=== PATIENT | male | born 1960 | race Caucasian/White ===

== ENCOUNTER → 2018-09-22 | Outpatient (CLI) | payer BC, SELFPAY ==
--- NOTE | 2018-09-22 09:25 | RAD_ITS ---
HISTORY: PAIN NKI COMPARISON: None FINDINGS: # of images incl. paperwork: 3 XR Wrist Min 3 Views : No fracture or subluxation. No osseous or soft tissue abnormality. The carpal bones have a normal appearance. The distal radius and ulna are unremarkable. No evidence of radiopaque foreign body. RAD/Wrist min 3 Views IMPRESSION: Normal left wrist. at 0020 Reported and signed by: Jarred Dukes MD Electronically Signed: Jarred Dukes MD at 0:19 EDT Tel , Service support ,
--- NOTE | 2018-09-22 09:35 | RAD_ITS ---
HISTORY: PAIN NKI COMPARISON: None FINDINGS: # of images incl. paperwork: 3 XR Wrist Min 3 Views : No fracture or subluxation. No osseous or soft tissue abnormality. The carpal bones have a normal appearance. The distal radius and ulna are unremarkable. No evidence of radiopaque foreign body. RAD/Wrist min 3 Views IMPRESSION: Normal right wrist. at 0020 Reported and signed by: Jarred Dukes MD Electronically Signed: Jarred Dukes MD at 0:19 EDT Tel , Service support ,
== END | disposition home or self-care (01) ==
LOC: RAD 09:23
PROVIDERS: Family Provider Family Medicine; PCP Family Medicine; Referring Provider Family Medicine; Visit Provider Family Medicine
DX: M25.531 Pain in right wrist (principal); M25.532 Pain in left wrist
CPT/HCPCS: 73110

== ENCOUNTER → 2020-01-24 11:03 | Outpatient (CLI) | payer BC, SELFPAY ==
[2020-01-24 11:49] LABS: Absolute Lymphocyte Count 1.11 X10^3/uL (0.83-4.51); Absolute Neutrophil Count 4.4 X10^3/uL (2.0-7.7); Basophil# 0.03 X10^3/uL; Basophil% 0.5 % (0-1); Eosinophil# 0.07 X10^3/uL; Eosinophils% 1.1 % (0-5); Hematocrit 45.8 % (40-54); Hemoglobin 14.8 g/dL (13.0-16.5); Lymphocyte # 1.11 X10^3/ul (4.0); Lymphocyte % 17.8 % (19-41); Mean Corp Hgb Conc 32.3 g/dL (32-36); Mean Corpuscular Hgb 31.3 pg (27.0-32.0); Mean Corpuscular Volume 96.8 fL (80-94); Mean Platelet Vol. 10.1 fl (6.2-12.0); Monocyte# 0.56 X10^3/uL; NRBC Flagged by Analyzer 0 % (0-5); Neutrophil # 4.43 X10^3/uL (2.7-7.7); Neutrophil % 71.1 % (47-70); Platelet Count 228 K/mm3 (150-450); RBC Distribution Width CV 12.3 % (11.6-14.6); Red Blood Count 4.73 M/mm3 (4.6-6.2); White Blood Count 6.2 K/mm3 (4.4-11.0)
[2020-01-24 12:33] LABS: ALB/GLOB Ratio 1.2 RATIO (0.9-2.4); AST(SGOT) 22 U/L (15-37); Alanine Aminotransfer ALT/SGPT 44 U/L (16-61); Albumin, Serum 4.1 g/dL (3.2-5.0); Alkaline Phosphatase 62 U/L (45-117); Anion Gap 9 (5-15); BUN 11 mg/dL (7-18); BUN/Creat Ratio 11.8 RATIO (10-20); Calcium,Total 8.7 mg/dL (8.5-10.1); Chloride 103 mmol/L (98-107); Cholesterol 244 mg/dL (200); Creatinine, Serum 0.93 mg/dL (0.70-1.30); EST Glomerular Filtration Rate 89 mL/min (>60); Est Glom Filt Rate - Afr Amer 108 mL/min (>60); Globulin 3.5 g/dL (2.2-4.2); Glucose 101 mg/dL (74-106); High Density Lipoprotein 73 mg/dL; PSA,Total - Annual Screen 3.91 ng/mL (0.00-4.00); Potassium 4.5 mmol/L (3.5-5.1); Protein, Total 7.6 g/dL (6.4-8.2); Sodium Level 140 mmol/L (136-145); Triglycerides 76 mg/dL; Very Low Density Lipoprotein 15 mg/dL (5-40)
== END ==
PROVIDERS: PCP Family Medicine; Visit Provider Family Medicine
DX: Z00.00 Encounter for general adult medical examination without abnormal findings (principal); Z12.5 Encounter for screening for malignant neoplasm of prostate
CPT/HCPCS: 36415; 80053; 80061; 84153; 85025; G0103

== ENCOUNTER 2020-07-04 10:17 | Outpatient (RCR) | payer BC, SELFPAY ==
[2020-06-21] MEDS: COVID-19 VACC, MRNA(PFIZER)/PF 30 MCG/0.3 ML SYRINGE IM (06:58)
[2020-07-12] MEDS: COVID-19 VACC, MRNA(PFIZER)/PF 30 MCG/0.3 ML SYRINGE IM (07:04)
== END 2020-09-11 23:59 ==
LOC: IMMUN 10:17
PROVIDERS: PCP Family Medicine; Visit Provider Family Medicine
DX: Z23 Encounter for immunization (principal)
CPT/HCPCS: 0001A; 0002A; 91300

== ENCOUNTER → 2021-02-01 09:33 | Outpatient (CLI) | payer BC, SELFPAY ==
--- NOTE | 2021-02-01 10:03 | STEWCON_ITS ---
Reason For Study: Chest Pain Stress Results Protocol: Cullen Protocol WITH DEFINITY Maximum Predicted HR: 162 bpm Target HR: 138 bpm % Maximum Predicted HR: 101 % DurationHeart Rate Stage (mm:ss) (bpm) BP Comment Baseline 68 148/92No Chest Pain; 4 ML Diluted Definity Cullen Protocol Stage I 3:00 108 184/90No Chest Pain Cullen Protocol Stage II 3:00 134 178/90No Chest Pain Cullen Protocol Stage III 3:00 155 186/90No Chest Pain; Mild Dyspnea Cullen Protocol Stage IV 1:00 164 / No Chest Pain; Mild Dyspnea Recovery 94 150/94No Chest Pain; No Dyspnea Stress Duration: 10:00 mm:ss Maximum Stress HR: 164 bpm METS: 13 Baseline Echocardiogram Findings Stress Echo Wall motion Data Resting WM Intermediate WM Stress WM ECHO/Stress Test Echo W/Contrast Interpretation Summary Exercise stress echo. 60-year-old male with a history of chest pain. Stress protocol: Resting EKG demonstrates normal sinus rhythm with a rate of 66 bpm normal inter vals are noted resting blood pressure is 148/92 mmHg. The patient exercised according to regul ar Cullen protocol for total duration of 10 minutes. Patient completed 1 minute into stage IV of the B ruce protocol. The maximum heart rate attained was 190 bpm which was 117% of max infected heart ra te the maximum workload was 13.4 metabolic equivalents. At rest there were no ST or T wave elvin nges noted to suggest ischemia and at peak exercise upsloping ST changes were noted with did not meet the criteria for ischemia. The patient did experience mild dyspnea during the exercise. The peak blood pressure was 220/90 mmHg. No clinical angina was noted the test was terminated due to leg fa tigue. Stress echocardiographic images. Resting and stress echocardiographic images were performed. The resting echocar diogram was performed with Definity and demonstrated an ejection fraction of 60%. No wall motion abno rmalities were present. At peak exercise there was thickening of all vital and reduction in lo w ventricular cavity size with peaking of ejection fraction approximately 70%. No wall motion abnorm alities were noted to suggest ischemia. Conclusion: Exercise stress test with no EKG criteria for ischemia at a high workload. Good functional capacity. Resting and stress echographic images with normal imaging. Ordering Physician: Dane Yoder Referring Physician: Timmy Garzon Performed By: Aixa Zapata, LIAT, RVT
== END ==
PROVIDERS: PCP Family Medicine; Referring Provider Family Medicine; Visit Provider Family Medicine
DX: R07.9 Chest pain, unspecified (principal)
CPT/HCPCS: 93017; 93350; Q9957; A4216; C8928; J3490

== ENCOUNTER → 2022-06-06 | Outpatient (CLI) | payer BC, SELFPAY ==
--- NOTE | 2022-06-06 16:21 | RAD_ITS ---
INDICATION: LOW BACK PAIN EXAMINATION/TECHNIQUE: X-RAY - XR Spine Lumbar Min 4 Views COMPARISON: None. FINDINGS: VERTEBRAE: Vertebral body heights well-maintained. Schmorl''s nodes are seen at the upper endplate of L3, L2, L1, and inferior endplate of T12 question Scheuermann''s disease. Mild diffuse anterior osteophyte formation. Moderate loss of disc space height at L4-S1. INCLUDED ABDOMEN: Included bowel gas pattern is non-obstructive. RAD/L/S Spine Min 4 Views IMPRESSION: Degenerative changes as above. Electronically Signed: Dane Newman MD, FILIPPO at 17:10 EST ,
== END | disposition home or self-care (01) ==
LOC: MTRAD 16:16
PROVIDERS: PCP Family Medicine; Referring Provider Family Medicine; Visit Provider Family Medicine
DX: M54.50 Low back pain, unspecified (principal)
CPT/HCPCS: 72110

== ENCOUNTER → 2024-08-15 | Outpatient (CLI) | payer OTHER, SELFPAY ==
--- NOTE | 2024-08-15 07:33 | VDLE_ITS ---
Reason For Study Reason For Study: Bilateral leg pain RIGHT LEFT CFV is compressible, spontaneous, phasic, competent CFV is compressible, spontaneous, phasic, competent, and demonstrates normal augmentation. and demonstrates normal augmentation. FV is compressible, spontaneous, phasic, competent FV is compressible, spontaneous, phasic, competent and demonstrates normal augmentation. and demonstrates normal augmentation. POP V is compressible, phasic, and INCOMPETENT for POP V is compressible, spontaneous, phasic, competent greater than 1.0 second. and demonstrates normal augmentation. T/P Trunk is compressible. T/P Trunk is compressible. PTV is compressible. PTV is compressible. RT PerV is compressible. LT PerV is compressible. SFJ is competent and measures 0.38 cm. SFJ is competent and measures 0.54 cm. GSV is absent, s/p EVLA. GSV and SSV are abesent, s/p EVLA GSV distal calf measures 0.12 x 0.14 cm and is GSV mid calf measures 0.16x 0.16 cm and is competent. INCOMPETENT for greater than 0.5 seconds. SSV mid calf is competent and measures 0.45 x 0.50 INCOMPETENT varicose veins noted in the prox-distal cm. calf. Unable to see origin. INCOMPETENT clinical material handler noted at mid SSV. INCOMPETENT clinical material handler noted at the posteror mid calf INCOMPETENT varicose veins noted at the posterior mid that connects to varicose veins in posterior calf. thigh that originate from prox thigh. ASV from junction measures 0.12 x 0.15 cm and becomes Procedure INCOMPETENT at prox thigh that then measures 0.39 cm. This is a venous duplex using B-mode, color flow and Wraps posterior to thigh and extends down to calf spectral Doppler. varicose veins. Exam performed in department. Patient was scanned in reverse Trendelenburg position during reflux assessment. VL/Venous Duplex US - [place] Extrem Interpretation Summary Deep veins of the bilateral lower extremities are patent and compressible segme ntally. There is no evidence of bilateral lower extremity deep vein thrombosis. The bilateral great saphenous veins appea r patent and compressible segmentally. Positive for reflux in the right popliteal vein, calf perofrator at small saphe nous vein, and in thigh varicose veins. Positive for reflux in the left great saphenous vein in the thigh, calf varicos ities, posterior mid calf clinical material handler, accessory saphenous from junction. Ordering Physician: Gabrielle Grover Referring Physician: Dane Yoder Performed By: Lilly Talley RVT
== END | disposition home or self-care (01) ==
PROVIDERS: PCP Family Medicine; Referring Provider Physician Assistant; Visit Provider Physician Assistant
DX: I83.813 Varicose veins of bilateral lower extremities with pain (principal)
CPT/HCPCS: 93970

== ENCOUNTER → 2024-09-16 | Outpatient (CLI) | payer OTHER, SELFPAY ==
[2024-09-16 17:46] LABS: Absolute Lymphocyte Count 1.81 X10^3/uL (0.83-4.51); Absolute Neutrophil Count 5.5 X10^3/uL (2.0-7.7); Basophil# 0.04 X10^3/uL; Basophil% 0.5 % (0-1); Eosinophil# 0.16 X10^3/uL; Eosinophils% 1.9 % (0-5); Hematocrit 44.7 % (40-54); Hemoglobin 14.8 g/dL (13.0-16.5); Lymphocyte # 1.81 X10^3/ul (0.83-4.51); Lymphocyte % 21.6 % (19-41); Mean Corp Hgb Conc 33.1 g/dL (32-36); Mean Corpuscular Hgb 31.7 pg (27.0-32.0); Mean Corpuscular Volume 95.7 fL (80-94); Mean Platelet Vol. 10.5 fl (6.2-12.0); Monocyte# 0.76 X10^3/uL; Monocyte% 9.1 % (0-10); NRBC Flagged by Analyzer 0 % (0-5); Neutrophil # 5.46 X10^3/uL (2.7-7.7); Platelet Count 246 K/mm3 (150-450); RBC Distribution Width SD 44.8 fl (35.1-43.9); Red Blood Count 4.67 M/mm3 (4.6-6.2); White Blood Count 8.4 K/mm3 (4.4-11.0)
[2024-09-16 18:00] LABS: ALB/GLOB Ratio 1.7 RATIO (0.9-2.4); AST(SGOT) 20 U/L (<=37); Alanine Aminotransfer ALT/SGPT 26 U/L (<=46); Albumin, Serum 4.5 g/dL (3.4-4.8); Alkaline Phosphatase 60 U/L (40-129); Anion Gap 13 (5-15); BUN 12 mg/dL (4-19); BUN/Creat Ratio 13.2 RATIO (10-20); Calcium,Total 9.3 mg/dL (7.6-11.0); Carbon Dioxide 24.7 mmol/L (21.0-32.0); Chloride 103 mmol/L (98-108); Cholesterol 226 mg/dL (<=200); Creatinine, Serum 0.94 mg/dL (0.70-1.20); EST Glomerular Filtration Rate 91 (>60); Globulin 2.7 g/dL (2.2-4.2); Glucose 68 mg/dL (70-99); High Density Lipoprotein 62 mg/dL; Low Density Lipoprotein Calc. 144 mg/dL; PSA,Total - Annual Screen 7.19 ng/mL (0.02-4.00); Potassium 3.9 mmol/L (3.3-5.1); Protein, Total 7.1 g/dL (5.9-8.4); Sodium Level 141 mmol/L (133-145); Total Bilirubin 0.56 mg/dL (0.00-1.30); Triglycerides 104 mg/dL; Very Low Density Lipoprotein 21 mg/dL (5-40); cholesterol:hdl ratio screen 3.67
== END | disposition home or self-care (01) ==
LOC: MTLAB 15:03
PROVIDERS: PCP Family Medicine; Referring Provider Family Medicine; Visit Provider Family Medicine
DX: Z00.00 Encounter for general adult medical examination without abnormal findings (principal); Z12.5 Encounter for screening for malignant neoplasm of prostate; Z82.49 Family history of ischemic heart disease and other diseases of the circulatory system
CPT/HCPCS: 36415; 80053; 80061; 83695; 84153; 85025; G0103

== ENCOUNTER → 2024-10-06 | Outpatient (CLI) | payer OTHER, SELFPAY ==
[2024-10-09 08:07] LABS: PSA, Free 1.08 ng/mL; PSA, Free % 17.6 % (.); PSA, Total Ultrasensitive 6.150 ng/mL (0.000-4.000)
== END | disposition home or self-care (01) ==
LOC: LAB 08:45
PROVIDERS: PCP Family Medicine; Referring Provider Urology; Visit Provider Urology
DX: R97.20 Elevated prostate specific antigen [PSA] (principal)
CPT/HCPCS: 36415; 84153; 84154

== ENCOUNTER 2024-10-20 08:31 | Day surgery (SDC) | payer OTHER, SELFPAY ==
[2024-10-19 08:13] VITALS: BMI 27.9
--- OUTSIDE RECORDS SUMMARY | 2024-10-20 09:14 | XMS RPT_ITS | CCD ---
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 Dane Yoder DO Primary Care Provider [phone] Dr. Dane Yoder DO Referring Provider [phone] Gabrielle Graves Attending Provider Gabrielle Graves Referring Provider Madhu MALIK, Dr. Mauricio Attending Provider [phone] Dr. Dane Yoder DO Attending Provider Etelvina MALIK, Dr. Jaiden Carrion Attending Provider [phone] Etelvina MALIK, Dr. Jaiden Carrion Referring Provider Gabrielle Grover Attending Unavailable Grover, Gabrielle Referring Unavailable Paresh, Dane Primary Care Unavailable Hang Leung Attending Unavailable Hang Leung Referring Unavailable Paresh, Dane Primary Care Unavailable Jaiden Main Attending Unavailable EtelvinaJaiden Referring Unavailable Paresh, Dane Primary Care Unavailable Grover, Gabrielle Attending Unavailable Paresh, Dane Referring Unavailable Paresh, Dane Primary Care Unavailable Grover, Gabrielle Attending Unavailable Paresh, Dane Referring Unavailable Paresh, Dane Primary Care Unavailable Hang Leung Attending Unavailable Paresh, Dane Primary Care Unavailable Paresh, Dane Attending Unavailable Paresh, Dane Referring Unavailable Paresh, Dane Primary Care Unavailable Paresh, Dane Attending Unavailable Paresh, Dane Primary Care Unavailable MadhuHang Attending Unavailable Paresh, Dane Primary Care Unavailable Grover, Gabrielle Referring Unavailable Medications Completed/Discontinued Medications Medication Drug Class(es) Dates Sig (Normalized) Sig (Original) acetaminophen 325 mg / oxyCODONE hydrochloride 5 mg oral tablet (5 sources) Opioid Agonist Start: 12-17-2013 End: 07-20-2024 Oxycodone-Acetamino phen 1 TABLET tablet Discontinued 1 - 2 {tbl} PO EVERY 6 HOURS NEEDED as needed for Pain March 22, 2013 1:00am July 20, 2024 11:11am Start: 03-22-2013 take 1 tablet by eligio th every six hours as needed Oxycodone-Acetaminophen Active 1 - 2 TABLET PO EVERY 6 HOURS NEEDED March 22, 2013 12:00am omeprazole 20 mg delayed release oral capsule (5 sources) Proton Pump Inhibitor Start: 03-18-2013 End: 07-20-2024 take 1 capsule by mouth once daily Omeprazole 20 MG capsule Discontinued 20 mg PO DAILY March 18, 2013 1:00am July 20, 2024 11:11am Problems Problem Classification Problem Date Documented Date Episodic/Chronic Other diseases of veins and lymphatics (10 sources) Vascular insufficiency; Translations: [Venous insufficiency (chronic) (peripheral)] 07-20-2024 Episodic Other diseases of veins and lymphatics (1 source) Venous insufficiency (chronic) (peripheral); Translations: [Venous insufficiency (chronic) (peripheral)] Onset: 09-29-2024 Episodic Other screening for suspected conditions (not mental disorders or infectious disease) (2 sources) Encounter for screening for cardiovascular disorders; Translations: [Elevated prostate specific antigen [PSA]] Onset: 10-03-2024 Episodic Varicose veins of lower extremity (12 sources) Varicose veins of lower extremity; Translations: [Varicose veins of bilateral lower extremities with pain] Onset: 10-14-2024 07-20-2024 Episodic Results Test Name Value Interpretation Reference Range Facility PSA Total+%Freeon 10-09-2024 PSA, FREE 1.08 ng/mL Normal N/A [facility] Comment on above: Result Comment: [place] ECLIA methodology. Performed By: #### L 3110.0500 #### [facility] [address] [place], [address] PSA, FREE % 17.6 Normal . [facility] Comment on above: Result Comment: The table below lists the probability of prostate cancer for men with non-suspicious [place] results and total PSA between 4 and 10 ng/mL, by patient age (Catalona et al, GUERITA 1998, 279:1542). % Free PSA 50-64 yr 65-75 yr 0.00-10.00% 56% 55% 10.01-15.00% 24% 35% 15.01-20.00% 17% 23% 20.01-25.00% 10% 20% >25.00% 5% 9% Please note: Gilberto et al did not make specific recommendations regarding the use of percent free PSA for any other population of men. Performed at: [address] [id number] Civil Engineering Teacher: Jaskaran Eaton PhD, Phone: [phone] Performed By: #### L 3110.0500 #### [facility] [address] [place], [address] PSA, TOTAL ULTR 6.150 ng/mL Abnormal 0.000-4.000 [facility] Comment on above: Result Comment: [place] ECLIA methodology. According to the [employer], Serum PSA should decrease and remain at undetectable levels after radical prostatectomy. The AUA defines biochemical recurrence as an initial PSA value 0.200 ng/mL or greater followed by a subsequent confirmatory PSA value 0.200 ng/mL or greater. Values obtained with different assay methods or kits cannot be used interchangeably. Results cannot be interpreted as absolute evidence of the presence or absence of malignant disease. Performed By: #### L 3110.0500 #### [facility] [address] [place], [address] Serum or plasma free prostat e specific antigen (PSA)/total PSA mass ratioOrdered By: Jaiden Main on 10-06-2024 Free PSA/Total PSA [Mass fraction] 17.6 % . [facility] Comment on above: The table below list s the probability of prostate cancer formen with non-suspicious [place] results and total PSA between4 and 10 ng/mL, by patient age (Catalona et al, GUERITA 1998,279:1542). % Free PSA 50-64 yr 65-75 yr 0.00-10.00% 56% 55% 10.01-15.00% 24% 35% 15.01-20.00% 17% 23% 20.01-25.00% 10% 20% >25.00% 5% 9%Please note: Gilberto et al did not make specific recommendations regarding the use of percent free PSA for any other population of men.Performed at: [email or web address] [id number] Director: Jaskaran Eaton PhD, Phone: [phone] Lipoprotein Aon 09-19-2024 Lipoprotein a [Moles/Vol] 44.2 nmol/L Normal <75.0 [facility] Comment on above: Order Comment: Test( s) 486701-[id number] (a) was developed and its performance characteristics determined by [facility]. It has not been cleared or approved by the Food and Drug Administration. Result Comment: Note : Values greater than or equal to 75.0 nmol/L may indicate an independent risk factor for CHD, but must be evaluated with caution when applied to non- populations due to the influence of genetic factors on Lp(a) across ethnicities. Performed at: [email or web address] [id number] Civil Engineering Teacher: Jaskaran Eaton PhD, Phone: [phone] Performed By: #### L 3400.4600, L100.0100, L500.4100, L501.9910, L500.4050 #### [facility] [address] [place], [address] Absolute lymphocyte countOrd ered By: Dane Yoder on 09-16-2024 Lymphocytes Auto (Unsp spec) [#/Vol] 1.81 10*3/uL 0.83-4.51 [facility] Absolute neutrophil countOrd ered By: Dane Yoder on 09-16-2024 Neutrophils (Bld) [#/Vol] 5.5 10*3/uL 2.0-7.7 [facility] Anion gap in Serum or Plasma Ordered By: Dane Yoder on 09-16-2024 Anion gap [Moles/Vol] 13 mmol/L 5-15 [facility] Automated lymphocyte count a s percentage of total leukocytesOrdered By: Dane Yoder on 06-13-2025 Lymphocytes/100 WBC Auto (Unsp spec) 21.6 % 19- [facility] BUN/creatinine ratioOrdered By: Dane Yoder on 09-16-2024 Urea nitrogen/Creatinine [Mass ratio] 13.2 mg/mg 10- [facility] Basophil percentageOrdered B y: Dane Yoder on 09-16-2024 Basophils/100 WBC (Bld) 0.5 % 0-1 [facility] Bilirubin, totalOrdered By: Dane Yoder on 09-16-2024 Bilirubin [Mass/Vol] 0.56 mg/dL Normal 0.00-1.30 [facility] Comment on above: Performed By: #### L 3400.4600, L100.0100, L500.4100, L501.9910, L500.4050 #### [facility] [address] [place], [address] CBC W/Diff, Automatedon 09-04 Absolute Lymph 1.81 X10 3/uL Normal 0.83-4.51 [facility] Comment on above: Performed By: #### L 3400.4600, L100.0100, L500.4100, L501.9910, L500.4050 #### [facility] [address] [place], [address] Absolute Neut 5.5 X10 3/uL Normal 2.0-7.7 [facility] Comment on above: Performed By: #### L 3400.4600, L100.0100, L500.4100, L501.9910, L500.4050 #### [facility] [address] [place], [address] Basophils/100 WBC (Bld) 0.5 % Normal 0-1 [facility] Comment on above: Performed By: #### L 3400.4600, L100.0100, L500.4100, L501.9910, L500.4050 #### [facility] [address] [place], [address] Eosinophils/100 WBC (Bld) 1.9 % Normal 0-5 [facility] Comment on above: Performed By: #### L 3400.4600, L100.0100, L500.4100, L501.9910, L500.4050 #### [facility] [address] [place], [address] Erythrocyte distribution width (RBC) [Ratio] 13.0 % Normal 11.6-14.6 [facility] Comment on above: Performed By: #### L 3400.4600, L100.0100, L500.4100, L501.9910, L500.4050 #### [facility] [address] [place], [address] Hematocrit (Bld) [Volume fraction] 44.7 % Normal 40-54 [facility] Comment on above: Performed By: #### L 3400.4600, L100.0100, L500.4100, L501.9910, L500.4050 #### [facility] [address] [place], [address] Hemoglobin (Bld) [Mass/Vol] 14.8 g/dL Normal 13.0-16.5 [facility] Comment on above: Performed By: #### L 3400.4600, L100.0100, L500.4100, L501.9910, L500.4050 #### [facility] [address] [place], [address] IG% 1.900 High 0.0-0.9 [facility] Comment on above: Result Comment: IG% - Immature Granulocytes (promyelocytes, myelocytes and metamyelocytes) > 1% indicates that a LEFT SHIFT is Present. Performed By: #### L 3400.4600, L100.0100, L500.4100, L501.9910, L500.4050 #### [facility] [address] [place], [address] Lymphocytes/100 WBC (Bld) 21.6 % Normal 19-41 [facility] Comment on above: Performed By: #### L 3400.4600, L100.0100, L500.4100, L501.9910, L500.4050 #### [facility] [address] [place], [address] MCH (RBC) [Entitic mass] 31.7 pg Normal 27.0-32.0 [facility] Comment on above: Performed By: #### L 3400.4600, L100.0100, L500.4100, L501.9910, L500.4050 #### [facility] [address] [place], [address] MCHC (RBC) [Mass/Vol] 33.1 g/dL Normal 32-36 [facility] Comment on above: Performed By: #### L 3400.4600, L100.0100, L500.4100, L501.9910, L500.4050 #### [facility] [address] [place], [address] MCV (RBC) [Entitic vol] 95.7 fL High 80-94 [facility] Comment on above: Performed By: #### L 3400.4600, L100.0100, L500.4100, L501.9910, L500.4050 #### [facility] [address] [place], [address] Monocytes/100 WBC (Bld) 9.1 % Normal 0-10 [facility] Comment on above: Performed By: #### L 3400.4600, L100.0100, L500.4100, L501.9910, L500.4050 #### [facility] [address] [place], [address] Neutrophils/100 WBC (Bld) 65.0 % Normal 47-70 [facility] Comment on above: Performed By: #### L 3400.4600, L100.0100, L500.4100, L501.9910, L500.4050 #### [facility] [address] [place], [address] Nucleated RBC (Bld) [#/Vol] 0 10*3/uL Normal 0-5 [facility] Comment on above: Performed By: #### L 3400.4600, L100.0100, L500.4100, L501.9910, L500.4050 #### [facility] [address] [place], [address] Platelet mean volume (Bld) [Entitic vol] 10.5 fL Normal 6.2-12.0 [facility] Comment on above: Performed By: #### L 3400.4600, L100.0100, L500.4100, L501.9910, L500.4050 #### [facility] [address] [place], [address] Platelets (Bld) [#/Vol] 246 10*3/uL Normal 150-450 [facility] Comment on above: Performed By: #### L 3400.4600, L100.0100, L500.4100, L501.9910, L500.4050 #### [facility] [address] [place], [address] RBC (Bld) [#/Vol] 4.67 10*6/uL Normal 4.6-6.2 [facility] Comment on above: Performed By: #### L 3400.4600, L100.0100, L500.4100, L501.9910, L500.4050 #### [facility] [address] [place], [address] RDW SD 44.8 fl High 35.1-43.9 [facility] Comment on above: Performed By: #### L 3400.4600, L100.0100, L500.4100, L501.9910, L500.4050 #### [facility] [address] [place], [address] WBC (Bld) [#/Vol] 8.4 10*3/uL Normal 4.4-11.0 [facility] Comment on above: Performed By: #### L 3400.4600, L100.0100, L500.4100, L501.9910, L500.4050 #### [facility] [address] [place], [address] Calculated very low density lipoprotein (VLDL) cholesterol measurementOrdered By: Dane Yoder on 09-16-2024 Calculated very low density lipoprotein (VLDL) cholesterol measurement 21 mg/dL 5-40 [facility] Carbon dioxide, total [Moles /volume] in Central venous bloodOrdered By: Dane Yoder on 09-16-2024 CO2 [Moles/Vol] 24.7 mmol/L Normal 21.0-32.0 [facility] Comment on above: Performed By: #### L 3400.4600, L100.0100, L500.4100, L501.9910, L500.4050 #### [facility] [address] [place], [address] Chloride assayOrdered By: Yanick Yoder on 09-16-2024 Chloride [Moles/Vol] 103 mmol/L Normal 98-108 [facility] Comment on above: Performed By: #### L 3400.4600, L100.0100, L500.4100, L501.9910, L500.4050 #### [facility] [address] [place], [address] Comprehensive Metabolic Prof ilon 09-16-2024 ALK PHOS 60 U/L Normal 40-129 [facility] Comment on above: Performed By: #### L 3400.4600, L100.0100, L500.4100, L501.9910, L500.4050 #### [facility] [address] [place], [address] BUN/CRE 13.2 RATIO Normal 10-20 [facility] Comment on above: Performed By: #### L 3400.4600, L100.0100, L500.4100, L501.9910, L500.4050 #### [facility] [address] [place], [address] GAP 13 Normal 5-15 [facility] Comment on above: Performed By: #### L 3400.4600, L100.0100, L500.4100, L501.9910, L500.4050 #### [facility] [address] [place], [address] Potassium [Moles/Vol] 3.9 mmol/L Normal 3.3-5.1 [facility] Comment on above: Performed By: #### L 3400.4600, L100.0100, L500.4100, L501.9910, L500.4050 #### [facility] [address] [place], [address] T PROT 7.1 g/dL Normal 5.9-8.4 [facility] Comment on above: Performed By: #### L 3400.4600, L100.0100, L500.4100, L501.9910, L500.4050 #### [facility] [address] [place], [address] Comprehensive Metabolic Prof ilOrdered By: Dane Yoder on 09-16-2024 AST [Catalytic activity/Vol] 20 U/L Normal <=37 [facility] Comment on above: Performed By: #### L 3400.4600, L100.0100, L500.4100, L501.9910, L500.4050 #### [facility] [address] [place], [place], [address] Eosinophil percentageOrdered By: Dane Yoder on 09-16-2024 Eosinophils/100 WBC (Bld) 1.9 % 0-5 [facility] Erythrocyte distribution wid th ratioOrdered By: Dane Paresh on 09-16-2024 Erythrocyte distribution width (RBC) [Ratio] 13.0 % 11.6-14.6 [facility] Erythrocyte distribution wid th standard deviationOrdered By: Dane Paresh on 09-16-2024 Erythrocyte distribution width (RBC) [Ratio] 44.8 fl High 35.1-43.9 [facility] Glomerular filtration rate ( GFR) estimation/1.73 sq m using serum, plasma, or whole bOrdered By: Dane Yoder on 09-16-2024 GFR/1.73 sq M.predicted among non-blacks MDRD (S/P/Bld) [Vol rate/Area] 91 mL/min/{1.73_m2} Normal >60 [facility] Comment on above: mL/min/1.73m2 CKD-EP I Creatinine Equation (2020) Result Comment: mL/m in/1.73m2 CKD-EPI Creatinine Equation (2020) Performed By: #### L 3400.4600, L100.0100, L500.4100, L501.9910, L500.4050 #### [facility] [address] [place], [place], [address] Hematocrit Auto (Bld) [Volum e fraction]Ordered By: Dane Yodre on 09-16-2024 Hematocrit (Bld) [Volume fraction] 44.7 % 40-54 [facility] Hemoglobin measurementOrdere d By: Dane Yoder on 09-16-2024 Hemoglobin (Bld) [Mass/Vol] 14.8 g/dL 13.0-16.5 [facility] Immature granulocytes/100 WB C Auto (Bld)Ordered By: Dane Yoder on 09-16-2024 Immature granulocytes/100 WBC (Bld) 1.900 % High 0.0-0.9 [facility] Comment on above: IG% - Immature Granu locytes (promyelocytes, myelocytes and metamyelocytes) > 1% indicates that a LEFT SHIFT is Present. LDL calc ser/plasOrdered By: Dane Yoder on 09-16-2024 Cholesterol in LDL [Mass/Vol] 144 mg/dL Normal [facility] Comment on above: Ynizgkylvn=690-338 m g/dL & Higher Ljey=835 mg/dL or greater Result Comment: Bord tfuniw=094-492 mg/dL Higher Rpmq=345 mg/dL or greater Performed By: #### L 3400.4600, L100.0100, L500.4100, L501.9910, L500.4050 #### [facility] [address] [place], [address] Lipid Profileon 09-16-2024 CHOL:HDL 3.67 Normal [facility] Comment on above: Performed By: #### L 3400.4600, L100.0100, L500.4100, L501.9910, L500.4050 #### [facility] [address] [place], [address] Cholesterol in VLDL [Mass/Vol] 21 mg/dL Normal 5-40 [facility] Comment on above: Performed By: #### L 3400.4600, L100.0100, L500.4100, L501.9910, L500.4050 #### [facility] [address] [place], [address] Lipoprotein a [Mass/Vol]Orde red By: Dane Yoder on 09-16-2024 Lipoprotein a [Moles/Vol] 44.2 nmol/L <75.0 [facility] Comment on above: Note: Values greater than or equal to 75.0 nmol/L may indicate an independent risk factor for CHD, but must be evaluated with caution when applied to non- populations due to the influence of genetic factors on Lp(a) across ethnicities.Performed at: [facility] [id number] Director: Jaskaran Eaton PhD, Phone: [phone] MCV (mean corpuscular volume ) determinationOrdered By: Dane Yoder on 09-16-2024 MCV (RBC) [Entitic vol] 95.7 fL High 80-94 [facility] Mean corpuscular hemoglobin (MCH) determinationOrdered By: Dane Yoder on 09-16-2024 MCH (RBC) [Entitic mass] 31.7 pg 27.0-32.0 [facility] Mean corpuscular hemoglobin concentration (MCHC) determinationOrdered By: Dane Yoder on 09-16-2024 MCHC (RBC) [Mass/Vol] 33.1 g/dL 32-36 [facility] Mean platelet volume determi nationOrdered By: Dane Yoder on 09-16-2024 Platelet mean volume (Bld) [Entitic vol] 10.5 fL 6.2-12.0 [facility] Monocyte percentageOrdered B y: Dane Yoder on 09-16-2024 Monocytes/100 WBC (Bld) 9.1 % 0-10 [facility] Neutrophil percentageOrdered By: Dane Yoder on 09-16-2024 Neutrophils/100 WBC (Bld) 65.0 % 47-70 [facility] Nucleated red blood cell per centageOrdered By: Dane Yoder on 09-16-2024 Nucleated RBC/100 WBC (Bld) [Ratio] 0 % 0-5 [facility] PSA,Total - Annual Screenon 09-16-2024 PSA,TOT SCREEN 7.19 ng/mL High 0.02-4.00 [facility] Comment on above: Result Comment: This test was performed using the [employer] tPSA method. Measured values of a patient??sample can vary depending on the testing procedure used. PSA values determined on patient samples by different testing procedures cannot be used interchangeably. If there is a change in PSA assays while monitoring therapy, sequential testing should be performed to confirm baseline values. Performed By: #### L 3400.4600, L100.0100, L500.4100, L501.9910, L500.4050 #### [facility] [address] [place], [address] Platelet countOrdered By: Yanick Yoder on 09-16-2024 Platelets (Bld) [#/Vol] 246 10*3/uL 150-450 [facility] Potassium measurement (mass/ volume)Ordered By: Dane Yoder on 09-16-2024 Potassium (Unsp spec) [Mass/Vol] 3.9 mmol/L 3.3-5.1 [facility] RBC Auto (Bld) [#/Vol]Ordere d By: Dane Yoder on 09-16-2024 RBC (Bld) [#/Vol] 4.67 10*6/uL 4.6-6.2 [facility] Screening total cholesterol/ high density lipoprotein (HDL) cholesterol ratioOrdered By: Dane Yoder on 09-16-2024 Cholesterol.total/Cholest albert in HDL [Mass ratio] 3.67 {ratio} [facility] Serum creatinine measurement (mass/volume)Ordered By: Dane Yoder on 09-16-2024 Creatinine [Mass/Vol] 0.94 mg/dL Normal 0.70-1.20 [facility] Comment on above: Performed By: #### L 3400.4600, L100.0100, L500.4100, L501.9910, L500.4050 #### [facility] [address] [place], [address] Serum globulin measurementOr dered By: Dane Yoder on 09-16-2024 Globulin (S) [Mass/Vol] 2.7 g/dL Normal 2.2-4.2 [facility] Comment on above: Performed By: #### L 3400.4600, L100.0100, L500.4100, L501.9910, L500.4050 #### [facility] [address] [place], [place], [address] Serum glucose measurement (m ass/volume)Ordered By: Dane Yoder on 09-16-2024 Glucose [Mass/Vol] 68 mg/dL Low 70-99 [facility] Comment on above: Performed By: #### L 3400.4600, L100.0100, L500.4100, L501.9910, L500.4050 #### [facility] [address] [place], [address] Serum or plasma alanine jarrell otransferase (ALT) measurementOrdered By: Dane Yoder on 09-16-2024 ALT [Catalytic activity/Vol] 26 U/L Normal <=46 [facility] Comment on above: Performed By: #### L 3400.4600, L100.0100, L500.4100, L501.9910, L500.4050 #### [facility] [address] [place], [address] Serum or plasma albumin rosa m urement (mass/volume)Ordered By: Dane Yoder on 09-16-2024 Albumin [Mass/Vol] 4.5 g/dL Normal 3.4-4.8 [facility] Comment on above: Performed By: #### L 3400.4600, L100.0100, L500.4100, L501.9910, L500.4050 #### [facility] [address] [place], [address] Serum or plasma albumin/glob ulin mass ratioOrdered By: Dane Yoder on 09-16-2024 Albumin/Globulin [Mass ratio] 1.7 {ratio} Normal 0.9-2.4 [facility] Comment on above: Performed By: #### L 3400.4600, L100.0100, L500.4100, L501.9910, L500.4050 #### [facility] [address] [place], [address] Serum or plasma alkaline laura sphatase measurementOrdered By: Dane Yoder on 09-16-2024 ALP [Catalytic activity/Vol] 60 U/L 40-129 [facility] Serum or plasma calcium rosa m urement (mass/volume)Ordered By: Dane Yoder on 09-16-2024 Calcium [Mass/Vol] 9.3 mg/dL Normal 7.6-11.0 [facility] Comment on above: Performed By: #### L 3400.4600, L100.0100, L500.4100, L501.9910, L500.4050 #### [facility] [address] [place], [place], [address] Serum or plasma cholesterol in HDL measurement (mass/volume)Ordered By: Dane Paresh on 09-16-2024 Cholesterol in HDL [Mass/Vol] 62 mg/dL Normal [facility] Comment on above: National Cholesterol Education Program (NCEP) guidelines:<40 mg/dL: Low HDL-cholesterol (major risk factor for CHD)>= 60 mg/dL: High HDL-cholesterol (negative risk factor for CHD)HDL-cholesterol is affected by a number of factors, e.g. smoking, exercise, hormones, sex and age. Result Comment: [place] Cholesterol Education Program (NCEP) guidelines: <40 mg/dL: Low HDL-cholesterol (major risk factor for CHD) >= 60 mg/dL: High HDL-cholesterol (negative risk factor for CHD) HDL-cholesterol is affected by a number of factors, e.g. smoking, exercise, hormones, sex and age. Performed By: #### L 3400.4600, L100.0100, L500.4100, L501.9910, L500.4050 #### [facility] [address] [place], [address] Serum or plasma cholesterol measurement (mass/volume)Ordered By: Dane Yoder on 09-16-2024 Cholesterol [Mass/Vol] 226 mg/dL High <=200 [facility] Comment on above: Cholesterol level, D esirable <200 mg/dLBorderline high cholesterol 200-239 mg/dLHigh cholesterol >=240 mg/dLRecommendations of the NCEP Adult Treatment Panel for the following risk-cutoff thresholds for the [place] population. Result Comment: Chol esterol level, Desirable <200 mg/dL Borderline high cholesterol 200-239 mg/dL High cholesterol >=240 mg/dL Recommendations of the NCEP Adult Treatment Panel for the following risk-cutoff thresholds for the [place] population. Performed By: #### L 3400.4600, L100.0100, L500.4100, L501.9910, L500.4050 #### [facility] [address] [place], [address] Serum or plasma urea nitroge n measurement (mass/volume)Ordered By: Dane Yoder on 09-16-2024 Urea nitrogen [Mass/Vol] 12 mg/dL Normal 4-19 [facility] Comment on above: Performed By: #### L 3400.4600, L100.0100, L500.4100, L501.9910, L500.4050 #### [facility] [address] [place], [address] Sodium levelOrdered By: Dane Yoder on 09-16-2024 Sodium [Moles/Vol] 141 mmol/L Normal 133-145 [facility] Comment on above: Performed By: #### L 3400.4600, L100.0100, L500.4100, L501.9910, L500.4050 #### [facility] [address] [place], [address] Total proteinOrdered By: Marcela Yoder on 09-16-2024 Protein [Mass/Vol] 7.1 g/dL 5.9-8.4 [facility] Triglycerides measurementOrd ered By: Dane Yoder on 09-16-2024 Triglyceride [Mass/Vol] 104 mg/dL Normal [facility] Comment on above: The drugs N-Acetylcy steine and Metamizole may falsely depress this assay. Normal range: <150 mg/dLBorderline High: 150-199 mg/dLHigh: 200-499 mg/dLVery High: >500 mg/dL Result Comment: The drugs N-Acetylcysteine and Metamizole may falsely depress this assay. Normal range: <150 mg/dL Borderline High: 150-199 mg/dL High: 200-499 mg/dL Very High: >500 mg/dL Performed By: #### L 3400.4600, L100.0100, L500.4100, L501.9910, L500.4050 #### [facility] [address] [place], [address] White blood cell (WBC) count Ordered By: Dane Yoder on 09-16-2024 WBC (Bld) [#/Vol] 8.4 10*3/uL 4.4-11.0 [facility] MR/BMS.BVSon 08-31-2024 MR/BMS.BVS [facility] [address] [place] [address] OFFICE VISIT Date of Service: 08/31/24 MR#: [id number] Acct: [id number] Name: TRISTAN ZARCO Rep #: [id number] : 1960 Provider: BELEN Marin Age/Sex: 64/M Location[facility] Status: Signed Intake Vital Signs 01/25/21 17:00 08/31/24 08:26 Height 6 ft Weight: 206 lb BP 174/90 H Blood Pressure Location Lt brachial Position Sitting Respiration 16 Pulse 63 Pulse Source Monitor Temp 97.7 F L Temp Source Temporal Pulse Oximetry (%) 96 Oxygen Delivery Method room air Intake Visit Reasons: Discuss US Is patient in pain?: Yes Allergies No Known Allergies Allergy (Verified 08/31/24 08:28) Have you fallen in the past year?: No PFSH Family History (Updated 07/20/24 @ 11:09 by Jody Gutierrez) Other Cancer Heart disease Myocardial infarction Social History Smoking Status: Former smoker HPI HPI HPI: TRISTAN ZARCO, is a 64 M who presents to the office today for follow-up of symptomatic varicose veins particularly on his posterior LLE. 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 He continues to have discomfort with aching pain in his posterior thigh/calf varicosities. He has worn thigh-high compression stockings and been consistent with activity and leg elevation without improvement. ROS General General: No weight change, appetite, fatigue, colon cancer, breast cancer or weakness HEENT HEENT: No difficulty swallowing, eye injury, eye surgery, swollen glands or hoarseness Endo Endocrine: No thyroid disease, diabetes mellitus, thyroid cancer, Hair loss, heat intolerance or cold intolerance Skin Skin: No rash or changing moles Musc Musculoskeletal: Yes back problems and joint pain; No arthritis, rheumatoid arthritis or gout Cardio Cardiovascular: No murmur, pacemaker, heart disease, atrial fibrillation, high blood pressure, heart attack, heart stent, palpitations, shortness of breath with exertion or chest pain Psych Psychiatric: No depression, anxiety or hearing voices Resp Respiratory: No shortness of breath, No sleep apnea, No cough, No COPD, No asthma, No emphysema and No wheezing Gastro Gastrointestinal: No abdominal pain, No nausea or vomiting, No diarrhea, No constipation, No blood in stool, No acid reflux, Yes hemorrhoids, No ulcers, No gallbladder problem and No black,tarry stools Jarad Hematologic: No blood thinners, No blood disorders, No bleeding, No anemia and No blood clots Neuro Neurologic: No system reviewed and no additional complaints, except as documented, No as per HPI, No abnormal gait, No abnormal hearing, No abnormal movements, No abnormal speech, No behavioral changes, Yes burning sensations, No confusion, No convulsions, No disequilibrium, No dizziness, No localized weakness, No frequent falls, No headache(s), No lack of coordination, No loss of vision, No memory loss, No numbness, No other visual disturbances, Yes radicular pain, Yes restless legs, No sensory deficit, No syncope, No tingling, No tremor(s), No weakness and No other Exam Const General: cooperative, comfortable and no acute distress Orientation: alert, awake and oriented x3 [facility] Head: normal to inspection, normocephalic and atraumatic Ears: hearing grossly normal bilaterally and external ears normal Nose: external nose normal Eyes General: appearance normal, both eyes and all related structures EOM: EOM intact bilaterally Neck Neck: normal visual inspection and trachea midline Carotids: no bruits Resp Effort Inspection: normal respiratory effort, able to speak in complete sentences, not labored, no respiratory distress, no retractions, no stridor and no use of accessory muscles Cardio Rate: regular rate Rhythm: regular rhythm Pulses: brachial pulses present and radial pulses present Skin General: no rashes or lesions noted Trauma: no lacerations or abrasions Wounds: no wounds Neuro General: gait normal, moves all extremities, no focal motor deficits and CN's II-XI intact bilaterally Speech: speech normal Sensory Exam: no sensory deficits noted Extremities Lower Extremity Edema: None: Bilateral Veins: Bilateral: Varicose Veins and Bilateral: Reticular Veins Additional Details: area of greatest symptoms corresponds to a prominent cluster of varicosities in the left posterolateral proximal thigh Psych Appearance: grossly normal Mental Status: mental status grossly normal Affect: gomez (more content not included)... Normal [facility] Venous Duplex US - [place] Extre [facility] 08-15-2024 Venous Duplex US - [place] Extrem [facility] [address] [place] [address] Venous Duplex US - [place] Extrem 08/15/24 0808 MR#: [id number] Acct: [id number] Name: TRISTAN ZARCO Rep #: [id number] : 1960 64 From: Hang Leung MD Attending Dr: BELEN Marin Status: REG CLI Ordering Dr: Gabrielle Grover Date: 08/15/24 Location: [facility] Sex: M C Admitted: Reason For Study Reason For Study: Bilateral leg pain RIGHT LEFT CFV is compressible, spontaneous, phasic, competent CFV is compressible, spontaneous, phasic, competent, and demonstrates normal augmentation. and demonstrates normal augmentation. FV is compressible, spontaneous, phasic, competent FV is compressible, spontaneous, phasic, competent and demonstrates normal augmentation. and demonstrates normal augmentation. POP V is compressible, phasic, and INCOMPETENT for POP V is compressible, spontaneous, phasic, competent greater than 1.0 second. and demonstrates normal augmentation. T/P Trunk is compressible. T/P Trunk is compressible. PTV is compressible. PTV is compressible. RT PerV is compressible. LT PerV is compressible. SFJ is competent and measures 0.38 cm. SFJ is competent and measures 0.54 cm. GSV is absent, s/p EVLA. GSV and SSV are abesent, s/p EVLA GSV distal calf measures 0.12 x 0.14 cm and is GSV mid calf measures 0.16x 0.16 cm and is competent. INCOMPETENT for greater than 0.5 seconds. SSV mid calf is competent and measures 0.45 x 0.50 INCOMPETENT varicose veins noted in the prox-distal cm. calf. Unable to see origin. INCOMPETENT thermo cementing folder operator noted at mid SSV. INCOMPETENT thermo cementing folder operator noted at the posteror mid calf INCOMPETENT varicose veins noted at the posterior mid that connects to varicose veins in posterior calf. thigh that originate from prox thigh. ASV from junction measures 0.12 x 0.15 cm and becomes Procedure INCOMPETENT at prox thigh that then measures 0.39 cm. This is a venous duplex using B-mode, color flow and Wraps posterior to thigh and extends down to calf spectral Doppler. varicose veins. Exam performed in department. Patient was scanned in reverse Trendelenburg position during reflux assessment. VL/Venous Duplex US - [place] Extrem Interpretation Summary Deep veins of the bilateral lower extremities are patent and compressible segmentally. There is no evidence of bilateral lower extremity deep vein thrombosis. The bilateral great saphenous veins appear patent and compressible segmentally. Positive for reflux in the right popliteal vein, calf perofrator at small saphenous vein, and in thigh varicose veins. Positive for reflux in the left great saphenous vein in the thigh, calf varicosities, posterior mid calf thermo cementing folder operator, accessory saphenous from junction. __ Ordering Physician: Gabrielle Grover Referring Physician: Dane Yoder Performed By: Lilly Talley T 08/15/24 1421 Date Hang Leung MD CC: BELEN Marin; Dr. Dane Yoder, Date Dictated: 08/15/24 0808 Date Transcribed: 08/15/24 1547 Event Mgr: Signed Normal [facility] Venous duplex ultrasound rep ortOrdered By: Hang Leung on 08-15-2024 US Vein [facility] [address] [place] [address] Venous Duplex US - [place] Extrem 08/15/24 0808 MR#: [id number] Acct: [id number] Name: TRISTAN ZARCO Rep #:[id number] : 1960 64 From: Hang Contreras Attending Dr: BELEN Marin Stat us: REG CLI Ordering Dr: Gabrielle Grover Date: Location: [facility] Sex: M C Admitted: Reason For Study Reason For Study: Bilateral leg pain RIGHT LEFT CFV is compressible, spontaneous, phasic, competent CFV is compressible, spontaneous, phasic, competent, and demonstrates normal augmentation. and demonstrates normal augmentation. FV is compressible, spontaneous, phasic, competent FV is compressible, spontaneous, phasic, competent and demonstrates normal augmentation. and demonstrates normal augmentation. POP V is compressible, phasic, and INCOMPETENT for POP V is compressible, spontaneous, phasic, competent greater than 1.0 second. and demonstrates normal augmentation. T/P Trunk is compressible. T/P Trunk is compressible. PTV is compressible. PTV is compressible. RT PerV is compressible. LT PerV is compressible. SFJ is competent and measures 0.38 cm. SFJ is competent and measures 0.54 cm. GSV is absent, s/p EVLA. GSV and SSV are abesent, s/p EVLA GSV distal calf measures 0.12 x 0.14 cm and is GSV mid calf measures 0.16x 0.16 cm and is competent. INCOMPETENT for greater than 0.5 seconds. SSV mid calf is competent and measures 0.45 x 0.50 INCOMPETENT varicose veins noted in the prox-distal cm. calf. Unable to see origin. INCOMPETENT thermo cementing folder operator noted at mid SSV. INCOMPETENT thermo cementing folder operator noted at the posteror mid calf INCOMPETENT varicose veins noted at the posterior mid that connects to varicose veins in posterior calf. thigh that originate from prox thigh. ASV from junction measures 0.12 x 0.15 cm and becomes Procedure INCOMPETENT atprox thigh that then measures 0.39 cm. This is a venous duplex using B-mode, color flow and Wraps posterior to thigh and extends down to calf spectral Doppler. varicose veins. Exam performed in department. Patient was scanned in reverse Trendelenburg position during reflux assessment. VL/Venous Duplex US - [place] Extrem Interpretation Summary Deep veins of the bilateral lower extremities are patent and compressible segmentally. There is no evidence of bilateral lower extremity deep vein thrombosis. The bilateral great saphenous veins appearpatent and compressible segmentally. Positive for reflux in the right popliteal vein, calf perofrator at small saphenous vein, and in thigh varicose veins. Positive for reflux in the left great saphenous vein in the thigh, calf varicosities, posterior mid calf thermo cementing folder operator, accessory saphenous from junction. __ Ordering Physician: Gabrielle Grover Referring Physician: Dane Yoder Performed By: Lilly Talley, SARAY 08/15/245 Date _ Hang Leung MD CC: BELEN Marin; Dr. Dane Yoder, DO ~ Date Dictated: 08/15/24 0808 Date Transcribed: 08/15/241424 Event Mgr: Signed [facility] Work Phone: /Jimmy 07-20-2024 /CLAUDE [facility] [address] [place] [address]. [address] [place] [address] OFFICE VISIT Date of Service: 07/20/24 MR#: [id number] Acct: [id number] Name: TRISTAN ZARCO Rep #: [id number] : 1960 Provider: BELEN Marin Age/Sex: 64/M Location: [facility] [place] Status: Signed Intake Vital Signs 01/25/21 17:00 07/20/24 11:09 Height 6 ft Weight: 206 lb BP 178/98 H Blood Pressure Location Lt brachial Position Sitting Respiration 16 Pulse 73 Pulse Source Monitor Temp 97.1 F L Temp Source Temporal Pulse Oximetry (%) 97 Oxygen Delivery Method room air Intake Visit Reasons: Varicose Veins Chief Complaint: establish care Is patient in pain?: No Allergies No Known Allergies Allergy (Verified 07/20/24 11:11) Have you fallen in the past year?: No PFSH Family History (Updated 07/20/24 @ 11:09 by Jody Gutierrez) Other Cancer Heart disease Myocardial infarction Social History Smoking Status: Former smoker HPI HPI HPI: TRISTAN ZARCO, is a 64 M who presents to the office today for evaluation of painful varicose veins, particularly in his LLE. 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 He has had multiple prior venous interventions dating back to his teens. Most recently, he'd had L GSV, SSV and R SGV, SSV EVLA in 2011 and numerous phlebectomies bilaterally in [address] Gallegos. Over the last year or so he has had increasing discomfort in his LLE varicosities, particularly in a cluster on his posterolateral proximal thigh. He is very good about avoiding prolonged idle sitting/standing and elevating his legs at rest. He has gotten away from compression stockings but he does have some at home. He reports a history of 1 prior infrapopliteal DVT following one of his ablations in 2011; he was treated with a 6 week course of anticoagulation. He has not had any recurrence since then. He denies any history of abdominal/pelvic surgery or radiation. ROS General General: No weight change, appetite, fatigue, colon cancer, breast cancer or weakness HEENT HEENT: No difficulty swallowing, eye injury, eye surgery, swollen glands or hoarseness Endo Endocrine: No thyroid disease, diabetes mellitus, thyroid cancer, Hair loss, heat intolerance or cold intolerance Skin Skin: No rash or changing moles Musc Musculoskeletal: Yes back problems; No arthritis, rheumatoid arthritis, gout or joint pain Cardio Cardiovascular: No murmur, pacemaker, heart disease, atrial fibrillation, high blood pressure, heart attack, heart stent, palpitations, shortness of breath with exertion or chest pain Psych Psychiatric: No depression, anxiety or hearing voices Resp Respiratory: No shortness of breath, No sleep apnea, No cough, No COPD, No asthma, No emphysema and No wheezing Gastro Gastrointestinal: No abdominal pain, No nausea or vomiting, No diarrhea, No constipation, No blood in stool, No acid reflux, Yes hemorrhoids, No ulcers, No gallbladder problem and No black,tarry stools Jarad Hematologic: No blood thinners, No blood disorders, No bleeding, No anemia and No blood clots Neuro Neurologic: No system reviewed and no additional complaints, except as documented, No as per HPI, No abnormal gait, No abnormal hearing, No abnormal movements, No abnormal speech, No behavioral changes, No burning sensations, No confusion, No convulsions, No disequilibrium, No dizziness, No localized weakness, No frequent falls, No headache(s), No lack of coordination, No loss of vision, No memory loss, No numbness, No other visual disturbances, No radicular pain, Yes restless legs, No sensory deficit, No syncope, No tingling, No tremor(s), No weakness and No other Exam Const General: cooperative, comfortable and no acute distress Orientation: alert, awake and oriented x3 [facility] Head: normal to inspection, normocephalic and atraumatic Ears: hearing grossly normal bilaterally and external ears normal Nose: external nose normal Eyes General: appearance normal, both eyes and all related structures EOM: EOM intact bilaterally Neck Neck: normal visual inspection and trachea midline Carotids: no bruits Resp Effort Inspection: normal respiratory effort, able to speak in complete sentences, not labored, no respiratory distress, no retractions, no stridor and no use of accessory muscles Cardio Rate: regular rate Rhythm: regular rhythm Pulses: brachial pulses present and radial pulses present Skin General: no rashes or lesions noted Trauma: no lacerations or abrasions Wounds: no wounds Neuro General: gait normal, moves all extremities, no focal motor deficits and CN's II-XI intact bilaterally Speech: speech normal Sensory Exam: no sensory deficits noted Extremities (more content not included)... Normal [facility] Vital Signs Date Time Vital Sign Value Performing Clinician Faci lity 05-28-2025 08:26-0400 Body temperature 97.7 [degF] Dr. Dane Yoder DO Work Phone: [facility] 08-31-2024 08:26-0400 Body weight 93.[address] Dane Yoder DO Work Phone: [facility] 08-31-2024 08:26-0400 Diastolic blood pressure 90 mm[Hg] Dr. Dane Yoder DO Work Phone: [facility] 08-31-2024 08:26-0400 Heart rate 63 /min Dr. Dane Yoder DO Work Phone: [facility] 08-31-2024 08:26-0400 Respiratory rate 16 /min Dr. Dane Yoder DO Work Phone: [facility] 08-31-2024 08:26-0400 SaO2% (BldA) [Mass fraction] 96 % Dr. Dane Yoder DO Work Phone: [facility] 08-31-2024 08:26-0400 Systolic blood pressure 174 mm[Hg] Dr. Dane Yoder DO Work Phone: [facility] 07-20-2024 11:09-0400 Body temperature 97.1 [degF] Dr. Dane Yoder DO Work Phone: [facility] 07-20-2024 11:09-0400 Body weight 93.[address] Dane Yoder DO Work Phone: [facility] 07-20-2024 11:09-0400 Diastolic blood pressure 98 mm[Hg] Dr. Dane Yoder DO Work Phone: [facility] 07-20-2024 11:09-0400 Heart rate 73 /min Dr. Dane Yoder DO Work Phone: [facility] 07-20-2024 11:09-0400 Respiratory rate 16 /min Dr. Dane Yoder DO Work Phone: [facility] 07-20-2024 11:09-0400 SaO2% (BldA) [Mass fraction] 97 % Dr. Dane Yoder DO Work Phone: [facility] 07-20-2024 11:09-0400 Systolic blood pressure 178 mm[Hg] Dr. Dane Yoder DO Work Phone: [facility] Encounters Encounter Date Encounter Type Care Provider Facility Start: 10-13-2024 ambulatory Hang Leung Facility:[facility] Start: 10-06-2024 End: 10-06-[address] Dane Yoder DO Work Phone: -Laboratory Start: 10-06-2024 End: 10-06-[address] Jaiden Main MD -Laboratory Work Phone: Start: 10-06-2024 End: 10-06-2024 ambulatory Jaiden Main Facility:[facility] Start: 09-17-2024 Encounter for genera l adult medical examination without abnormal findings Dane [facility] Start: 09-16-2024 End: 09-16-[address] Dane Yoder DO Work Phone: [facility] Work Phone: Start: 09-16-2024 End: 09-16-[address] Dane Yoder DO -Laboratory [place] Work Phone: Start: 09-16-2024 End: 09-16-2024 ambulatory Dane Yoder Facility:[facility] Start: 08-31-2024 End: 08-31-2024 Patient encounter procedure Gabrielle GL[facility] -[facility] Work Phone: Start: 08-31-2024 End: 08-31-[address] Dane Yoder DO Work Phone: [facility] Work Phone: Start: 08-15-2024 Non-patient / Non-visit Dr. Hang rachel MD -[facility] Start: 08-15-2024 End: 08-15-[address] Dane Yoder DO Work Phone: [facility] Work Phone: Start: 08-15-2024 End: 08-15-2024 Patient encounter procedure Gabrielle Lenore GL[facility] -[facility] Work Phone: Start: 08-15-2024 End: 08-15-2024 ambulatory Gabrielle Grover Facility:[facility] Start: 07-20-2024 End: 07-20-2024 Patient encounter procedure Gabrielle Lenore GL[facility] -[facility] Work Phone: Start: 07-20-2024 End: 07-20-2024 ambulatory Gabrielle Grover Facility:[facility] Start: 06-06-2022 End: 06-06-2022 ambulatory [facility] Work Phone: Start: 06-06-2022 End: 06-06-2022 Patient encounter procedure [facility]-Radiology, [place] Procedures Date Procedure Procedure Detail Performing Clinician Start: 10-06-2024 Free prostate specif ic antigen level Dr. Dane Yoder DO Work Phone: Comment on above: [employer]. Start: 10-06-2024 Prostate specific an tigen measurement Dr. Dane Yoder DO Work Phone: Comment on above: [employer].According to the [place] [employer], Serum PSAshould decrease and remain at undetectable levels afterradical prostatectomy. The AUA defines biochemicalrecurrence as an initial PSA value 0.200 ng/mL or greaterfollowed by a subsequent confirmatory PSA value 0.200 ng/mLor greater. Values obtained with different assay methods orkits cannot be used interchangeably. Results cannot beinterpreted as absolute evidence of the presence or absenceof malignant disease. Start: 09-16-2024 Prostate specific an tigen measurement Dr. Dane Yoder DO Work Phone: Comment on above: This test was perfor med using the [employer] tPSA method. Measured values of a patient sample can vary depending on the testing procedure used. PSA values determined on patient samples by different testing procedures cannot be used interchangeably. If there is a change in PSA assays while monitoring therapy, sequential testing should be performed to confirm baseline values. Start: 06-06-2022 X-ray of lumbosacral spine Plan of Treatment Date Care Activity Detail Author Start: 10-25-2024 ambulatory Ambulatory Facility:[facility] Start: 10-20-2024 ambulatory Ambulatory Facility:[facility] Lipoprotein a [Mass/ volume] in Serum or Plasma [facility] Immunizations Immunization Date Immunization Notes Care Provider Fa cility 07-12-2020 Covid (Pfizer) [facility] 06-21-2020 Covid (Pfizer) [facility] Payers Date Payer Category Payer Unknown 2024 Self-pay [id number] 2024 Self-pay [id number] 2011 Unknown [id number] Unknown [id number] Unknown [id number] 2.16.8 [id number] Unknown [id number] 2.16.8 [id number] Unknown [id number] 2.16.8 [id number] Unknown [id number] 2.16.8 [id number] Unknown [id number] 2.16.8 [id number] Unknown [id number] 2.16.8 [id number] Unknown [id number] 2.16.8 [id number] Unknown [id number] 2.16.8 [id number] Unknown [id number] 2.16.8 [id number] Unknown [id number] 2.16.8 [id number] Social History Date Type Detail Facility Start: 03-22-2013 Tobacco smoking stat [facility] Unknown if ever smoked [facility] Start: 1960 Sex Assigned At Male [facility] Start: 03-22-2013 [facility] Evaluation note 07-20-2024 Note Date & Type Note Facility 07-20-2024 Evaluation note Diagnosis Onset Date Resolution Varicose veins of bilateral lower extremities with pain acute July 10:47am Venous insufficiency acute Apri l 2024 10:47am [facility] Work Phone: Evaluation note 07-20-2024 Note Date & Type Note Facility 07-20-2024 Evaluation note Diagnosis Onset Date Resolution Varicose veins of bilateral lower extremities with pain acute July 10:47am Venous insufficiency acute Apri l 2024 10:47am Varicose veins of bilateral lower extremities with pain acute August 31, 2024 8:18am Venous insufficiency acute August 31, 2024 8:18am [facility] Work Phone: Evaluation note Note Date & Type Note Facility Evaluation note No assessment information availa ble [facility] Work Phone: Reason for referral (narrative) Note Date & Type Note Facility Reason for referral (narrative) No reason for referral information available [facility] Work Phone: Chief Complaint and Reason for Visit Chief Complaint LOW BACK PAIN Chief Complaint Admit Date Varicose Veins July 20, 2024 10: 47am Pain August 15, 2024 7:29a m Reason for Visit Admit Date Varicose veins of bilateral lower extrem ities with pain July 20, 2024 10:47am Venous insufficiency July 20, 2024 10 :47am Chief Complaint Admit Date Varicose Veins July 20, 2024 10: 47am Pain August 15, 2024 7:29a m Discuss US August 31, 2024 8:18a m Chief Complaint Admit Date Varicose Veins July 20, 2024 10: 47am Pain August 15, 2024 7:29a m Discuss US August 31, 2024 8:18a m FASTING September 16, 2024 3:01 pm Reason for Visit Admit Date Varicose veins of bilateral lower extrem ities with pain July 20, 2024 10:47am Venous insufficiency July 20, 2024 10 :47am Varicose veins of bilateral lower extrem ities with pain August 31, 2024 8:18am Venous insufficiency August 31, 2024 8:18 am Advance Directives No Advanced Directives Records Found Advance Directive Response Recorded Date/ Time Advance Directives No March 8:07am Living Will No March 18, 2 013 8:07am Power of Belt Operator No March 18, 2013 8:07am Advance Directive Response Recorded Date/ Time Advance Directives No March 9:07am Family History No Family History Records Found Relationship Condition Age at Onset Recorded Date/T lopez Not Specified Cardiac disease Unknown Myocardial infarction Unknown Malignant neoplasm Unknown Summary Purpose Additional Source Comments Care Teams (unrecognized sec tion and content) Team Status: Active Member Role Status Dates Dr. Dane Yoder DO Family Provider Active Dr. Dane Yoder DO Primary Care Provider Active Team Status: Inactive Member Role Status Dates Dr. Dane Yoder DO Primary Care Prov ider, Attending Provider, Referring Provider Active Team Status: Active Member Role Status Dates Dr. Dane Yoder DO Primary Care Provider Active Team Status: Inactive Member Role Status Dates Dr. Dane Yoder DO Primary Care Provider Active Start: July 20, 2024 End: July 20, 2024 Dr. Dane Yoder DO Referring Provider Active Start: July 20, 2024 End: July 20, 2024 BELEN Marin Attending Provider Active Star t: July 20, 2024 End: July 20, 2024 Team Status: Inactive Member Role Status Dates Dr. Dane Yoder DO Primary Care Provider Active Start: August 15, 2024 End: August 15, 2024 BELEN Marin Attending Provider Active Star t: August 15, 2024 End: August 15, 2024 BLEEN Marin Referring Provider Active Star t: August 15, 2024 End: August 15, 2024 Team Status: Active Member Role Status Dates Dr. Dane Yoder DO Primary Care Provider Active Start: August 15, 2024 Dr. Hang Leung MD Attending Provider Active S tart: August 15, 2024 Team Status: Active Member Role Status Dates Dr. Dane Yoder DO Primary Care Provider Active Start: August 15, 2024 Dr. Hang Leung MD Attending Provider Active S tart: August 15, 2024 BELEN Marin Referring Provider Active Star t: August 15, 2024 Team Status: Inactive Member Role Status Dates Dr. Dane Yoder DO Primary Care Provider Active Start: August 31, 2024 End: August 31, 2024 Dr. Dane Yoder DO Referring Provider Active Start: August 31, 2024 End: August 31, 2024 BELEN Marin Attending Provider Active Star t: August 31, 2024 End: August 31, 2024 Team Status: Inactive Member Role Status Dates Dr. Dane Yoder DO Primary Care Provider Active Start: September 16, 2024 End: September 16, 2024 Dr. Dane Yoder DO Attending Provider Active Start: September 16, 2024 End: September 16, 2024 Dr. Dane Yoder DO Referring Provider Active Start: September 16, 2024 End: September 16, 2024 Team Status: Active Member Role/Relationship Status Dates Dr. Dane Yoder DO Primary Care Provider Active Team Status: Inactive Member Role/Relationship Status Dates Dr. Dane Yoder DO Primary Care Provider Active Start: July 20, 2024 End: July 20, 2024 Dr. Dane Yoder DO Referring Provider Active Start: July 20, 2024 End: July 20, 2024 BELEN Marin Attending Provider Active Star t: July 20, 2024 End: July 20, 2024 Team Status: Inactive Member Role/Relationship Status Dates Dr. Dane Yoder DO Primary Care Provider Active Start: August 15, 2024 End: August 15, 2024 BELEN Marin Attending Provider Active Star t: August 15, 2024 End: August 15, 2024 BELEN Marin Referring Provider Active Star t: August 15, 2024 End: August 15, 2024 Team Status: Active Member Role/Relationship Status Dates Dr. Dane Yoder DO Primary Care Provider Active Start: August 15, 2024 Dr. Hang Leung MD Attending Provider Active S tart: August 15, 2024 BELEN Marin Referring Provider Active Star t: August 15, 2024 Team Status: Inactive Member Role/Relationship Status Dates Dr. Dane Yoder DO Primary Care Provider Active Start: August 31, 2024 End: August 31, 2024 Dr. Dane Yoder DO Referring Provider Active Start: August 31, 2024 End: August 31, 2024 BELEN Marin Attending Provider Active Star t: August 31, 2024 End: August 31, 2024 Team Status: Inactive Member Role/Relationship Status Dates Dr. Dane Yoder DO Primary Care Provider Active Start: September 16, 2024 End: September 16, 2024 Dr. Dane Yoder DO Attending Provider Active Start: September 16, 2024 End: September 16, 2024 Dr. Dane Yoder DO Referring Provider Active Start: September 16, 2024 End: September 16, 2024 Team Status: Inactive Member Role/Relationship Status Dates Dr. Dane Yoder DO Primary Care Provider Active Start: October 06, 2024 End: October 06, 2024 Dr. Jaiden Main MD Attending Provider Active Start: October 06, 2024 End: October 06, 2024 Dr. Jaiden Main MD Referring Provider Active Start: October 06, 2024 End: October 06, 2024 Goals (unrecognized section and content) Goals may be documented in a n alternate sectionGoals may be documented in an alternate sectionGoals may be documented in an alternate sectionGoals may be documented in an alternate sectionGoals may be documented in an alternate section (unrecognized sect ion and content) No Status Records Found INFORMATION SOURCE (unrecogn ized section and content) DATE CREATED AUTHOR 10/17/2024 [facility] FOR RECORDS PERTAINING TO PATIENTS WHO ARE OR HAVE BEEN ENROLLED IN A CHEMICAL DEPENDENCY/SUBSTANCEABUSE PROGRAM, SOME INFORMATION MAY BE OMITTED. This clinical summary was aggregated from multiple sources. Caution should be exercised in using it in the provision of clinical care. This summary normalizes information from multiple sources, and as a consequence, information in this document may materially change the coding, format and clinical context of patient data. In addition, data may be omitted in some cases. CLINICAL DECISIONS SHOULD BE BASED ON THE PRIMARY CLINICAL RECORDS. [facility]. provides no warranty or guarantee of the accuracy or completeness of information in this document.
--- NOTE | 2024-10-20 11:18 | HP.PCM_ITS ---
HPI - General HPI Narrative TRISTAN ZARCO, is a 64 M who presents with recurrent LLE painful varicose veins refractory to compression. He has had prior GSV ablation and SSV ablation. PFSH Medical History no medical history Home Medications ?Medication ?Instructions ?Recorded ?Last Taken ?Type losartan 50 mg-hydrochlorothiazide 1 tab PO DAILY 10/04 09/28 Unknown History 12.5 mg tablet Allergy/AdvReac Type Severity Reaction Status Date / Time No Known Allergies Allergy Verified 08/31/24 08:28 Family History Other Cancer Heart disease Myocardial infarction Social History Smoking Status: Former smoker ROS Constitutional Constitutional: Denies chills, fever(s), frequent falls, lethargy or weakness Eyes Eyes: Denies blind spots, change in vision or loss of vision ENT HEENT: Denies bleeding gums, hoarseness or sore throat Cardiovascular Cardiovascular: Denies abdominal pain, bluish discoloration of hand/feet, chest pain with activity, claudication, cold extremities, cyanosis, dyspnea on exertion, erythema on extremities, irregular heart rhythm, leg edema, leg ulcers, numbness in extremities or weakness in extremities Respiratory/Chest Respiratory/Chest: Denies cough, excessive phlegm production, shortness of breath at rest, shortness of breath with exertion or wheezing Gastrointestinal Gastrointestinal: Denies anorexia, change in stool character, constipation, diarrhea, melena or rectal bleeding Genitourinary Genitourinary: Denies dysuria or hematuria Musculoskeletal Musculoskeletal: Denies abnormal gait Integumentary Integumentary: Reports other Details: ; Denies erythema, non-healing lesions or wounds Neurologic Neurologic: Denies abnormal speech, focal weakness, headache(s), loss of vision, numbness, paresthesias or sensory deficit Hematologic/Lymphatic Hematologic/Lymphatic: Denies easy bleeding, easy bruising or lymphadenopathy Vital Signs Vital Signs Vital Signs: Weight Weight: 206 lb Body Mass Index (BMI) 27.9 Physical Exam Const alert, oriented x3, no apparent distress and healthy appearing General Appearance: cooperative; Negative for combative or lethargic Orientation / Consciousness: awake Exam Limitations: no limitations HEENT Head and Scalp: normocephalic and atraumatic Eyes EOMs intact bilaterally General Eye: normal appearance of both eyes Neck full ROM General: trachea midline Resp normal respiratory effort and no use of accessory muscles Effort and Inspection: Negative for labored, stridor or audible wheezes Cardio regular rate and regular rhythm Back/Spine Cervical Spine: cervical ROM normal Extremity full ROM, normal capillary refill and no clubbing, cyanosis or edema Skin no rashes or lesions noted and no wounds Neuro oriented x3, CN's II-XII intact bilaterally, no focal motor deficits and no sensory deficits noted Psych thought process normal, cooperative, affect normal, speech normal and activity/motor behavior normal Assessment & Plan Assessment/Plan (1) Varicose veins of bilateral lower extremities with pain: PLAN: -left foam sclero
--- NOTE | 2024-10-20 19:33 | OP.PCM_ITS ---
Operative Report (Standard) Operative Information Date of Procedure: 10/20/24 Pre-Operative Diagnosis: Varicose veins with pain of the left lower extremity Post-Operative Diagnosis: Same Surgery/Procedure Performed: Foam sclerotherapy of left lateral thigh and calf varicosities medical billing representative: No Type of Anesthesia: Local Procedure Start Time: 11:25 Procedure Stop Time: 12:05 Select all DRAINS/GRAFTS/IMPLANTS that apply: None Estimated Blood Loss: 1 Specimen collected: No Description of surgery: HPI: Patient is a 64-year-old male with painful varicose veins of the left lower extremity with prior ablation of his great saphenous vein and small saphenous vein. The varicose vein the question are primarily on the lateral posterior aspect of the thigh and calf and appeared to be pressurized via a screw machine operator directly from the femoral vein as well as some communication with an accessory saphenous vein on the medial aspect of the thigh. He is taken now for foam sclerotherapy of the symptomatic vessels. Description of procedure: Upon obtaining informed consent and verification correct patient procedure and site the patient was seen in the [employer] he was positioned prepped and draped in usual sterile fashion. Timeout is performed and ultrasound was used to evaluate the varicosities they were primarily symptomatic. These were in an atypical location on the posterior aspect of the thigh extending into the lateral aspect of the thigh and proximal calf. He had multiple screw machine operator veins on the medial aspect of the calf that did not appear to be involved in this segment of symptomatic varicosities. There was a more proximal screw machine operator in the lateral aspect of the thigh that was at the superior aspect of these varicosities. There also appeared to be communication with accessory saphenous vein at the medial aspect of the thigh. A site suitable for access was identified in the proximal calf and skin overlying this was anesthetized 1% lidocaine. This was then accessed with a butterfly needle through which Varithena foam sclerosing agent was infused under ultrasound visualization with adequate transit into the symptomatic varicosities within the thigh. Prior to the sclerosing agent reaching the screw machine operator vein manner p ressure was applied after which this was released and the extent of sclerosing agent assessed. There appeared to be adequate treatment of the areas of symptoms with no deep vein extension and no extension into the screw machine operator vein. Dry sterile dressing and Asim wrap were then applied the patient was taken to recovery with plan discharged to home. Surgical Findings: See above Complications Complications: No
== END 2024-10-20 12:40 | disposition home or self-care (01) ==
PROVIDERS: PCP Family Medicine; Referring Provider Surgery Trauma Surgery; Visit Provider Surgery Trauma Surgery
DX: I83.812 Varicose veins of left lower extremity with pain (principal); Z87.891 Personal history of nicotine dependence
CPT/HCPCS: 36465; A4216

== ENCOUNTER → 2024-10-25 | Outpatient (CLI) | payer OTHER, SELFPAY ==
--- OUTSIDE RECORDS SUMMARY | 2024-10-25 06:47 | XMS RPT_ITS | CCD ---
Author Organization [facility] Care Team Providers [facility] Medical Assistant Name Role Phone Dr. Dane Yoder DO Primary Care Provider [phone] Dr. Dane Yoder DO Referring Provider [phone] Gabrielle Graves Attending Provider [phone] Gabrielle Graves Referring Provider [phone] Madhu MALIK, Dr. Mauricio Attending Provider Dr. Dane Yoder DO Attending Provider [phone] Etelvina MALIK, Dr. Jaiden Carrion Attending Provider Etelvina MALIK, Dr. Jaiden Carrion Referring Provider Madhu MALIK, Dr. Mauricio Referring Provider Madhu MALIK, Dr. Mauricio Other Provider Paresh, Dane Primary Care Unavailable Flint, Hang Attending Unavailable Madhu, Hang Referring Unavailable Jaiden Main Attending Unavailable EtelvinaJaiden Referring Unavailable Paresh, Dane Primary Care Unavailable Grover, Gabrielle Attending Unavailable Paresh, Dane Primary Care Unavailable Paresh, Dane Referring Unavailable Grover, Gabrielle Attending Unavailable Paresh, Dane Primary Care Unavailable Paresh, Dane Referring Unavailable Paresh, Dane Primary Care Unavailable Flint, Hang Attending Unavailable Paresh, Dane Primary Care Unavailable Paresh, Dane Attending Unavailable Paresh, Dane Referring Unavailable Paresh, Dane Attending Unavailable Paresh, Dane Primary Care Unavailable Grover, Gabrielle Referring Unavailable Paresh, Dane Primary Care Unavailable Madhu, Hang Attending Unavailable Madhu, Hang Attending Unavailable Flint, Hang Referring Unavailable Flint, Hang Consulting Unavailable Paresh, Dane Primary Care Unavailable Gabrielle Grover Attending Unavailable Gabrielle Grover Referring Unavailable Dane Yoder Primary Care Unavailable Medications Current Medications Medication Drug Class(es) Dates Sig (Normalized) Sig (Original) hydroCHLOROthiazide 12.5 mg / losartan potassium 50 mg oral tablet (1 source) Thiazide Diuretic, Angiotensin 2 Receptor Shayne Start: 10-19-2024 Losartan-Hydroc hlorothiazide 50-12.5 mg tablet Active 1 {tbl} PO DAILY October 19, 2024 12:00am Completed/Discontinued Medications Medication Drug Class(es) Dates Sig (Normalized) Sig (Original) acetaminophen 325 mg / oxyCODONE hydrochloride 5 mg oral tablet (6 sources) Opioid Agonist Start: 03-22-2013 End: 07-20-2024 Oxycodone-Acetamino phen 1 TABLET tablet [...] omeprazole 20 mg delayed release oral capsule (6 sources) Proton Pump Inhibitor Start: 03-18-2013 End: 07-20-2024 take 1 capsule by mouth once daily Omeprazole 20 MG capsule Discontinued 20 mg PO DAILY March 18, 2013 1:00am July 20, 2024 11:11am Problems Problem Classification Problem Date Documented Date Episodic/Chronic Other diseases of veins and lymphatics (13 sources) Vascular insufficiency; Translations: [Venous insufficiency (chronic) (peripheral)] 07-20-2024 Episodic Other diseases of veins and lymphatics (1 source) Venous insufficiency (chronic) (peripheral); Translations: [Venous insufficiency (chronic) (peripheral)] Onset: 09-29-2024 Episodic Other screening for suspected conditions (not mental disorders or infectious disease) (2 sources) Encounter for screening for cardiovascular disorders; Translations: [Elevated prostate specific antigen [PSA]] Onset: 10-03-2024 Episodic Varicose veins of lower extremity (16 sources) Varicose veins of lower extremity; Translations: [Varicose veins of bilateral lower extremities with pain] Onset: 10-20-2024 07-20-2024 Episodic Results Test Name Value Interpretation Reference Range Facility Operative Reporton 5 Operative Report [facility] Medical Records Department [address] [place] [address] Operative Report 10/20/24 193 MR#: [id number] Acct: [id number] Name: TRISTAN ZARCO Rep #: [id number] : 1960 64 From: Hang Leung MD PCP: Dr. Dane Yoder, DO Status:DEP [facility] Location: [facility] Operative Report (Standard) Operative Information Date of Procedure: 10/20/24 Pre-Operative Diagnosis: Varicose veins with pain of the left lower extremity Post-Operative Diagnosis: Same Surgery/Procedure Performed: Foam sclerotherapy of left lateral thigh and calf varicosities sample body builder: No Type of Anesthesia: Local Procedure Start Time: 11:25 Procedure Stop Time: 12:05 Select all DRAINS/GRAFTS/IMPLA NTS that apply: None Estimated Blood Loss: 1 Specimen collected: No Description of surgery: HPI: Patient is a 64-year-old male with painful varicose veins of the left lower extremity with prior ablation of his great saphenous vein and small saphenous vein. The varicose vein the question are primarily on the lateral posterior aspect of the thigh and calf and appeared to be pressurized via a tea and spice supervisor directly from the femoral vein as well as some communication with an accessory saphenous vein on the medial aspect of the thigh. He is taken now for foam sclerotherapy of the symptomatic vessels. Description of procedure: Upon obtaining informed consent and verification correct patient procedure and site the patient was seen in the [facility] Specialist he was positioned prepped and draped in usual sterile fashion. Timeout is performed and ultrasound was used to evaluate the varicosities they were primarily symptomatic. These were in an atypical location on the posterior aspect of the thigh extending into the lateral aspect of the thigh and proximal calf. He had multiple tea and spice supervisor veins on the medial aspect of the calf that did not appear to be involved in this segment of symptomatic varicosities. There was a more proximal tea and spice supervisor in the lateral aspect of the thigh that was at the superior aspect of these varicosities. There also appeared to be communication with accessory saphenous vein at the medial aspect of the thigh. A site suitable for access was identified in the proximal calf and skin overlying this was anesthetized 1% lidocaine. This was then accessed with a butterfly needle through which Varithena foam sclerosing agent was infused under ultrasound visualization with adequate transit into the symptomatic varicosities within the thigh. Prior to the sclerosing agent reaching the tea and spice supervisor vein manner pressure was applied after which this was released and the extent of sclerosing agent assessed. There appeared to be adequate treatment of the areas of symptoms with no deep vein extension and no extension into the tea and spice supervisor vein. Dry sterile dressing and Asim wrap were then applied the patient was taken to recovery with plan discharged to home. Surgical Findings: See above Complications Complications: No 10/20/241937 Cosigner Signature (if applicable): CC: Dr. Hang Leung MD; Dr. Dane Yoder DO Signed Normal [facility] PSA Total+%Freeon 10-09-2024 PSA, FREE 1.08 ng/mL Normal N/A [facility] Comment on above: Result Comment: Mague DUNHAM methodology. Performed By: #### L 3110.0500 #### [facility] [address] [facility] [place], [address] PSA, FREE % 17.6 Normal . [facility] Comment on above: Result Comment: The table below lists the probability of prostate cancer for men with non-suspicious [place]UST[place] results and total PSA between 4 and 10 ng/mL, by patient age (Gilberto et al, GUERITA 1998, 279:1542). % Free PSA 50-64 yr 65-75 yr 0.00-10.00% 56% 55% 10.01-15.00% 24% 35% 15.01-20.00% 17% 23% 20.01-25.00% 10% 20% >25.00% 5% 9% Please note: Gilberto et al did not make specific recommendations regarding the use of percent free PSA for any other population of men. Performed at: [facility] [address] [place] [id number] Prefitter Doors: Jaskaran Eaton PhD, Phone: [phone] Performed By: #### L 3110.0500 #### [facility] [address] [place], [address] PSA, TOTAL ULTR 6.150 ng/mL Abnormal 0.000-4.000 [facility] Comment on above: Result Comment: Mague hinkle ECLIA methodology. According to the [employer] [employer], Serum PSA should decrease and [...] disease. Performed By: #### L 3110.0500 #### [facility] [address] [place], [address] Serum or plasma free prostat e specific antigen (PSA)/total PSA mass ratioOrdered By: Jaiden Main on 10-06-2024 Free PSA/Total PSA [Mass fraction] 17.6 % . [facility] Comment on above: The table below list s the probability of prostate cancer formen with non-suspicious [place] results and total PSA between4 and 10 ng/mL, by patient age (Gilberto et al, GUERITA 1998,279:1542). % Free PSA 50-64 yr 65-75 yr 0.00-10.00% 56% 55% 10.01-15.00% 24% 35% 15.01-20.00% 17% 23% 20.01-25.00% 10% 20% >25.00% 5% 9%Please note: Gilberto et al did not make specific recommendations regarding the use of percent free PSA for any other population of men.Performed at: [facility] [id number] Director: Jaskaran Eatno PhD, Phone: [phone] Lipoprotein Aon 09-19-2024 Lipoprotein a [Moles/Vol] 44.2 nmol/L Normal <75.0 [facility] Comment on above: Order Comment: Test( s) 430044-Uurdqrohtba (a) was developed and its performance characteristics determined by [employer]. It has not been cleared or approved by the Food and Drug Administration. Result Comment: Note : Values greater than or equal to 75.0 nmol/L may indicate an independent risk factor for CHD, but must be evaluated with caution when applied to non- populations due to the influence of genetic factors on Lp(a) across ethnicities. Performed at: [facility] [address] [id number] Prefitter Doors: Jaskaran Eaton PhD, Phone: [phone] Performed By: #### L 3400.4600, L100.0100, L500.4100, L501.9910, L500.4050 #### [facility] [address] [place], [address] Absolute lymphocyte countOrd ered By: Dane Yoder on 09-16-2024 Lymphocytes Auto (Unsp spec) [#/Vol] 1.81 10*3/uL 0.83-4.51 [facility] Absolute neutrophil countOrd ered By: Dane Yoder on 09-16-2024 Neutrophils (Bld) [#/Vol] 5.5 10*3/uL 2.0-7.7 [facility] Anion gap in Serum or Plasma Ordered By: Dane Yoder on 09-16-2024 Anion gap [Moles/Vol] 13 mmol/L 5-15 [facility] Automated lymphocyte count a s percentage of total leukocytesOrdered By: Dane Yoder on 09-16-2024 Lymphocytes/100 WBC Auto (Unsp spec) 21.6 % 19-41 [facility] BUN/creatinine ratioOrdered By: Dane Yoder on 09-16-2024 Urea nitrogen/Creatinine [Mass ratio] 13.2 mg/mg 10-20 [facility] Basophil percentageOrdered B y: Dane Yoder on 09-16-2024 Basophils/100 WBC (Bld) 0.5 % 0-1 [facility] Bilirubin, totalOrdered By: Dane Yoder on 09-16-2024 Bilirubin [Mass/Vol] 0.56 mg/dL Normal 0.00-1.30 [facility] Comment on above: Performed By: #### L 3400.4600, L100.0100, L500.4100, L501.9910, L500.4050 #### [facility] [address] [place], [address] CBC W/Diff, Automatedon 06-1 -2024 Absolute Lymph 1.81 X10 3/uL Normal 0.83-4.51 [facility] Comment on above: Performed By: #### L 3400.4600, L100.0100, L500.4100, L501.9910, L500.4050 #### [facility] [address] [place], [address] Absolute Neut 5.5 X10 3/uL Normal 2.0-7.7 [facility] Comment on above: Performed By: #### L 3400.4600, L100.0100, L500.4100, L501.9910, L500.4050 #### [facility] [address] [place], [address] Basophils/100 WBC (Bld) 0.5 % Normal 0-1 [facility] Comment on above: Performed By: #### L 3400.4600, L100.0100, L500.4100, L501.9910, L500.4050 #### [facility] [address] [place], [address] Eosinophils/100 WBC (Bld) 1.9 % Normal 0-5 [facility] Comment on above: Performed By: #### L 3400.4600, L100.0100, L500.4100, L501.9910, L500.4050 #### [facility] [address] [place], [address] Erythrocyte distribution width (RBC) [Ratio] 13.0 % Normal 11.6-14.6 [facility] Comment on above: Performed By: #### L 3400.4600, L100.0100, L500.4100, L501.9910, L500.4050 #### [facility] [address] [place], [address] Hematocrit (Bld) [Volume fraction] 44.7 % Normal 40-54 [facility] Comment on above: Performed By: #### L 3400.4600, L100.0100, L500.4100, L501.9910, L500.4050 #### [facility] [address] [place], [address] Hemoglobin (Bld) [Mass/Vol] 14.8 g/dL Normal 13.0-16.5 [facility] Comment on above: Performed By: #### L 3400.4600, L100.0100, L500.4100, L501.9910, L500.4050 #### [facility] [address] [place], [address] IG% 1.900 High 0.0-0.9 [facility] Comment on above: Result Comment: IG% - Immature Granulocytes (promyelocytes, myelocytes and metamyelocytes) > 1% indicates that a LEFT SHIFT is Present. Performed By: #### L 3400.4600, L100.0100, L500.4100, L501.9910, L500.4050 #### [facility] [address] [place], [address] Lymphocytes/100 WBC (Bld) 21.6 % Normal 19-41 [facility] Comment on above: Performed By: #### L 3400.4600, L100.0100, L500.4100, L501.9910, L500.4050 #### [facility] [address] [place], [address] MCH (RBC) [Entitic mass] 31.7 pg Normal 27.0-32.0 [facility] Comment on above: Performed By: #### L 3400.4600, L100.0100, L500.4100, L501.9910, L500.4050 #### [facility] [address] [place], [address] MCHC (RBC) [Mass/Vol] 33.1 g/dL Normal 32-36 [facility] Comment on above: Performed By: #### L 3400.4600, L100.0100, L500.4100, L501.9910, L500.4050 #### [facility] [address] [place], [address] MCV (RBC) [Entitic vol] 95.7 fL High 80-94 [facility] Comment on above: Performed By: #### L 3400.4600, L100.0100, L500.4100, L501.9910, L500.4050 #### [facility] [address] [place], [address] Monocytes/100 WBC (Bld) 9.1 % Normal 0-10 [facility] Comment on above: Performed By: #### L 3400.4600, L100.0100, L500.4100, L501.9910, L500.4050 #### [facility] [address] [place], [address] Neutrophils/100 WBC (Bld) 65.0 % Normal 47-70 [facility] Comment on above: Performed By: #### L 3400.4600, L100.0100, L500.4100, L501.9910, L500.4050 #### [facility] [address] [place], [address] Nucleated RBC (Bld) [#/Vol] 0 10*3/uL Normal 0-5 [facility] Comment on above: Performed By: #### L 3400.4600, L100.0100, L500.4100, L501.9910, L500.4050 #### [facility] [address] [place], [address] Platelet mean volume (Bld) [Entitic vol] 10.5 fL Normal 6.2-12.0 [facility] Comment on above: Performed By: #### L 3400.4600, L100.0100, L500.4100, L501.9910, L500.4050 #### [facility] [address] [place], [address] Platelets (Bld) [#/Vol] 246 10*3/uL Normal 150-450 [facility] Comment on above: Performed By: #### L 3400.4600, L100.0100, L500.4100, L501.9910, L500.4050 #### [facility] [address] [place], [address] RBC (Bld) [#/Vol] 4.67 10*6/uL Normal 4.6-6.2 [facility] Comment on above: Performed By: #### L 3400.4600, L100.0100, L500.4100, L501.9910, L500.4050 #### [facility] [address] [place], [address] RDW SD 44.8 fl High 35.1-43.9 [facility] Comment on above: Performed By: #### L 3400.4600, L100.0100, L500.4100, L501.9910, L500.4050 #### [facility] [address] [place], [address] WBC (Bld) [#/Vol] 8.4 10*3/uL Normal 4.4-11.0 [facility] Comment on above: Performed By: #### L 3400.4600, L100.0100, L500.4100, L501.9910, L500.4050 #### [facility] [address] [place], [address] Calculated very low density lipoprotein (VLDL) cholesterol measurementOrdered By: Dane Yoder on 09-16-2024 Calculated very low density lipoprotein (VLDL) cholesterol measurement 21 mg/dL 5-40 [facility] Carbon dioxide, total [Moles /volume] in Central venous bloodOrdered By: Dane Yoder on 09-16-2024 CO2 [Moles/Vol] 24.7 mmol/L Normal 21.0-32.0 [facility] Comment on above: Performed By: #### L 3400.4600, L100.0100, L500.4100, L501.9910, L500.4050 #### [facility] [address] [place], [address] Chloride assayOrdered By: Yanick Yoder on 09-16-2024 Chloride [Moles/Vol] 103 mmol/L Normal 98-108 [facility] Comment on above: Performed By: #### L 3400.4600, L100.0100, L500.4100, L501.9910, L500.4050 #### [facility] [address] [place], [address] Comprehensive Metabolic Prof ilon 09-16-2024 ALK PHOS 60 U/L Normal 40-129 [facility] Comment on above: Performed By: #### L 3400.4600, L100.0100, L500.4100, L501.9910, L500.4050 #### [facility] [address] [place], [address] BUN/CRE 13.2 RATIO Normal 10-20 [facility] Comment on above: Performed By: #### L 3400.4600, L100.0100, L500.4100, L501.9910, L500.4050 #### [facility] [address] [place], [address] GAP 13 Normal 5-15 [facility] Comment on above: Performed By: #### L 3400.4600, L100.0100, L500.4100, L501.9910, L500.4050 #### [facility] [address] [place], [address] Potassium [Moles/Vol] 3.9 mmol/L Normal 3.3-5.1 [facility] Comment on above: Performed By: #### L 3400.4600, L100.0100, L500.4100, L501.9910, L500.4050 #### [facility] [address] [place], [address] T PROT 7.1 g/dL Normal 5.9-8.4 [facility] Comment on above: Performed By: #### L 3400.4600, L100.0100, L500.4100, L501.9910, L500.4050 #### [facility] [address] [place], [address] Comprehensive Metabolic Prof ilOrdered By: Dane Yoder on 09-16-2024 AST [Catalytic activity/Vol] 20 U/L Normal <=37 [facility] Comment on above: Performed By: #### L 3400.4600, L100.0100, L500.4100, L501.9910, L500.4050 #### [facility] [address] [place], [address] Eosinophil percentageOrdered By: Dane Yoder on 09-16-2024 Eosinophils/100 WBC (Bld) 1.9 % 0-5 [facility] Erythrocyte distribution wid th ratioOrdered By: Dane Yoder on 09-16-2024 Erythrocyte distribution width (RBC) [Ratio] 13.0 % 11.6-14.6 [facility] Erythrocyte distribution wid th standard deviationOrdered By: Dane Yoder on 09-16-2024 Erythrocyte distribution width (RBC) [Ratio] 44.8 fl High 35.1-43.9 [facility] Glomerular filtration rate ( GFR) estimation/1.73 sq m using serum, plasma, or whole bOrdered By: Dane Yoder on 09-16-2024 GFR/1.73 sq M.predicted among non-blacks MDRD (S/P/Bld) [Vol rate/Area] 91 mL/min/{1.73_m2} Normal >60 [facility] Comment on above: mL/min/1.73m2 CKD-EP I Creatinine Equation (2020) Result Comment: mL/m in/1.73m2 CKD-EPI Creatinine Equation (2020) Performed By: #### L 3400.4600, L100.0100, L500.4100, L501.9910, L500.4050 #### [facility] [address] [place], [address] Hematocrit Auto (Bld) [Volum e fraction]Ordered By: Dane Yoder on 09-16-2024 Hematocrit (Bld) [Volume fraction] 44.7 % 40-54 [facility] Hemoglobin measurementOrdere d By: Dane Yoder on 09-16-2024 Hemoglobin (Bld) [Mass/Vol] 14.8 g/dL 13.0-16.5 [facility] Immature granulocytes/100 WB C Auto (Bld)Ordered By: Dane Yoder on 09-16-2024 Immature granulocytes/100 WBC (Bld) 1.900 % High 0.0-0.9 [facility] Comment on above: IG% - Immature Granu locytes (promyelocytes, myelocytes and metamyelocytes) > 1% indicates that a LEFT SHIFT is Present. LDL calc ser/plasOrdered By: Dane Yoder on 09-16-2024 Cholesterol in LDL [Mass/Vol] 144 mg/dL Normal [facility] Comment on above: Mldpvuobtx=307-460 m g/dL & Higher Qetn=945 mg/dL or greater Result Comment: Bord jtnqdt=816-357 mg/dL Higher Vhpl=690 mg/dL or greater Performed By: #### L 3400.4600, L100.0100, L500.4100, L501.9910, L500.4050 #### [facility] [address] [place], [address] Lipid Profileon 09-16-2024 CHOL:HDL 3.67 Normal [facility] Comment on above: Performed By: #### L 3400.4600, L100.0100, L500.4100, L501.9910, L500.4050 #### [facility] [address] [place], [place], [address] Cholesterol in VLDL [Mass/Vol] 21 mg/dL Normal 5-40 [facility] Comment on above: Performed By: #### L 3400.4600, L100.0100, L500.4100, L501.9910, L500.4050 #### [facility] [address] [place], [address] Lipoprotein a [Mass/Vol]Orde red By: Dane Yoder on 09-16-2024 Lipoprotein a [Moles/Vol] 44.2 nmol/L <75.0 [facility] Comment on above: Note: Values greater than or equal to 75.0 nmol/L may indicate an independent risk factor for CHD, but must be evaluated with caution when applied to non- populations due to the influence of genetic factors on Lp(a) across ethnicities.Performed at: [facility] [id number] Director: Jaskaran Eaton PhD, Phone: [phone] MCV (mean corpuscular volume ) determinationOrdered By: Dane Yoder on 09-16-2024 MCV (RBC) [Entitic vol] 95.7 fL High 80-94 [facility] Mean corpuscular hemoglobin (MCH) determinationOrdered By: Dane Yoder on 09-16-2024 MCH (RBC) [Entitic mass] 31.7 pg 27.0-32.0 [facility] Mean corpuscular hemoglobin concentration (MCHC) determinationOrdered By: Dane Yoder on 09-16-2024 MCHC (RBC) [Mass/Vol] 33.1 g/dL 32-36 [facility] Mean platelet volume determi nationOrdered By: Dane Yoder on 09-16-2024 Platelet mean volume (Bld) [Entitic vol] 10.5 fL 6.2-12.0 [facility] Monocyte percentageOrdered B y: Dane Yoder on 09-16-2024 Monocytes/100 WBC (Bld) 9.1 % 0-10 [facility] Neutrophil percentageOrdered By: Dane Yoder on 09-16-2024 Neutrophils/100 WBC (Bld) 65.0 % 47-70 [facility] Nucleated red blood cell per centageOrdered By: Dane Yoder on 09-16-2024 Nucleated RBC/100 WBC (Bld) [Ratio] 0 % 0-5 [facility] PSA,Total - Annual Screenon 09-16-2024 PSA,TOT SCREEN 7.19 ng/mL High 0.02-4.00 [facility] Comment on above: Result Comment: This test [...] L 3400.4600, L100.0100, L500.4100, L501.9910, L500.4050 #### [facility] [address] [place], [address] Platelet countOrdered By: Yanick Yoder on 09-16-2024 Platelets (Bld) [#/Vol] 246 10*3/uL 150-450 [facility] Potassium measurement (mass/ volume)Ordered By: Dane Yoder on 09-16-2024 Potassium (Unsp spec) [Mass/Vol] 3.9 mmol/L 3.3-5.1 [facility] [facility] RBC Auto (Bld) [#/Vol]Ordere d By: Dane Yoder on 09-16-2024 RBC (Bld) [#/Vol] 4.67 10*6/uL 4.6-6.2 [facility] Screening total cholesterol/ high density lipoprotein (HDL) cholesterol ratioOrdered By: Dane Yoder on 09-16-2024 Cholesterol.total/Cholest albert in HDL [Mass ratio] 3.67 {ratio} [facility] Serum creatinine measurement (mass/volume)Ordered By: Dane Yoder on 09-16-2024 Creatinine [Mass/Vol] 0.94 mg/dL Normal 0.70-1.20 [facility] Comment on above: Performed By: #### L 3400.4600, L100.0100, L500.4100, L501.9910, L500.4050 #### [facility] Laboratory [address] [place], [address] Serum globulin measurementOr dered By: Dane Yoder on 09-16-2024 Globulin (S) [Mass/Vol] 2.7 g/dL Normal 2.2-4.2 [facility] Comment on above: Performed By: #### L 3400.4600, L100.0100, L500.4100, L501.9910, L500.4050 #### [facility] [address] [place], [address] Serum glucose measurement (m ass/volume)Ordered By: Dane oYder on 09-16-2024 Glucose [Mass/Vol] 68 mg/dL Low 70-99 [facility] Comment on above: Performed By: #### L 3400.4600, L100.0100, L500.4100, L501.9910, L500.4050 #### [facility] [address] [place], [address] Serum or plasma alanine jarrell otransferase (ALT) measurementOrdered By: Dane Yoder on 09-16-2024 ALT [Catalytic activity/Vol] 26 U/L Normal <=46 [facility] Comment on above: Performed By: #### L 3400.4600, L100.0100, L500.4100, L501.9910, L500.4050 #### [facility] [address] [facility] [place], [address] Serum or plasma albumin rosa m urement (mass/volume)Ordered By: Dane Yoder on 09-16-2024 Albumin [Mass/Vol] 4.5 g/dL Normal 3.4-4.8 [facility] Comment on above: Performed By: #### L 3400.4600, L100.0100, L500.4100, L501.9910, L500.4050 #### [facility] [address] [place], [address] Serum or plasma albumin/glob ulin mass ratioOrdered By: Dane Yoder on 09-16-2024 Albumin/Globulin [Mass ratio] 1.7 {ratio} Normal 0.9-2.4 [facility] Comment on above: Performed By: #### L 3400.4600, L100.0100, L500.4100, L501.9910, L500.4050 #### [facility] [address] [place], [place], [address] Serum or plasma alkaline laura sphatase measurementOrdered By: Dane Yoder on 09-16-2024 ALP [Catalytic activity/Vol] 60 U/L 40-129 [facility] Serum or plasma calcium rosa m urement (mass/volume)Ordered By: Dane Yoder on 09-16-2024 Calcium [Mass/Vol] 9.3 mg/dL Normal 7.6-11.0 [facility] Comment on above: Performed By: #### L 3400.4600, L100.0100, L500.4100, L501.9910, L500.4050 #### [facility] [address] [place], [place], [id number] Serum or plasma cholesterol in HDL measurement (mass/volume)Ordered By: Dane Yoder on 09-16-2024 Cholesterol in HDL [Mass/Vol] 62 mg/dL Normal [facility] Comment on above: National Cholesterol Education Program [...] L 3400.4600, L100.0100, L500.4100, L501.9910, L500.4050 #### [facility] [address] [place], [place], [id number] Serum or plasma cholesterol measurement (mass/volume)Ordered By: Dane Yoder on 09-16-2024 Cholesterol [Mass/Vol] 226 mg/dL High <=200 [facility] Comment on above: Cholesterol level, D esirable <200 mg/dLBorderline high cholesterol 200-239 mg/dLHigh cholesterol >=240 mg/dLRecommendations of the NCEP Adult Treatment Panel for the following risk-cutoff thresholds for the [place] population. Result Comment: Chol esterol level, Desirable <200 mg/dL Borderline high cholesterol 200-239 mg/dL High cholesterol >=240 mg/dL Recommendations of the NCEP Adult Treatment Panel for the following risk-cutoff thresholds for the [place] population. Performed By: #### L 3400.4600, L100.0100, L500.4100, L501.9910, L500.4050 #### [facility] [address] [place], [place], [id number] Serum or plasma urea nitroge n measurement (mass/volume)Ordered By: Dane Yoder on 09-16-2024 Urea nitrogen [Mass/Vol] 12 mg/dL Normal 4-19 [facility] Comment on above: Performed By: #### L 3400.4600, L100.0100, L500.4100, L501.9910, L500.4050 #### [facility] [address] [place], [address] Sodium levelOrdered By: Dane Yoder on 09-16-2024 Sodium [Moles/Vol] 141 mmol/L Normal 133-145 [facility] Comment on above: Performed By: #### L 3400.4600, L100.0100, L500.4100, L501.9910, L500.4050 #### [facility] [address] [place], [place], [id number] Total proteinOrdered By: Marcela danial Paresh on 09-16-2024 Protein [Mass/Vol] 7.1 g/dL 5.9-8.4 [facility] Triglycerides measurementOrd ered By: Dane Yoder on 09-16-2024 Triglyceride [Mass/Vol] 104 mg/dL Normal [facility] Comment on above: The drugs N-Acetylcy steine and Metamizole may falsely depress this assay. Normal range: <150 mg/dLBorderline High: 150-199 mg/dLHigh: 200-499 mg/dLVery High: >500 mg/dL Result Comment: The drugs N-Acetylcysteine and Metamizole may falsely depress this assay. Normal range: <150 mg/dL Borderline High: 150-199 mg/dL High: 200-499 mg/dL Very High: >500 mg/dL Performed By: #### L 3400.4600, L100.0100, L500.4100, L501.9910, L500.4050 #### [facility] [address] [place], [place], [id number] White blood cell (WBC) count Ordered By: Dane Paresh on 09-16-2024 WBC (Bld) [#/Vol] 8.4 10*3/uL 4.4-11.0 [facility] MR/BMS.Blayne 08-31-2024 MR/BMS.BVS [facility] [address] [facility] [place], [place] [address] OFFICE VISIT Date of Service: 08/31/24 MR#: [id number] Acct: [id number] Name: TRISTAN ZARCO Rep #: [id number] : 1960 Provider: BELEN Marin Age/Sex: 64/M Location: [facility] Status: Signed Intake Vital Signs [...] demonstrated prior R GSV ablation, R SSV tea and spice supervisor and thigh varicose vein incompetence, prior L GSV and SSV ablation, incompetent L calf tea and spice supervisor feeding posterior calf varicose veins, and ASV [...] Affect: gomez (more content not included)... Normal [facility] Venous Duplex - [place] 08-15-2024 Venous Duplex [place] - [place] [facility] [address] [facility] [place] [address] Venous Duplex [place] - [place] [facility] 08/15/24 0808 MR#: [id number] Acct: [id number] Name: HANNAHALVINOTRISTAN LETTY Rep #: [id number] : 1960 64 From: Hang Leung MD [...] cm. calf. Unable to see origin. INCOMPETENT tea and spice supervisor noted at mid SSV. INCOMPETENT tea and spice supervisor noted at the posteror mid calf INCOMPETENT [...] the thigh, calf varicosities, posterior mid calf tea and spice supervisor, accessory saphenous from junction. __ Ordering Physician: Gabrielle Grover Referring Physician: Dane Yoder Performed By: Lilly Talley RVT 08/15/24 1425 Date Hang Leung MD CC: EBLEN Marin; Dr. Dane Yoder, Date Dictated: 08/15/24 08 Date Transcribed: 08/15/241424 Hydraulic Lift Operator: Signed Normal [facility] Venous duplex ultrasound rep ortOrdered By: Hang Leung on 08-15-2024 [facility] [address] [place] [address] Venous Duplex US - [place] [facility] 08/15/24807 MR#: [id number] Acct: [id number] Name: TRISTAN ZARCO Rep #:[id number] : 1960 64 From: Hang Contreras Attending [...] cm. calf. Unable to see origin. INCOMPETENT tea and spice supervisor noted at mid SSV. INCOMPETENT tea and spice supervisor noted at the posteror mid calf INCOMPETENT [...] the thigh, calf varicosities, posterior mid calf tea and spice supervisor, accessory saphenous from junction. __ Ordering Physician: Gabrielle Grover Referring Physician: Dane Yoder Performed By: Lilly Talley, RVT 08/15/24 1425 Date _ Hang Leung MD CC: BELEN Marin; Dr. Dane Yoder, DO ~ Date Dictated: 08/15/24 0808 Date Transcribed: 08/15/241424 Hydraulic Lift Operator: Walt [facility] Work Phone: MR/BMS.Eulogio 07-20-2024 MR/BMS.S [facility] [address] [facility] [place] [address] OFFICE VISIT Date of Service: 07/20/24 MR#: [id number] Acct: [id number] Name: TRISTAN ZARCO Rep #: [id number] : 1960 Provider: BELEN Marin Age/Sex: 64/M Location: [facility] Status: Signed Intake Vital Signs [...] noted Extremities (more content not included)... Normal [facility] Vital Signs Date Time Vital Sign Value Performing Clinician Gracielai jeremi 10-20-2024 08:42-0400 Body height 182.[address] Dane Yoder DO Work Phone: [facility] 10-20-2024 08:42-0400 Body weight 93.[address] Dane Yoder DO Work Phone: [facility] 10-19-2024 08:13-0400 Body mass index (BMI) [Ratio] 27.9 kg/m2 Dr. Dane Yoder DO Work Phone: [facility] 08-31-2024 08:26-0400 Body temperature 97.7 [degF] Dr. Dane Yoder DO Work Phone: [facility] 08-31-2024 08:26-0400 Body weight 93.[address] Dane Yoder DO Work Phone: [facility] 08-31-2024 08:26-0400 Diastolic blood pressure 90 mm[Hg] Dr. Dane Yoder DO Work Phone: [facility] 08-31-2024 08:26-0400 Heart rate 63 /min Dr. Dane Yoder DO Work Phone: [facility] 08-31-2024 08:26-0400 Respiratory rate 16 /min Dr. Dane Yoder DO Work Phone: [facility] 08-31-2024 08:26-0400 SaO2% (BldA) [Mass fraction] 96 % Dr. Dane Yoder DO Work Phone: [facility] 08-31-2024 08:26-0400 Systolic blood pressure 174 mm[Hg] Dr. Dane Yoder DO Work Phone: [facility] 07-20-2024 11:09-0400 Body temperature 97.1 [degF] Dr. Dane Yoder DO Work Phone: [facility] 07-20-2024 11:09-0400 Body weight 93.[address] Dane Yoder DO Work Phone: [facility] 07-20-2024 11:09-0400 Diastolic blood pressure 98 mm[Hg] Dr. Dane Yoder DO Work Phone: [facility] 07-20-2024 11:09-0400 Heart rate 73 /min Dr. Dane Yoder DO Work Phone: [facility] 07-20-2024 11:09-0400 Respiratory rate 16 /min Dr. Dane Yoder DO Work Phone: [facility] 07-20-2024 11:09-0400 SaO2% (BldA) [Mass fraction] 97 % Dr. Dane Yoder DO Work Phone: [facility] 07-20-2024 11:09-0400 Systolic blood pressure 178 mm[Hg] Dr. Dane Yoder DO Work Phone: [facility] Encounters Encounter Date Encounter Type Care Provider Facility Start: 10-25-2024 ambulatory [facility] Facility: [facility] Start: 10-20-2024 ambulatory Hang Leung Facility:[facility] Start: 10-20-2024 Non-patient / Non-visit Dr. Hang rachel MD -[facility] Start: 10-20-2024 End: 10-20-2024 Admission to same day surgery center Dr. Hang Leung MD -[facility] Work Phone: Start: 10-20-2024 End: 10-20-[address] Dane Yoder DO Work Phone: -[facility] Start: 10-13-2024 ambulatory [facility] Facility: [facility] Start: 10-06-2024 End: 10-06-[address] Dane Yoder DO Work Phone: -Laboratory Start: 10-06-2024 End: 10-06-[address] Jaiden Main MD -Laboratory Work Phone: Start: 10-06-2024 End: 10-06-2024 ambulatory Jaiden Main Facility:[facility] Start: 09-17-2024 Encounter for genera l adult medical examination without abnormal findings [facility] Start: 09-16-2024 End: 09-16-[address] Dane Yoedr DO Work Phone: [facility] Work Phone: Start: 09-16-2024 End: 09-16-[address] Dane Yoder DO -Laboratory [place] Work Phone: Start: 09-16-2024 End: 09-16-2024 ambulatory aDne Paresh Facility:[facility] Start: 08-31-2024 End: 08-31-2024 Patient encounter procedure Gabrielle GLOVER -[facility] Work Phone: Start: 08-31-2024 End: 08-31-[address] Dane Yoder DO Work Phone: [facility] Work Phone: Start: 08-15-2024 Non-patient / Non-visit Dr. Hang rachel MD -[facility] Start: 08-15-2024 End: 08-15-[address] Dane Yoder DO Work Phone: [facility] Work Phone: Start: 08-15-2024 End: 08-15-2024 Patient encounter procedure Gabrielle GLOVER -Cardiovascular Services Work Phone: Start: 08-15-2024 End: 08-15-2024 ambulatory Gabrielle Grover Facility:[facility] Start: 07-20-2024 End: 07-20-2024 Patient encounter procedure Gabrielle GLOVER -[facility] Work Phone: Start: 07-20-2024 End: 07-20-2024 ambulatory Gabrielle Grover Facility:[facility] Start: 06-06-2022 End: 06-06-2022 ambulatory [facility] Work Phone: Start: 06-06-2022 End: 06-06-2022 Patient encounter procedure [facility]-Radiology, [place] Procedures Date Procedure Procedure Detail Performing Clinician Start: 10-06-2024 Free prostate specif ic antigen level Dr. Dane Ydoer DO Work Phone: Comment on above: [facility] Start: 10-06-2024 Prostate specific an tigen measurement Dr. Dane Yoder DO Work Phone: Comment on above: [facility] [employer] [facility].According to the [place] [employer], Serum PSAshould decrease and remain [...] Treatment Date Care Activity Detail Author Start: 10-20-2024 Patient discharge [facility] Lipoprotein a [Mass/ volume] in Serum or Plasma [facility] Immunizations Immunization Date Immunization Notes Care Provider Fa cility 07-12-2020 Covid (Pfizer) [facility] 06-21-2020 Covid (Pfizer) [facility] Payers Date Payer Category Payer Unknown 2024 Self-pay [id number] 2024 Self-pay [id number] 2011 Unknown [id number] Unknown [id number] Unknown [id number] 2.16.8 [id number] Unknown [id number] 2.16.8 [id number] Unknown [id number] 2.16.8 [id number] Unknown [id number] 2.16.8 [id number] Unknown [id number] 2.16.8 [id number] Unknown [id number] 2.16.8 [id number] Unknown [id number] 2.16.8 [id number] Unknown [id number] 2.16.8 [id number] Unknown [id number] 2.16.8 [id number] Unknown [id number] 2.16.8 [id number] Unknown [id number] 2.16.8 [id number] Social History Date Type Detail Facility Start: 03-22-2013 Tobacco smoking stat [facility] Unknown if ever smoked [facility] Start: 1960 Sex Assigned At Male [facility] Start: 03-22-2013 End: 10-20-2024 Tobacco smoking status PAIS Ex-smoker (finding) [facility] History and physical note 10-20-2024 Note Date & Type Note Facility 10-20-2024 History and physi cipriano note [facility] Clinical Note 10-20-2024 Note Date & Type Note Facility 10-20-2024 Note [facility] Medical Records Department [address] [place] [address] History Physical Exam 10/20/24 1118 MR#: [id number] Acct: [id number] Name: TRISTAN ZARCO Rep #: [id number] : 1960 64 From: Hang Leung MD PCP: Dr. Dane Yoder, DO Status:[facility] Location: [facility] HPI - General HPI Narrative TRISTAN ZARCO, is a 64 M who presents with recurrent LLE painful varicose veins refractory to compression. He has had prior GSV ablation and SSV ablation. PFSH Medical History no medical history Home Medications ???Medication ???Instructions ???Recorded ???Last Taken ???Type losartan 50 mg-hydrochlorothiazide 1 tab PO DAILY 10/19/24 Unknown History 12.5 mg tablet Allergy/AdvReac Type Severity Reaction Status Date / Time No Known Allergies Allergy Verified 08/31/24 08:28 Family History Other Cancer Heart disease Myocardial infarction Social History Smoking Status: Former smoker ROS Constitutional Constitutional: Denies chills, fever(s), frequent falls, lethargy or weakness Eyes Eyes: Denies blind spots, change in vision or loss of vision ENT HEENT: Denies bleeding gums, hoarseness or sore throat Cardiovascular Cardiovascular: Denies abdominal pain, bluish discoloration of hand/feet, chest pain with activity, claudication, cold extremities, cyanosis, dyspnea on exertion, erythema on extremities, irregular heart rhythm, leg edema, leg ulcers, numbness in extremities or weakness in extremities Respiratory/Chest Respiratory/Chest: Denies cough, excessive phlegm production, shortness of breath at rest, shortness of breath with exertion or wheezing Gastrointestinal Gastrointestinal: Denies anorexia, change in stool character, constipation, diarrhea, melena or rectal bleeding Genitourinary Genitourinary: Denies dysuria or hematuria Musculoskeletal Musculoskeletal: Denies abnormal gait Integumentary Integumentary: Reports other Details: ; Denies erythema, non-healing lesions or wounds Neurologic Neurologic: Denies abnormal speech, focal weakness, headache(s), loss of vision, numbness, paresthesias or sensory deficit Hematologic/Lymphatic Hematologic/Lymphatic: Denies easy bleeding, easy bruising or lymphadenopathy Vital Signs Vital Signs Vital Signs: Weight Weight: 206 lb Body Mass Index (BMI) 27.9 Physical Exam Const alert, oriented x3, no apparent distress and healthy appearing General Appearance: cooperative; Negative for combative or lethargic Orientation / Consciousness: awake Exam Limitations: no limitations HEENT Head and Scalp: normocephalic and atraumatic Eyes EOMs intact bilaterally General Eye: normal appearance of both eyes Neck full ROM General: trachea midline Resp normal respiratory effort and no use of accessory muscles Effort and Inspection: Negative for labored, stridor or audible wheezes Cardio regular rate and regular rhythm Back/Spine Cervical Spine: cervical ROM normal Extremity full ROM, normal capillary refill and no clubbing, cyanosis or edema Skin no rashes or lesions noted and no wounds Neuro oriented x3, CN's II-XII intact bilaterally, no focal motor deficits and no sensory deficits noted Psych thought process normal, cooperative, affect normal, speech normal and activity/motor behavior normal Assessment Plan Assessment/Plan (1) Varicose veins of bilateral lower extremities with pain: PLAN: -left foam sclero 10/20/24 1120 Cosigner Signature (if applicable): CC: Dr. Hang Leung MD; Dr. Dane Yoder, DO Signed [facility] Evaluation note 07-20-2024 Note Date & Type Note Facility 07-20-2024 Evaluation note Diagnosis Onset Date Resolution Varicose veins of bilateral lower extremities with pain acute July 10:47am Venous insufficiency acute [facility] 2024 10:47am [facility] Work Phone: Evaluation note 07-20-2024 Note Date & Type Note Facility 07-20-2024 Evaluation note Diagnosis Onset Date Resolution Varicose veins of bilateral lower extremities with pain acute July 10:47am Venous insufficiency acute [facility] 2024 10:47am Varicose veins of bilateral lower extremities with pain acute August 31, 2024 8:18am Venous insufficiency acute August 31, 2024 8:18am [facility] Work Phone: Evaluation note 07-20-2024 Note Date & Type Note Facility 07-20-2024 Evaluation note Diagnosis Onset Date Resolution Varicose veins of bilateral lower extremities with pain acute July 10:47am Venous insufficiency acute [facility] 2024 10:47am Varicose veins of bilateral lower extremities with pain acute August 31, 2024 8:18am Venous insufficiency acute August 31, 2024 8:18am Varicose veins of bilateral lower extremities with pain acute October 20, 2024 8:31am [facility] Work Phone: Evaluation note Note Date & Type Note Facility Evaluation note No assessment information availa [facility] Work Phone: History and physical note Note Date & Type Note Facility History and physical note Note Date/Time October 20, 2024 11:20am [facility] Medical Records Department [address] [place] [address] History & Physical Exam 10/20/24 1118 MR#: [id number] Acct: [id number] Name: TRISTAN ZARCO Rep #:[id number] : 1960 64 From: Hang Leung MD PCP: Dr. Dane Yoder, DO Status:[facility] Location: [facility] HPI - General HPI Narrative TRISTAN ZARCO, is a 64 M who presents with recurrent LLE painful varicose veins refractory to compression. He has had prior GSV ablation and SSV ablation. PFSH Medical History no medical history Home Medications ?Medication ?Instructions ?Recorded ?Last Taken ?Type losartan 50 mg-hydrochlorothiazide 1 tab PO DAILY 10/04 09/28 Unknown History 12.5 mg tablet Allergy/AdvReac Type Severity Reaction Status Date / Time No Known Allergies Allergy Verified 08/31/24 08:28 Family History Other Cancer Heart disease Myocardial infarction Social History Smoking Status: Former smoker ROS Constitutional Constitutional: Denies chills, fever(s), frequent falls, lethargy or weakness Eyes Eyes: Denies blind spots, change in vision or loss of vision ENT HEENT: Denies bleeding gums, hoarseness or sore throat Cardiovascular Cardiovascular: Denies abdominal pain, bluish discoloration of hand/feet, chest pain with activity, claudication, cold extremities, cyanosis, dyspnea on exertion, erythema on extremities, irregular heart rhythm, leg edema, leg ulcers, numbness in extremities or weakness in extremities Respiratory/Chest Respiratory/Chest: Denies cough, excessive phlegm production, shortness of breath at rest, shortness of breath with exertion or wheezing Gastrointestinal Gastrointestinal: Denies anorexia, change in stool character, constipation, diarrhea, melena or rectal bleeding Genitourinary Genitourinary: Denies dysuria or hematuria Musculoskeletal Musculoskeletal: Denies abnormal gait Integumentary Integumentary: Reports other Details: ; Denies erythema, non-healing lesions or wounds Neurologic Neurologic: Denies abnormal speech, focal weakness, headache(s), loss of vision,numbness, paresthesias or sensory deficit Hematologic/Lymphatic Hematologic/Lymphatic: Denies easy bleeding, easy bruising or lymphadenopathy Vital Signs Vital Signs Vital Signs: Weight Weight: 206 lb Body Mass Index (BMI) 27.9 Physical Exam Const alert, oriented x3, no apparent distress and healthy appearing General Appearance: cooperative; Negative for combative or lethargic Orientation / Consciousness: awake Exam Limitations: no limitations HEENT Head and Scalp: normocephalic and atraumatic Eyes EOMs intact bilaterally General Eye: normal appearance of both eyes Neck full ROM General: trachea midline Resp normal respiratory effort and no use of accessory muscles Effort and Inspection: Negative for labored, stridor or audible wheezes Cardio regular rate and regular rhythm Back/Spine Cervical Spine: cervical ROM normal Extremity full ROM, normal capillary refill and no clubbing, cyanosis or edema Skin no rashes or lesions noted and no wounds Neuro oriented x3, CN's II-XII intact bilaterally, no focal motor deficits and no sensory deficits noted Psych thought process normal, cooperative, affect normal, speech normal and activity/motor behavior normal Assessment & Plan Assessment/Plan (1) Varicose veins of bilateral lower extremities with pain: PLAN: -left foam sclero 10/20/24 1120 <Electronically signed by Hang Leung MD> Cosigner Signature (if applicable): CC: Dr. Hang Leung MD; Dr. Dane Yoder, DO~ Signed [facility] Work Phone: Reason for referral (narrative) Note Date & Type Note Facility Reason for referral (narrative) No reason for referral information available [facility] Work Phone: Chief Complaint and Reason for [...] Venous insufficiency August 31, 2024 8:18 am Chief Complaint Admit Date Varicose Veins July 20, 2024 10: 47am Pain August 15, 2024 7:29a m Discuss US August 31, 2024 8:18a m FASTING September 16, 2024 3:01 pm Varicose veins of bilateral lower extrem ities with October 20, 2024 8:31am Varicose veins of bilateral lower extrem ities with October 20, 2024 11:18am Reason for Visit Admit Date Varicose veins of bilateral lower extrem ities with pain July 20, 2024 10:47am Venous insufficiency July 20, 2024 10 :47am Varicose veins of bilateral lower extrem ities with pain August 31, 2024 8:18am Venous insufficiency August 31, 2024 8:18 am Varicose veins of bilateral lower extrem ities with pain October 20, 2024 8:31am Advance Directives No Advanced Directives Records Found Advance Directive Response Recorded Date/ Time Advance Directives No March 8:07am Living Will No March 18, 2 013 8:07am Power of Chocolate Packer No March 18, 2013 8:07am Advance Directive Response Recorded Date/ Time Advance Directives No March 9:07am Advance Directive Response Recorded Date/ Time Advance Directives on File No October 20, 2024 8:42am Living Will No October 20, 2024 8:42am Do you have a Healthcare Power of Chocolate Packer? No October 20, 2024 8:42am Advance Directives No October 20 8:42am Family History No Family History Records Found Relationship Condition Age at Onset Recorded Date/T lopez Not Specified Cardiac disease Unknown Myocardial infarction Unknown Malignant neoplasm Unknown Summary Purpose Additional Source Comments Care Teams (unrecognized sec tion and content) Team Status: Active Member Role Status Dates Dr. Dane Yoder , DO Family Provider Active Dr. Dane Yoder , DO Primary Care Provider Active Team Status: Inactive Member Role Status Dates Dr. Dane Yoder , DO Primary Care Prov ider, Attending Provider, [...] Active Member Role/Relationship Status Dates Dr. Dane Yodre DO Primary Care Provider Active Start: August [...] October 06, 2024 End: October 06, 2024 Team Status: Inactive Member Role/Relationship Status Dates Dr. Dane Yoder DO Primary Care Provider Active Start: October 20, 2024 End: October 20, 2024 Dr. Hang Leung MD Attending Provider Active S tart: October 20, 2024 End: October 20, 2024 Dr. Hang Leung MD Referring Provider Active S tart: October 20, 2024 End: October 20, 2024 Team Status: Active Member Role/Relationship Status Dates Dr. Dane Yoder DO Primary Care Provider Active Start: October 20, 2024 Dr. Hang Leung MD Attending Provider Active S tart: October 20, 2024 Dr. Hang Leung MD Referring Provider Active S tart: October 20, 2024 Dr. Hang Leung MD Other Provider Active Start : October 20, 2024 Goals (unrecognized section and content) Goals [...] ized section and content) DATE CREATED AUTHOR 10/23/2024 [facility] FOR RECORDS PERTAINING TO PATIENTS [...] BE BASED ON THE PRIMARY CLINICAL RECORDS. [facility] [employer] provides no warranty or guarantee of the accuracy or completeness of information in this document.
--- NOTE | 2024-10-25 07:52 | VDLE_ITS ---
Reason For Study Reason For Study: S/P Chemical ablation RIGHT LEFT CFV is compressible, spontaneous, phasic, competent CFV is compressible, spontaneous, phasic, competent, and demonstrates normal augmentation. and demonstrates normal augmentation. Procedure FV is compressible, spontaneous, phasic, competent and This is a venous duplex using B-mode, color flow and demonstrates normal augmentation. spectral Doppler. POP V is compressible, spontaneous, phasic, competent Exam performed in department. and demonstrates normal augmentation. The exam was diagnostic. T/P Trunk is compressible. PTV is compressible. LT PerV is compressible. GSV is compressible ankle to mid calf. GSV mid calf to junction appears to have been previously ablated. Lateral ASV and varicosities mid calf to prox thigh appear anechoic, dilated and NONCOMPRESSIBLE. Finding is consistent with recent chemical ablation procedure. VL/Venous Duplex US, Unilateral Interpretation Summary Lateral accessory saphenous vein and associated varicosities occluded consisten t with recent ablation. Deep veins of the left lower extremity are patent and compressible segmentally. There is no evidence of left lower extremity deep vein thrombosis. Ordering Physician: Gabrielle Grover Referring Physician: Dane Yoder Performed By: Adis Guido, SARAY
== END | disposition home or self-care (01) ==
LOC: CVS 06:46
PROVIDERS: PCP Family Medicine; Referring Provider Surgery Trauma Surgery; Visit Provider Surgery Trauma Surgery
DX: I83.813 Varicose veins of bilateral lower extremities with pain (principal); I87.2 Venous insufficiency (chronic) (peripheral)
CPT/HCPCS: 93971

== ENCOUNTER → 2024-10-26 | Outpatient (CLI) | payer OTHER, SELFPAY ==
--- NOTE | 2024-10-26 11:15 | MRI_ITS ---
PROCEDURE: PELVIS W/WO CONTRAST, 10/26/2024 REASON FOR EXAM: ELEVATED PSA TECHNIQUE: Multisequence multiplanar MRI pelvis was performed with and without IV contrast. IV Contrast: 18 mL Clariscan COMPARISON: None FINDINGS: Prostate size: 4.5 x 3.1 x 3.8 cm, estimated volume 27.6 mL. Transition zone: PI-RADS 2 findings. Peripheral Zone: Background changes of fairly prominent likely prostatitis (PI- RADS 2). Additional lesions as below:. *Lesion 1: Centered in the LEFT posterior and anterior peripheral zone far base and extending inferiorly into the mid posterolateral peripheral zone and mid anterior peripheral zones, 2.1 cm (series 12 image 10-15).. *T2 score: 5. *DWI score: 5. *DCE: N/A. *Overall PI-RADS: Positive. *Extracapsular extension:Questionable subtle overlying broad-based capsular bulging may be seen in early extracapsular extension. Note additionally there is capsular abutment well over 1 cm which increases the risk of occult early/microscopic extracapsular extension. Both findings include abutment of the LEFT neurovascular bundle and immediate abutment of the base of the LEFT seminal vesicle, without gross invasion of these structures however early/microscopic involvement cannot be excluded. Neurovascular bundles: As above. Seminal vesicles: As above. Bladder: 5.7 cm diverticulum along the posterior midline. Lymph nodes: Unremarkable. Bones: No destructive or frankly suspicious bony lesions evident on nondedicated evaluation. Other: Small LEFT and tiny RIGHT fat containing inguinal hernias. Diverticulosis.. MRI/Pelvis W/WO Contrast IMPRESSION: 1. 2.1 cm PI-RADS 5 lesion centered in the LEFT posterior and anterior peripher al zone far base extending inferiorly to the level of the midgland 2. Questionable subtle overlying broad-based capsular bulging may be seen in ea rly extracapsular extension. Note additionally there is capsular abutment well over 1 cm which increases the risk of occult ea rly/microscopic extracapsular extension. Both findings include abutment of the LEFT neurovascular bundle and immediate abutme nt of the base of the LEFT seminal vesicle, without gross invasion of these structures however early/microscopic involvemen t cannot be excluded. 3. No overt pelvic lymphadenopathy. 4. Additional description as above. Reading Location: [facility]
--- OUTSIDE RECORDS SUMMARY | 2024-10-26 19:21 | XMS RPT_ITS | CCD ---
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 Dane Yoder DO Primary Care Provider [phone] Dr. Dane Yoder DO Referring Provider [phone] Gabrielle Graves Attending Provider 1330-03 10 Gabrielle Graves Referring Provider [phone] Madhu MALIK, Dr. Mauricio Attending Provider Dr. Dane Yoder DO Attending Provider [phone] Etelvina MALIK, Dr. Jaiden Carrion Attending Provider Etelvina MALIK, Dr. Jaiden Carrion Referring Provider [phone] Madhu MALIK, Dr. Mauricio Referring Provider Madhu MALIK, Dr. Mauricio Other Provider [phone] Gabrielle Grover Attending Unavailable Paresh, Dane Primary Care Unavailable Paresh, Dane Referring Unavailable Grover, Gabrielle Attending Unavailable Paresh, Dane Referring Unavailable Paresh, Dane Primary Care Unavailable Paresh, Dane Attending Unavailable Paresh, Dane Referring Unavailable Paresh, Dane Primary Care Unavailable [place] Attending Unavailable Paresh, Dane Primary Care Unavailable EtelvinaJaiden Attending Unavailable EtelvinaJaiden Referring Unavailable Paresh, Dane Primary Care Unavailable Paresh, Dane Primary Care Unavailable Grover, Gabrielle Attending Unavailable Grover, Gabrielle Referring Unavailable Madhu, Hang Attending Unavailable Madhu, Hang Referring Unavailable Paresh, Dane Primary Care Unavailable [place], Hang Referring Unavailable Madhu, Hang Attending Unavailable Paresh, Dane Primary Care Unavailable Etelvina, Jaiden Carrion Attending Unavailable Etelvina, Jaiden Carrion Referring Unavailable Paresh, Dane Primary Care Unavailable Hang Leung Referring Unavailable Hang Leung Consulting Unavailable Hang Leung Attending Unavailable PareshDane Primary Care Unavailable Hang Leung Attending [facility]available [facility] Unavailable Gabrielle Grover Referring Unavailable Hang Leung Attending Unavailable PareshDane Primary Care Unavailable PareshDane Attending Unavailable [facility] Referring Unavailable [facility] Dane Primary Care Unavailable Medications Current Medications Medication [...] (peripheral); Translations: [Venous insufficiency (chronic) (peripheral)] Onset: 10-25-2024 Episodic Other screening for suspected conditions (not mental disorders or infectious disease) (3 sources) Elevated prostate specific antigen [PSA]; Translations: [Encounter for screening for cardiovascular disorders] Onset: 10-13-2024 Episodic Varicose veins of lower extremity (16 sources) Varicose veins of lower extremity; Translations: [Varicose veins of bilateral lower extremities with pain] Onset: 10-20-2024 07-20-2024 Episodic Results Test Name Value Interpretation Reference Range Facility Coronary Angiography CTon Coronary Angiography CT [facility] Imaging Services [address] [place] [address] 10/25/24 0834 MR#: [id number] Acct: [id number] Name: TRISTAN ZARCO Rep #: [id number] : 1960 64 From: Timmy Garzon MD PCP: Dr. Dane Yoder, DO Status:REG REF Y Location: CT Calcium Scoring Date of Study:: 10/25/24 Indications Indications: Screening Coronary Calcium Scoring: High-resolution Computed Tomographic imaging of the chest was performed on [10/25/24 ], with particular attention paid to the coronary arteries. Images from the examination were analyzed for the presence and extent of coronary artery calcification , using coronary calcium quantification software. The patient tolerated the procedure well and there were no complications. The results of the coronary calcification analysis are provided below. Findings Coronary Artery Left Main (LM): 18.3 Left Anterior Descending (LAD): 221 Left Circumflex (LCX): 16.7 Right Coronary Artery (RCA): 890 Total Agatston Score: 1,146.0 Percentile Rankin% Calcium Scoring Interpretation: Different methods to categorize the overall amount of coronary plaque. Overall amount CAC SIS Visual of coronary plaque P1 Mild -100 <2 1-2 vessels with mild amount of plaque P2 Moderate 101-300 3-4 1-2 vessels with moderate amount, 3 vessels with mild amount of plaque P3 Severe 301-999 5-7 3 vessels with moderate amount, 1 vessel with severe amount of plaque P4 Extensive >1000 >8 2-3 vessels with severe amount of plaque Calcium Score: Extensive: 2-3 vessels w/severe amount of plaque Conclusion: Extensive two-vessel plaquing noted. 10/25/24 0836 Date Timmy Garzon MD Cosigner Signature (if applicable): Date CC: Dr. Timmy Garzon MD; Dr. Dane Yoder, DO Signed Normal [facility] Venous Duplex US, Unilateral on 10-25-2024 Venous Duplex US, Unilateral [facility] Cardiovascular Services [address] [place] [address] Venous Duplex US, Unilateral 10/25/24 0807 MR#: [id number] Acct: [id number] Name: TRISTAN ZARCO Rep #: [id number] : 1960 64 From: Hang Leung MD Attending Dr: Dr. Hang Leung MD Status: REG C Ordering Dr: Gabrielle Grover Date: 10/25/24 Location: CVS Sex: M C Admitted: Reason For Study Reason For Study: S/P Chemical ablation RIGHT LEFT CFV is compressible, spontaneous, phasic, competent CFV is compressible, spontaneous, phasic, competent, and demonstrates normal augmentation. and demonstrates normal augmentation. Procedure FV is compressible, spontaneous, phasic, competent and This is a venous duplex using B-mode, color flow and demonstrates normal augmentation. spectral Doppler. POP V is compressible, spontaneous, phasic, competent Exam performed in department. and demonstrates normal augmentation. The exam was diagnostic. T/P Trunk is compressible. PTV is compressible. LT PerV is compressible. GSV is compressible ankle to mid calf. GSV mid calf to junction appears to have been previously ablated. Lateral ASV and varicosities mid calf to prox thigh appear anechoic, dilated and NONCOMPRESSIBLE. Finding is consistent with recent chemical ablation procedure. VL/Venous Duplex US, Unilateral Interpretation Summary Lateral accessory saphenous vein and associated varicosities occluded consistent with recent ablation. Deep veins of the left lower extremity are patent and compressible segmentally. There is no evidence of left lower extremity deep vein thrombosis. __ Ordering Physician: Gabrielle Grover Referring Physician: Dane Yoder Performed By: Adis Guido, T 10/25/24 1311 Date Hang Leung MD CC: BELEN Marin; Dr. Hang Leung MD; Dr. Dane Yoder, Date Dictated: 10/25/2407 Date Transcribed: 10/25/24 131 Paramedic Rn: Signed Normal [facility] Operative Reporton Operative Report [facility] Medical Records Department [address] [place] [address] Operative Report 10/20/24 1933 MR#: [id number] Acct: [id number] Name: TRISTAN ZARCO Rep #: [id number] : 1960 64 From: Hang Leung MD PCP: Dr. Dane Yoder DO Status:[facility] Location: [facility] Operative Report (Standard) Operative Information Date of Procedure: 10/20/24 Pre-Operative Diagnosis: Varicose veins with pain of the left lower extremity Post-Operative Diagnosis: Same Surgery/Procedure Performed: Foam sclerotherapy of left lateral thigh and calf varicosities machine cloth examiner: No Type of Anesthesia: Local Procedure Start [...] and appeared to be pressurized via a fire management technician directly from the femoral vein as well as some communication with an accessory saphenous vein on the medial aspect of the thigh. He is taken now for foam sclerotherapy of the symptomatic vessels. Description of procedure: Upon obtaining informed consent and verification correct patient procedure and site the patient was seen in the [employer] Help Desk Officer he was positioned prepped and draped in usual sterile fashion. Timeout is performed and ultrasound was used to evaluate the varicosities they were primarily symptomatic. These were in an atypical location on the posterior aspect of the thigh extending into the lateral aspect of the thigh and proximal calf. He had multiple fire management technician veins on the medial aspect of the calf that did not appear to be involved in this segment of symptomatic varicosities. There was a more proximal fire management technician in the lateral aspect of the thigh [...] Prior to the sclerosing agent reaching the fire management technician vein manner pressure was applied after which this was released and the extent of sclerosing agent assessed. There appeared to be adequate treatment of the areas of symptoms with no deep vein extension and no extension into the fire management technician vein. Dry sterile dressing and Asim wrap were then applied the patient was taken to recovery with plan discharged to home. Surgical Findings: See above Complications Complications: No 10/20/241937 Cosigner Signature (if applicable): CC: Dr. Hang Leung MD; Dr. Dane Yoder DO Signed Normal [facility] PSA Total+%Freeon 10-09-2024 PSA, FREE 1.08 ng/mL Normal N/A [facility] Comment on above: Result Comment: Mague DUNHAM methodology. Performed By: #### L 3110.0500 #### [facility] [address] [place], [address] PSA, FREE % 17.6 Normal . [facility] Comment on above: Result Comment: The table [...] any other population of men. Performed at: [facility] [address] [id number] Residential Tech: Jaskaran Eaton PhD, Phone: [phone] Performed By: #### L 3110.0500 #### [facility] [address] [place], [address] PSA, TOTAL ULTR 6.150 ng/mL Abnormal 0.000-4.000 [facility] Comment on above: Result Comment: Mague DUNHAM methodology. According to the [place] [employer], Serum PSA should decrease and [...] disease. Performed By: #### L 3110.0500 #### [facility] [address] [place], [address] Serum or plasma free prostat e specific antigen (PSA)/total PSA mass ratioOrdered By: Jaiden Main on 10-06-2024 Free PSA/Total PSA [Mass fraction] 17.6 % . [facility] Comment on above: The table below list [...] for any other population of men.Performed at: [facility] [employer] [id number] Director: Jaskaran Eaton PhD, Phone: [phone] Lipoprotein Aon 09-19-2024 Lipoprotein a [Moles/Vol] 44.2 nmol/L Normal <75.0 [facility] Comment on above: Order Comment: Test( s) 728210-Mdzusrepwya (a) was developed and its performance characteristics determined by [employer]. It has not been cleared or approved by the Food and Drug Administration. Result Comment: Note : Values greater than or equal to 75.0 nmol/L may indicate an independent risk factor for CHD, but must be evaluated with caution when applied to non- populations due to the influence of genetic factors on Lp(a) across ethnicities. Performed at: [facility] [address], [place] [id number] Residential Tech: Jaskaran Eaton PhD, Phone: [phone] Performed By: #### L 3400.4600, L100.0100, L500.4100, L501.9910, L500.4050 #### [facility] [place], [address] Absolute lymphocyte countOrd ered By: Dane Yoder on 09-16-2024 Lymphocytes Auto (Unsp spec) [#/Vol] 1.81 10*3/uL 0.83-4.51 [facility] Absolute neutrophil countOrd ered By: Dane Yoder on 09-16-2024 Neutrophils (Bld) [#/Vol] 5.5 10*3/uL 2.0-7.7 [facility] Anion gap in Serum or Plasma Ordered By: Dane Yoder on 09-16-2024 Anion gap [Moles/Vol] 13 mmol/L 5-15 [facility] Automated lymphocyte count a s percentage of total leukocytesOrdered By: Dane Yoder on 09-16-2024 Lymphocytes/100 WBC Auto (Unsp spec) 21.6 % 19- [facility] BUN/creatinine ratioOrdered By: Dane Yoder on 09-16-2024 Urea nitrogen/Creatinine [Mass ratio] 13.2 mg/mg 10- [facility] Basophil percentageOrdered B y: Dane Yoder on 09-16-2024 Basophils/100 WBC (Bld) 0.5 % 0-1 [facility] Bilirubin, totalOrdered By: Dane Yoder on 09-16-2024 Bilirubin [Mass/Vol] 0.56 mg/dL Normal 0.00-1.[address] [facility] Comment on above: Performed By: #### L 3400.4600, L100.0100, L500.4100, L501.9910, L500.4050 #### [facility] [address] [place], [address] CBC W/Diff, Automatedon 09-04 Absolute Lymph 1.81 X10 3/uL Normal 0.83-4.51 [facility] Comment on above: Performed By: #### L 3400.4600, L100.0100, L500.4100, L501.9910, L500.4050 #### [facility] [address] [place], [address] Absolute Neut 5.5 X10 3/uL Normal 2.0-7.7 [facility] Comment on above: Performed By: #### L 3400.4600, L100.0100, L500.4100, L501.9910, L500.4050 #### [facility] [address] [place], [address] Basophils/100 WBC (Bld) 0.5 % Normal 0-1 [facility] Comment on above: Performed By: #### L 3400.4600, L100.0100, L500.4100, L501.9910, L500.4050 #### [facility] [address] [place], [address] Eosinophils/100 WBC (Bld) 1.9 % Normal 0-5 [facility] Comment on above: Performed By: #### L 3400.4600, L100.0100, L500.4100, L501.9910, L500.4050 #### [facility] [address] [place], [address] Erythrocyte distribution width (RBC) [Ratio] 13.0 % Normal 11.6-14.6 [facility] Comment on above: Performed By: #### L 3400.4600, L100.0100, L500.4100, L501.9910, L500.4050 #### [facility] [address] [place], [address] Hematocrit (Bld) [Volume fraction] 44.7 % Normal 40-54 [facility] Comment on above: Performed By: #### L 3400.4600, L100.0100, L500.4100, L501.9910, L500.4050 #### [facility] [address] [place], [address] Hemoglobin (Bld) [Mass/Vol] 14.8 g/dL Normal 13.0-16.5 [facility] Comment on above: Performed By: #### L 3400.4600, L100.0100, L500.4100, L501.9910, L500.4050 #### [facility] [address] [place], [address] IG% 1.900 High 0.0-0.9 [facility] Comment on above: Result Comment: IG% - Immature Granulocytes (promyelocytes, myelocytes and metamyelocytes) > 1% indicates that a LEFT SHIFT is Present. Performed By: #### L 3400.4600, L100.0100, L500.4100, L501.9910, L500.4050 #### [facility] [address] [place], [address] Lymphocytes/100 WBC (Bld) 21.6 % Normal 19-41 [facility] Comment on above: Performed By: #### L 3400.4600, L100.0100, L500.4100, L501.9910, L500.4050 #### [facility] [address] [place], [address] MCH (RBC) [Entitic mass] 31.7 pg Normal 27.0-32.0 [facility] Comment on above: Performed By: #### L 3400.4600, L100.0100, L500.4100, L501.9910, L500.4050 #### [facility] [address] [place], [address] MCHC (RBC) [Mass/Vol] 33.1 g/dL Normal 32-36 [facility] Comment on above: Performed By: #### L 3400.4600, L100.0100, L500.4100, L501.9910, L500.4050 #### [facility] [address] [place], [address] MCV (RBC) [Entitic vol] 95.7 fL High 80-94 [facility] Comment on above: Performed By: #### L 3400.4600, L100.0100, L500.4100, L501.9910, L500.4050 #### [facility] [address] [place], [address] Monocytes/100 WBC (Bld) 9.1 % Normal 0-10 [facility] Comment on above: Performed By: #### L 3400.4600, L100.0100, L500.4100, L501.9910, L500.4050 #### [facility] [address] [place], [address] Neutrophils/100 WBC (Bld) 65.0 % Normal 47-70 [facility] Comment on above: Performed By: #### L 3400.4600, L100.0100, L500.4100, L501.9910, L500.4050 #### [facility] [address] [place], [address] Nucleated RBC (Bld) [#/Vol] 0 10*3/uL Normal 0-5 [facility] Comment on above: Performed By: #### L 3400.4600, L100.0100, L500.4100, L501.9910, L500.4050 #### [facility] [address] [place], [address] Platelet mean volume (Bld) [Entitic vol] 10.5 fL Normal 6.2-12.0 [facility] Comment on above: Performed By: #### L 3400.4600, L100.0100, L500.4100, L501.9910, L500.4050 #### [facility] [address] [place], [address] Platelets (Bld) [#/Vol] 246 10*3/uL Normal 150-450 [facility] Comment on above: Performed By: #### L 3400.4600, L100.0100, L500.4100, L501.9910, L500.4050 #### [facility] [address] [place], [address] RBC (Bld) [#/Vol] 4.67 10*6/uL Normal 4.6-6.2 [facility] Comment on above: Performed By: #### L 3400.4600, L100.0100, L500.4100, L501.9910, L500.4050 #### [facility] [address] [place], [address] RDW SD 44.8 fl High 35.1-43.9 [facility] Comment on above: Performed By: #### L 3400.4600, L100.0100, L500.4100, L501.9910, L500.4050 #### [facility] [address] [place], [address] WBC (Bld) [#/Vol] 8.4 10*3/uL Normal 4.4-11.0 [facility] Comment on above: Performed By: #### L 3400.4600, L100.0100, L500.4100, L501.9910, L500.4050 #### [facility] [address] [place], [address] Calculated very low density lipoprotein (VLDL) cholesterol measurementOrdered By: Dane Yoder on 09-16-2024 Calculated very low density lipoprotein (VLDL) cholesterol measurement 21 mg/dL 5-40 [facility] Carbon dioxide, total [Moles /volume] in Central venous bloodOrdered By: Dane Yoder on 09-16-2024 CO2 [Moles/Vol] 24.7 mmol/L Normal 21.0-32.0 [facility] Comment on above: Performed By: #### L 3400.4600, L100.0100, L500.4100, L501.9910, L500.4050 #### [facility] [address] [place], [address] Chloride assayOrdered By: Yanick Yoder on 09-16-2024 Chloride [Moles/Vol] 103 mmol/L Normal 98-[address] [facility] Comment on above: Performed By: #### L 3400.4600, L100.0100, L500.4100, L501.9910, L500.4050 #### [facility] [address] [place], [address] Comprehensive Metabolic Prof ilon 09-16-2024 ALK PHOS 60 U/L Normal 40-129 [facility] Comment on above: Performed By: #### L 3400.4600, L100.0100, L500.4100, L501.9910, L500.4050 #### [facility] [address] [place], [address] BUN/CRE 13.2 RATIO Normal 10-20 [facility] Comment on above: Performed By: #### L 3400.4600, L100.0100, L500.4100, L501.9910, L500.4050 #### [facility] [address] [place], [address] GAP 13 Normal 5-15 [facility] Comment on above: Performed By: #### L 3400.4600, L100.0100, L500.4100, L501.9910, L500.4050 #### [facility] [address] [place], [address] Potassium [Moles/Vol] 3.9 mmol/L Normal 3.3-5.1 [facility] Comment on above: Performed By: #### L 3400.4600, L100.0100, L500.4100, L501.9910, L500.4050 #### [facility] [address] [place], [address] T PROT 7.1 g/dL Normal 5.9-8.4 [facility] Comment on above: Performed By: #### L 3400.4600, L100.0100, L500.4100, L501.9910, L500.4050 #### [facility] [address] [place], [address] Comprehensive Metabolic Prof ilOrdered By: Daen Yoder on 09-16-2024 AST [Catalytic activity/Vol] 20 U/L Normal <=37 [facility] Comment on above: Performed By: #### L 3400.4600, L100.0100, L500.4100, L501.9910, L500.4050 #### [facility] [address] [place], [place], [address] Eosinophil percentageOrdered By: Dane Yoder on 09-16-2024 Eosinophils/100 WBC (Bld) 1.9 % 0-5 [facility] Erythrocyte distribution wid th ratioOrdered By: Dane Yoder on 09-16-2024 Erythrocyte distribution width (RBC) [Ratio] 13.0 % 11.6-14.6 [facility] Erythrocyte distribution wid th standard deviationOrdered By: Dane Yoder on 09-16-2024 Erythrocyte distribution width (RBC) [Ratio] 44.8 fl High 35.1-43.9 [facility] Glomerular filtration rate ( GFR) estimation/1.73 sq m using serum, plasma, or whole bOrdered By: Dane Yoder on 09-16-2024 GFR/1.73 sq M.predicted among non-blacks MDRD (S/P/Bld) [Vol rate/Area] 91 mL/min/{1.73_m2} Normal >60 [facility] Comment on above: mL/min/1.73m2 CKD-EP I Creatinine Equation (2020) Result Comment: mL/m in/1.73m2 CKD-EPI Creatinine Equation (2020) Performed By: #### L 3400.4600, L100.0100, L500.4100, L501.9910, L500.4050 #### [facility] [address] [facility] [place], [place], [address] Hematocrit Auto (Bld) [Volum e fraction]Ordered By: Dane Yoder on 09-16-2024 Hematocrit (Bld) [Volume fraction] 44.7 % 40-54 [facility] Hemoglobin measurementOrdere d By: Dane Yoder on 09-16-2024 Hemoglobin (Bld) [Mass/Vol] 14.8 g/dL 13.0-16.5 [facility] Immature granulocytes/100 WB C Auto (Bld)Ordered By: Dane Yoder on 09-16-2024 Immature granulocytes/100 WBC (Bld) 1.900 % High 0.0-0.9 [facility] Comment on above: IG% - Immature Granu locytes (promyelocytes, myelocytes and metamyelocytes) > 1% indicates that a LEFT SHIFT is Present. LDL calc ser/plasOrdered By: Dane Yoder on 09-16-2024 Cholesterol in LDL [Mass/Vol] 144 mg/dL Normal [facility] Comment on above: Bqesrjdiby=693-810 m g/dL & Higher Evhv=354 mg/dL or greater Result Comment: Bord gjzxll=927-500 mg/dL Higher Wcdv=017 mg/dL or greater Performed By: #### L 3400.4600, L100.0100, L500.4100, L501.9910, L500.4050 #### [facility] [address] [place], [place], [id number] Lipid Profileon 09-16-2024 CHOL:HDL 3.67 Normal [facility] Comment on above: Performed By: #### L 3400.4600, L100.0100, L500.4100, L501.9910, L500.4050 #### [facility] [address] [place], [address] Cholesterol in VLDL [Mass/Vol] 21 mg/dL Normal 5-40 [facility] Comment on above: Performed By: #### L 3400.4600, L100.0100, L500.4100, L501.9910, L500.4050 #### [facility] [address] [place], [address] Lipoprotein a [Mass/Vol]Orde red By: Dane Yoder on 09-16-2024 Lipoprotein a [Moles/Vol] 44.2 nmol/L <75.0 [facility] Comment on above: Note: Values greater than or equal to 75.0 nmol/L may indicate an independent risk factor for CHD, but must be evaluated with caution when applied to non- populations due to the influence of genetic factors on Lp(a) across ethnicities.Performed at: - [facility] [id number] Director: Jaskaran Eaton PhD, Phone: [phone] MCV (mean corpuscular volume ) determinationOrdered By: Dane Yoder on 09-16-2024 MCV (RBC) [Entitic vol] 95.7 fL High 80-94 [facility] Mean corpuscular hemoglobin (MCH) determinationOrdered By: Dane Yoder on 09-16-2024 MCH (RBC) [Entitic mass] 31.7 pg 27.0-32.0 [facility] Mean corpuscular hemoglobin concentration (MCHC) determinationOrdered By: Dane Yoder on 09-16-2024 MCHC (RBC) [Mass/Vol] 33.1 g/dL 32-36 [facility] Mean platelet volume determi nationOrdered By: Dane Yoder on 09-16-2024 Platelet mean volume (Bld) [Entitic vol] 10.5 fL 6.2-12.0 [facility] Monocyte percentageOrdered B y: Dane Yoder on 09-16-2024 Monocytes/100 WBC (Bld) 9.1 % 0-[address] [facility] Neutrophil percentageOrdered By: Dane Yoder on 09-16-2024 Neutrophils/100 WBC (Bld) 65.0 % 47-70 [facility] Nucleated red blood cell per centageOrdered By: Dane Yoder on 09-16-2024 Nucleated RBC/100 WBC (Bld) [Ratio] 0 % 0-5 [facility] PSA,Total - Annual Screenon 09-16-2024 PSA,TOT SCREEN 7.19 ng/mL High 0.02-4.00 [facility] Comment on above: Result Comment: This test [...] L 3400.4600, L100.0100, L500.4100, L501.9910, L500.4050 #### [facility] [place], [place], [id number] Platelet countOrdered By: Yanick Yoder on 09-16-2024 Platelets (Bld) [#/Vol] 246 10*3/uL 150-450 [facility] Potassium measurement (mass/ volume)Ordered By: Dane Yoder on 09-16-2024 Potassium (Unsp spec) [Mass/Vol] 3.9 mmol/L 3.3-5.1 [facility] RBC Auto (Bld) [#/Vol]Ordere d By: Dane Yoder on 09-16-2024 RBC (Bld) [#/Vol] 4.67 10*6/uL 4.6-6.2 [facility] Screening total cholesterol/ high density lipoprotein (HDL) cholesterol ratioOrdered By: Dane Yoder on 09-16-2024 Cholesterol.total/Cholest albert in HDL [Mass ratio] 3.67 {ratio} [facility] Serum creatinine measurement (mass/volume)Ordered By: Dane Yoder on 09-16-2024 Creatinine [Mass/Vol] 0.94 mg/dL Normal 0.70-1.20 [facility] Comment on above: Performed By: #### L 3400.4600, L100.0100, L500.4100, L501.9910, L500.4050 #### [facility] [address] [place], [place], [id number] Serum globulin measurementOr dered By: Dane Yoder on 09-16-2024 Globulin (S) [Mass/Vol] 2.7 g/dL Normal 2.2-4.[address] [facility] Comment on above: Performed By: #### L 3400.4600, L100.0100, L500.4100, L501.9910, L500.4050 #### [facility] [address] [place], [place], [id number] Serum glucose measurement (m ass/volume)Ordered By: Dane Yoder on 09-16-2024 Glucose [Mass/Vol] 68 mg/dL Low 70-99 [facility] Comment on above: Performed By: #### L 3400.4600, L100.0100, L500.4100, L501.9910, L500.4050 #### [facility] [address] [place], [address] Serum or plasma alanine jarrell otransferase (ALT) measurementOrdered By: Dane Yoder on 09-16-2024 ALT [Catalytic activity/Vol] 26 U/L Normal <=46 [facility] Comment on above: Performed By: #### L 3400.4600, L100.0100, L500.4100, L501.9910, L500.4050 #### [facility] [address] [place], [address] Serum or plasma albumin rosa m urement (mass/volume)Ordered By: Dane Yoder on 09-16-2024 Albumin [Mass/Vol] 4.5 g/dL Normal 3.4-4.8 [facility] Comment on above: Performed By: #### L 3400.4600, L100.0100, L500.4100, L501.9910, L500.4050 #### [facility] [address] [place], [address] Serum or plasma albumin/glob ulin mass ratioOrdered By: Dane Yoder on 09-16-2024 Albumin/Globulin [Mass ratio] 1.7 {ratio} Normal 0.9-2.4 [facility] Comment on above: Performed By: #### L 3400.4600, L100.0100, L500.4100, L501.9910, L500.4050 #### [facility] [address] [place], [address] Serum or plasma alkaline laura sphatase measurementOrdered By: Dane Yoder on 09-16-2024 ALP [Catalytic activity/Vol] 60 U/L 40-129 [facility] Serum or plasma calcium rosa m urement (mass/volume)Ordered By: Dane Yoder on 09-16-2024 Calcium [Mass/Vol] 9.3 mg/dL Normal 7.6-11.0 [facility] Comment on above: Performed By: #### L 3400.4600, L100.0100, L500.4100, L501.9910, L500.4050 #### [facility] [address] [place], [place], [id number] Serum or plasma cholesterol in HDL measurement (mass/volume)Ordered By: Dane Yoder on 09-16-2024 Cholesterol in HDL [Mass/Vol] 62 mg/dL Normal [facility] Comment on above: National Cholesterol Education Program [...] L 3400.4600, L100.0100, L500.4100, L501.9910, L500.4050 #### [facility] [address] [place], [address] Serum or plasma cholesterol measurement (mass/volume)Ordered By: Dane Yoder on 09-16-2024 Cholesterol [Mass/Vol] 226 mg/dL High <=200 [facility] Comment on above: Cholesterol level, D esirable <200 mg/dLBorderline high cholesterol 200-239 mg/dLHigh cholesterol >=240 mg/dLRecommendations of the NCEP Adult Treatment Panel for the following risk-cutoff thresholds for the [place] population. Result Comment: Chol esterol level, Desirable <200 mg/dL Borderline high cholesterol 200-239 mg/dL High cholesterol >=240 mg/dL Recommendations of the NCEP Adult Treatment Panel for the following risk-cutoff thresholds for the [place] population. Performed By: #### L 3400.4600, L100.0100, L500.4100, L501.9910, L500.4050 #### [facility] [address] [place], [place], [id number] Serum or plasma urea nitroge n measurement (mass/volume)Ordered By: Dane Yoder on 09-16-2024 Urea nitrogen [Mass/Vol] 12 mg/dL Normal 4-19 [facility] Comment on above: Performed By: #### L 3400.4600, L100.0100, L500.4100, L501.9910, L500.4050 #### [facility] [address] [place], [place], [id number] Sodium levelOrdered By: Dane Yoder on 09-16-2024 Sodium [Moles/Vol] 141 mmol/L Normal 133-145 [facility] Comment on above: Performed By: #### L 3400.4600, L100.0100, L500.4100, L501.9910, L500.4050 #### [facility] [address] [place], [place], [phone] Total proteinOrdered By: Marcela Yoder on 09-16-2024 Protein [Mass/Vol] 7.1 g/dL 5.9-8.4 [facility] Triglycerides measurementOrd ered By: Dane Yoder on 09-16-2024 Triglyceride [Mass/Vol] 104 mg/dL Normal [facility] Comment on above: The drugs N-Acetylcy [...] L 3400.4600, L100.0100, L500.4100, L501.9910, L500.4050 #### [facility] [address] [place], [address] White blood cell (WBC) count Ordered By: Dane Yoder on 09-16-2024 WBC (Bld) [#/Vol] 8.4 10*3/uL 4.4-11.0 [facility] MR/BMS.BVSon 08-31-2024 MR/BMS.S [facility] 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 Normal [facility] Venous Duplex US - [place] Extre [facility] 08-15-2024 Venous Duplex US - [place] Extrem [facility] [address] [place] [address] Venous Duplex US - [place] Extrem 08/15/24 0808 MR#: [id number] Acct: [id number] Name: TIRSTAN ZARCO Rep #: [id number] : 1960 64 From: Hang Leung MD [...] cm. calf. Unable to see origin. 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 INCOMPETENT fire management technician noted at the posteror mid calf INCOMPETENT [...] the thigh, calf varicosities, posterior mid calf fire management technician, accessory saphenous from junction. __ Ordering Physician: Gabrielle Grover Referring Physician: Dane Yoder Performed By: Lilly Talley RVT 08/15/24 1425 Date Hang Leung MD CC: BELEN Marin; Dr. Dane Yoder DO Date Dictated: 08/15/24 0808 Date Transcribed: 08/15/24 1425 Paramedic Rn: Signed Normal [facility] Venous duplex ultrasound rep ortOrdered By: Hang Leung on 08-15-2024 US Vein [facility] [address] [place] [address] Venous Duplex US - [place] Extrem 08/15/24 08 MR#: [id number] Acct: [id number] Name: TRISTAN ZARCO Rep #:[id number] : 1960 64 From: Hang Contreras Attending [...] cm. calf. Unable to see origin. 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 INCOMPETENT fire management technician noted at the posteror mid calf INCOMPETENT [...] the thigh, calf varicosities, posterior mid calf fire management technician, accessory saphenous from junction. __ Ordering Physician: Gabrielle Grover Referring Physician: Dane Yoder Performed By: Lilly Talley RVT 08/15/24 1425 Date _ Hang Leung MD CC: BELEN Marin; Dr. Dane Yoder, DO ~ Date Dictated: 08/15/24 0808 Date Transcribed: 08/15/24 142 Paramedic Rn: Signed [facility] Work Phone: /Jimmy 07-20-2024 /[facility] [address] [place] [address]. [address] [place] [address] OFFICE VISIT Date of Service: 07/20/24 MR#: [id number] Acct: [id number] Name: TRISTAN ZARCO Rep #: [id number] : 1960 Provider: BELEN Marin Age/Sex: 64/M Location: [facility] Status: Signed Intake Vital Signs 01/25/21 17:00 [...] distress Orientation: alert, awake and oriented x3 [facility] Head: normal to inspection, normocephalic and atraumatic [...] noted Extremities (more content not included)... Normal [facility] Vital Signs Date Time Vital Sign Value Performing Clinician Gracielai jeremi 10-20-2024 08:42-0400 Body height 182.[address] Dane Yoder DO Work Phone: [facility] 10-20-2024 08:42-0400 Body weight 93.[address] Dane Yoder DO Work Phone: [facility] 10-19-2024 08:13-0400 Body mass index (BMI) [Ratio] 27.9 kg/m2 Dr. Dane Yoder DO Work Phone: [facility] 08-31-2024 08:26-0400 Body temperature 97.7 [degF] Dr. Dane Yoder DO Work Phone: [facility] 08-31-2024 08:26-0400 Body weight 93.[address] Dane Yoder DO Work Phone: [facility] 08-31-2024 08:26-0400 Diastolic blood pressure 90 mm[Hg] Dr. Dane Yoder DO Work Phone: [facility] 08-31-2024 08:26-0400 Heart rate 63 /min Dr. Dane Yoder DO Work Phone: [facility] 08-31-2024 08:26-0400 Respiratory rate 16 /min Dr. Dane Yoder DO Work Phone: [facility] 08-31-2024 08:26-0400 SaO2% (BldA) [Mass fraction] 96 % Dr. Dane Yoder DO Work Phone: [facility] 08-31-2024 08:26-0400 Systolic blood pressure 174 mm[Hg] Dr. Dane Yoder DO Work Phone: [facility] 07-20-2024 11:09-0400 Body temperature 97.1 [degF] Dr. Dane Yoder DO Work Phone: [facility] 07-20-2024 11:09-0400 Body weight 93.[address] Dane Yoder DO Work Phone: [facility] 07-20-2024 11:09-0400 Diastolic blood pressure 98 mm[Hg] Dr. Dane Yoder DO Work Phone: [facility] 07-20-2024 11:09-0400 Heart rate 73 /min Dr. Dane Yoder DO Work Phone: [facility] 07-20-2024 11:09-0400 Respiratory rate 16 /min Dr. Dane Yoder DO Work Phone: [facility] 07-20-2024 11:09-0400 SaO2% (BldA) [Mass fraction] 97 % Dr. Dane Yoder DO Work Phone: [facility] 07-20-2024 11:09-0400 Systolic blood pressure 178 mm[Hg] Dr. Dane Yoder DO Work Phone: [facility] Encounters Encounter Date Encounter Type Care Provider Facility Start: 10-26-2024 ambulatory [facility] Fac lity:[facility] Start: 10-25-2024 ambulatory [facility] Facility:[facility] Start: 10-25-2024 ambulatory [facility] Facility:[facility] Start: 10-20-2024 ambulatory [facility] Facility:[facility] Start: 10-20-2024 Non-patient / Non-visit Dr. Hang rachel MD -[facility] Start: 10-20-2024 End: 10-20-2024 Admission to same day surgery center Dr. Hang Leung MD -Ict Help Desk Officer/Special Procedures Work Phone: Start: 10-20-2024 End: 10-20-[address] Dane Yoder DO Work Phone: -Ict Help Desk Officer/Special Procedures Start: 10-13-2024 ambulatory Hang Madhu Facility:[facility] Start: 10-06-2024 End: 10-06-[address] Dane Yoder DO Work Phone: -Laboratory Start: 10-06-2024 End: 10-06-[address] Jaiden Main MD -Laboratory Work Phone: Start: 10-06-2024 End: 10-06-2024 ambulatory Jaiden Main Facility:[facility] Start: 09-17-2024 Encounter for genera l adult medical examination without abnormal findings Dane Paresh [facility] Start: 09-16-2024 End: 09-16-[address] Dane Yoder DO Work Phone: [facility] Work Phone: Start: 09-16-2024 End: 09-16-[address] Dane Yoder DO -Laboratory [place] Work Phone: Start: 09-16-2024 End: 09-16-2024 ambulatory Dane Yoder Facility:[facility] Start: 08-31-2024 End: 08-31-2024 Patient encounter procedure Gabrielle GLOVER -[facility] Work Phone: Start: 08-31-2024 End: 08-31-[address] Dane Yoder DO Work Phone: [facility] Work Phone: Start: 08-15-2024 Non-patient / Non-visit Dr. Hang rachel MD -[facility] Start: 08-15-2024 End: 08-15-[address] Dane Yoder DO Work Phone: [facility] Work Phone: Start: 08-15-2024 End: 08-15-2024 Patient encounter procedure Gabrielle GLOVER -Cardiovascular Services Work Phone: Start: 08-15-2024 End: 08-15-2024 ambulatory Dane Paresh Facility:[facility] Start: 07-20-2024 End: 07-20-2024 Patient encounter procedure Gabrielle GLOVER -[facility] Work Phone: Start: 07-20-2024 End: 07-20-2024 ambulatory Gabrielle Grover Facility:[facility] Start: 06-06-2022 End: 06-06-2022 ambulatory [facility] Work Phone: Start: 06-06-2022 End: 06-06-2022 Patient encounter procedure [facility], [place] Procedures Date Procedure Procedure Detail Performing Clinician Start: 10-06-2024 Free prostate specif ic antigen level Dr. Dane Yoder DO Work Phone: Comment on above: [employer]. Start: 10-06-2024 Prostate specific an tigen measurement Dr. Dane Yoder DO Work Phone: Comment on above: [employer].According to the [place] [employer], Serum PSAshould decrease and remain [...] Activity Detail Author Start: 10-20-2024 Patient discharge [facility] Lipoprotein a [Mass/ volume] in Serum or Plasma [facility] Immunizations Immunization Date Immunization Notes Care Provider [facility] 07-12-2020 Covid (Pfizer) [facility] 06-21-2020 Covid (Pfizer) [facility] Payers Date Payer Category Payer Unknown [id number] 2024 Unknown 2024 Self-pay [id number] 2024 Self-pay [id number] 2011 Unknown [id number] Unknown [id number] Unknown [id number] 2.16.8 [id number] Unknown [id number] 2.16.8 [id number] Unknown [id number] 2.16.8 [id number] Unknown [id number] 2.16.8 [id number] Unknown [id number] 2.16.8 [id number] Unknown [id number] 2.16.8 [id number] Unknown [id number] 2.16.8 [id number] Unknown [id number] 2.16.8 [id number] Unknown [id number] 2.16.8 [id number] Unknown [id number] 2.16.8 [id number] Unknown [id number] 2.16.8 [id number] Unknown [id number] 2.16.8 [id number] Unknown [id number] 2.16.8 [id number] Unknown [id number] 2.16.8 [id number] Social History Date Type Detail Facility Start: 03-22-2013 Tobacco smoking stat us CAIS Unknown if ever smoked [facility] Start: 1960 Sex Assigned At Male [facility] Start: 03-22-2013 End: 10-20-2024 Tobacco smoking status NHIS Ex-smoker (finding) [facility] History and physical note 10-20-2024 Note Date & Type Note Facility 10-20-2024 History and physi cipriano note [facility] Clinical Note 10-20-2024 Note Date & Type Note Facility 10-20-2024 Note [facility] Medical Records Department [address] [place] [address] History Physical Exam 10/20/24 1118 MR#: [id number] Acct: [id number] Name: TRISTAN ZARCO Rep #: [id number] : 1960 64 From: Hang Leung MD PCP: Dr. Dane Yoder, DO Status:[facility] Location: [facility] HPI - General HPI Narrative TRISTAN ZARCO, [...] Leung MD; Dr. Dane Yoder, DO Signed [facility] Evaluation note 07-20-2024 Note Date & Type Note Facility 07-20-2024 Evaluation note Diagnosis Onset Date Resolution Varicose veins of bilateral lower extremities with pain acute July 10:47am Venous insufficiency acute A[facility] 2024 10:47am [facility] Work Phone: Evaluation note 07-20-2024 Note Date & Type Note Facility 07-20-2024 Evaluation note Diagnosis Onset Date Resolution Varicose veins of bilateral lower extremities with pain acute July 10:47am Venous insufficiency acute Apri l 2024 10:47am Varicose veins of bilateral lower extremities with pain acute August 31, 2024 8:18am Venous insufficiency acute August 31, 2024 8:18am [facility] Work Phone: Evaluation note 07-20-2024 Note Date [...] with pain acute October 20, 2024 8:31am [facility] Work Phone: Evaluation note Note Date & Type Note Facility Evaluation note No assessment information availa ble [facility] Work Phone: History and physical note Note Date & Type Note Facility History and physical note Note Date/Time October 20, 2024 11:20am [facility] Medical Records Department [address] [place] [address] History & Physical Exam 10/20/24 1118 MR#: [id number] Acct: [id number] Name: TRISTAN ZARCO Rep #:[id number] : 1960 64 From: Hang Leung MD PCP: Dr. Dane Yoder, DO Status[place] Location: [facility] HPI - General HPI Narrative TRISTAN ZARCO, [...] Dr. Hang Leung MD; Dr. Dane Yoder DO~ Signed [facility] Work Phone: Reason for referral (narrative) Note Date & Type Note Facility Reason for referral (narrative) No reason for referral information available [facility] Work Phone: Chief Complaint and Reason for [...] March 18, 2 013 8:07am Power of Undertaker Assistant No March 18, 2013 8:07am Advance Directive Response Recorded Date/ Time Advance Directives No March 9:07am Advance Directive Response Recorded Date/ Time Advance Directives on File No October 20, 2024 8:42am Living Will No October 20, 2024 8:42am Do you have a Healthcare Power of Undertaker Assistant? No October 20, 2024 8:42am Advance Directives [...] Active Start: October 20, 2024 Dr. Hang eLung MD Attending Provider Active S tart: October [...] ized section and content) DATE CREATED AUTHOR 10/25/2024 [facility] FOR RECORDS PERTAINING TO PATIENTS WHO ARE [...] BE BASED ON THE PRIMARY CLINICAL RECORDS. [facility] [employer] [facility]. provides no warranty or guarantee of the accuracy or completeness of information in this document.
== END | disposition home or self-care (01) ==
PROVIDERS: PCP Family Medicine; Referring Provider Urology; Visit Provider Urology
DX: R97.20 Elevated prostate specific antigen [PSA] (principal)
CPT/HCPCS: 72197; A9575; A4216

== ENCOUNTER → 2024-10-31 | Outpatient (CLI) | payer OTHER, SELFPAY ==
--- NOTE | 2024-10-31 08:30 | PROSBIL_PTH ---
PATIENT: TRISTAN ZARCO LOC: [facility] U#:[id number] AGE/SX: 64/M ROOM: RE10/31/[address]: Dr. Dane Yoder DO : 1960 BED: DIS: 10/31/2024 SPEC #: [id number] RECD: 10/31/24 15:00 STATUS: DINA REEdd #: [id number] ALEXI: 10/31/24 08:[address]: Jaiden Main DEPT: SURGICAL PATHOLOGY RECD BY: Ernst Alvarado ENTERED: 11/01/24 09:02 SP TYPE: PROST BX OTHR DR: Dr. Dane Yoder DO Tissues: A - PROSTATE RIGHT B - PROSTATE RIGHT C - PROSTATE RIGHT D - PROSTATE LEFT E - PROSTATE LEFT F - PROSTATE LEFT Procedures: PROSTATE BX Immunohistochemical Stains Comments: @ Ordering doctor for IMHI edited from to @ by AVERY at 11/09/24 143 @ Ordering doctor for PROSB edited from to @ by AVERY at 11/09/24 1434 @ Submitting doctor edited from to @ by AVERY at 11/09/24 [facility] HEADER OPERATION: Prostate biopsy PRE-OP DIAGNOSIS: Elevated PSA TISSUE SUBMITTED: A - Right apex, B - Right mid, C - Right base, D - Left apex, E - Left mid, F - Left base MICROSCOPIC DIAGNOSIS A. Prostate, right, apex, biopsy: * Benign prostatic tissue B. Prostate, right, mid, biopsy: * Benign prostatic tissue (See note) Note: Immunohistochemical staining shows positive basal cell staining with little to no AMACR supporting the diagnosis. C. Prostate, right, base, biopsy: * Benign prostatic tissue D. Prostate, left, apex, biopsy: * Atypical small acinar proliferation (See note) Note: Immunohistochemical staining shows some AMACR without basal cell staining supporting the diagnosis. E. Prostate, left, mid, biopsy: * Prostatic adenocarcinoma, Atco score 3+3=6 (grade group 1) involving 2 of 3 cores and core fragment and 45% of the tissue F. Prostate, left, base, biopsy: * Prostatic adenocarcinoma, Dudley score 3+3=6 (grade group 1) involving 2 of 2 cores and 70% of the tissue MICROSCOPIC DESCRIPTION Slides are reviewed. All matched controls reacted appropriately. These tests were developed and their performance characteristics determined by [facility]. They may not have been cleared or approved by the U.S. Food and Drug Administration. The FDA has determined that such clearance or approval is not necessary. The above immunohistochemical/dualISH markers are viewed by the Pathologist. GROSS DESCRIPTION Received in 6 formalin containers labeled with the patient's name and date of . Designated as: A. RA is a mon tissue core, 1.6 cm in length by 0.1 cm in diameter. Entirely submitted in 1 cassette. B. RM is a mon tissue core, 1.4 cm in length by 0.1 cm in diameter. Entirely submitted in 1 cassette. C. RB is a mon tissue core, 1.1 cm in length by 0.1 cm in diameter. Entirely submitted in 1 cassette. D. LA are 2 mon tissue cores, 1.3 cm and 1.5 cm in length by 0.1 cm in diameter. Entirely submitted in 1 cassette. E. LM are 2 mon tissue cores, 1.2 cm and 1.6 cm in length by 0.1 cm in diameter. Entirely submitted in 1 cassette. F. LB are 2 mon tissue cores, 1.5 cm and 1.6 cm in length by 0.1 cm in diameter. Entirely submitted in 1 cassette. AL 11/01/2024 CPT:26731q5,68883q6
== END | disposition home or self-care (01) ==
PROVIDERS: PCP Family Medicine; Referring Provider Family Medicine; Visit Provider Family Medicine
DX: R97.20 Elevated prostate specific antigen [PSA] (principal)
CPT/HCPCS: 88305; 88342; G0416

== ENCOUNTER → 2024-12-20 | Outpatient (CLI) | payer OTHER, SELFPAY ==
--- NOTE | 2024-12-20 06:39 | RAD_ITS ---
PROCEDURE: KNEE 4 OR MORE VIEWS 12/20/2024 REASON FOR EXAM: R KNEE PAIN TECHNIQUE: Procedure Code: RADKN Modality: DX Procedure: KNEE 4 OR MORE VIEWS Right knee four views COMPARISON: None FINDINGS: There is no fracture or dislocation identified. The joint spaces are maintained. There is a visible joint effusion. Mineralization is normal. There is no visible atherosclerosis. RAD/Knee 4 or More Views IMPRESSION: There is a visible joint effusion. Reading Location: [facility]
--- OUTSIDE RECORDS SUMMARY | 2024-12-20 06:51 | XMS RPT_ITS | CCD ---
Author Organization [facility] Care Team Providers Care Hat Maker Name Role Phone Dr. Dane Yoder DO Primary Care Provider Dr. Dane Yoder DO Referring Provider Gabrielle Graves Attending Provider [phone] Gabrielle Graves Referring Provider [phone] Madhu MALIK, Dr. Mauricio Attending Provider [phone] Dr. Dane Yoder DO Attending Provider Etelvina MALIK, Dr. Jaiden Carrion Attending Provider Etelvina MALIK, Dr. Jaiden Carrion Referring Provider Madhu MALIK, Dr. Mauricio Referring Provider [phone] Madhu MALIK, Dr. Mauricio Other Provider [phone] Ryann MALIK, Dr. Warner Attending Provider [phone] Unavailable Primary Care Provider Unavailabl e Dr. Dane Yoder DO Primary Care Provider Gabrielle Graves Attending Provider [phone] Dane Yoder DO Referring Provider [phone] Raj Dueñas DO Attending Provider Dane Yoder Referring Unavailable Dane Yoder Primary Care Unavailable Timmy Garzon Attending Unavailable Hang Leung Attending Unavailable Dane Yoder Primary Care Unavailable Hang Leung Referring Unavailable Hang Leung Attending Unavailable Dane Yoder Primary Care Unavailable Gabrielle Grover Referring Unavailable Hang Leung Referring Unavailable Dane Ydoer Primary Care Unavailable Madhu, Hang Attending Unavailable Madhu, Hang Consulting Unavailable Madhu, Hang Referring Unavailable Paresh, Dane Primary Care Unavailable Madhu, Hang Attending Unavailable Paresh, Dane Primary Care Unavailable Grover, Gabrielle Referring Unavailable Grover, Gabrielle Attending Unavailable Paresh, Dane Primary Care Unavailable Ryann, Timmy Referring Unavailable Ryann, [place] Attending Unavailable Madhu, Hang Attending Unavailable Paresh, Dane Primary Care Unavailable SpenserRaj Attending Unavailable Paresh, Dane Primary Care Unavailable Paresh, Dane Primary Care Unavailable Garfield, Hang Attending Unavailable Grover, Gabrielle Referring Unavailable Paresh, Dane Primary Care Unavailable Etelvina, Héctor Referring Unavailable Etelvina, Jaiden Carrion Attending Unavailable Spenser, Raj Attending Unavailable Paresh, Dane Primary Care Unavailable Paresh, Dane Referring Unavailable Paresh, Dane Primary Care Unavailable Paresh, Dane Attending Unavailable Paresh, Dane Referring Unavailable Paresh, Dane Primary Care Unavailable Grover, Gabrielle Attending Unavailable Paresh, Dane Primary Care Unavailable Grover, Gabrielle Attending Unavailable Paresh, Dane Referring Unavailable Paresh, Dane Referring Unavailable Paresh, Dane Primary Care Unavailable Grover, Gabrielle Attending Unavailable Raj Dueñas Attending Unavailable Paresh, Dane Primary Care Unavailable Paresh, Dane Referring Unavailable Paresh, Dane Referring Unavailable Paresh, Dane Attending Unavailable Paresh, Dane Primary Care Unavailable Paresh, Dane Primary Care Unavailable Etelvina, Héctor Referring Unavailable Etelvina, Jaiden Carrion Attending Unavailable Paresh, Dane Referring Unavailable Paresh, Dane Attending Unavailable Paresh, Dane Primary Care Unavailable Medications Current Medications Medication Drug Class(es) Dates Sig (Normalized) Sig (Original) hydroCHLOROthiazide 12.5 mg / losartan potassium 50 mg oral tablet (6 sources) Thiazide Diuretic, Angiotensin 2 Receptor Shayne Start: 10-19-2024 Losartan-Hydrochl orothiazide 50-12.5 mg tablet Active 1 {tbl} PO DAILY October 19, 2024 12:00am rosuvastatin calcium 10 mg oral tablet (3 sources) HMG-CoA Reductase Inhibitor Start: 11-04-2024 take 1 tablet by mouth at bedtime Rosuvastatin 10 mg tablet Active 10 mg PO AT BEDTIME November 04, 2024 12:00am Completed/Discontinued Medications Medication Drug Class(es) Dates Sig (Normalized) Sig (Original) acetaminophen 325 mg / oxyCODONE hydrochloride 5 mg oral tablet (11 sources) Opioid Agonist Start: 03-22-2013 End: 07-20-2024 Oxycodone-Acetamino phen 1 TABLET tablet Discontinued 1 - 2 {tbl} PO EVERY 6 HOURS NEEDED as needed for Pain March 22, 2013 1:00am July 20, 2024 11:11am Start: 03-22-2013 take 1 tablet by eliigo every six hours as needed Oxycodone-Acetaminophen Active 1 - 2 TABLET PO EVERY 6 HOURS NEEDED March 22, 2013 12:00am omeprazole 20 mg delayed release oral capsule (11 sources) Proton Pump Inhibitor Start: 03-18-2013 End: 07-20-2024 take 1 capsule by mouth once daily Omeprazole 20 MG capsule Discontinued 20 mg PO DAILY March 18, 2013 1:00am July 20, 2024 11:11am Problems Problem Classification Problem Date Documented Da te Episodic/Chronic Cancer of prostate (3 sources) Malignant tumor of prostate; Translations: [Malignant neoplasm of prostate] Onset: 11-22-2024 11-22-2024 Chronic Coronary atherosclerosis and other heart disease (2 sources) Coronary arteriosclerosis; Translations: [Atherosclerotic heart disease of [place] coronary artery without angina pectoris] Onset: 12-14-2024 11-14-2024 Chronic Other diseases of veins and lymphatics (20 sources) Vascular insufficiency; Translations: [Venous insufficiency (chronic) (peripheral)] 07-20-2024 Episodic Other diseases of veins and lymphatics (1 source) Venous insufficiency (chronic) (peripheral); Translations: [Venous insufficiency (chronic) (peripheral)] Onset: 09-29-2024 Episodic Other screening for suspected conditions (not mental disorders or infectious disease) (2 sources) Elevated prostate specific antigen [PSA]; Translations: [Encounter for screening for cardiovascular disorders] Onset: 10-25-2024 Episodic Varicose veins of lower extremity (20 sources) Varicose veins of lower extremity; Translations: [Varicose veins of bilateral lower extremities with pain] Onset: 10-31-2024 07-20-2024 Episodic Results Test Name Value Interpretation Reference Range Facility Radiation Oncology Visiton 0 11-22-2024 Radiation Oncology Visit [facility] [address] [place] [address] OFFICE VISIT Date of Service: 11/22/24 1251 MR#: [id number] Acct: [id number] Name: HAI ZARCO Rep #: [id number] : 1960 From: Raj Dueñas DO Age/Sex: 64/M Location: [facility] [place] Status: Signed Intake Vital Signs 10/20/24 08:42 11/22/24 13:00 11/22/24 13:01 Height 6 ft 6 ft 6 ft Weight: 204 lb 8 oz BMI 27.7 BP 190/91 H Blood Pressure Location Lt brachial Position Sitting Respiration 16 Pulse 58 L Pulse Source Monitor Temp 97.8 F Temperature Source Temporal Artery Pulse Oximetry (%) 98 Oxygen Delivery Method room air Intake Visit Reasons: Consult Is patient in pain?: Yes (right knee) Allergies No Known Allergies Allergy (Verified 11/22/24 12:54) Medications ???Medication ???Instructions ???Recorded ???Confirmed ???Type losartan 50 mg-hydrochlorothiazide 1 tab PO DAILY 10/19/24 11/22/24 History 12.5 mg tablet rosuvastatin 10 mg tablet 10 mg PO QHS 11/04/24 11/22/24 His tory PFSH PFSH Home Medications ???Medication ???Instructions ???Recorded ???Last Taken ???Type losartan 50 mg-hydrochlorothiazide 1 tab PO DAILY 10/19/24 Unknown History 12.5 mg tablet rosuvastatin 10 mg tablet 10 mg PO QHS 11/04/24 Unknown Hist ory Allergy/AdvReac Type Severity Reaction Status Date / Time No Known Allergies Allergy Verified 11/22/24 12:54 Family History Father Cancer Bladder Mother Cancer Lung cancer Sister Heart disease Sister Breast cancer Other Myocardial infarction Surgical History H/O prostate biopsy ( 10/31/24) Social History (Updated 11/22/24 @ 13:00 by Deanna Phan LPN) Smoking Status: Former smoker how long ago did patient quit smokin years ago alcohol intake: current alcohol intake frequency: 3 or more drinks per day substance use type: does not use Referring Provider: Murali Main MD Diagnosis: Hia Zarco is a 64 year-old male diagnosed with low risk prostate cancer (PSA 7.19, GS 3+3, cT1c) status post MRI pelvis (10/26/2024), and prostate biopsy (10/23/2024). History of Present Illness: 10/26/2024: Patient completed MRI pelvis.??? This demonstrated a lesion centered in the left posterior anterior peripheral zone far base and extending inferiorly into the mid posterior lateral peripheral zone of the mid anterior peripheral zones measuring 2.1 cm, this is a PI-RADS 5 lesion.??? There is questionable subtle overlying broad-based capsular bulging which may represent early extracapsular extension, both findings about the left neurovascular bundle as well as abut the left base/seminal vesicle with no gross invasion of the structures.??? No adenopathy or other findings. 10/31/2024: Patient completed prostate biopsy.??? This demonstrated Dudley 3+3 adenocarcinoma involving about 45% of 2/3 cores in the left mid and about 70% of 2/2 cores in the left prostate base.??? All remaining biopsies were negative for involvement. Radiation Treatment History: No history of radiation therapy. No pacemaker. No diagnosis of radiosensitizing comorbidity. Interval History: Patient presents for initial consultation. He reports having a PSA which was 3.91 in 2019 and that he had not had it checked again till this year and it was 7.19 and this led to his diagnosis. He does have a history of urethral stricture which he reports being in the mid urethra, he has had this dilated twice and he believes it has narrowed again over the last at least several years. He does report having weak stream more than half the time, he has frequency and urgency less than half the time, incomplete emptying and intermittency less than 1 time in 5 and denies having straining. He has nocturia about twice per night. He does not take any medications for urination. He denies leakage or incontinence. He denies dysuria or hematuria. He does report normal bowel function without diarrhea or constipation. He denies rectal pain or bleeding. He has had 2 colonoscopies in his life one of them was 5 years ago and he is planning to return for another exam in 5 years. 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 He did have an episode in March of last year where he did place a blood clot through his urine and this has never happened since and he does not have any bleeding in his urine, he is discussed this with his urologist. He denies cough, shortness of breath, chest pain, bone pain. He does report good erectile function but is not sexually active. Energy level remains normal. He completes all ADLs without any difficulty and denies having other problems or concerns at this time. IP (more content not included)... Normal [facility] 11-15-2024 CNPN Telephone (AGGENS3) HAI ZARCO ([id number]) 1960 M Date Time Provider Department 11/15/24 [facility] PROVIDER AGGENS3 During your visit today, we recorded the following information about you: Chen Mcnair 11/15/2024 11:28 AM Signed Pt. Update 11.15.24-Gen. Surg. Web no call reassign appt. Allergies As of Date: 11/15/2024 (Not on File) Date Reviewed: Never Reviewed Reason for Visit: Appointment [186] Cmt: General Surgery Problem List As Of Date: 11/15/2024 (None) Encounter Status:Closed by CHEN MCNAIR on 11/15/24 [facility] Surgical pathology reportOrd ered By: Rosanna Boston on 11-08-2024 Surgical pathology study [facility] MR/BMSMarilyn 11-04-2024 MR/BMSSHASHANK [facility] Vascular Surgery [address] [place] [address] OFFICE VISIT Date of Service: 11/04/24 MR#: [id number] Acct: [id number] Name: HAI ZARCO Rep #: [id number] : 1960 Provider: BELEN Marin Age/Sex: 64/M Location[place] [facility] [place] Status: Signed Intake Vital Signs 01/25/21 17:00 10/20/24 08:42 11/04/24 08:59 Height 6 ft 6 ft Weight: 203 lb BP 149/87 H Blood Pressure Location Rt brachial Position Sitting Respiration 16 Pulse 57 L Pulse Source Monitor Temp 97.8 F Temp Source Temporal Pulse Oximetry (%) 98 Oxygen Delivery Method room air Intake Visit Reasons: post op ablation Chief Complaint: establish care Is patient in pain?: No Allergies No Known Allergies Allergy (Verified 11/04/24 08:58) Medications ???Medication ???Instructions ???Recorded ???Confirmed ???Type losartan 50 mg-hydrochlorothiazide 1 tab PO DAILY 10/19/24 11/04/24 History 12.5 mg tablet rosuvastatin 10 mg tablet 10 mg PO QHS 11/04/24 11/04/24 His tory Have you fallen in the past year?: No PFSH Surgical History (Updated 11/04/24 @ 08:58 by Promise Bennett MA) H/O prostate biopsy ( 10/31/24) Family History Other Cancer Heart disease Myocardial infarction Social History Smoking Status: Former smoker HPI HPI HPI: HAI ZARCO, is a 64 M who presents to the office today for follow-up s/p L calf and lateral thigh foam sclerotherapy. He reports no concerns at the access sites. He has noticed some hardness to palpation and persistent tenderness to touch along some of the varicosities. He has already noticed improvement in how his L lower leg feels, he is still having persistent discomfort in the L thigh. He does also have symptomatic varicosities in the RLE though the symptoms are not too bothersome at present. He does continue to adhere to conservative management measures including use of measured compression stockings as well. ROS General General: No weight change, appetite, [...] arthritis, rheumatoid arthritis or gout Cardio Cardiovascular: Yes high blood pressure; No murmur, pacemaker, heart disease, atrial fibrillation, heart attack, heart stent, palpitations, shortness of breath with exertion or chest pain Psych Psychiatric: No depression, anxiety or hearing voices Resp Respiratory: No shortness of breath, No sleep apnea, No cough, No COPD, No asthma, No emphysema and No wheezing Gastro Gastrointestinal: No abdominal pain, No nausea or vomiting, No diarrhea, No constipation, No blood in stool, Yes acid reflux, No hemorrhoids, No ulcers, No gallbladder problem and [...] distress Orientation: alert, awake and oriented x3 [facility] Head: normal to inspection, normocephalic and [...] deficits and CN's II-XI intact bilaterally Speech: spe (more content not included)... Normal [facility] Immunohistochemical [place] 10-31-2024 Immunohistochemical Stains ---- Patient Age/Sex Location Account Attending Physician ---- [facility] 64[id number] Dr. Dane Yoder DO ---- Specimen: [id number] Received: 10/31/24 Status: DINA Frazier Num: [id number] Spec Type: PROST BX Subm Dr: Dr. Dane Yoder DO HEADMARY OPERATION: Prostate biopsy PRE-OP DIAGNOSIS: Elevated PSA TISSUE SUBMITTED: A - Right apex, B - Right mid, C - Right base, D - Left apex, E - Left mid, F - Left base ---- MICROSCOPIC DIAGNOSIS A. Prostate, right, apex, biopsy: * Benign prostatic tissue B. Prostate, right, mid, biopsy: * Benign prostatic tissue (See note) Note: Immunohistochemical staining shows positive basal cell staining with little to no AMACR supporting the diagnosis. C. Prostate, right, base, biopsy: * Benign prostatic tissue D. Prostate, left, apex, biopsy: * Atypical small acinar proliferation (See note) Note: Immunohistochemical staining shows some AMACR without basal cell staining supporting the diagnosis. E. Prostate, left, mid, biopsy: * Prostatic adenocarcinoma, Dudley score 3+3=6 (grade group 1) involving 2 of 3 cores and core fragment and 45% of the tissue F. Prostate, left, base, biopsy: * Prostatic adenocarcinoma, Look[place] score 3+3=6 (grade group 1) involving 2 of 2 cores and 70% of the tissue MICROSCOPIC DESCRIPTION Slides are reviewed. All matched controls reacted appropriately. These tests were developed and their performance characteristics determined by [facility]. They may not have been cleared or approved by the U.S. Food and Drug Administration. The FDA has determined that such clearance or approval is not necessary. The above immunohistochemical/du alISH markers are viewed by the Pathologist. ---- Patient Age/Sex Location Account Attending Physician ---- HAI ZARCO 64/M [facility] [id number] Dr. Dane Yoder, ---- GROSS DESCRIPTION Received in 6 formalin containers labeled with the patient's name and date of . Designated as: A. RA is a mon tissue core, 1.6 cm in length by 0.1 cm in diameter. Entirely submitted in 1 cassette. B. RM is a mon tissue core, 1.4 cm in length by 0.1 cm in diameter. Entirely submitted in 1 cassette. C. RB is a mon tissue core, 1.1 cm in length by 0.1 cm in diameter. Entirely submitted in 1 cassette. D. LA are 2 mon tissue cores, 1.3 cm and 1.5 cm in length by 0.1 cm in diameter. Entirely submitted in 1 cassette. E. LM are 2 mon tissue cores, 1.2 cm and 1.6 cm in length by 0.1 cm in diameter. Entirely submitted in 1 cassette. F. LB are 2 mon tissue cores, 1.5 cm and 1.6 cm in length by 0.1 cm in diameter. Entirely submitted in 1 cassette. [place] 11/01/2024 [facility]:[id number] ---- Patient Age/Sex Location Account Attending Physician ---- [facility] 64[facility] [id number] Dr. Dane Yoder, DO ---- Signed (signature on file) Dr. Rosanna Boston, DO 11/08/24 1354 ---- Normal [facility] Comment on above: Performed By: #### P IMVA #### [facility] [address] [place], [address] Magnetic resonance imaging r eportOrdered By: Dane Basilio on 10-27-2024 Study report [facility] Imaging Services [address] [place], [place] [id number] Pelvis W/WO Contrast MR#: [id number] Acct: [id number] Name: HAI ZARCO Rep #: [id number] : 1960 M 64 From: Marcela Basilio MD PCP: Dr. Dane Yoder, DO Status: REG CLI Study:Pelvis W/WO Contrast Date of Exam: 10/26/24 Exam# [id number] Ordering Dr: Sylvester Main MD PROCEDURE: PELVIS W/WO CONTRAST, 10/26/2024 REASON FOR EXAM: ELEVATED PSA TECHNIQUE: Multisequence multiplanar MRI pelvis was performed with and without IV contrast. IV Contrast: 18 mL Clariscan COMPARISON: None FINDINGS: Prostate size: 4.5 x 3.1 x 3.8 cm, estimated volume 27.6 mL. Transition zone: PI-RADS 2 findings. Peripheral Zone: Background changes of fairly prominent likely prostatitis (PI-RADS 2). Additional lesions as below:. *Lesion 1: Centered in the LEFT posterior and anterior peripheral zone far base and extending inferiorly into the mid posterolateral peripheral zone and mid anterior peripheral zones, 2.1 cm ([id number] image 10-15).. *T2 score: 5. *DWI score: 5. *DCE: N/A. *Overall PI-RADS: Positive. *Extracapsular extension:Questionable subtle overlying broad-based capsular bulging may be seen in early extracapsular extension. Note additionally there is capsular abutment well over 1 cm which increases the risk of occult early/microscopic extracapsular extension. Both findings include abutment of the LEFT neurovascular bundle and immediate abutment of the base of the LEFT seminal vesicle, without gross invasion of these structures however early/microscopic involvement cannot be excluded. Neurovascular bundles: As above. Seminal vesicles: As above. Bladder: 5.7 cm diverticulum along the posterior midline. Lymph nodes: Unremarkable. Bones: No destructive or frankly suspicious bony lesions evident on nondedicatedevaluation . Other: Small LEFT and tiny RIGHT fat containing inguinal hernias. Diverticulosis.. MRI/Pelvis W/WO Contrast IMPRESSION: 1. 2.1 cm PI-RADS 5 lesion centered in the LEFT posterior and anterior peripheral zone far base extending inferiorly to the level of the midgland 2. Questionable subtle overlying broad-based capsular bulging may be seen in early extracapsular extension. Note additionally there is capsular abutment well over 1 cm which increases the risk of occult early/microscopic extracapsular extension. Both findings include abutment of the LEFT neurovascular bundle and immediate abutment of the base of the LEFT seminal vesicle, without gross invasion of these structures however early/microscopic involvementcannot be excluded. 3. No overt pelvic lymphadenopathy. 4. Additional description as above. Reading Location: [id number] CC: Dr. Jaiden Main MD; Dr. Dane Yoder, DO ~ Truck Hop: Signed [facility]/WO Contraston 10-26 Pelvis W/WO Contrast [facility] Imaging Services [address] [place], [place] [id number] Pelvis W/WO Contrast MR#: [id number] Acct: [id number] Name: HAI ZARCO Rep #: [id number] : 1960 M 64 From: Dane Basilio MD PCP: Dr. Dane Yoder, DO Status: REG CLI Study: Pelvis W/WO Contrast Date of Exam: 10/26/24 Exam# [id number] Ordering Dr: Jaiden Main MD PROCEDURE: PELVIS W/WO CONTRAST, 10/26/2024 REASON FOR EXAM: ELEVATED PSA TECHNIQUE: Multisequence multiplanar MRI pelvis was performed with and without IV contrast. IV Contrast: 18 mL Clariscan COMPARISON: None FINDINGS: Prostate size: 4.5 x 3.1 x 3.8 cm, estimated volume 27.6 mL. Transition zone: PI-RADS 2 findings. Peripheral Zone: Background changes of fairly prominent likely prostatitis (PI-RADS 2). Additional lesions as below:. *Lesion 1: Centered in the LEFT posterior and anterior peripheral zone far base and extending inferiorly into the mid posterolateral peripheral zone and mid anterior peripheral zones, 2.1 cm (series 12 image 10-15).. *T2 score: 5. *DWI score: 5. *DCE: N/A. *Overall PI-RADS: Positive. *Extracapsular extension:Questionable subtle overlying broad-based capsular bulging may be seen in early extracapsular extension. Note additionally there is capsular abutment well over 1 cm which increases the risk of occult early/microscopic extracapsular extension. Both findings include abutment of the LEFT neurovascular bundle and immediate abutment of the base of the LEFT seminal vesicle, without gross invasion of these structures however early/microscopic involvement cannot be excluded. Neurovascular bundles: As above. Seminal vesicles: As above. Bladder: 5.7 cm diverticulum along the posterior midline. Lymph nodes: Unremarkable. Bones: No destructive or frankly suspicious bony lesions evident on nondedicated evaluation. Other: Small LEFT and tiny RIGHT fat containing inguinal hernias. Diverticulosis.. MRI/Pelvis W/WO Contrast IMPRESSION: 1. 2.1 cm PI-RADS 5 lesion centered in the LEFT posterior and anterior peripheral zone far base extending inferiorly to the level of the midgland 2. Questionable subtle overlying broad-based capsular bulging may be seen in early extracapsular extension. Note additionally there is capsular abutment well over 1 cm which increases the risk of occult early/microscopic extracapsular extension. Both findings include abutment of the LEFT neurovascular bundle and immediate abutment of the base of the LEFT seminal vesicle, without gross invasion of these structures however early/microscopic involvement cannot be excluded. 3. No overt pelvic lymphadenopathy. 4. Additional description as above. Reading Location: [id number] CC: Dr. Jaiden Main MD; Dr. Dane Yoder DO Truck Hop: Signed Normal [facility] Coronary Angiography CTon Coronary Angiography CT [facility] Imaging Services [address] [place] [id number] 10/25/24 0834 MR#: [id number] Acct: [id number] Name: HAI ZARCO Rep #: [id number] : 1960 64 From: Timmy Garzon MD PCP: Dr. Dane Yoder DO Status:REG REF Y Location: CT Calcium [...] CC: Dr. Timmy Garzon MD; Dr. Dane Yoder DO Signed Normal [facility] Limited Chest CT Cardiac Onl yon 10-25-[address] Cardiac Only [facility] Imaging Services [address] [place] [id number] Cardiac Only MR#: [id number] Acct: [id number] Name: HAI ZARCO Rep #: [id number] : 1960 M 64 From: Kate Appiah MD PCP: Dr. Dane Yoder DO Status: REG REF Study: Limited Chest CT Cardiac Only Date of Exam: Exam# [id number] Ordering Dr: Dane Yoder DO PROCEDURE: LIMITED CHEST CT CARDIAC ONLY 10/25/2024 REASON FOR EXAM: SCREENING TECHNIQUE: LIMITED CHEST CT CARDIAC ONLY CONTRAST: None. One or more dose reduction techniques were used (e.g., Automated exposure control, adjustment of the mA and/or kV according to patient size, use of iterative reconstruction technique). RADIATION DOSE SUMMARY: CTDlvol: 12.19 mGy DLP: 268.17 mGycm COMPARISON: None. FINDINGS: LUNGS: No pulmonary mass. No focal airspace consolidation. PLEURAL SPACES: No pleural effusion. No pneumothorax. HEART: No cardiomegaly. No significant pericardial effusion. Multivessel coronary artery calcification. MEDIASTINUM/HILUM: No significant lymphadenopathy. AORTA: No aneurysm. Minimal scattered calcified atherosclerosis. ESOPHAGUS: Unremarkable. CHEST WALL: The chest wall is unremarkable. BONES: No acute osseous abnormality. UPPER ABDOMEN: Small hiatal hernia. Diffuse decrease in liver parenchymal density. CT/Limited Chest CT Cardiac Only IMPRESSION: 1. NO ACUTE INTRATHORACIC FINDINGS. 2. Diffuse hepatic steatosis. Reading Location: [id number] CC: Dr. Dane Yoder DO Truck Hop: Signed Normal [facility] Venous Duplex US, Unilateral on 10-25-2024 Venous Duplex US, Unilateral [facility] [address] [place] [address] Venous Duplex US, Unilateral 10/25/24 0807 MR#: [id number] Acct: [id number] Name: HAI ZARCO Rep #: [id number] : 1960 64 From: Hang Leung MD [...] of left lower extremity deep vein thrombosis. Ordering Physician: Gabrielle Grover Referring Physician: Dane Yoder Performed By: Adis Guido RVT 10/25/24 1311 Date Hang Leung MD CC: BELEN Marin; Dr. Hang Leung MD; Dr. Dane Yoedr, Date Dictated: 10/25/24 0807 Date Transcribed: 10/25/24 1311 Truck Hop: Signed Normal [facility] Venous duplex ultrasound rep ortOrdered By: Hang Leung on 10-25-2024 US Vein [facility] [address] [facility] [place] [address] Venous Duplex US, Unilateral 10/25/24806 MR#: [id number] Acct: [id number] Name: HAI ZARCO Rep #:[id number] : 1960 64 From: Hang Contreras Attending Dr: Dr. Hang Leung MD S tatus: REG CLI Ordering Dr: Gabrielle Grover Date: [...] accessory saphenous vein and associated varicosities occluded consistentwith recent ablation. Deep veins of the left lower extremity are patent and compressible segmentally. There is no evidence of left lower extremity deep vein thrombosis. Ordering Physician: Gabrielle Grover Referring Physician: Dane Yoder Performed By: Adis Guido Shashi 10/25/24 1311 Date _ Hang Leung MD CC: BELEN Marin; Dr. Hang Leung MD; Dr. Dane Yoder, ~ Date Dictated: 10/25/24 0807 Date Transcribed: 10/25/24 1311 Truck Hop: Signed [facility] Work Phone: Operative Reporton 5 Operative Report [facility] Records Department [address] [place] [address] Operative Report 10/20/24 193 MR#: [id number] Acct: [id number] Name: HAI ZARCO Rep #: [id number] : 1960 64 From: Hang Leung MD PCP: Dr. Dane Yoder DO Status:[facility] Location: [facility] Operative Report (Standard) Operative Information Date of Procedure: 10/20/24 Pre-Operative Diagnosis: Varicose veins with pain of the left lower extremity Post-Operative Diagnosis: Same Surgery/Procedure Performed: Foam sclerotherapy of left lateral thigh and calf varicosities respite coordinator: No Type of Anesthesia: Local Procedure Start Time: 11:25 Procedure Stop Time: 12:05 Select all DRAINS/GRAFTS/IMPLANTS that apply: None Estimated Blood Loss: 1 [...] and appeared to be pressurized via a patent legal assistant directly from the femoral vein as well as some communication with an accessory saphenous vein on the medial aspect of the thigh. He is taken now for foam sclerotherapy of the symptomatic vessels. Description of procedure: Upon obtaining informed consent and verification correct patient procedure and site the patient was seen in the Business Owner/Engineer he was positioned prepped and draped in usual sterile fashion. Timeout is performed and ultrasound was used to evaluate the varicosities they were primarily symptomatic. These were in an atypical location on the posterior aspect of the thigh extending into the lateral aspect of the thigh and proximal calf. He had multiple patent legal assistant veins on the medial aspect of the calf that did not appear to be involved in this segment of symptomatic varicosities. There was a more proximal patent legal assistant in the lateral aspect of the thigh [...] Prior to the sclerosing agent reaching the patent legal assistant vein manner pressure was applied after which this was released and the extent of sclerosing agent assessed. There appeared to be adequate treatment of the areas of symptoms with no deep vein extension and no extension into the patent legal assistant vein. Dry sterile dressing and Asim wrap were then applied the patient was taken to recovery with plan discharged to home. Surgical Findings: See above Complications Complications: No 10/20/241937 Cosigner Signature (if applicable): CC: Dr. Hang Leung MD; Dr. Dane Yoder, DO Signed Normal [facility] PSA Total+%Freeon 10-09-2024 PSA, FREE 1.08 ng/mL Normal N/A [facility] Comment on above: Result Comment: Roch e ECLIA methodology. Performed By: #### L 3110.0500 #### [facility] [address] [place], [address] PSA, FREE % 17.6 Normal . [facility] Comment on above: Result Comment: The [...] any other population of men. Performed at: [address] [id number] Orthopedic Brace Maker: Jaskaarn Eaton PhD, Phone: [phone] Performed By: #### L 3110.0500 #### [facility] [address] [facility] [place], [address] PSA, TOTAL ULTR 6.150 ng/mL Abnormal 0.000-4.000 [facility] Comment on above: Result Comment: Roch e ECLIA methodology. According to the [place] [employer], Serum PSA should decrease and [...] disease. Performed By: #### L 3110.0500 #### [facility] [address] [place], [address] Serum or plasma free prostat e specific antigen (PSA)/total PSA mass ratioOrdered By: Jaiden Main on 10-06-2024 Free PSA/Total PSA [Mass fraction] 17.6 % . [facility] Comment on above: The table below [...] for any other population of men.Performed at: [facility] [address] [id number] Director: Jaskaran Eaton PhD, Phone: [phone] Lipoprotein Aon 09-19-2024 Lipoprotein a [Moles/Vol] 44.2 nmol/L Normal <75.0 [facility] Comment on above: Order Comment: Test( s) 083007-Gsoobulcias (a) was developed and its performance characteristics determined by [facility]. It has not been cleared or approved by the Food and Drug Administration. Result Comment: Note : Values greater than or equal to 75.0 nmol/L may indicate an independent risk factor for CHD, but must be evaluated with caution when applied to non- populations due to the influence of genetic factors on Lp(a) across ethnicities. Performed at: [facility] [address] [id number] Orthopedic Brace Maker: Jaskaran Eaton PhD, Phone: [phone] Performed By: #### L 3400.4600, L100.0100, L500.4100, L501.9910, L500.4050 #### [facility] [address] [place], [place], [address] Absolute lymphocyte countOrd ered By: Dane Paresh on 09-16-2024 Lymphocytes Auto (Unsp spec) [#/Vol] 1.81 10*3/uL 0.83-4.51 [facility] Absolute neutrophil countOrd ered By: Dane Paresh on 09-16-2024 Neutrophils (Bld) [#/Vol] 5.5 10*3/uL 2.0-7.7 [facility] Anion gap in Serum or Plasma Ordered By: Dane Yoder on 09-16-2024 Anion gap [Moles/Vol] 13 mmol/L 5- [facility] Automated lymphocyte count a s percentage of total leukocytesOrdered By: Dane Yoder on 09-16-2024 Lymphocytes/100 WBC Auto (Unsp spec) 21.6 % - [facility] BUN/creatinine ratioOrdered By: Dane Yoder on 09-16-2024 Urea nitrogen/Creatinine [Mass ratio] 13.2 mg/mg 10- [facility] Basophil percentageOrdered B y: Dane Yoder on 09-16-2024 Basophils/100 WBC (Bld) 0.5 % 0-1 [facility] Bilirubin, totalOrdered By: Dane Yoder on 09-16-2024 Bilirubin [Mass/Vol] 0.56 mg/dL Normal 0.00-1.30 [facility] Comment on above: Performed By: #### L 3400.4600, L100.0100, L500.4100, L501.9910, L500.4050 #### [facility] [address] [place], [place], [address] CBC W/Diff, Automatedon 09-04 Absolute Lymph 1.81 X10 3/uL Normal 0.83-4.51 [facility] Comment on above: Performed By: #### L 3400.4600, L100.0100, L500.4100, L501.9910, L500.4050 #### [facility] [address] [place], [address] Absolute Neut 5.5 X10 3/uL Normal 2.0-7.7 [facility] Comment on above: Performed By: #### L 3400.4600, L100.0100, L500.4100, L501.9910, L500.4050 #### [facility] [address] [place], [address] Basophils/100 WBC (Bld) 0.5 % Normal 0-1 [facility] Comment on above: Performed By: #### L 3400.4600, L100.0100, L500.4100, L501.9910, L500.4050 #### [facility] [address] [place], [address] Eosinophils/100 WBC (Bld) 1.9 % Normal 0-5 [facility] Comment on above: Performed By: #### L 3400.4600, L100.0100, L500.4100, L501.9910, L500.4050 #### [facility] [address] [place], [address] Erythrocyte distribution width (RBC) [Ratio] 13.0 % Normal 11.6-14.6 [facility] Comment on above: Performed By: #### L 3400.4600, L100.0100, L500.4100, L501.9910, L500.4050 #### [facility] [address] [place], [address] Hematocrit (Bld) [Volume fraction] 44.7 % Normal 40-54 [facility] Comment on above: Performed By: #### L 3400.4600, L100.0100, L500.4100, L501.9910, L500.4050 #### [facility] [address] [place], [address] Hemoglobin (Bld) [Mass/Vol] 14.8 g/dL Normal 13.0-16.5 [facility] Comment on above: Performed By: #### L 3400.4600, L100.0100, L500.4100, L501.9910, L500.4050 #### [facility] [address] [place], [address] IG% 1.900 High 0.0-0.9 [facility] Comment on above: Result Comment: IG% - Immature Granulocytes (promyelocytes, myelocytes and metamyelocytes) > 1% indicates that a LEFT SHIFT is Present. Performed By: #### L 3400.4600, L100.0100, L500.4100, L501.9910, L500.4050 #### [facility] [address], [address] Lymphocytes/100 WBC (Bld) 21.6 % Normal 19-41 [facility] Comment on above: Performed By: #### L 3400.4600, L100.0100, L500.4100, L501.9910, L500.4050 #### [facility] [address], [address] MCH (RBC) [Entitic mass] 31.7 pg Normal 27.0-32.0 [facility] Comment on above: Performed By: #### L 3400.4600, L100.0100, L500.4100, L501.9910, L500.4050 #### [facility] [address], [address] MCHC (RBC) [Mass/Vol] 33.1 g/dL Normal 32-36 [facility] Comment on above: Performed By: #### L 3400.4600, L100.0100, L500.4100, L501.9910, L500.4050 #### [facility] [address] [place], [address] MCV (RBC) [Entitic vol] 95.7 fL High 80-94 [facility] Comment on above: Performed By: #### L 3400.4600, L100.0100, L500.4100, L501.9910, L500.4050 #### [facility] [address], [address] Monocytes/100 WBC (Bld) 9.1 % Normal 0-10 [facility] Comment on above: Performed By: #### L 3400.4600, L100.0100, L500.4100, L501.9910, L500.4050 #### [facility] [address] [place], [address] Neutrophils/100 WBC (Bld) 65.0 % Normal 47-70 [facility] Comment on above: Performed By: #### L 3400.4600, L100.0100, L500.4100, L501.9910, L500.4050 #### [facility] [address] [place], [address] Nucleated RBC (Bld) [#/Vol] 0 10*3/uL Normal 0-5 [facility] Comment on above: Performed By: #### L 3400.4600, L100.0100, L500.4100, L501.9910, L500.4050 #### [facility] [address] [place], [address] Platelet mean volume (Bld) [Entitic vol] 10.5 fL Normal 6.2-12.0 [facility] Comment on above: Performed By: #### L 3400.4600, L100.0100, L500.4100, L501.9910, L500.4050 #### [facility] [address] [place], [address] Platelets (Bld) [#/Vol] 246 10*3/uL Normal 150-450 [facility] Comment on above: Performed By: #### L 3400.4600, L100.0100, L500.4100, L501.9910, L500.4050 #### [facility] [address] [place], [address] RBC (Bld) [#/Vol] 4.67 10*6/uL Normal 4.6-6.2 [facility] Comment on above: Performed By: #### L 3400.4600, L100.0100, L500.4100, L501.9910, L500.4050 #### [facility] [address] [place], [address] RDW SD 44.8 fl High 35.1-43.9 [facility] Comment on above: Performed By: #### L 3400.4600, L100.0100, L500.4100, L501.9910, L500.4050 #### [facility] [address] [place], [address] WBC (Bld) [#/Vol] 8.4 10*3/uL Normal 4.4-11.0 [facility] Comment on above: Performed By: #### L 3400.4600, L100.0100, L500.4100, L501.9910, L500.4050 #### [facility] [address] [place], [address] Calculated very low density lipoprotein (VLDL) cholesterol measurementOrdered By: Dane Yoder on 09-16-2024 Calculated very low density lipoprotein (VLDL) cholesterol measurement 21 mg/dL 5-40 [facility] Carbon dioxide, total [Moles /volume] in Central venous bloodOrdered By: Dane Yoder on 09-16-2024 CO2 [Moles/Vol] 24.7 mmol/L Normal 21.0-32.0 [facility] Comment on above: Performed By: #### L 3400.4600, L100.0100, L500.4100, L501.9910, L500.4050 #### [facility] [address] [place], [address] Chloride assayOrdered By: Yanick Yoder on 09-16-2024 Chloride [Moles/Vol] 103 mmol/L Normal 98-108 [facility] Comment on above: Performed By: #### L 3400.4600, L100.0100, L500.4100, L501.9910, L500.4050 #### [facility] [address] [place], [address] Comprehensive Metabolic Prof ilon 09-16-2024 ALK PHOS 60 U/L Normal 40-129 [facility] Comment on above: Performed By: #### L 3400.4600, L100.0100, L500.4100, L501.9910, L500.4050 #### [facility] [address] [place], [address] BUN/CRE 13.2 RATIO Normal 10-20 [facility] Comment on above: Performed By: #### L 3400.4600, L100.0100, L500.4100, L501.9910, L500.4050 #### [facility] [address] [place], [address] GAP 13 Normal 5-15 [facility] Comment on above: Performed By: #### L 3400.4600, L100.0100, L500.4100, L501.9910, L500.4050 #### [facility] [address] [place], [address] Potassium [Moles/Vol] 3.9 mmol/L Normal 3.3-5.1 [facility] Comment on above: Performed By: #### L 3400.4600, L100.0100, L500.4100, L501.9910, L500.4050 #### [facility] [address] [place], [address] T PROT 7.1 g/dL Normal 5.9-8.4 [facility] Comment on above: Performed By: #### L 3400.4600, L100.0100, L500.4100, L501.9910, L500.4050 #### [facility] [address] [place], [place], [address] Comprehensive Metabolic Prof ilOrdered By: Dane Yoder on 09-16-2024 AST [Catalytic activity/Vol] 20 U/L Normal <=37 [facility] Comment on above: Performed By: #### L 3400.4600, L100.0100, L500.4100, L501.9910, L500.4050 #### [facility] [address] [place], [address] Eosinophil percentageOrdered By: Dane Yoder on 09-16-2024 Eosinophils/100 WBC (Bld) 1.9 % 0-5 [facility] Erythrocyte distribution wid th ratioOrdered By: Dane Yoder on 09-16-2024 Erythrocyte distribution width (RBC) [Ratio] 13.0 % 11.6-14.6 [facility] Erythrocyte distribution wid th standard deviationOrdered By: Dane Yoder on 09-16-2024 Erythrocyte distribution width (RBC) [Ratio] 44.8 fl High 35.1-43.9 [facility] Glomerular filtration rate ( GFR) estimation/1.73 sq m using serum, plasma, or whole bOrdered By: Dane Yoder on 09-16-2024 GFR/1.73 sq M.predicted among non-blacks MDRD (S/P/Bld) [Vol rate/Area] 91 mL/min/{1.73_m2} Normal >60 [facility] Comment on above: mL/min/1.73m2 CKD-EP I Creatinine Equation (2020) Result Comment: mL/m in/1.73m2 CKD-EPI Creatinine Equation (2020) Performed By: #### L 3400.4600, L100.0100, L500.4100, L501.9910, L500.4050 #### [facility] [address] [place], [place], [address] Hematocrit Auto (Bld) [Volum e fraction]Ordered By: Dane Yoder on 09-16-2024 Hematocrit (Bld) [Volume fraction] 44.7 % 40-54 [facility] Hemoglobin measurementOrdere d By: Dane Yoder on 09-16-2024 Hemoglobin (Bld) [Mass/Vol] 14.8 g/dL 13.0-16.5 [facility] Immature granulocytes/100 WB C Auto (Bld)Ordered By: Dane Yoder on 09-16-2024 Immature granulocytes/100 WBC (Bld) 1.900 % High 0.0-0.9 [facility] Comment on above: IG% - Immature Granu locytes (promyelocytes, myelocytes and metamyelocytes) > 1% indicates that a LEFT SHIFT is Present. LDL calc ser/plasOrdered By: Dane Yoder on 09-16-2024 Cholesterol in LDL [Mass/Vol] 144 mg/dL Normal [facility] Comment on above: Lxkukzvfos=915-642 m g/dL & Higher Fjrx=298 mg/dL or greater Result Comment: Bord ojbcvz=839-423 mg/dL Higher Drnt=697 mg/dL or greater Performed By: #### L 3400.4600, L100.0100, L500.4100, L501.9910, L500.4050 #### [facility] [address] [place], [address] Lipid Profileon 09-16-2024 CHOL:HDL 3.67 Normal [facility] Comment on above: Performed By: #### L 3400.4600, L100.0100, L500.4100, L501.9910, L500.4050 #### [facility] [address] [place], [address] Cholesterol in VLDL [Mass/Vol] 21 mg/dL Normal 5-40 [facility] Comment on above: Performed By: #### L 3400.4600, L100.0100, L500.4100, L501.9910, L500.4050 #### [facility] [address] [place], [address] Lipoprotein a [Mass/Vol]Orde red By: Dane Yoder on 09-16-2024 Lipoprotein a [Moles/Vol] 44.2 nmol/L <75.0 [facility] Comment on above: Note: Values greater than or equal to 75.0 nmol/L may indicate an independent risk factor for CHD, but must be evaluated with caution when applied to non- populations due to the influence of genetic factors on Lp(a) across ethnicities.Performed at: [facility] [id number] Director: Jaskaran Eaton PhD, Phone: [phone] MCV (mean corpuscular volume ) determinationOrdered By: Dane Yoder on 09-16-2024 MCV (RBC) [Entitic vol] 95.7 fL High 80-94 [facility] Mean corpuscular hemoglobin (MCH) determinationOrdered By: Dane Yoder on 09-16-2024 MCH (RBC) [Entitic mass] 31.7 pg 27.0-32.0 [facility] Mean corpuscular hemoglobin concentration (MCHC) determinationOrdered By: Dane Yoder on 09-16-2024 MCHC (RBC) [Mass/Vol] 33.1 g/dL 32-36 [facility] Mean platelet volume determi nationOrdered By: Dane Yoder on 09-16-2024 Platelet mean volume (Bld) [Entitic vol] 10.5 fL 6.2-12.0 [facility] Monocyte percentageOrdered B y: Dane Yoder on 09-16-2024 Monocytes/100 WBC (Bld) 9.1 % 0-10 [facility] Neutrophil percentageOrdered By: Dane Yoder on 09-16-2024 Neutrophils/100 WBC (Bld) 65.0 % 47-70 [facility] Nucleated red blood cell per centageOrdered By: Dane Yoder on 09-16-2024 Nucleated RBC/100 WBC (Bld) [Ratio] 0 % 0-5 [facility] PSA,Total - Annual Screenon 09-16-2024 PSA,TOT SCREEN 7.19 ng/mL High 0.02-4.00 [facility] Comment on above: Result Comment: This [...] L 3400.4600, L100.0100, L500.4100, L501.9910, L500.4050 #### [facility] [address] [place], [place], [address] Platelet countOrdered By: Yanick Yoder on 09-16-2024 Platelets (Bld) [#/Vol] 246 10*3/uL 150-450 [facility] Potassium measurement (mass/ volume)Ordered By: Dane Yoder on 09-16-2024 Potassium (Unsp spec) [Mass/Vol] 3.9 mmol/L 3.3-5.1 [facility] RBC Auto (Bld) [#/Vol]Ordere d By: Dane Yoder on 09-16-2024 RBC (Bld) [#/Vol] 4.67 10*6/uL 4.6-6.2 [facility] Screening total cholesterol/ high density lipoprotein (HDL) cholesterol ratioOrdered By: Dane Yoder on 09-16-2024 Cholesterol.total/Choles terol in HDL [Mass ratio] 3.67 {ratio} [facility] Serum creatinine measurement (mass/volume)Ordered By: Dane Yoder on 09-16-2024 Creatinine [Mass/Vol] 0.94 mg/dL Normal 0.70-1.20 [facility] Comment on above: Performed By: #### L 3400.4600, L100.0100, L500.4100, L501.9910, L500.4050 #### [facility] [address] [place], [place], [address] Serum globulin measurementOr dered By: Dane Yoder on 09-16-2024 Globulin (S) [Mass/Vol] 2.7 g/dL Normal 2.2-4.2 [facility] Comment on above: Performed By: #### L 3400.4600, L100.0100, L500.4100, L501.9910, L500.4050 #### [facility] [address] [place], [address] Serum glucose measurement (m ass/volume)Ordered By: Dane Yoder on 09-16-2024 Glucose [Mass/Vol] 68 mg/dL Low 70-99 [facility] Comment on above: Performed By: #### L 3400.4600, L100.0100, L500.4100, L501.9910, L500.4050 #### [facility] [address] [facility] [place], [address] Serum or plasma alanine jarrell otransferase (ALT) measurementOrdered By: Dane Yoder on 09-16-2024 ALT [Catalytic activity/Vol] 26 U/L Normal <=46 [facility] Comment on above: Performed By: #### L 3400.4600, L100.0100, L500.4100, L501.9910, L500.4050 #### [facility] [address] [facility] [place], [address] Serum or plasma albumin rosa m urement (mass/volume)Ordered By: Dane Yoder on 09-16-2024 Albumin [Mass/Vol] 4.5 g/dL Normal 3.4-4.8 [facility] Comment on above: Performed By: #### L 3400.4600, L100.0100, L500.4100, L501.9910, L500.4050 #### [facility] [address] [facility] [place], [address] Serum or plasma albumin/glob ulin mass ratioOrdered By: Dane Yoder on 09-16-2024 Albumin/Globulin [Mass ratio] 1.7 {ratio} Normal 0.9-2.4 [facility] Comment on above: Performed By: #### L 3400.4600, L100.0100, L500.4100, L501.9910, L500.4050 #### [facility] [address] [place], [address] Serum or plasma alkaline laura sphatase measurementOrdered By: Dane Yoder on 09-16-2024 ALP [Catalytic activity/Vol] 60 U/L 40-129 [facility] Serum or plasma calcium rosa m urement (mass/volume)Ordered By: Dane Yoder on 09-16-2024 Calcium [Mass/Vol] 9.3 mg/dL Normal 7.6-11.0 [facility] Comment on above: Performed By: #### L 3400.4600, L100.0100, L500.4100, L501.9910, L500.4050 #### [facility] [address] [place], [address] Serum or plasma cholesterol in HDL measurement (mass/volume)Ordered By: Dane Yoder on 09-16-2024 Cholesterol in HDL [Mass/Vol] 62 mg/dL Normal [facility] Comment on above: National Cholesterol Education [...] L 3400.4600, L100.0100, L500.4100, L501.9910, L500.4050 #### [facility] [address] [place], [address] Serum or plasma cholesterol measurement (mass/volume)Ordered By: Dane Yoder on 09-16-2024 Cholesterol [Mass/Vol] 226 mg/dL High <=200 [facility] Comment on above: Cholesterol level, D esirable <200 mg/dLBorderline high cholesterol 200-239 mg/dLHigh cholesterol >=240 mg/dLRecommendations of the NCEP Adult Treatment Panel for the following risk-cutoff thresholds for the [place] population. Result Comment: Chol esterol level, Desirable <200 mg/dL Borderline high cholesterol 200-239 mg/dL High cholesterol >=240 mg/dL Recommendations of the NCEP Adult Treatment Panel for the following risk-cutoff thresholds for the [place] population. Performed By: #### L 3400.4600, L100.0100, L500.4100, L501.9910, L500.4050 #### [facility] [address] [place], [place], [id number] Serum or plasma urea nitroge n measurement (mass/volume)Ordered By: Dane Yoder on 09-16-2024 Urea nitrogen [Mass/Vol] 12 mg/dL Normal 4-19 [facility] Comment on above: Performed By: #### L 3400.4600, L100.0100, L500.4100, L501.9910, L500.4050 #### [facility] [address] [place], [address] Sodium levelOrdered By: Dane Yoder on 09-16-2024 Sodium [Moles/Vol] 141 mmol/L Normal 133-145 [facility] Comment on above: Performed By: #### L 3400.4600, L100.0100, L500.4100, L501.9910, L500.4050 #### [facility] [address] [place], [address] Total proteinOrdered By: Marcela Yoder on 09-16-2024 Protein [Mass/Vol] 7.1 g/dL 5.9-8.4 [facility] Triglycerides measurementOrd ered By: Dane Yoder on 09-16-2024 Triglyceride [Mass/Vol] 104 mg/dL Normal [facility] Comment on above: The drugs N-Acetylcy [...] L 3400.4600, L100.0100, L500.4100, L501.9910, L500.4050 #### [facility] [address] [place], [address] White blood cell (WBC) count Ordered By: Dane Yoder on 09-16-2024 WBC (Bld) [#/Vol] 8.4 10*3/uL 4.4-11.0 [facility] MR/BMS.Eulogio 08-31-2024 /BMS.S [facility] [address] [place], [place] [address] OFFICE VISIT Date of Service: 08/31/24 MR#: [id number] Acct: [id number] Name: HAI ZARCO Rep #: [id number] : 1960 Provider: BELEN Marin Age/Sex: 64/M Location: [facility] Status: Signed Intake Vital Signs 01/25/21 [...] Smoking Status: Former smoker HPI HPI HPI: HAI ZARCO, is a 64 M who presents to the office today for follow-up of symptomatic varicose veins particularly on his posterior LLE. He had venous reflux study 08/15/24 which demonstrated prior R GSV ablation, R SSV patent legal assistant and thigh varicose vein incompetence, prior L GSV and SSV ablation, incompetent L calf patent legal assistant feeding posterior calf varicose veins, and ASV [...] Affect: gomez (more content not included)... Normal [facility] Venous Duplex US - [facility] 08-15-2024 Venous Duplex US - [facility] [address] [place] [address] Venous Duplex US - [place] 08/15/24 0808 MR#: [id number] Acct: [id number] Name: HAI ZARCO Rep #: [id number] : 1960 64 From: Hang Leung MD [...] cm. calf. Unable to see origin. INCOMPETENT patent legal assistant noted at mid SSV. INCOMPETENT patent legal assistant noted at the posteror mid calf INCOMPETENT [...] the thigh, calf varicosities, posterior mid calf patent legal assistant, accessory saphenous from junction. Ordering Physician: Gabrielle Grover Referring Physician: Dane Yoder Performed By: Lilly Talley RVT 08/15/24 1425 Date Hang Leung MD CC: BELEN Marin; Dr. Dane Yoder, Date Dictated: 08/15/24 08 Date Transcribed: 08/15/241424 Truck Hop: Signed Normal [facility] Venous duplex ultrasound rep ortOrdered By: Hang Leung on 08-15-2024 US Vein [facility] [address] [place] [address] Venous Duplex US - [place] 08/15/24807 MR#: [id number] Acct: [id number] Name: HAI ZARCO Rep #:[id number] : 1960 64 From: Hang Contreras Attending [...] cm. calf. Unable to see origin. INCOMPETENT patent legal assistant noted at mid SSV. INCOMPETENT patent legal assistant noted at the posteror mid calf INCOMPETENT [...] the thigh, calf varicosities, posterior mid calf patent legal assistant, accessory saphenous from junction. Ordering Physician: Gabrielle Grover Referring Physician: Dane Yoder Performed By: Lilly Talley RVT 08/15/24 7370 Date _ Hang Leung MD CC: BELEN Marin; Dr. Dane Yoder, DO ~ Date Dictated: 08/15/24 0808 Date Transcribed: 08/15/24 142 Truck Hop: Signed [facility] Work Phone: MR/BMSMarilyn 07-20-2024 MR/BMS.BVS [facility] [address] [place] [address] OFFICE VISIT Date of Service: 07/20/24 MR#: [id number] Acct: [id number] Name: HAI ZARCO Rep #: [id number] : 1960 Provider: BELEN Marin Age/Sex: 64/M Location: [facility] Status: Signed Intake Vital Signs 01/25/21 [...] Smoking Status: Former smoker HPI HPI HPI: HAI ZARCO, is a 64 M who presents [...] noted Extremities (more content not included)... Normal [facility] Vital Signs Date Time Vital Sign Value Performing Clinician Faci lity 11-22-2024 13:01-0400 Body height 182.[address] Dane Yoder DO Work Phone: [facility] 11-22-2024 13:00-0400 Body mass index (BMI) [Ratio] 27.7 kg/m2 Dr. Dane Yoder DO Work Phone: [facility] 11-22-2024 13:00-0400 Body temperature 97.8 [degF] Dr. Dane Yoder DO Work Phone: [facility] 11-22-2024 13:00-0400 Body weight 92.[address] Dane Yoder DO Work Phone: [facility] 11-22-2024 13:00-0400 Diastolic blood pressure 91 mm[Hg] Dr. Dane Yoder DO Work Phone: [facility] 11-22-2024 13:00-0400 Heart rate 58 /min Dr. Dane Yoder DO Work Phone: [facility] 11-22-2024 13:00-0400 Respiratory rate 16 /min Dr. Dane Yoder DO Work Phone: [facility] 11-22-2024 13:00-0400 SaO2% (BldA) [Mass fraction] 98 % Dr. Dane Yoder DO Work Phone: [facility] 11-22-2024 13:00-0400 Systolic blood pressure 190 mm[Hg] Dr. Dane Yoder DO Work Phone: [facility] 11-04-2024 08:59-0400 Body temperature 97.8 [degF] Dr. Dane Yoder DO Work Phone: [facility] 11-04-2024 08:59-0400 Body weight 92.[address] Dane Yoder DO Work Phone: [facility] 11-04-2024 08:59-0400 Diastolic blood pressure 87 mm[Hg] Dr. Dane Yoder DO Work Phone: [facility] 11-04-2024 08:59-0400 Heart rate 57 /min Dr. Dane Yoder DO Work Phone: [facility] 11-04-2024 08:59-0400 Respiratory rate 16 /min Dr. Dane Yoder DO Work Phone: [facility] 11-04-2024 08:59-0400 SaO2% (BldA) [Mass fraction] 98 % Dr. Dane Yoder DO Work Phone: [facility] 11-04-2024 08:59-0400 Systolic blood pressure 149 mm[Hg] Dr. Dane Yoder DO Work Phone: [facility] 10-20-2024 08:42-0400 Body height 182.[address] Dane Yoder DO Work Phone: [facility] 10-20-2024 08:42-0400 Body weight 93.[address] Dane Yoder DO Work Phone: [facility] 10-19-2024 08:13-0400 Body mass index (BMI) [Ratio] 27.9 kg/m2 Dr. Dane Yoder DO Work Phone: [facility] 08-31-2024 08:26-0400 Body temperature 97.7 [degF] Dr. Dane Yoder DO Work Phone: [facility] 08-31-2024 08:26-0400 Body weight 93.[address] Dane Yoder DO Work Phone: [facility] 08-31-2024 08:26-0400 Diastolic blood pressure 90 mm[Hg] Dr. Dane Yoder DO Work Phone: [facility] 08-31-2024 08:26-0400 Heart rate 63 /min Dr. Dane Yoder DO Work Phone: [facility] 08-31-2024 08:26-0400 Respiratory rate 16 /min Dr. Dane Yoder DO Work Phone: [facility] 08-31-2024 08:26-0400 SaO2% (BldA) [Mass fraction] 96 % Dr. Dane Yoder DO Work Phone: [facility] 08-31-2024 08:26-0400 Systolic blood pressure 174 mm[Hg] Dr. Dnae Yoder DO Work Phone: [facility] 07-20-2024 11:09-0400 Body temperature 97.1 [degF] Dr. Dane Yoder DO Work Phone: [facility] 07-20-2024 11:09-0400 Body weight 93.[address] Dane Yoder DO Work Phone: [facility] 07-20-2024 11:09-0400 Diastolic blood pressure 98 mm[Hg] Dr. Dane Yoder DO Work Phone: [facility] 07-20-2024 11:09-0400 Heart rate 73 /min Dr. Dane Yoder DO Work Phone: [facility] 07-20-2024 11:09-0400 Respiratory rate 16 /min Dr. Dane Yoder DO Work Phone: [facility] 07-20-2024 11:09-0400 SaO2% (BldA) [Mass fraction] 97 % Dr. Dane Yoder DO Work Phone: [facility] 07-20-2024 11:09-0400 Systolic blood pressure 178 mm[Hg] Dr. Dane Yoder DO Work Phone: [facility] Encounters Encounter Date Encounter Type Care Provider Facility Start: 11-22-2024 End: 11-22-[address] Raj Dueñas DO -[facility] Work Phone: Start: 11-22-2024 End: 11-22-[address] Dane Yoder DO Work Phone: -[facility] Start: 11-22-2024 ambulatory Raj Spenser Facility: [facility] Start: 11-21-2024 ambulatory [facility] Facility: [facility] Start: 11-15-2024 End: 11-15-2024 Telephone encounter [facility] Provider [facility] DEPARTMENT Comment on above: Appointment (General Surgery) Start: 11-04-2024 End: 11-04-2024 Patient encounter procedure Gabrielle GLOVER -[facility] Work Phone: Start: 11-04-2024 End: 11-04-[address] Dane Yoder DO Work Phone: -[facility] Start: 10-31-2024 End: 10-31-[address] Dane Yoder DO Work Phone: -Laboratory Specimen Start: 10-31-2024 End: 10-31-[address] Dane Yoder DO -Laboratory Specimen Work Phone: Start: 10-31-2024 End: 10-31-2024 ambulatory Dane Yoder Facility:[facility] Start: 10-26-2024 End: 10-26-[address] Dane Yoder DO Work Phone: [facility] Start: 10-26-2024 End: 10-26-[address] Jaiden Main MD -[facility] Work Phone: Start: 10-25-2024 ambulatory Dane Yoder Facility: [facility] Start: 10-25-2024 Non-patient / Non-visit Dr. Hang rachel MD -[facility] Start: 10-25-2024 Non-patient / Non-visit Dr. Chopra [facility] [place] Work Phone: Start: 10-25-2024 End: 10-25-[address] Hang Leung MD -Cardiovascular Services Work Phone: Start: 10-25-[address] Dane chicas DO -Cat Scan [facility] Work Phone: Start: 10-25-2024 End: 10-26-[address] Dane Yoder DO Work Phone: -Cardiovascular Services Start: 10-25-2024 End: 10-25-2024 ambulatory [facility] Facility:[facility] Start: 10-20-2024 ambulatory [facility] Facility:[facility] Start: 10-20-2024 Non-patient / Non-visit Dr. Hang rachel MD -[facility] Start: 10-20-2024 End: 10-20-2024 Admission to same day surgery center Dr. Hang Leung MD -Business Owner/Engineer/Special Procedures Work Phone: Start: 10-20-2024 End: 10-20-[address] Dane Yoder DO Work Phone: -Business Owner/Engineer/Special Procedures Start: 10-13-2024 ambulatory [facility] Facility:[facility] Start: 10-06-2024 End: 10-06-[address] Dane Yoder DO Work Phone: -Laboratory Start: 10-06-2024 End: 10-06-[address] Jaiden Main MD -Laboratory Work Phone: Start: 10-06-2024 End: 10-06-2024 ambulatory Dane Yoder Facility:[facility] Start: 09-17-2024 Encounter for genera l adult medical examination without abnormal findings Dane Yoder [facility] Start: 09-16-2024 End: 09-16-[address] Dane Yoder DO Work Phone: [facility] Work Phone: Start: 09-16-2024 End: 09-16-[address] Dane Yoder DO -Laboratory [place] Work Phone: Start: 09-16-2024 End: 09-16-2024 ambulatory Dane Yoder Facility:[facility] Start: 08-31-2024 End: 08-31-2024 Patient encounter procedure Gabrielle GLOVER -[facility] Work Phone: Start: 08-31-2024 End: 08-31-[address] Dane Yoder DO Work Phone: [facility] Work Phone: Start: 08-15-2024 Non-patient / Non-visit Dr. Hang rachel MD -[facility] Start: 08-15-2024 End: 08-15-[address] Dane Yoder DO Work Phone: [facility] Work Phone: Start: 08-15-2024 End: 08-15-2024 Patient encounter procedure Gabrielle GLOVER -Cardiovascular Services Work Phone: Start: 08-15-2024 End: 08-15-2024 ambulatory Dane Yoder Facility:[facility] Start: 07-20-2024 End: 07-20-2024 Patient encounter procedure Gabrielle GLOVER -[facility] Work Phone: Start: 07-20-2024 End: 07-20-2024 ambulatory Dane Yoder Facility:[facility] Start: 06-06-2022 End: 06-06-2022 ambulatory [facility] Work Phone: Start: 06-06-2022 End: 06-06-2022 Patient encounter procedure [facility]-Radiology, [place] Procedures Date Procedure Procedure Detail Performing Clinician Start: 10-26-2024 MRI of pelvis with contrast Dr. Dane Yoder DO Work Phone: Start: 10-25-2024 CT angiography of co ronary arteries Dr. Dane Yoder DO Work Phone: Start: 10-06-2024 Free prostate specif ic antigen level Dr. Dane Yoder DO Work Phone: Comment on above: [facility]. Start: 10-06-2024 Prostate specific an tigen measurement Dr. Dane Yoder DO Work Phone: Comment on above: [facility].According to the [place] [employer], Serum PSAshould decrease and remain [...] Treatment Date Care Activity Detail Author Start: 12-20-2024 ambulatory Ambulatory Facility:[facility] Start: 10-20-2024 Patient discharge [facility] Lipoprotein a [Mass/ volume] in Serum or Plasma [facility] Immunizations Immunization Date Immunization Notes Care Provider Fa cility 07-12-2020 Covid (Pfizer) [facility] 06-21-2020 [facility]Pf[facility] 01-11-2015 influenza, injectabl e, quadrivalent, contains preservative [facility] Provider [facility] 01-06-2014 influenza, seasonal, injectable [facility] Provider [facility] Payers Date Payer Category Payer Unknown [id number] 2024 Unknown 2024 Self-pay [id number] 2024 Self-pay [id number] 2018 Private Health Insurance [employer] PPO Member Subscriber Plan / Payer (Effective 2018-Present) Name: Carolee Hai Regla Relation to Subscriber: Self Name: Hai Zarco Payer ID: Not on file Type: PPO Address: [place] [id number] 2011 Unknown [id number] Unknown [id number] Unknown [id number] .[id number]. 462 Unknown [id number] .0.1.898379.3.579.2. 462 Unknown [id number] .0.1.408266.3.579.2. 462 Unknown [id number] .0.1.061059.3.579.2. 462 Unknown [id number] .0.1.085642.3.579.2. 462 Unknown [id number] .0.1.355117.3.579.2. 462 Unknown [id number] 2.16.840.1.784527.3.579.2. 462 Unknown [id number] 2.16.840.1.136840.3.579.2. 462 Unknown [id number] 2.16.840.1.379890.3.579.2. 462 Unknown [id number] 2.16.840.1.666577.3.579.2. 462 Unknown [id number] 2.16.840.1.572865.3.579.2. 462 Unknown [id number] 2.16.840.1.264214.3.579.2. 462 Unknown [id number] 2.16840.1.983863.3.579.2. 462 Unknown [id number] 2.16840.1.746451.3.579.2. 462 Unknown [id number] 2.840.1.508023.3.579.2. 462 Unknown [id number] 2.16840.1.273449.3.579.2. 462 Unknown [id number] 2.16.840.1.066448.3.579.2. 462 Unknown [id number] 2.16840.1.723399.3.579.2. 462 Unknown [id number] 2.16840.1.802403.3.579.2. 462 Unknown [id number] 2.840.1.697321.3.579.2. 462 Unknown [id number] 2.840.1.748170.3.579.2. 462 Social History Date Type Detail Facility Start: 03-22-2013 Tobacco smoking stat us ILIS Unknown if ever smoked [facility] Start: 1960 Sex Assigned At Male [facility] Start: 03-22-2013 End: 11-22-2024 Tobacco smoking status NHIS Ex-smoker (finding) [facility] Start: 1960 Sex assigned at Not on file [facility] Start: 01-06-2014 Sex Male [facility] Gender identity Not on file [facility] inic Clinical Notes 07-20-2024 to 11-22-2024 Note Date & Type Note Facility 11-22-2024 Progress note [facility] 11-22-2024 Progress note Note Date/Time November 22, 2024 2:48pm [facility] [place] [address] OFFICE VISIT Date of Service: 11/22/24 1251 MR#: [id number] Acct: [id number] Name: HAI ZARCO Rep #: [id number] : 1960 From: aRj chicas DO Age/Sex: 64/M Location: [facility] [place] Status: Signed Intake Vital Signs 10/20/24 08:42 11/22/24 13:00 11/22/24 13:01 Height 6 ft 6 ft 6 ft Weight: 204 lb 8 oz BMI 27.7 BP 190/91 H Blood Pressure Location Lt brachial Position Sitting Respiration 16 Pulse 58 L Pulse Source Monitor Temp 97.8 F Temperature Source Temporal Artery Pulse Oximetry (%) 98 Oxygen Delivery Method room air Intake Visit Reasons: Consult Is patient in pain?: Yes (right knee) Allergies No Known Allergies Allergy (Verified 11/22/24 12:54) Medications ?Medication ?Instructions ?Recorded ?Confirmed ?Type losartan 50 mg-hydrochlorothiazide 1 tab PO DAILY 10/0411/22/24 History 12.5 mg tablet rosuvastatin 10 mg tablet 10 mg PO QHS 11/04/24 History PFSH PFSH Home Medications ?Medication ?Instructions ?Recorded ?Last Taken ?Type losartan 50 mg-hydrochlorothiazide 1 tab PO DAILY 10/04 09/28 Unknown History 12.5 mg tablet rosuvastatin 10 mg tablet 10 mg PO QHS 11/04/24 Unknow n History Allergy/AdvReac Type Severity Reaction Status Date / Time No Known Allergies Allergy Verified 11/22/24 12:54 Family History Father Cancer Bladder Mother Cancer Lung cancer Sister Heart disease Sister Breast cancer Other Myocardial infarction Surgical History H/O prostate biopsy (~10/31/24) Social History (Updated 11/22/24 @ 13:00 by Deanna Phan LPN) Smoking Status: Former smoker how long ago did patient quit smokin years ago alcohol intake: current alcohol intake frequency: 3 or more drinks per day substance use type: does not use Referring Provider: Murali Main MD Diagnosis: Hai Zarco is a 64 year-old male diagnosed with low risk prostate cancer (PSA 7.19, GS 3+3, cT1c) status post MRI pelvis (10/26/2024), and prostate biopsy(10/23/2024). History of Present Illness: 10/26/2024: Patient completed MRI pelvis.? This demonstrated a lesion centered inthe left posterior anterior peripheral zone far base and extending inferiorly into the mid posterior lateral peripheral zone of the mid anterior peripheral zones measuring 2.1 cm, this is a PI-RADS 5 lesion.? There is questionable subtle overlying broad-based capsular bulging which may represent early extracapsular extension, both findings about the left neurovascular bundle as well as abut the left base/seminal vesicle with no gross invasion of the structures.? No adenopathy or other findings. 10/31/2024: Patient completed prostate biopsy.? This demonstrated Lookout 3+3 adenocarcinoma involving about 45% of 2/3 cores in the left mid and about 70% of2/2 cores in the left prostate base.? All remaining biopsies were negative for involvement. Radiation Treatment History: No history of radiation therapy. No pacemaker. No diagnosis of radiosensitizing comorbidity. Interval History: Patient presents for initial consultation. He reports having a PSA which was 3.91 in 2019 and that he had not had it checked again till this year and it was 7.19 and this led to his diagnosis. He does have a history of urethral stricture which he reports being in the mid urethra, he has had this dilated twice and he believes it has narrowed again over the last at least several years. He does report having weak stream more than half the time, he has frequency and urgency less than half the time, incomplete emptying and intermittency less than 1 time in 5 and denies having straining. He has nocturia about twice per night. He does not take any medications for urination. He denies leakage or incontinence. He denies dysuria or hematuria. He does report normal bowel function without diarrhea or constipation. He denies rectalpain or bleeding. He has had 2 colonoscopies in his life one of them was 5 years ago and he is planning to return for another exam in 5 years. 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 He did have an episode in Marchof last year where he did place a blood clot through his urine and this has never happened since and he does not have any bleeding in his urine, he is discussed this with his urologist. He denies cough, shortness of breath, chest pain, bone pain. He does report good erectile function but is not sexually active. Energy level remains normal. He completes all ADLs without any difficulty and denies having other problems or concerns at this time. IPSS: 12 HINA: 3 Review of Systems: A 12-point review of systems was completed and was negative except for what is noted in the HPI/Interval History and by the nurse. Physical Exam: Weight: ECO KARNOFSKY SCORE: 90% CONSTITUTIONAL: Well-developed, well-nourished, and in no apparent distress. CARDIAC: Regular rate and rhythm. Normal S1, S2. No murmurs, rubs, or gallops. PULMONARY/CHEST: Lungs are clear to auscultation and percussion bilaterally. No wheezes, rhonchi, or crackles noted. No increased work of breathing. EXTREMITIES: Full range of motion in all four extremities. No evidence of edema. [place]: Deferred PSYCHIATRIC: Appropriate mood and affect for the clinical situation. Imaging: As per HPI Laboratory Data: None Assessment & Plan Assessment/Plan (1) Cancer of prostate w/low recurrence risk (T1-2a, Lookout<7 & PSA<10): PLAN: Plan Assessment: Hai Zarco is a 64 year-old male diagnosed with low risk prostate cancer (PSA 7.19, GS 3+3, cT1c) status post MRI pelvis (10/26/2024), and prostate biopsy(10/23/2024). Plan: Patient presents for initial consultation. He does have a very good performancestatus with few medical comorbidities. We did review the MRI pelvis which was completed 10/26/2024 which demonstrated a lesion centered in the left posterior and anterior peripheral zone extending from the base inferiorly to the mid prostate measuring at least 2.1 cm, this is nearing the SV and also has a lot ofabutment of the lateral aspect of the prostate with some concern for at least microscopic extracapsular extension and is also abutting the neurovascular bundle. No adenopathy. Biopsy demonstrated Lookout 3+3 adenocarcinoma centeredon the left prostate, matching of the findings with the MRI. We did review thathe technically has low risk prostate cancer with a PSA of 7.19 and Lookout scoreof 3+3. We reviewed various treatment options including active surveillance, radiation including hypofractionated as well as SBRT and also discussed brachytherapy and also reviewed options for surgery. Given the appearance of his lesion on MRI with the size of it, the abutment of the capsule over a large span and the concern for possible extracapsular extension I did recommend against active surveillance. He does have a history of urethral stenosis which has been dilated twice in the past the second time was still several years ago and he does have some symptoms that he believes are related to the narrowing of his urethra, the narrowed urethra is not in the prostatic urethra. He also has a fairly large posterior bladder diverticulum as noted on his MRI which is likely related to his previous urethral stenosis and symptoms, currently not on any medications. We reviewed estimated risk of LN involvement/SVI using [facility] nomogram, it is 4% risk for LN involvement and 3% risk of SVI. ?For external beam radiation therapy I discussed that the use of moderate hypofractionation has been compared to conventional long course radiation in several trials and demonstrated equivalent disease results and very similar risk of toxicity, this has now been recognized as an acceptable treatment recommendation as published LARA/ASCO/AUA consensus guideline.? We also reviewed options for prostate SBRT.? Both hypofractionated radiation therapy and SBRT have shown similar biochemical control when compared with more traditional long course standard fractionated radiation.? I reviewed the use of fiducial markers to improve target localization during treatment and also the use of space OAR has been shown toimprove risk of rectal toxicity.? Following placement of space OAR and fiducialsI would recommend MRI for improved anatomical delineation for treatment planning.? I reviewed the logistics of radiation therapy including CT simulation, treatmentplanning, and daily fractionated radiation therapy.? I stressed the importance of coming to all treatments and to not unnecessarily prolong the treatment course.? I also reviewed recommendations of completing treatment with a full bladder as a strategy to improve normal tissue toxicity.? I reviewed the potential acute and chronic toxicities from prostate radiation and these includebut are not limited to fatigue, skin irritation, rectal irritation/discomfort, loose stool/diarrhea, urinary frequency/dysuria, rectal ulcer, pain/bleeding with bowel movements, persistent urinary frequency, urethral stricture, erectiledysfunction, retrograde ejaculation, weakening of pelvic bones and increased fracture risk, and risk of secondary carcinoma.? It was reviewed that with SBRT there can be higher risk of acute urinary toxicity especially obstructive urinary symptoms that occasionally require temporary jacinto catheter placement.? The relative estimated risk and time course as well as potential management of these toxicities was discussed.? Following our discussion patient was still undecided about what he wanted to do and is planning to call us with his treatment decision.? He was instructed to call with any questions or concerns. Thank you for allowing me to participate in the management and care of your patient. If I may answer any questions in the interim, please do not hesitate tocontact me at any time. Raj Dueñas DO, MS Senior Java Software Engineer, Department of Radiation Oncology [facility] Coding Level of Care Code Off vis,new,level 5 Diagnoses Cancer of prostate w/low recurrence risk (T1-2a, [place]<7 & PSA<10) C61 11/22/24 1448 <Electronically signed by Raj Dueñas DO> Date _ Raj Dueñas DO Cosigner Signature: Date (if applicable) CC: Dr. Jaiden Main MD; Dr. Dane Yoder DO ~ [employer] [employer] Work Phone: 1(192) 957-730008-12-2025 Miscellaneous Notes* Telephone Encounter - Chen Mcnair - 11/15/2024 11:16 AM EDT Pt. Update 11.15.24-Gen. Surg. Web no call reassign appt. [facility] encounter Note * Telephone Encounter - Chen Mcnair - 11/15/2024 11:16 AM EDT Pt. Update 11.15.24-Gen. Surg. Web no call reassign appt. [facility] History and physical note [facility] Medical Records Department [address] [place] [address] History & Physical Exam 10/20/24 1118 MR#: [id number] Acct: [id number] Name: HAI ZARCO Rep #:[id number] : 1960 64 From: Hang Leung MD PCP: Dr. Dane Yoder, DO Status:[facility] [place] Location: [facility] HPI - General HPI Narrative HAI ZARCO, is a 64 M who presents [...] bluish discoloration of hand/feet, chest pain with activity,claudication, cold extremities, cyanosis, dyspnea on exertion, erythema [...] Leung MD; Dr. Dane Yoder DO~ Signed [facility]07-17-2025 [facility] Medical Records Department [address] [place] [address] History Physical Exam 10/20/24 1118 MR#: [id number] Acct: [id number] Name: HAI ZARCO Rep #: [id number] : 1960 64 From: Hang Leung MD PCP: Dr. Dane Yoder, DO Status:[facility] Location: [facility] HPI - General HPI Narrative HAI ZARCO, is a 64 M who presents [...] Dr. Hang Leung MD; Dr. Dane Yoder, [facility]05-28-2025 Evaluation note* Diagnosis Onset Date Resolution Status Admit Date Varicose veins of bilateral lower extremities with pain acute August 31, 2024 8:18am Venous insufficiency acute August 31, 2024 8:18am Varicose veins of bilateral lower extremities with pain acute October 20, 2024 8:31am Varicose veins of bilateral lower extremities with pain acute 2024 8:38am Cancer of prostate w/low recurrence risk (T1-2a, [place]<7 & PSA<10) acute November 22, 2024 12:47pm [facility] Work Phone: 1(628) 243-858904-16-2025 Evaluation note* Diagnosis Onset Date Resolution Status Admit Date Varicose veins of bilateral lower extremities with pain acute Apri l 2024 10:47am Venous insufficiency acute Apri l 2024 10:47am [facility] Work Phone: 1([phone]) 688-391704-16-2025 Evaluation note* Diagnosis Onset Date Resolution Status Admit Date Varicose veins of bilateral lower extremities with pain acute Apri l 2024 10:47am Venous insufficiency acute Apri l 2024 10:47am Varicose veins of bilateral lower extremities with pain acute August 31, 2024 8:18am Venous insufficiency acute August 31, 2024 8:18am [facility] Work Phone: 1(495) 796-455404-16-2025 Evaluation note* Diagnosis Onset Date Resolution Status Admit Date Varicose veins of bilateral lower extremities with pain acute Apri l 2024 10:47am Venous insufficiency acute Apri l 2024 10:47am Varicose veins of bilateral lower extremities with pain acute August 31, 2024 8:18am Venous insufficiency acute August 31, 2024 8:18am Varicose veins of bilateral lower extremities with pain acute October 20, 2024 8:31am [facility] Work Phone: 1(655) 229-720704-16-2025 Evaluation note* Diagnosis Onset Date Resolution Status Admit Date Varicose veins of bilateral lower extremities with pain acute Apri l 2024 10:47am Venous insufficiency acute Apri l 2024 10:47am Varicose veins of bilateral lower extremities with pain acute August 31, 2024 8:18am Venous insufficiency acute August 31, 2024 8:18am Varicose veins of bilateral lower extremities with pain acute October 20, 2024 8:31am Varicose veins of bilateral lower extremities with pain acute 2024 8:38am [facility] Work Phone: Evaluation noteNo assessment information available [facility] Work Phone: History and physical note Author Hang Leung [facility] Note Date/Time October 20, 2024 11:2 0am [facility] Medical Records Department [address] [place] [address] History & Physical Exam 10/20/24 1118 MR#: [id number] Acct: [id number] Name: HAI ZARCO Rep #:[id number] : 1960 64 From: Hang Leung MD PCP: Dr. Dane Yoder, DO Status:[facility] Location: [facility] HPI - General HPI Narrative HAI ZARCO, is a 64 M who presents with recurrent LLE painful varicose veins refractory to compression. He has had prior GSV ablation and SSV ablation. [facility] Medical History no medical history Home Medications [...] Leung MD; Dr. Dane Yoder DO~ Signed [facility] Work Phone: Reason for referral (narrative)No reason for referral information [facility]WKn[facility] Work Phone: Chief Complaint and [...] ities with pain October 20, 2024 8:31am Chief Complaint Admit Date Varicose Veins July 20, 2024 10: 47am Pain August 15, 2024 7:29a m Discuss US August 31, 2024 8:18a m FASTING September 16, 2024 3:01 pm Varicose veins of bilateral lower extrem ities with October 20, 2024 8:31am Varicose veins of bilateral lower extrem ities with October 20, 2024 11:18am SCREENING October 25, 2024 6:41 am Varicose veins of bilateral lower extrem ities with October 25, 2024 6:43am R97.20 Elevated prostate specific antige n [PSA] October 26, 2024 10:50am Chief Complaint Admit Date Varicose Veins July 20, 2024 10: 47am Pain August 15, 2024 7:29a m Discuss US August 31, 2024 8:18a m FASTING September 16, 2024 3:01 pm Varicose veins of bilateral lower extrem ities with October 20, 2024 8:31am Varicose veins of bilateral lower extrem ities with October 20, 2024 11:18am SCREENING October 25, 2024 6:41 am Varicose veins of bilateral lower extrem ities with October 25, 2024 6:43am R97.20 Elevated prostate specific antige n [PSA] October 26, 2024 10:50am R97.20 October 31, 2024 3:41 pm Chief Complaint Admit Date Varicose Veins July 20, 2024 10: 47am Pain August 15, 2024 7:29a m Discuss US August 31, 2024 8:18a m FASTING September 16, 2024 3:01 pm Varicose veins of bilateral lower extrem ities with October 20, 2024 8:31am Varicose veins of bilateral lower extrem ities with October 20, 2024 11:18am SCREENING October 25, 2024 6:41 am Varicose veins of bilateral lower extrem ities with October 25, 2024 6:43am CT CALCIUM SCORING October 25, 2024 6:46 am R97.20 Elevated prostate specific antige n [PSA] October 26, 2024 10:50am R97.20 October 31, 2024 3:41 pm post op ablation November 04, 2024 8:3 8am Reason for Visit Admit Date Varicose veins of bilateral lower extrem ities with pain July 20, 2024 10:47am Venous insufficiency July 20, 2024 10 :47am Varicose veins of bilateral lower extrem ities with pain August 31, 2024 8:18am Venous insufficiency August 31, 2024 8:18 am Varicose veins of bilateral lower extrem ities with pain October 20, 2024 8:31am Varicose veins of bilateral lower extrem ities with pain November 04, 2024 8:38am Chief Complaint Admit Date Pain August 15, 2024 7:29a m Discuss US August 31, 2024 8:18a m FASTING September 16, 2024 3:01 pm Varicose veins of bilateral lower extrem ities with October 20, 2024 8:31am Varicose veins of bilateral lower extrem ities with October 20, 2024 11:18am SCREENING October 25, 2024 6:41 am Varicose veins of bilateral lower extrem ities with October 25, 2024 6:43am CT CALCIUM SCORING October 25, 2024 6:46 am R97.20 Elevated prostate specific antige n [PSA] October 26, 2024 10:50am R97.20 October 31, 2024 3:41 pm post op ablation November 04, 2024 8:3 8am Consult November 22, 2024 12 :47pm Reason for Visit Admit Date Varicose veins of bilateral lower extrem ities with pain August 31, 2024 8:18am Venous insufficiency August 31, 2024 8:18 am Varicose veins of bilateral lower extrem ities with pain October 20, 2024 8:31am Varicose veins of bilateral lower extrem ities with pain November 04, 2024 8:38am Cancer of prostate w/low rec urrence risk (T1-2a, Dudley<7 & PSA<10) November 22, 2024 12:47pm Advance Directives No Advanced Directives Records Found Advance Directive Response Recorded Date/ Time Advance Directives No March 8:07am Living Will No March 18, 013 8:07am Power of Livestock Farmer No March 18, 2013 8:07am Advance Directive Response Recorded Date/ Time Advance Directives No March 9:07am Advance Directive Response Recorded Date/ Time Advance Directives on File No October 20, 2024 8:42am Living Will No October 20, 2024 8:42am Do you have a Healthcare Power of Livestock Farmer? No October 20, 2024 8:42am Advance Directives No October 20 8:42am Family History No Family History Records Found Relationship Condition Age at Onset Recorded Date/T lopez Not Specified Cardiac disease Unknown Myocardial infarction Unknown Malignant neoplasm Unknown Relationship Condition Age at Onset Recorded Date/T lopez Not Specified Myocardial infarction Unknown father Malignant neoplasm Unknown mother Malignant neoplasm Unknown sister Cardiac disease Unknown sister Malignant neoplasm of breast Unknown Summary Purpose Additional Source Comments Care [...] Provider Active Start : October 20, 2024 Team Status: Active Member Role/Relationship Status Dates Dr. Dane Yoder DO Primary Care Provider Active Start: October 25, 2024 Dr. Dane Yoder DO Attending Provider Active Start: October 25, 2024 Dr. Dane Yoder DO Referring Provider Active Start: October 25, 2024 Team Status: Inactive Member Role/Relationship Status Dates Dr. Dane Yoder DO Primary Care Provider Active Start: October 25, 2024 End: October 25, 2024 Dr. Hang Leung MD Attending Provider Active S tart: October 25, 2024 End: October 25, 2024 Dr. Hang Leung MD Referring Provider Active S tart: October 25, 2024 End: October 25, 2024 Team Status: Active Member Role/Relationship Status Dates Dr. Dane Yoder DO Primary Care Provider Active Start: October 25, 2024 Dr. Hang Leung MD Attending Provider Active S tart: October 25, 2024 Team Status: Active Member Role/Relationship Status Dates Dr. Dane Yoder DO Primary Care Provider Active Start: October 26, 2024 Dr. Jaiden Main MD Attending Provider Active Start: October 26, 2024 Dr. Jaiden Main MD Referring Provider Active Start: October 26, 2024 Team Status: Inactive Member Role/Relationship Status Dates Dr. Dane Yoder DO Primary Care Provider Active Start: October 26, 2024 End: October 26, 2024 Dr. Jaiden Main MD Attending Provider Active Start: October 26, 2024 End: October 26, 2024 Dr. Jaiden Main MD Referring Provider Active Start: October 26, 2024 End: October 26, 2024 Team Status: Active Member Role/Relationship Status Dates Dr. Dane Yoder DO Primary Care Provider Active Start: October 31, 2024 Dr. Dane Yoder DO Attending Provider Active Start: October 31, 2024 Dr. Dane Yoder DO Referring Provider Active Start: October 31, 2024 Team Status: Active Member Role/Relationship Status Dates Dr. Dane Yoder DO Primary Care Provider Active Start: October 25, 2024 Dr. Dane Yoder DO Referring Provider Active Start: October 25, 2024 Dr. Timmy Garzon MD Attending Provider Active S tart: October 25, 2024 Team Status: Active Member Role/Relationship Status Dates Dr. Dane Yoder DO Primary Care Provider Active Start: October 25, 2024 Dr. Hang Leung MD Attending Provider Active S tart: October 25, 2024 Team Status: Inactive Member Role/Relationship Status Dates Dr. Dane Yoder DO Primary Care Provider Active Start: October 26, 2024 End: October 26, 2024 Dr. Jaiden Main MD Attending Provider Active Start: October 26, 2024 End: October 26, 2024 Dr. Jaiden Main MD Referring Provider Active Start: October 26, 2024 End: October 26, 2024 Team Status: Active Member Role/Relationship Status Dates Dr. Dane Yoder DO Primary Care Provider Active Start: October 31, 2024 Dr. Dane Yoder DO Attending Provider Active Start: October 31, 2024 Dr. Dane Yoder DO Referring Provider Active Start: October 31, 2024 Team Status: Inactive Member Role/Relationship Status Dates Dr. Dane Yoder DO Primary Care Provider Active Start: November 04, 2024 End: November 04, 2024 Dr. Dane Yoder DO Referring Provider Active Start: November 04, 2024 End: November 04, 2024 BELEN Marin Attending Provider Active Star t: November 04, 2024 End: November 04, 2024 Team Status: Inactive Member Role/Relationship Status Dates Dr. Dane Yoder DO Primary Care Provider Active Start: October 31, 2024 End: October 31, 2024 Dr. Dane Yoder DO Attending Provider Active Start: October 31, 2024 End: October 31, 2024 Dr. Dane Yoder DO Referring Provider Active Start: October 31, 2024 End: October 31, 2024 Team Status: Inactive Member Role/Relationship [...] 2024 End: September 16, 2024 Dr. Dane Ydoer DO Referring Provider Active Start: September 16, [...] Provider Active Start : October 20, 2024 Team Status: Active Member Role/Relationship Status Dates Dr. Dane Yoder DO Primary Care Provider Active Start: October 25, 2024 Dr. Dane Yoder DO Attending Provider Active Start: October 25, 2024 Dr. Dane Yoder DO Referring Provider Active Start: October 25, 2024 Team Status: Inactive Member Role/Relationship Status Dates Dr. Dane Yoder DO Primary Care Provider Active Start: October 25, 2024 End: October 25, 2024 Dr. Hang Leung MD Attending Provider Active S tart: October 25, 2024 End: October 25, 2024 Dr. Hang Leung MD Referring Provider Active S tart: October 25, 2024 End: October 25, 2024 Team Status: Active Member Role/Relationship Status Dates Dr. Dane Yoder DO Primary Care Provider Active Start: October 25, 2024 Dr. Dane Yoder DO Referring Provider Active Start: October 25, 2024 Dr. Timmy Garzon MD Attending Provider Active S tart: October 25, 2024 Team Status: Active Member Role/Relationship Status Dates Dr. Dane Yoder DO Primary Care Provider Active Start: October 25, 2024 Dr. Hang Leung MD Attending Provider Active S tart: October 25, 2024 BELEN Marin Referring Provider Active Star t: October 25, 2024 Team Status: Inactive Member Role/Relationship Status Dates Dr. Dane Yoder DO Primary Care Provider Active Start: October 31, 2024 End: October 31, 2024 Dr. Dane Yoder DO Attending Provider Active Start: October 31, 2024 End: October 31, 2024 Dr. Dane Yoder DO Referring Provider Active Start: October 31, 2024 End: October 31, 2024 Team Status: Inactive Member Role/Relationship Status Dates Dr. Dane Yoder DO Primary Care Provider Active Start: November 04, 2024 End: November 04, 2024 Dr. Dane Yoder DO Referring Provider Active Start: November 04, 2024 End: November 04, 2024 BELEN Marin Attending Provider Active Star t: November 04, 2024 End: November 04, 2024 Team Status: Inactive Member Role/Relationship Status Dates Dr. Dane Yoder DO Primary Care Provider Active Start: November 22, 2024 End: November 22, 2024 Dr. Dane Yoder DO Referring Provider Active Start: November 22, 2024 End: November 22, 2024 Dr. Raj Dueñas DO Attending Provider Active Start: November 22, 2024 End: November 22, 2024 Goals (unrecognized section and content) Goals [...] may be documented in an alternate section Source Comments (unrecognize d section and content) In the event this informatio n is protected by the Federal Confidentiality of Alcohol and Drug Abuse Patient Records regulations: The Federal rules restrict any use of the information to criminally investigate or prosecute any alcohol or drug abuse patient.[facility] Reason for Visit (unrecogniz ed section and content) Reason Comments Appointment General Surgery (unrecognized sect ion and content) No Status Records FoundNo Status Records Found INFORMATION SOURCE (unrecogn ized section and content) DATE CREATED AUTHOR 11/16/2024 [facility] DATE CREATED AUTHOR 'S BRITTANY ATION 12/17/2024 [facility] FOR RECORDS PERTAINING TO PATIENTS WHO [...] BE BASED ON THE PRIMARY CLINICAL RECORDS. [facility]. provides no warranty or guarantee of the accuracy or completeness of information in this document.
--- NOTE | 2024-12-21 17:20 | STRESSREP_ITS ---
Stress Test Report Exercise myocardial perfusion stress test. 64-year-old man with a history of elevated calcium score. Stress protocol: Resting EKG demonstrates normal sinus rhythm with a rate of 62 bpm resting blood pressure is 142/88 mmHg. The patient exercised according to the regular Cullen protocol for a total duration of 9 minutes and 45 seconds attaining a maximum heart rate of 148 bpm which was 93% of maximum predicted heart rate; the maximum workload was 12.5 metabolic equivalents. At rest there were no ST or T wave changes noted to suggest ischemia and at peak exercise upsloping ST changes only were noted which did not meet the criteria for ischemia. No clinical angina was noted the test was terminated due to the target heart rate being a chieved/fatigue. The peak blood pressure was 192/98 mmHg. Rate-pressure product was 25,000. Myocardial perfusion protocol. 15 mCi of technetium 99m sestamibi was injected at rest. The patient exercised according to regular Cullen protocol for total duration of 9 minutes and 45 seconds and at peak exercise 44.3 mCi of technetium 99m sestamibi was injected stress images were obtained stress and rest images were reconstructed in comparing the short axis vertical long and horizontal long axis. Gated images were also obtained. Perfusion SPECT analysis: Review of the stress images demonstrate normal uptake of tracer noted in all areas of the myocardium. The resting images similarly demonstrate normal uptake of tracer noted in all areas of the myocardium. No areas of reversibility are noted to suggest ischemia no previous infarct was noted. Gated SPECT analysis: The gated ejection fraction is 69%. Conclusion: Normal exercise myocardial perfusion stress test at a high workload.
== END | disposition home or self-care (01) ==
PROVIDERS: PCP Family Medicine; Referring Provider Internal Medicine Cardiovascular Disease; Visit Provider Internal Medicine Cardiovascular Disease
DX: M25.561 Pain in right knee (principal)
CPT/HCPCS: 73564; 78452; 93017; A9500; A4216

== ENCOUNTER → 2025-02-21 | Outpatient (CLI) | payer OTHER, SELFPAY ==
--- OUTSIDE RECORDS SUMMARY | 2025-02-21 06:56 | XMS RPT_ITS | CCD ---
Author Organization [facility] Care Team Providers Care Special Education Teachers Name Role Phone Dr. Gregg Yoder DO Primary Care Provider Dr. Gregg Yoder DO Referring Provider [phone] Gabrielle Graves Attending Provider [phone] Gabrielle Graves Referring Provider [phone] Madhu MALIK, Dr. Mauricio Attending Provider Dr. Gregg Yoder DO Attending Provider [phone] Etelvina MALIK, Dr. Jaiden Carrion Attending Provider Etelvina MALIK, Dr. Jaiden Carrion Referring Provider Dr. Wiliam Leung MD Referring Provider [phone] Madhu MALIK, Dr. Mauricio Other Provider [phone] Ryann MALIK, Dr. Warner Attending Provider Unavailable Primary Care Provider Dr. Gregg Vázquez DO Primary Care Provider Gabrielle Graves Attending Provider [phone] Gregg Yoder DO Referring Provider [phone] Raj Dueñas DO Attending Provider Unavailable Primary Care Provider Dr. Gregg Vázquez DO Primary Care Physician Dr. Gregg Yoder DO Attending Physician Dr. Gregg Yoder DO Referring Provider [phone] Dr. Jaiden Main MD Attending Physician Dr. Wiliam Leung MD Attending Physician Madhu MALIK, Dr. Mauricio Nurse Practitioner [phone] Ryann MALIK, Dr. Warner Attending Physician Lenore GLOVER, Gabrielle Referring Provider Lenore GLOVER, Gabrielle Attending Physician Dr. Raj Dueñas DO Attending Physician Ryann MALIK, Dr. Warner Referring Provider [phone] Ryann MALIK, Dr. Warner Nurse Practitioner [phone] Layla Aiken Unavailable Unavailable Robin DO, Gregg A Primary Care Provider ROBIN GREGG A Primary Care Unavailable WILIAM SALVADOR Attending Unavailable SELF, SELF Referring Unavailable ROBIN, GREGG A Referring Unavailable ROBIN, GREGG A Primary Care Unavailable GONERIC Tyler Attending Unavailable SELF, SELF Referring Unavailable GONGERIC Attending Unavailable [place]Wiliam Attending Unavailable Robin, Gregg Primary Care Unavailable Grover, Gabrielle Referring Unavailable MadhuWiliam Attending Unavailable Grover, Gabrielle Referring Unavailable Robin, Gregg Primary Care Unavailable [place], Wiliam Attending Unavailable [place], Wiliam Referring Unavailable Robin, Gregg Primary Care Unavailable Robin, Gregg Primary Care Unavailable Robin, Gregg Referring Unavailable Robin, Gregg Attending Unavailable Raj Dueñas Attending Unavailable Robin, Gregg Primary Care Unavailable Raj Dueñas Attending Unavailable Robin, Gregg Primary Care Unavailable Robin, Gregg Primary Care Unavailable CARLOSERIC Referring Unavailable CARLOSERIC Attending Unavailable Robin, Gregg Referring Unavailable Robin, Gregg Primary Care Unavailable Robin, Gregg Attending Unavailable Robin, Gregg Primary Care Unavailable Ryann, Timmy Referring Unavailable Ryann, [place] Attending Unavailable Robin, Gregg Referring Unavailable Robin, Gregg Primary Care Unavailable Ryann, Timmy Attending Unavailable Robin, Gregg Referring Unavailable Robin, Gregg Primary Care Unavailable Grover, Gabrielle Attending Unavailable Robin, Gregg Primary Care Unavailable Robin, Gregg Referring Unavailable Grover, Gabrielle Attending Unavailable Raj Dueñas Attending Unavailable Robin, Gregg Primary Care Unavailable Jaiden Main Referring Unavailable Robin, Gregg Referring Unavailable Grover, Gabrielle Attending Unavailable RobinrGegg Primary Care Unavailable Robin, Gregg Primary Care Unavailable Ryann, Timmy Referring Unavailable RyannDipakTimmy Attending Unavailable Ryann, Timmy Consulting Unavailable Robin, Gregg Primary Care Unavailable [place]iliam dotson Attending Unavailable RobinGregg Referring Unavailable Robin, Gregg Primary Care Unavailable Robin, Gregg Attending Unavailable Robin, Gregg Primary Care Unavailable [place], Wiliam Referring Unavailable MadhuWiliam Attending Unavailable Robin, Gregg Primary Care Unavailable EtelvinaJaiden Referring Unavailable EtelvinaJaiden Attending Unavailable EtelvinaJaiden Attending Unavailable Robin, Gregg Primary Care Unavailable Etelvina, Héctor Referring Unavailable Grover, Gabrielle Referring Unavailable GroverDamirGabrielle Attending Unavailable Robin, Gregg Primary Care Unavailable MadhuWiliam dotson Attending Unavailable [place] dotson Consulting Unavailable [place]am dotson Referring Unavailable Robin, Gregg Primary Care Unavailable Medications Current Medications Medication Drug Class(es) Dates Sig (Normalized) Sig (Original) hydroCHLOROthiazide 12.5 mg / losartan potassium 50 mg oral tablet (9 sources) Thiazide Diuretic, Angiotensin 2 Receptor Shayne Start: 01-07-2025 losartan-hydroc hlorothiazide 50-12.5 MG tablet 01/07/2025 Active Start: 10-19-2024 rosuvastatin calcium 10 mg oral tablet (6 sources) HMG-CoA Reductase Inhibitor Start: 10-26-2024 take 1 tablet by mouth at bedtime Rosuvastatin 10 MG tablet Take 1 tablet by mouth at bedtime. 10/26/2024 Active Completed/Discontinued Medications Medication Drug Class(es) Dates Sig (Normalized) Sig (Original) acetaminophen 325 mg / oxyCODONE hydrochloride 5 mg oral tablet (12 sources) Opioid Agonist Start: 03-22-2013 End: 07-20-2024 [...] omeprazole 20 mg delayed release oral capsule (12 sources) Proton Pump Inhibitor Start: 03-18-2013 End: 07-20-2024 take 1 capsule by mouth once daily Omeprazole 20 MG capsule Discontinued 20 mg PO DAILY March 18, 2013 1:00am July 20, 2024 11:11am sulfamethoxazole 800 mg / trimethoprim 160 mg oral tablet (2 sources) Dihydrofolate Reductase Inhibitor Antibacterial, Sulfonamide Antimicrobial Start: 02-01-2025 End: 02-01-2025 Sulfamethoxazole- trimethoprim (BACTRIM DS) 800-160 MG per tablet 1 tablet Start: 02-01-2025 End: 02-01-2025 1 tablet, Oral, ONCE (IN CLI AMRIK), 1 dose, On Thu02/01/25 at 1200 Problems Active Problems Problem Classification Problem Date Documented Da te Episodic/Chronic Cancer of prostate (8 sources) Malignant tumor of prostate; Translations: [Malignant neoplasm of prostate] Onset: 01-04-2025 11-22-2024 Chronic Coronary atherosclerosis and other heart disease (3 sources) Coronary arteriosclerosis; Translations: [Atherosclerotic heart disease of [place] coronary artery without angina pectoris] Onset: 01-02-2025 11-14-2024 Chronic Essential hypertension (3 sources) Essential hypertension; Translations: [Essential (primary) hypertension] Onset: 01-29-2025 01-29-2025 Chronic Genitourinary symptoms and ill-defined conditions (13 sources) History of hematuria; Translations: [Personal history of other diseases of urinary system] Onset: 01-29-2025 01-29-2025 Episodic Other diseases of bladder and urethra (5 sources) Diverticulum of bladder; Translations: [Diverticulum of bladder] Onset: 01-29-2025 01-29-2025 Chronic Other diseases of bladder and urethra (2 sources) Diverticulum of bladder; Translations: [Diverticulum of bladder] Onset: 01-29-2025 Chronic Other diseases of bladder and urethra (4 sources) Male urethral stricture; Translations: [Unspecified urethral stricture, male, unspecified site] Onset: 01-29-2025 01-29-2025 Episodic Other diseases of veins and lymphatics (20 sources) Vascular insufficiency; Translations: [Venous insufficiency (chronic) (peripheral)] 07-20-2024 Episodic Other non-traumatic joint disorders (1 source) Pain in right knee; Translations: [Pain in right knee] Onset: 01-02-2025 Episodic Screening and history of mental health and substance abuse codes (3 sources) Ex-smoker; Translations: [Personal history of nicotine dependence] Onset: 01-29-2025 01-29-2025 Episodic Varicose veins of lower extremity (20 sources) Varicose veins of lower extremity; Translations: [Varicose veins of bilateral lower extremities with pain] Onset: 10-31-2024 07-20-2024 Episodic Past or Other Problems Problem Classification Problem Date Documented Date Episodic/Chronic Mood disorders (2 sources) Mood disorders Onset: 01-09-2025 01-09-2025 Other diseases of veins and lymphatics (1 source) Venous insufficiency (chronic) (peripheral); Translations: [Venous insufficiency (chronic) (peripheral)] Onset: 09-29-2024 Episodic Other screening for suspected conditions (not mental disorders or infectious disease) (2 sources) Elevated prostate specific antigen [PSA]; Translations: [Encounter for screening for cardiovascular disorders] Onset: 10-25-2024 Episodic Results Test Name Value Interpretation Reference Range Facility POCT URINE DIPSTICK AUTOMATE DOrdered By: Rosa Barrett on 02-01-2025 Amorphous sediment LM Ql (Urine sed) [facility] Appearance (U) [facility] Comment on above: clear Bacteria LM Ql (Urine sed) [facility] Bilirubin Ql (U) [facility] Comment on above: negative Casts LM.LPF (Urine sed) [#/Area] [facility] Color (U) [facility] Comment on above: yellow Crystals LM Nom (Urine sed) [facility] Epithelial cells.squamous LM.HPF (Urine sed) [#/Area] [facility] Flow cytometry specialist review Az (Unsp spec) [Interp] [facility] Glucose Auto test strip (U) [Mass/Vol] [facility] Comment on above: negative Ketones [Mass/Vol] [facility] Comment on above: negative Leukocyte esterase Qn (U) [facility] Leukocyte esterase Test strip Ql (U) [facility] Microscopic observation Gram stain Nom (Bronch spec) [facility] Nitrite Ql (U) [facility] pH (U) [facility] Comment on above: 6.5 Protein Ql (U) [facility] Comment on above: 0.2 RBC LM.HPF (Urine sed) [#/Area] [facility] RBC Ql (U) [facility] Comment on above: negative Specific gravity (U) [Rel density] [facility] Comment on above: 1.015 Transitional cells LM Ql (Urine sed) [facility] Urobilinogen Qn (U) [facility] Comment on above: trace WBC LM.HPF (Urine sed) [#/Area] [facility] CBC AND ELECTRONIC DIFFon Basophils (Bld) [#/Vol] 0.04 10*3/uL 0.00 - 0.09 K/uL [facility] Basophils/100 WBC (Bld) 0.5 % [facility] Differential cell count method Nom (Bld) Electronic Differential [facility] Eosinophils (Bld) [#/Vol] 0.16 10*3/uL 0.00 - 0.48 K/uL [facility] Eosinophils/100 WBC (Bld) 1.8 % [facility] Erythrocyte distribution width (RBC) [Ratio] 12.3 % 10.9 - 14.3 % [facility] Hematocrit (Bld) [Volume fraction] 39.8 % 39.6 - 48.8 % [facility] Hemoglobin (Bld) [Mass/Vol] 13.7 g/dL 13.4 - 16.8 g/dL [facility] Immature granulocytes (Bld) [#/Vol] 0.04 10*3/uL NINF - 0.07 K/uL [facility] Immature granulocytes/100 WBC (Bld) 0.5 % [facility] Interpretation and review of laboratory results Abnormal [facility] Lymphocytes (Bld) [#/Vol] 1.05 10*3/uL 0.83 - 3.57 K/uL [facility] Lymphocytes/100 WBC (Bld) 12.1 % [facility] MCH (RBC) [Entitic mass] 31.7 pg 26.1 - 33.3 pg [facility] MCHC (RBC) [Mass/Vol] 34.4 g/dL 31.9 - 36.5 g/dL [facility] MCV (RBC) [Entitic vol] 92.1 fL 79.0 - 94.5 fL [facility] Monocytes (Bld) [#/Vol] 0.58 10*3/uL 0.24 - 0.93 K/uL [facility] Monocytes/100 WBC (Bld) 6.7 % O [facility] Neutrophils (Bld) [#/Vol] 6.82 10*3/uL High 1.57 - 6.19 K/uL [facility] Nucleated RBC/100 WBC (Bld) [Ratio] 0.0 % NINF [facility] Platelet mean volume (Bld) [Entitic vol] 9.7 fL 8.7 - 12.3 fL [facility] Platelets (Bld) [#/Vol] 246 10*3/uL 146 - 337 K/uL [facility] RBC (Bld) [#/Vol] 4.32 10*6/uL Low [facility] Segmented neutrophils/100 WBC (Bld) 78.4 % [facility] WBC (Bld) [#/Vol] 8.69 10*3/uL 3.73 - 10. 10 K/uL [facility] Basophils (Bld) [#/Vol] 0.04 10*3/uL Normal 0.00-0.09 [facility] Comment on above: Performed By: #### L [id number] #### [facility] (DEFAULT) [address] [place] [address] Basophils/100 WBC (Bld) 0.5 % Normal O [facility] Comment on above: Performed By: #### L [id number] #### [facility] (DEFAULT) [address] [place] [address] DIFF STATUS Electronic Differential Normal [facility] Comment on above: Performed By: #### L [id number] #### [facility] (DEFAULT) [address] [address] Eosinophils (Bld) [#/Vol] 0.16 10*3/uL Normal 0.00-0.48 [facility] Comment on above: Performed By: #### L [id number] #### [facility] (DEFAULT) [address] [address] Eosinophils/100 WBC (Bld) 1.8 % Normal [facility] Comment on above: Performed By: #### L [id number] #### [facility] (DEFAULT) [address] [address] Hematocrit (Bld) [Volume fraction] 39.8 % Normal 39.6-48.8 [facility] Comment on above: Performed By: #### L [id number] #### U [facility] (DEFAULT) [address] [address] Hemoglobin (Bld) [Mass/Vol] 13.7 g/dL Normal 13.4-16.8 [facility] Comment on above: Performed By: #### L [id number] #### [facility] (DEFAULT) [address] [address] Immature Grans % 0.5 % Normal [facility] Comment on above: Performed By: #### L [id number] #### [facility] (DEFAULT) [address] [address] Immature Grans Absolute 0.04 K/uL Normal <=0.07 [facility] Comment on above: Performed By: #### L [id number] #### [facility] (DEFAULT) [address] [address] Lymphocytes (Bld) [#/Vol] 1.05 10*3/uL Normal 0.83-3.57 [facility] Comment on above: Performed By: #### L [id number] #### [facility] (DEFAULT) [address] [place] [address] Lymphocytes/100 WBC (Bld) 12.1 % Normal [facility] Comment on above: Performed By: #### L [id number] #### [facility] (DEFAULT) [address] [place] [address] MCV (RBC) [Entitic vol] 92.1 fL Normal 79.0-94.5 O [facility] Comment on above: Performed By: #### L [id number] #### [facility] (DEFAULT) [address] [address] Mean Cell Hgb 31.7 pg Normal 26.1-33.3 [facility] Comment on above: Performed By: #### L [id number] #### [facility] (DEFAULT) [address] [place] [address] Mean Cell Hgb Conc 34.4 g/dL Normal 31.9-36.5 [facility] Comment on above: Performed By: #### L [id number] #### [facility] (DEFAULT) [address] [place] [address] Monocytes (Bld) [#/Vol] 0.58 10*3/uL Normal 0.24-0.93 [facility] Comment on above: Performed By: #### L [id number] #### [facility] (DEFAULT) [address] [address] Monocytes/100 WBC (Bld) 6.7 % Normal [facility] Comment on above: Performed By: #### L [id number] #### [facility] (DEFAULT) [address] [address] Nucleated RBC 0.0 /100 WBC Normal <=0.2 [facility] Comment on above: Performed By: #### L [id number] #### [facility] (DEFAULT) [address] [place] [address] Platelet mean volume (Bld) [Entitic vol] 9.7 fL Normal 8.7-12.3 [facility] Comment on above: Performed By: #### L [id number] #### [facility] (DEFAULT) [address] [place] [address] Platelets (Bld) [#/Vol] 246 10*3/uL Normal 146-337 [facility] Comment on above: Performed By: #### L [id number] #### [facility] (DEFAULT) [address] [place] [address] RBC (Bld) [#/Vol] 4.32 10*6/uL Low 4.38-5.83 [facility] Comment on above: Performed By: #### L [id number] #### [facility] (DEFAULT) [address] [place] [address] RBC Distribution 12.3 % Normal 10.9-14.3 [facility] Comment on above: Performed By: #### L [id number] #### [facility] (DEFAULT) [address] [place] [address] Segs + Bands Auto 78.4 % Normal [facility] Comment on above: Performed By: #### L [id number] #### [facility] (DEFAULT) [address] [place] [address] Segs + Bands,Absolute Auto 6.82 K/uL High 1.57-6.19 [facility] Comment on above: Performed By: #### L [id number] #### [facility] (DEFAULT) [address] [place] [address] WBC (Bld) [#/Vol] 8.69 10*3/uL Normal 3.73-10.10 [facility] Comment on above: Performed By: #### L [id number] #### [facility] (DEFAULT) [address] [address] COMPREHENSIVE METABOLIC PANE Enzo 01-09-2025 Albumin [Mass/Vol] 4.4 g/dL 3.5 - 5.0 g/dL [facility] ALP [Catalytic activity/Vol] 51 U/L 32 - 126 U/L [facility] ALT [Catalytic activity/Vol] 20 U/L 10 - 52 U/L [facility] Anion gap [Moles/Vol] 10 mmol/L 7 - 17 mmol/L [facility] AST [Catalytic activity/Vol] 19 U/L 10 - 39 U/L [facility] Bilirubin [Mass/Vol] 0.6 mg/dL NINF - 1.5 mg/dL [facility] Calcium [Mass/Vol] 9.2 mg/dL 8.6 - 10. 5 mg/dL [facility] Chloride [Moles/Vol] 101 mmol/L 98 - 10 8 mmol/L [facility] CO2 [Moles/Vol] 30 mmol/L 21 - 31 mmol/L [facility] Creatinine [Mass/Vol] 0.90 mg/dL 0.70 - 1.30 mg/dL [facility] eGFR, CKD-EPI, Male - PINF [facility] Comment on above: Reported eGFR is bas ed on the CKD-EPI 2020 equation using creatinine, age, and sex. Glucose [Mass/Vol] 133 mg/dL 70 - 179 mg/dL [facility] Osmolality Calc [Osmolality] 291 [facility] Potassium [Moles/Vol] 4.3 mmol/L 3.5 - 5.0 mmol/L [facility] Protein [Mass/Vol] 7.0 g/dL 6.4 - 8.3 g/dL [facility] Sodium [Moles/Vol] 137 mmol/L 135 - 145 mmol/L [facility] Urea nitrogen [Mass/Vol] 15 mg/dL 7 - 25 mg/dL [facility] Urea nitrogen/Creatinine [Mass ratio] 17 mg/mg [facility] Albumin [Mass/Vol] 4.4 g/dL Normal 3.5-5.0 [facility] Comment on above: Performed By: #### C MPN #### [facility] (DEFAULT) [address] [place] [address] ALP [Catalytic activity/Vol] 51 U/L Normal 32-126 [facility] Comment on above: Performed By: #### C MPN #### [facility] (DEFAULT) [address] [place] [address] ALT [Catalytic activity/Vol] 20 U/L Normal 10-52 [facility] Comment on above: Performed By: #### C MPN #### [facility] (DEFAULT) [address] [place] [address] Anion gap [Moles/Vol] 10 mmol/L Normal 7-17 [facility] Comment on above: Performed By: #### C MPN #### [facility] (DEFAULT) [address] [place] [address] AST [Catalytic activity/Vol] 19 U/L Normal 10-39 [facility] Comment on above: Performed By: #### C MPN #### [facility] (DEFAULT) [address] [place] [address] Bilirubin [Mass/Vol] 0.6 mg/dL Normal <1.5 [facility] Comment on above: Performed By: #### C MPN #### [facility] (DEFAULT) [address] [place] [address] Calcium [Mass/Vol] 9.2 mg/dL Normal 8.6-10.5 [facility] Comment on above: Performed By: #### C MPN #### [facility] (DEFAULT) [address] [place] [address] Chloride [Moles/Vol] 101 mmol/L Normal 98-108 [facility] Comment on above: Performed By: #### C MPN #### [facility] (DEFAULT) [address] [place] [address] CO2 [Moles/Vol] 30 mmol/L Normal 21-31 [facility] Comment on above: Performed By: #### C MPN #### [facility] (DEFAULT) [address] [place] [address] Creatinine [Mass/Vol] 0.90 mg/dL Normal 0.70-1.30 [facility] Comment on above: Performed By: #### C MPN #### [facility] (DEFAULT) [address] [place] [address] eGFR, CKD-EPI, Male > Normal >=60 [facility] Comment on above: Result Comment: Repo rted eGFR is based on the CKD-EPI 2020 equation using creatinine, age, and sex. Performed By: #### C MPN #### [facility] (DEFAULT) [address] [place] [address] Glucose [Mass/Vol] 133 mg/dL Normal Nonfastin -179 mg/dL; Fastin-99 [facility] Comment on above: Performed By: #### C MPN #### [facility] (DEFAULT) [address] [place] [address] Osmolality [Osmolality] 291 mosm/kg Normal 278-305 [facility] Comment on above: Performed By: #### C MPN #### [facility] (DEFAULT) [address] [place] [address] Potassium [Moles/Vol] 4.3 mmol/L Normal 3.5-5.0 [facility] Comment on above: Performed By: #### C MPN #### [facility] (DEFAULT) [address] [place] [address] Protein [Mass/Vol] 7.0 g/dL Normal 6.4-8.3 [facility] Comment on above: Performed By: #### C MPN #### [facility] (DEFAULT) [address] [place] [address] Sodium [Moles/Vol] 137 mmol/L Normal 135-145 [facility] Comment on above: Performed By: #### C MPN #### [facility] (DEFAULT) [address] [place] [address] Urea nitrogen [Mass/Vol] 15 mg/dL Normal 7-25 [facility] Comment on above: Performed By: #### C MPN #### [facility] (DEFAULT) [address] [place] [address] Urea nitrogen/Creatinine [Mass ratio] 17 mg/mg Normal [facility] Comment on above: Performed By: #### C MPN #### [facility] (DEFAULT) [address] [place] [address] PSA - DIAGNOSTIC/TUMOR FARIHA Lewis 01-09-2025 Interpretation and review of laboratory results Abnormal [facility] Prostate specific Ag [Mass/Vol] 6.49 ng/mL High NINF - 4.00 ng/mL [facility] Comment on above: Test results cannot be interpreted as absolute evidence for the presence or absence of malignant disease. This test was performed on the [employer] Immunoassay platform which is a 2-step sandwich chemiluminescent immunoassay. It is important to note that assays using different manufacturers and/or methods may not be comparable. [facility] SURG PATH REQUESTon 01-10-20 Case Report Normal [facility] Comment on above: Result Comment: Surg ical Pathology Report Case: [id number] Authorizing Provider: Eric Zazueta MD, PhD Collected: 01/09/2025 12:07 PM [facility]ing [facility] Received: 01/09/2025 12:10 PM [facility] Pathologist: DELMY Medrano Specimen: SURG PATH, Prostate, Biopsy Performed By: #### S URGP #### [facility] (DEFAULT) [address] [place] [address] Clinical History Request received fro felisha Zazueta MD, PhD for second opinion consultation on slides received: Slides requested from [facility] for appointment on 01/09/[address] Zazueta. Please place Ambulatory Referral to Pathology. Diagnosis: prostate Accession Number: [id number]. Pre-Op Diagnosis: Elevated PSA. Normal [facility] Comment on above: Performed By: #### S URGP #### [facility] (DEFAULT) [address] [place] [address] Gross Description [facility] Comment on above: Result Comment: The following material(s) are received from [facility], [address] [facility], [place], [place] [address], with an identifying surgical pathology report: 6 H&E slide(s) and 2 non-H&E slide(s), labeled [id number]. Material with be returned upon completion of review. Grosser for this case was: Lela Villagomez Performed By: #### S URGP #### [facility] (DEFAULT) [address] [address] Microscopic Description A microscopic examination was performed. [facility] Comment on above: Performed By: #### S URGP #### [facility] (DEFAULT) [address] [address] Pathologic Diagnosis [facility] Comment on above: Result Comment: Outs cyril Slides: [id number] (10/31/24) A. Prostate, Right, Cyril, Biopsy: Prostate tissue with no significant pathologic change B. Prostate, Right, Mid, Biopsy: Prostate tissue with no significant pathologic change C. Prostate, Right, Base, Biopsy: Prostate tissue with no significant pathologic change D. Prostate, Left, Cyril, Biopsy: Atypical small acinar proliferation E. Prostate, Left, Mid, Biopsy: Prostatic adenocarcinoma, Dudley score 3+3=6, involving 2 of 3 cores and 50% of the tissue F. Prostate, Left, Base, Biopsy: Prostatic adenocarcinoma, Dudley score 3+4=7, involving 2 of 2 cores and 70% of the tissue (5-10% of the tumor is Dudley pattern 4) Perineural invasion Comment: PSA 6.49 ng/mL on 01/09/2025 per the electronic medical record. at 1458 EDT Performed By: #### S URGP #### [facility] (DEFAULT) [address] [address] Professional Interpretation Performed at: [facility] Comment on above: Result Comment: Prof essional interpretation performed remotely at a secondary location, address on file. For Immediate Release to [facility] Yes Performed By: #### S URGP #### [facility] (DEFAULT) [address] [place] [address] Cardiovascular stress test r eportOrdered By: Timmy Garzon on 12-21-2024 Study report [facility] Services [address] [place] [address] MR#: [id number] Acct: [id number] Name: TRISTAN ZARCO Rep #: [id number] : 1960 64 From: Timmy Garzon MD Primary Care: Dr. Gregg Yoder DO Statu s: REG CLI Referring Dr: Timmy Garzon MD Sex: M C Stress Test Report Exercise myocardial perfusion stress test. 64-year-old man with a history of elevated calcium score. Stress protocol: Resting EKG demonstrates normal sinus rhythm with a rate of 62 bpm resting blood pressure is 142/88 mmHg. The patient exercised according to the regular Cullen protocol for a total duration of 9 minutes and 45 seconds attaining a maximum heart rate of 148 bpm which was 93% of maximum predicted heart rate; themaximum workload was 12.5 metabolic equivalents. At rest there were no ST or T wave changes noted to suggest ischemia and at peak exercise upsloping ST changesonly were noted which did not meet the criteria for ischemia. No clinical anginawas noted the test was terminated due to the target heart rate being achieved/fatigue. The peak blood pressure was 192/98 mmHg. Rate-pressure productwas 25,000. Myocardial perfusion protocol. 15 mCi of technetium 99m sestamibi was injected at rest. The patient exercised according to regular Cullen protocol for total duration of 9 minutes and 45 seconds and at peak exercise 44.3 mCi of technetium 99m sestamibi was injected stress images were obtained stress and rest images were reconstructed in comparing the short axis vertical long and horizontal long axis. Gated images were also obtained. Perfusion SPECT analysis: Review of the stress images demonstrate normal uptake of tracer noted in all areas of the myocardium. The resting images similarly demonstrate normal uptake of tracer noted in all areas of the myocardium. No areas of reversibility are noted to suggest ischemia no previous infarct was noted. Gated SPECT analysis: The gated ejection fraction is 69%. Conclusion: Normal exercise myocardial perfusion stress test at a high workload. 12/21/241722 Date _ Timmy Garzon MD CC: Dr. Timmy Garzon MD; Dr. Gregg Yoder DO ~ Date Dictated: 12/21/241719 Date Transcribed: 12/21/241719 Sql Server Dba: [place] Signed [facility] Work Phone: Stress Reporton 12-21-2024 Stress Report [facility] Cardiovascular Services [address] [place] [address] MR#: [id number] Acct: [id number] Name: TRISTAN ZARCO Rep #: [id number] : 1960 64 From: Timmy Garzon MD Primary Care: Dr. Gregg Yoder DO Status: REG CLI Referring Dr: Timmy Garzon MD Sex: M C Stress Test Report Exercise myocardial perfusion stress test. 64-year-old man with a history of elevated calcium score. Stress protocol: Resting EKG demonstrates normal sinus rhythm with a rate of 62 bpm resting blood pressure is 142/88 mmHg. The patient exercised according to the regular Cullen protocol for a total duration of 9 minutes and 45 seconds attaining a maximum heart rate of 148 bpm which was 93% of maximum predicted heart rate; the maximum workload was 12.5 metabolic equivalents. At rest there were no ST or T wave changes noted to suggest ischemia and at peak exercise upsloping ST changes only were noted which did not meet the criteria for ischemia. No clinical angina was noted the test was terminated due to the target heart rate being achieved/fatigue. The peak blood pressure was 192/98 mmHg. Rate-pressure product was 25,000. Myocardial perfusion protocol. 15 mCi of technetium 99m sestamibi was injected at rest. The patient exercised according to regular Cullen protocol for total duration of 9 minutes and 45 seconds and at peak exercise 44.3 mCi of technetium 99m sestamibi was injected stress images were obtained stress and rest images were reconstructed in comparing the short axis vertical long and horizontal long axis. Gated images were also obtained. Perfusion SPECT analysis: Review of the stress images demonstrate normal uptake of tracer noted in all areas of the myocardium. The resting images similarly demonstrate normal uptake of tracer noted in all areas of the myocardium. No areas of reversibility are noted to suggest ischemia no previous infarct was noted. Gated SPECT analysis: The gated ejection fraction is 69%. Conclusion: Normal exercise myocardial perfusion stress test at a high workload. 12/21/241722 Date Timmy Garzon MD CC: Dr. Timmy Garzon MD; Dr. Gregg Yoder DO Date Dictated: 12/21/241719 Date Transcribed: 12/21/241719 Sql Server Dba: CO Signed Normal [facility] Knee 4 or More Viewson 12-20 Knee 4 or More Views [facility] Imaging Services [address] [place] [id number] Knee 4 or More Views MR#: [id number] Acct: [id number] Name: TRISTAN ZARCO Rep #: [id number] : 1960 M 64 From: Shivam Cosby MD PCP: Dr. Gregg Yoder DO Status: REG CLI Study: Knee 4 or More Views Date of Exam: 12/20/24 Exam# [id number] Ordering Dr: Gregg Yoder DO PROCEDURE: KNEE 4 OR MORE VIEWS 12/20/2024 REASON FOR EXAM: R KNEE PAIN TECHNIQUE: Procedure Code: RADKN Modality: DX Procedure: KNEE 4 OR MORE VIEWS Right knee four views COMPARISON: None FINDINGS: There is no fracture or dislocation identified. The joint spaces are maintained. There is a visible joint effusion. Mineralization is normal. There is no visible atherosclerosis. RAD/Knee 4 or More Views IMPRESSION: There is a visible joint effusion. Reading Location: [facility] CC: Dr. Gregg Yoder DO Sql Server Dba: Signed Normal [facility] Radiation Oncology Visiton 0 11-22-2024 Radiation Oncology Visit [facility] [address] [place] [address] OFFICE VISIT Date of Service: 11/22/24 1251 MR#: [id number] Acct: [id number] Name: TRISTAN ZARCO Rep #: [id number] : 1960 From: Raj Dueñas DO Age/Sex: 64/M Location: [facility] Status: Signed Intake Vital Signs 10/20/24 08:42 [...] mg PO QHS 11/04/24 11/22/24 His tory [facility] Home Medications ???Medication ???Instructions ???Recorded ???Last Taken [...] use type: does not use Referring Provider: Murlai Main MD Diagnosis: Tristan Zarco is a 64 year-old male diagnosed [...] 10/31/2024: Patient completed prostate biopsy.??? This demonstrated [place] 3+3 adenocarcinoma involving about 45% of 2/3 [...] time. IP (more content not included)... Normal [facility] 11-15-2024 CNPN Telephone (AGGENS3) TRISTAN ZARCO ([id number]) 1960 M Date Time Provider Department 11/15/24 [facility] PROVIDER AGGENS3 During your visit today, we recorded the following information about you: Christa Mcnair 11/15/2024 11:28 AM Signed Pt. Update 11.15.24-Gen. Surg. Web no call reassign appt. Allergies As of Date: 11/15/2024 (Not on File) Date Reviewed: Never Reviewed Reason for Visit: Appointment [186] Cmt: General Surgery Problem List As Of Date: 11/15/2024 (None) Encounter Status:Closed by CHRISTA MCNAIR on 11/15/24 [facility] Surgical pathology reportOrd ered By: Rosanna Boston on 11-08-2024 Surgical pathology study [facility] /Jimmy 11-04-2024 /TYSHAWN.JIMMY [facility] Vascular Surgery [address] [place] [address] OFFICE VISIT Date of Service: 11/04/24 MR#: [id number] Acct: [id number] Name: TRISTAN ZARCO Rep #: [id number] : 1960 Provider: BELEN Marin Age/Sex: 64/M Location: [facility] Status: Signed Intake Vital Signs 01/25/21 17:00 [...] Speech: spe (more content not included)... Normal [facility] Immunohistochemical Stainson 10-31-2024 Immunohistochemical Stains ---- Patient Age/Sex Location Account Attending Physician ---- TRISTAN ZARCO 64/M LABSPEC [id number] Dr. Gregg Yoder DO ---- Specimen: [id number] Received: 10/31/24 Status: DINA Frazier Num: [id number] Spec Type: PROST BX Subm Dr: Dr. Jaiden Main MD HEADER OPERATION: Prostate biopsy PRE-OP DIAGNOSIS: Elevated PSA [...] Prostate, left, base, biopsy: * Prostatic adenocarcinoma, Dudley score 3+3=6 (grade group 1) involving 2 of 2 cores and 70% of the tissue MICROSCOPIC DESCRIPTION Slides are reviewed. All matched controls reacted appropriately. These tests were developed and their performance characteristics determined by [facility]. They may not have been cleared or approved by the U.S. Food and Drug Administration. The FDA has determined that such clearance or approval is not necessary. The above immunohistochemical/du alISH markers are viewed by the Pathologist. ---- Patient Age/Sex Location Account Attending Physician ---- TRISTAN ZARCO 64/M LABSPEC [id number] Dr. Gregg Yoder, ---- GROSS DESCRIPTION Received in 6 [...] in diameter. Entirely submitted in 1 cassette. IN 11/01/2024 CPT:18762l7,34190b6 ---- Patient Age/Sex Location Account Attending Physician ---- TRISTAN ZARCO 64/M LABSPEC [id number] Dr. Gregg Yoder, DO ---- Signed (signature on file) Dr. Rosanna Boston DO 11/08/24 1354 ---- Normal [facility] Comment on above: Performed By: #### P [facility] #### [facility] [address] [facility] [place], [address] Magnetic resonance imaging r eportOrdered By: Gregg Basilio on 10-27-2024 Study report [facility] Imaging Services [address] [place], [place] [id number] Pelvis W/WO Contrast MR#: [id number] Acct: [id number] Name: TRISTAN ZARCO Rep #: [id number] : 1960 M 64 From: Marcela Basilio MD PCP: Dr. Gregg Yoder, Status: REG CLI Study:Pelvis W/WO Contrast Date of Exam: 10/26/24 Exam# [id number] Ordering Dr: Sylvester Main MD PROCEDURE: PELVIS [...] and mid anterior peripheral zones, 2.1 cm ([id number] image 10-15).. *T2 score: 5. *DWI score: [...] 4. Additional description as above. Reading Location: [id number] CC: Dr. Jaiden Main MD; Dr. Gregg Yoder, DO ~ Sql Server Dba: Signed [facility] Pelvis W/WO Contraston 10-26 Pelvis W/WO Contrast [facility] Imaging Services [address] [place], [place] [id number] Pelvis W/WO Contrast MR#: [id number] Acct: [id number] Name: TRISTAN ZARCO Rep #: [id number] : 1960 M 64 From: Gregg Basilio MD PCP: Dr. Gregg Yoder, DO Status: REG CLI Study: Pelvis W/WO Contrast Date of Exam: 10/26/24 Exam# [id number] Ordering Dr: Jaiden Main MD PROCEDURE: PELVIS [...] 4. Additional description as above. Reading Location: [id number] CC: Dr. Jaiden Main MD; Dr. Gregg Yoder DO Sql Server Dba: Signed Normal [facility] Coronary Angiography CTon Coronary Angiography CT [facility] Imaging Services [address] [place] [address] 10/25/24 0834 MR#: [id number] Acct: [id number] Name: TRISTAN ZARCO Rep #: [id number] : 1960 64 From: Timmy Garzon MD PCP: Dr. Gregg Yoder DO Status:REG REF Y Location: CT [...] Date CC: Dr. Timmy Garzon MD; Dr. Gregg Yoder DO Signed Normal [facility] Limited Chest CT Cardiac Onl yon 10-25-[address] Cardiac Only [facility] Imaging Services [address] [place] [phone] Cardiac Only MR#: [id number] Acct: [id number] Name: TRISTAN ZARCO Rep #: [id number] : 1960 M 64 From: Kate Appiah MD PCP: Dr. Gregg Yoder DO Status: REG REF Study: Limited Chest CT Cardiac Only Date of Exam: Exam# [id number] Ordering Dr: Gregg Yoder DO PROCEDURE: LIMITED CHEST CT CARDIAC [...] FINDINGS. 2. Diffuse hepatic steatosis. Reading Location: [id number] CC: Dr. Gregg Yoder DO Sql Server Dba: Signed Normal [facility] Venous Duplex US, Unilateral on 10-25-2024 Venous Duplex US, Unilateral [facility] Cardiovascular Services [address] [place] [address] Venous Duplex US, Unilateral 10/25/24 0807 MR#: [id number] Acct: [id number] Name: TRISTAN ZARCO Rep #: [id number] : 1960 64 From: Wiliam Leung MD Attending Dr: Dr. Wiliam Leung MD Status: REG C Ordering Dr: [...] thrombosis. Ordering Physician: Gabrielle Grover Referring Physician: Gregg Yoder Performed By: Adis Guido, SARAY 10/25/24 1311 Date Wiliam Leung MD CC: BELEN Marin; Dr. Wiliam Leung MD; Dr. Gregg Yoder, Date Dictated: 10/25/24806 Date Transcribed: 10/25/24 131 Sql Server Dba: Signed Normal [facility] Venous duplex ultrasound rep ortOrdered By: Wiliam Leung on 10-25-2024 US Vein [facility] Services [address] [address] Venous Duplex US, Unilateral 10/25/24806 MR#: [id number] Acct: [id number] Name: TRISTAN ZARCO Rep #:[id number] : 1960 64 From: Wiliam Contreras Attending Dr: Dr. Wiliam Leung MD S tatus: REG CLI Ordering [...] thrombosis. Ordering Physician: Gabrielle Grover Referring Physician: Gregg Yoder Performed By: Adis Guido, Shashi 10/25/24 1311 Date _ Wiliam Leung MD CC: BELEN Marin; Dr. Wiliam Leung MD; Dr. Gregg Yoder, DO ~ Date Dictated: 10/25/24 0807 Date Transcribed: 10/25/24 1311 Sql Server Dba: Signed [facility] Work Phone: Operative Reporton Operative Report [facility] Medical Records Department [address] [place] [address] Operative Report 10/20/241932 MR#: [id number] Acct: [id number] Name: TRISTAN ZARCO Rep #: [id number] : 1960 64 From: Wiliam Leung MD PCP: Dr. Gregg Yoder, DO Status:[facility] Location: [facility] Operative Report (Standard) Operative Information Date of Procedure: 10/20/24 Pre-Operative Diagnosis: Varicose veins with pain of the left lower extremity Post-Operative Diagnosis: Same Surgery/Procedure Performed: Foam sclerotherapy of left lateral thigh and calf varicosities recreation facilities supervisor: No Type of Anesthesia: Local Procedure Start [...] and appeared to be pressurized via a dewatering filtering supervisor directly from the femoral vein as well as some communication with an accessory saphenous vein on the medial aspect of the thigh. He is taken now for foam sclerotherapy of the symptomatic vessels. Description of procedure: Upon obtaining informed consent and verification correct patient procedure and site the patient was seen in the Religious Education Director he was positioned prepped and draped in usual sterile fashion. Timeout is performed and ultrasound was used to evaluate the varicosities they were primarily symptomatic. These were in an atypical location on the posterior aspect of the thigh extending into the lateral aspect of the thigh and proximal calf. He had multiple dewatering filtering supervisor veins on the medial aspect of the calf that did not appear to be involved in this segment of symptomatic varicosities. There was a more proximal dewatering filtering supervisor in the lateral aspect of the [...] Prior to the sclerosing agent reaching the dewatering filtering supervisor vein manner pressure was applied after which this was released and the extent of sclerosing agent assessed. There appeared to be adequate treatment of the areas of symptoms with no deep vein extension and no extension into the dewatering filtering supervisor vein. Dry sterile dressing and Asim wrap were then applied the patient was taken to recovery with plan discharged to home. Surgical Findings: See above Complications Complications: No 10/20/241937 Cosigner Signature (if applicable): CC: Dr. Wiliam Leung MD; Dr. Gregg Yoder DO Signed Normal [facility] PSA Total+%Freeon 10-09-2024 PSA, FREE 1.08 ng/mL Normal N/A [facility] Comment on above: Result Comment: Mague hinkle ECLIA methodology. Performed By: #### L 3110.0500 #### [facility] [address], [address] PSA, FREE % 17.6 Normal . [facility] Comment on above: Result Comment: The [...] any other population of men. Performed at: [address] [id number] Auction Clerk: Jaskaran Eaton PhD, Phone: [phone] Performed By: #### L 3110.0500 #### [facility] [address] [facility] [place], [address] PSA, TOTAL ULTR 6.150 ng/mL Abnormal 0.000-4.000 [facility] Comment on above: Result Comment: Roch manan ECLIA methodology. According to the [place] [employer], Serum PSA should decrease and [...] disease. Performed By: #### L 3110.0500 #### [facility] [address] [place], [place], [id number] Serum or plasma free prostat e specific antigen (PSA)/total PSA mass ratioOrdered By: Jaiden Main on 10-06-2024 Free PSA/Total PSA [Mass fraction] 17.6 % . [facility] Comment on above: The table below [...] for any other population of men.Performed at: [facility] [address] [id number] Director: Jaskaran Eaton PhD, Phone: [phone] Lipoprotein Aon 09-19-2024 Lipoprotein a [Moles/Vol] 44.2 nmol/L Normal <75.0 [facility] Comment on above: Order Comment: Test( s) 453197-Ifyxmsonxlp (a) was developed and its performance characteristics determined by [facility]. It has not been cleared or approved by the Food and Drug Administration. Result Comment: Note : Values greater than or equal to 75.0 nmol/L may indicate an independent risk factor for CHD, but must be evaluated with caution when applied to non- populations due to the influence of genetic factors on Lp(a) across ethnicities. Performed at: [facility] [address] [id number] Auction Clerk: Jaskaran Eaton PhD, Phone: [phone] Performed By: #### L 3400.4600, L100.0100, L500.4100, L501.9910, L500.4050 #### [facility] [address] [place], [place], [id number] Absolute lymphocyte countOrd ered By: Gregg AlmanzarRobin on 09-16-2024 Lymphocytes Auto (Unsp spec) [#/Vol] 1.81 10*3/uL 0.83-4.51 [facility] Absolute neutrophil countOrd ered By: Gregg AlmanzarRobin on 09-16-2024 Neutrophils (Bld) [#/Vol] 5.5 10*3/uL 2.0-7.7 [facility] Anion gap in Serum or Plasma Ordered By: Gregg Yoder on 09-16-2024 Anion gap [Moles/Vol] 13 mmol/L 5- [facility] Automated lymphocyte count a s percentage of total leukocytesOrdered By: Gregg AlmanzarRobin on 09-16-2024 Lymphocytes/100 WBC Auto (Unsp spec) 21.6 % - [facility] BUN/creatinine ratioOrdered By: Gregg Yoder on 09-16-2024 Urea nitrogen/Creatinine [Mass ratio] 13.2 mg/mg 10- [facility] Basophil percentageOrdered B y: Gregg AlmanzarRobin on 09-16-2024 Basophils/100 WBC (Bld) 0.5 % 0-1 [facility] Bilirubin, totalOrdered By: Gregg AlmanzarRobin on 09-16-2024 Bilirubin [Mass/Vol] 0.56 mg/dL Normal 0.00-1.30 [facility] Comment on above: Performed By: #### L 3400.4600, L100.0100, L500.4100, L501.9910, L500.4050 #### [facility] [address] [place], [address] CBC W/Diff, Automatedon 09-04 Absolute Lymph 1.81 X10 3/uL Normal 0.83-4.51 [facility] Comment on above: Performed By: #### L 3400.4600, L100.0100, L500.4100, L501.9910, L500.4050 #### [facility] [address] [place], [address] Absolute Neut 5.5 X10 3/uL Normal 2.0-7.7 [facility] Comment on above: Performed By: #### L 3400.4600, L100.0100, L500.4100, L501.9910, L500.4050 #### [facility] [address] [place], [address] Basophils/100 WBC (Bld) 0.5 % Normal 0-1 [facility] Comment on above: Performed By: #### L 3400.4600, L100.0100, L500.4100, L501.9910, L500.4050 #### [facility] [address] [place], [address] Eosinophils/100 WBC (Bld) 1.9 % Normal 0-5 [facility] Comment on above: Performed By: #### L 3400.4600, L100.0100, L500.4100, L501.9910, L500.4050 #### [facility] [address] [place], [address] Erythrocyte distribution width (RBC) [Ratio] 13.0 % Normal 11.6-14.6 [facility] Comment on above: Performed By: #### L 3400.4600, L100.0100, L500.4100, L501.9910, L500.4050 #### [facility] [address] [place], [address] Hematocrit (Bld) [Volume fraction] 44.7 % Normal 40-54 [facility] Comment on above: Performed By: #### L 3400.4600, L100.0100, L500.4100, L501.9910, L500.4050 #### [facility] [address] [place], [address] Hemoglobin (Bld) [Mass/Vol] 14.8 g/dL Normal 13.0-16.5 [facility] Comment on above: Performed By: #### L 3400.4600, L100.0100, L500.4100, L501.9910, L500.4050 #### [facility] [address] [place], [address] IG% 1.900 High 0.0-0.9 [facility] Comment on above: Result Comment: IG% - Immature Granulocytes (promyelocytes, myelocytes and metamyelocytes) > 1% indicates that a LEFT SHIFT is Present. Performed By: #### L 3400.4600, L100.0100, L500.4100, L501.9910, L500.4050 #### [facility] [address] [place], [address] Lymphocytes/100 WBC (Bld) 21.6 % Normal 19-41 [facility] Comment on above: Performed By: #### L 3400.4600, L100.0100, L500.4100, L501.9910, L500.4050 #### [facility] [address] [place], [address] MCH (RBC) [Entitic mass] 31.7 pg Normal 27.0-32.0 [facility] Comment on above: Performed By: #### L 3400.4600, L100.0100, L500.4100, L501.9910, L500.4050 #### [facility] [address] [place], [address] MCHC (RBC) [Mass/Vol] 33.1 g/dL Normal 32-36 [facility] Comment on above: Performed By: #### L 3400.4600, L100.0100, L500.4100, L501.9910, L500.4050 #### [facility] [address] [place], [address] MCV (RBC) [Entitic vol] 95.7 fL High 80-94 [facility] Comment on above: Performed By: #### L 3400.4600, L100.0100, L500.4100, L501.9910, L500.4050 #### [facility] [address] [place], [address] Monocytes/100 WBC (Bld) 9.1 % Normal 0-10 [facility] Comment on above: Performed By: #### L 3400.4600, L100.0100, L500.4100, L501.9910, L500.4050 #### [facility] [address] [place], [address] Neutrophils/100 WBC (Bld) 65.0 % Normal 47-70 [facility] Comment on above: Performed By: #### L 3400.4600, L100.0100, L500.4100, L501.9910, L500.4050 #### [facility] [address] [place], [address] Nucleated RBC (Bld) [#/Vol] 0 10*3/uL Normal 0-5 [facility] Comment on above: Performed By: #### L 3400.4600, L100.0100, L500.4100, L501.9910, L500.4050 #### [facility] [address] [place], [address] Platelet mean volume (Bld) [Entitic vol] 10.5 fL Normal 6.2-12.0 [facility] Comment on above: Performed By: #### L 3400.4600, L100.0100, L500.4100, L501.9910, L500.4050 #### [facility] [address] [place], [address] Platelets (Bld) [#/Vol] 246 10*3/uL Normal 150-450 [facility] Comment on above: Performed By: #### L 3400.4600, L100.0100, L500.4100, L501.9910, L500.4050 #### [facility] [address] [place], [address] RBC (Bld) [#/Vol] 4.67 10*6/uL Normal 4.6-6.2 [facility] Comment on above: Performed By: #### L 3400.4600, L100.0100, L500.4100, L501.9910, L500.4050 #### [facility] [address] [place], [address] RDW SD 44.8 fl High 35.1-43.9 [facility] Comment on above: Performed By: #### L 3400.4600, L100.0100, L500.4100, L501.9910, L500.4050 #### [facility] [address] [place], [address] WBC (Bld) [#/Vol] 8.4 10*3/uL Normal 4.4-11.0 [facility] Comment on above: Performed By: #### L 3400.4600, L100.0100, L500.4100, L501.9910, L500.4050 #### [facility] [address] [place], [address] Calculated very low density lipoprotein (VLDL) cholesterol measurementOrdered By: Gregg Yoder on 09-16-2024 Calculated very low density lipoprotein (VLDL) cholesterol measurement 21 mg/dL 5-40 [facility] Carbon dioxide, total [Moles /volume] in Central venous bloodOrdered By: Gregg Yoder on 09-16-2024 CO2 [Moles/Vol] 24.7 mmol/L Normal 21.0-32.0 [facility] Comment on above: Performed By: #### L 3400.4600, L100.0100, L500.4100, L501.9910, L500.4050 #### [facility] [address] [place], [address] Chloride assayOrdered By: Yanick Yoder on 09-16-2024 Chloride [Moles/Vol] 103 mmol/L Normal 98-108 [facility] Comment on above: Performed By: #### L 3400.4600, L100.0100, L500.4100, L501.9910, L500.4050 #### [facility] [address] [place], [address] Comprehensive Metabolic Prof ilon 09-16-2024 ALK PHOS 60 U/L Normal 40-129 [facility] Comment on above: Performed By: #### L 3400.4600, L100.0100, L500.4100, L501.9910, L500.4050 #### [facility] [address] [place], [address] BUN/CRE 13.2 RATIO Normal 10-20 [facility] Comment on above: Performed By: #### L 3400.4600, L100.0100, L500.4100, L501.9910, L500.4050 #### [facility] [address] [place], [address] GAP 13 Normal 5-15 [facility] Comment on above: Performed By: #### L 3400.4600, L100.0100, L500.4100, L501.9910, L500.4050 #### [facility] [address] [place], [address] Potassium [Moles/Vol] 3.9 mmol/L Normal 3.3-5.1 [facility] Comment on above: Performed By: #### L 3400.4600, L100.0100, L500.4100, L501.9910, L500.4050 #### [facility] [address] [place], [address] T PROT 7.1 g/dL Normal 5.9-8.4 [facility] Comment on above: Performed By: #### L 3400.4600, L100.0100, L500.4100, L501.9910, L500.4050 #### [facility] [address] [place], [place], [id number] Comprehensive Metabolic Prof ilOrdered By: Gregg Yoder on 09-16-2024 AST [Catalytic activity/Vol] 20 U/L Normal <=37 [facility] Comment on above: Performed By: #### L 3400.4600, L100.0100, L500.4100, L501.9910, L500.4050 #### [facility] [address] [place], [place], [id number] Eosinophil percentageOrdered By: Gregg Yoder on 09-16-2024 Eosinophils/100 WBC (Bld) 1.9 % 0-5 [facility] Erythrocyte distribution wid th ratioOrdered By: Gregg Yoder on 09-16-2024 Erythrocyte distribution width (RBC) [Ratio] 13.0 % 11.6-14.6 [facility] Erythrocyte distribution wid th standard deviationOrdered By: Gregg Yoder on 09-16-2024 Erythrocyte distribution width (RBC) [Ratio] 44.8 fl High 35.1-43.9 [facility] Glomerular filtration rate ( GFR) estimation/1.73 sq m using serum, plasma, or whole bOrdered By: Gregg Yoder on 09-16-2024 GFR/1.73 sq M.predicted among non-blacks MDRD (S/P/Bld) [Vol rate/Area] 91 mL/min/{1.73_m2} Normal >60 [facility] Comment on above: mL/min/1.73m2 CKD-EP I Creatinine Equation (2020) Result Comment: mL/m in/1.73m2 CKD-EPI Creatinine Equation (2020) Performed By: #### L 3400.4600, L100.0100, L500.4100, L501.9910, L500.4050 #### [facility] [address] [place], [address] Hematocrit Auto (Bld) [Volum e fraction]Ordered By: Gregg Yoder on 09-16-2024 Hematocrit (Bld) [Volume fraction] 44.7 % 40-54 [facility] Hemoglobin measurementOrdere d By: Gregg Yoder on 09-16-2024 Hemoglobin (Bld) [Mass/Vol] 14.8 g/dL 13.0-16.5 [facility] Immature granulocytes/100 WB C Auto (Bld)Ordered By: Gregg Yoder on 09-16-2024 Immature granulocytes/100 WBC (Bld) 1.900 % High 0.0-0.9 [facility] Comment on above: IG% - Immature Granu locytes (promyelocytes, myelocytes and metamyelocytes) > 1% indicates that a LEFT SHIFT is Present. LDL calc ser/plasOrdered By: Gregg Yoder on 09-16-2024 Cholesterol in LDL [Mass/Vol] 144 mg/dL Normal [facility] Comment on above: Jevvevoypu=120-407 m g/dL & Higher Srsm=688 mg/dL or greater Result Comment: Bord sxkokr=620-785 mg/dL Higher Ymxw=971 mg/dL or greater Performed By: #### L 3400.4600, L100.0100, L500.4100, L501.9910, L500.4050 #### [facility] [address] [place], [place], [id number] (441) Lipid Profileon 09-16-2024 CHOL:HDL 3.67 Normal [facility] Comment on above: Performed By: #### L 3400.4600, L100.0100, L500.4100, L501.9910, L500.4050 #### [facility] [address] [place], [address] Cholesterol in VLDL [Mass/Vol] 21 mg/dL Normal 5-40 [facility] Comment on above: Performed By: #### L 3400.4600, L100.0100, L500.4100, L501.9910, L500.4050 #### [facility] [address] [place], [address] Lipoprotein a [Mass/Vol]Orde red By: Gregg Yoder on 09-16-2024 Lipoprotein a [Moles/Vol] 44.2 nmol/L <75.0 [facility] Comment on above: Note: Values greater than or equal to 75.0 nmol/L may indicate an independent risk factor for CHD, but must be evaluated with caution when applied to non- populations due to the influence of genetic factors on Lp(a) across ethnicities.Performed at: [facility] [id number] Director: Jaskaran Eaton PhD, Phone: [phone] MCV (mean corpuscular volume ) determinationOrdered By: Gregg Yoder on 09-16-2024 MCV (RBC) [Entitic vol] 95.7 fL High 80-94 [facility] Mean corpuscular hemoglobin (MCH) determinationOrdered By: Gregg Yoder on 09-16-2024 MCH (RBC) [Entitic mass] 31.7 pg 27.0-32.0 [facility] Mean corpuscular hemoglobin concentration (MCHC) determinationOrdered By: Gregg Yoder on 09-16-2024 MCHC (RBC) [Mass/Vol] 33.1 g/dL 32-36 [facility] Mean platelet volume determi nationOrdered By: Gregg Yoder on 09-16-2024 Platelet mean volume (Bld) [Entitic vol] 10.5 fL 6.2-12.0 [facility] Monocyte percentageOrdered B y: Gregg Yoder on 09-16-2024 Monocytes/100 WBC (Bld) 9.1 % 0-10 [facility] Neutrophil percentageOrdered By: Gregg Yoder on 09-16-2024 Neutrophils/100 WBC (Bld) 65.0 % 47-70 [facility] Nucleated red blood cell per centageOrdered By: Gregg Yoder on 09-16-2024 Nucleated RBC/100 WBC (Bld) [Ratio] 0 % 0-5 [facility] PSA,Total - Annual Screenon 09-16-2024 PSA,TOT SCREEN 7.19 ng/mL High 0.02-4.00 [facility] Comment on above: Result Comment: This [...] L 3400.4600, L100.0100, L500.4100, L501.9910, L500.4050 #### [facility] [address] [place], [place], [id number] Platelet countOrdered By: Yanick Yoder on 09-16-2024 Platelets (Bld) [#/Vol] 246 10*3/uL 150-450 [facility] Potassium measurement (mass/ volume)Ordered By: Gregg Yoder on 09-16-2024 Potassium (Unsp spec) [Mass/Vol] 3.9 mmol/L 3.3-5.1 [facility] RBC Auto (Bld) [#/Vol]Ordere d By: Gregg Yoder on 09-16-2024 RBC (Bld) [#/Vol] 4.67 10*6/uL 4.6-6.2 [facility] Screening total cholesterol/ high density lipoprotein (HDL) cholesterol ratioOrdered By: Gregg Yoder on 09-16-2024 Cholesterol.total/Monica sterol in HDL [Mass ratio] 3.67 {ratio} [facility] Serum creatinine measurement (mass/volume)Ordered By: Gregg Yoder on 09-16-2024 Creatinine [Mass/Vol] 0.94 mg/dL Normal 0.70-1.20 [facility] Comment on above: Performed By: #### L 3400.4600, L100.0100, L500.4100, L501.9910, L500.4050 #### [facility] [address] [place], [place], [id number] Serum globulin measurementOr dered By: Gregg Yoder on 09-16-2024 Globulin (S) [Mass/Vol] 2.7 g/dL Normal 2.2-4.2 [facility] Comment on above: Performed By: #### L 3400.4600, L100.0100, L500.4100, L501.9910, L500.4050 #### [facility] [address] [place], [address] Serum glucose measurement (m ass/volume)Ordered By: Gregg Yoder on 09-16-2024 Glucose [Mass/Vol] 68 mg/dL Low 70-99 [facility] Comment on above: Performed By: #### L 3400.4600, L100.0100, L500.4100, L501.9910, L500.4050 #### [facility] [address] [place], [address] Serum or plasma alanine jarrell otransferase (ALT) measurementOrdered By: Gregg Yoder on 09-16-2024 ALT [Catalytic activity/Vol] 26 U/L Normal <=46 [facility] Comment on above: Performed By: #### L 3400.4600, L100.0100, L500.4100, L501.9910, L500.4050 #### [facility] [address] [place], [address] Serum or plasma albumin hina urement (mass/volume)Ordered By: Gregg Yoder on 09-16-2024 Albumin [Mass/Vol] 4.5 g/dL Normal 3.4-4.8 [facility] Comment on above: Performed By: #### L 3400.4600, L100.0100, L500.4100, L501.9910, L500.4050 #### [facility] [address] [facility] [place], [address] Serum or plasma albumin/glob ulin mass ratioOrdered By: Gregg Yoder on 09-16-2024 Albumin/Globulin [Mass ratio] 1.7 {ratio} Normal 0.9-2.4 [facility] Comment on above: Performed By: #### L 3400.4600, L100.0100, L500.4100, L501.9910, L500.4050 #### [facility] [address] [place], [address] Serum or plasma alkaline laura sphatase measurementOrdered By: Gregg Yoder on 09-16-2024 ALP [Catalytic activity/Vol] 60 U/L 40-129 [facility] Serum or plasma calcium hina urement (mass/volume)Ordered By: Gregg Yoder on 09-16-2024 Calcium [Mass/Vol] 9.3 mg/dL Normal 7.6-11.0 [facility] Comment on above: Performed By: #### L 3400.4600, L100.0100, L500.4100, L501.9910, L500.4050 #### [facility] [address] [place], [place], [phone] (878) Serum or plasma cholesterol in HDL measurement (mass/volume)Ordered By: Gregg Yoder on 09-16-2024 Cholesterol in HDL [Mass/Vol] 62 mg/dL Normal [facility] Comment on above: National Cholesterol Education [...] L 3400.4600, L100.0100, L500.4100, L501.9910, L500.4050 #### [facility] [address] [place], [address] Serum or plasma cholesterol measurement (mass/volume)Ordered By: Gregg Yoder on 09-16-2024 Cholesterol [Mass/Vol] 226 mg/dL High <=200 [facility] Comment on above: Cholesterol level, D esirable <200 mg/dLBorderline high cholesterol 200-239 mg/dLHigh cholesterol >=240 mg/dLRecommendations of the NCEP Adult Treatment Panel for the following risk-cutoff thresholds for the [place] population. Result Comment: Chol esterol level, Desirable <200 mg/dL Borderline high cholesterol 200-239 mg/dL High cholesterol >=240 mg/dL Recommendations of the NCEP Adult Treatment Panel for the following risk-cutoff thresholds for the [place] population. Performed By: #### L 3400.4600, L100.0100, L500.4100, L501.9910, L500.4050 #### [facility] [address] [facility] [address] [place], [place], [id number] Serum or plasma urea nitroge n measurement (mass/volume)Ordered By: Gregg Yoder on 09-16-2024 Urea nitrogen [Mass/Vol] 12 mg/dL Normal 4-19 [facility] Comment on above: Performed By: #### L 3400.4600, L100.0100, L500.4100, L501.9910, L500.4050 #### [facility] [address] [place], [address] Sodium levelOrdered By: Gregg Yoder on 09-16-2024 Sodium [Moles/Vol] 141 mmol/L Normal 133-145 [facility] Comment on above: Performed By: #### L 3400.4600, L100.0100, L500.4100, L501.9910, L500.4050 #### [facility] [address] [place], [address] Total proteinOrdered By: Marcela Yoder on 09-16-2024 Protein [Mass/Vol] 7.1 g/dL 5.9-8.4 [facility] Triglycerides measurementOrd ered By: Gregg Yoder on 09-16-2024 Triglyceride [Mass/Vol] 104 mg/dL Normal [facility] Comment on above: The drugs N-Acetylcy [...] L 3400.4600, L100.0100, L500.4100, L501.9910, L500.4050 #### [facility] [address] [place], [address] White blood cell (WBC) count Ordered By: Gregg Yoder on 09-16-2024 WBC (Bld) [#/Vol] 8.4 10*3/uL 4.4-11.0 [facility] MR/BMSMarilyn 08-31-2024 MR/BMSFrancineRegla [facility] [address] [place] [address] OFFICE VISIT Date of Service: 08/31/24 MR#: [id number] Acct: [id number] Name: TRISTAN ZARCO Rep #: [id number] : 1960 Provider: BELEN Marin Age/Sex: 64/M Location: [facility] Status: Signed Intake Vital Signs 01/25/21 17:00 [...] demonstrated prior R GSV ablation, R SSV dewatering filtering supervisor and thigh varicose vein incompetence, prior L GSV and SSV ablation, incompetent L calf dewatering filtering supervisor feeding posterior calf varicose veins, and [...] Affect: gomez (more content not included)... Normal [facility] Venous Duplex US - [place] [facility] 08-15-2024 Venous Duplex US - [place] [facility] [address] [place] [address] Venous Duplex US - [place] [facility] 08/15/24 0808 MR#: [id number] Acct: [id number] Name: TRISTAN ZARCO Rep #: [id number] : 1960 64 From: Wiliam Leung MD Attending Dr: BELEN Marin Status: [...] cm. calf. Unable to see origin. INCOMPETENT dewatering filtering supervisor noted at mid SSV. INCOMPETENT dewatering filtering supervisor noted at the posteror mid calf [...] the thigh, calf varicosities, posterior mid calf dewatering filtering supervisor, accessory saphenous from junction. Ordering Physician: Gabrielle Grover Referring Physician: Gregg Yoder Performed By: Lilly Talley RVT 08/15/24 1425 Date Wiliam Leung MD CC: BELEN Marin; Dr. Gregg Yoder, Date Dictated: 08/15/24 08 Date Transcribed: 08/15/241424 [employer] Dba: Signed Normal [facility] Venous duplex ultrasound rep ortOrdered By: Wiliam Leung on 08-15-2024 US Vein [facility] [address] [place] [address] Venous Duplex US - [place] [facility] 08/15/24807 MR#: [id number] Acct: [id number] Name: TRISTAN ZARCO Rep #:[id number] : 1960 64 From: Wiliam Contreras Attending Dr: BELEN Marin Stat us: REG CLI Ordering Dr: Gabrielle Grover Date: Location: [facility] Sex: M C Admitted: Reason For Study [...] cm. calf. Unable to see origin. INCOMPETENT dewatering filtering supervisor noted at mid SSV. INCOMPETENT dewatering filtering supervisor noted at the posteror mid calf [...] the thigh, calf varicosities, posterior mid calf dewatering filtering supervisor, accessory saphenous from junction. Ordering Physician: Gabrielle Grover Referring Physician: Gregg Yoder Performed By: Lilly Talley RVT 08/15/24 2739 Date _ Wiliam Leung MD CC: BELEN Marin; Dr. Gregg Yoder, DO ~ Date Dictated: 08/15/24 0808 Date Transcribed: 08/15/24 1425 [employer] Dba: Signed [facility] Work Phone: MR/BMS.Blayne 07-20-2024 MR/BMS.BVS [facility] Surgery [address] [place] [address] OFFICE VISIT Date of Service: 07/20/24 MR#: [id number] Acct: [id number] Name: TRISTAN ZARCO Rep #: [id number] : 1960 Provider: BELEN Marin Age/Sex: 64/M Location: [facility] Status: Signed Intake Vital Signs 01/25/21 17:00 [...] noted Extremities (more content not included)... Normal [facility] Vital Signs Date Time Vital Sign Value Performing Clinician Edith blood 02-01-2025 11:16-0400 Body height 182.9 cm Wiliam Salvador MD Work Phone: [facility] 02-01-2025 11:16-0400 Body mass index (BMI) [Ratio] 27.53 kg/m2 Wiliam Salvador MD Work Phone: [facility] 02-01-2025 11:16-0400 Body weight 92.08 kg Wiliam Salvador MD Work Phone: [facility] 01-09-2025 08:37-0400 Body height 182.9 cm Eric Zazueta MD, PhD Work Phone: [facility] 01-09-2025 08:37-0400 Body mass index (BMI) [Ratio] 27.79 kg/m2 Eric Zazueta MD, PhD Work Phone: [facility] 01-09-2025 08:37-0400 Body weight 92.94 kg Eric Zazueta MD, PhD Work Phone: [facility] 01-09-2025 08:37-0400 Diastolic blood pressure 77 mm[Hg] Eric Zazueta MD, PhD Work Phone: [facility] 01-09-2025 08:37-0400 Heart rate 74 /min Eric Zazueta MD, PhD Work Phone: [facility] 01-09-2025 08:37-0400 SaO2% (BldA) [Mass fraction] 98 % Eric Zazueta MD, PhD Work Phone: [facility] 01-09-2025 08:37-0400 Systolic blood pressure 143 mm[Hg] Eric Zazueta MD, PhD Work Phone: [facility] 11-22-2024 13:01-0400 Body height 182.[address] Gregg Yoder DO Work Phone: [facility] 11-22-2024 13:00-0400 Body mass index (BMI) [Ratio] 27.7 kg/m2 Dr. Gregg Yoder DO Work Phone: [facility] 11-22-2024 13:00-0400 Body temperature 97.8 [degF] Dr. Gregg Yoder DO Work Phone: [facility] 11-22-2024 13:00-0400 Body weight 92.[address] Gregg Yoder DO Work Phone: [facility] 11-22-2024 13:00-0400 Diastolic blood pressure 91 mm[Hg] Dr. Gregg Yoder DO Work Phone: [facility] 11-22-2024 13:00-0400 Heart rate 58 /min Dr. Gregg Yoder DO Work Phone: [facility] 11-22-2024 13:00-0400 Respiratory rate 16 /min Dr. Gregg Yoder DO Work Phone: [facility] 11-22-2024 13:00-0400 SaO2% (BldA) [Mass fraction] 98 % Dr. Gregg Yoder DO Work Phone: [facility] 11-22-2024 13:00-0400 Systolic blood pressure 190 mm[Hg] Dr. Gregg Yoder DO Work Phone: [facility] 11-04-2024 08:59-0400 Body temperature 97.8 [degF] Dr. Gregg Yoder DO Work Phone: [facility] 11-04-2024 08:59-0400 Body weight 92.[address] Gregg Yoder DO Work Phone: [facility] 11-04-2024 08:59-0400 Diastolic blood pressure 87 mm[Hg] Dr. Gregg Yoder DO Work Phone: [facility] 11-04-2024 08:59-0400 Heart rate 57 /min Dr. Gregg Yoder DO Work Phone: [facility] 11-04-2024 08:59-0400 Respiratory rate 16 /min Dr. Gregg Yoder DO Work Phone: [facility] 11-04-2024 08:59-0400 SaO2% (BldA) [Mass fraction] 98 % Dr. Gregg Yoder DO Work Phone: [facility] 11-04-2024 08:59-0400 Systolic blood pressure 149 mm[Hg] Dr. Gregg Yoder DO Work Phone: [facility] 10-20-2024 08:42-0400 Body height 182.[address] Gregg Yoder DO Work Phone: [facility] 10-20-2024 08:42-0400 Body weight 93.[address] Gregg Yoder DO Work Phone: [facility] 10-19-2024 08:13-0400 Body mass index (BMI) [Ratio] 27.9 kg/m2 Dr. Gregg Yoder DO Work Phone: [facility] 08-31-2024 08:26-0400 Body temperature 97.7 [degF] Dr. Gregg Yoder DO Work Phone: [facility] 08-31-2024 08:26-0400 Body weight 93.[address] Gregg Yoder DO Work Phone: [facility] 08-31-2024 08:26-0400 Diastolic blood pressure 90 mm[Hg] Dr. Gregg Yoder DO Work Phone: [facility] 08-31-2024 08:26-0400 Heart rate 63 /min Dr. Gregg Yoder DO Work Phone: [facility] 08-31-2024 08:26-0400 Respiratory rate 16 /min Dr. Gregg Yoder DO Work Phone: [facility] 08-31-2024 08:26-0400 SaO2% (BldA) [Mass fraction] 96 % Dr. Gregg Yoder DO Work Phone: [facility] 08-31-2024 08:26-0400 Systolic blood pressure 174 mm[Hg] Dr. Gregg Yoder DO Work Phone: [facility] 07-20-2024 11:09-0400 Body temperature 97.1 [degF] Dr. Gregg Yoder DO Work Phone: [facility] 07-20-2024 11:09-0400 Body weight 93.[address] Gregg Yoder DO Work Phone: [facility] 07-20-2024 11:09-0400 Diastolic blood pressure 98 mm[Hg] Dr. Gregg Yoder DO Work Phone: [facility] 07-20-2024 11:09-0400 Heart rate 73 /min Dr. Gregg Yoder DO Work Phone: [facility] 07-20-2024 11:09-0400 Respiratory rate 16 /min Dr. Gregg Yoder DO Work Phone: [facility] 07-20-2024 11:09-0400 SaO2% (BldA) [Mass fraction] 97 % Dr. Gregg Yoder DO Work Phone: [facility] 07-20-2024 11:09-0400 Systolic blood pressure 178 mm[Hg] Dr. Gregg Yoder DO Work Phone: [facility] Encounters Encounter Date Encounter Type Care Provider Facility Start: 02-21-2025 ambulatory Gregg Yoder Facility: [facility] Start: 02-01-2025 End: 02-01-2025 Office outpatient new 45 minutes Wiliam Salvador MD Work Phone: [facility] Comment on above: History of urethral stricture (Primary Dx); Hematuria, gross; Bladder diverticulum; Incomplete bladder emptying Start: 02-01-2025 ambulatory GREGG ALMANZARUTZMAN Facilit y:[facility] Start: 01-09-2025 End: 01-09-2025 Office consultation new/estab patient 60 min Eric Zazueta MD, PhD Work Phone: Division of Urological Surgery at [facility] Comment on above: Malignant neoplasm o f prostate (Primary Dx); Former smoker; History of hematuria; Stricture of male urethra, unspecified stricture type; Bladder diverticulum; Essential hypertension; Varicose veins of both lower extremities, unspecified whether complicated Start: 01-09-2025 ambulatory GREGG YODER Facilit y:[facility] Start: 01-05-2025 ambulatory SELF SELF Facility:[facility] Start: 12-23-2024 End: 12-23-2024 Telephone encounter Oncology Consult Work Phone: [facility] Comment on above: Referral Start: 12-21-2024 ambulatory Gregg Yoder Facility: [facility] Start: 12-21-2024 Non-patient / Non-visit Dr. Christopher MALIK -[facility] Start: 12-20-2024 End: 12-20-[address] Gregg Yoder DO Work Phone: -Cardiovascular Services Start: 12-20-2024 End: 12-20-[address] Timmy Garzon MD -Cardiovascular Services Work Phone: Start: 12-20-2024 End: 12-20-2024 ambulatory Gregg Yoder Facility:[facility] Start: 11-22-2024 End: 11-22-[address] Raj Dueñas DO -[facility] Work Phone: Start: 11-22-2024 End: 11-22-[address] Gregg Yoder DO Work Phone: -[facility] Start: 11-22-2024 ambulatory Raj Spenser Facility: [facility] Start: 11-21-2024 ambulatory Raj Lawton Facility: [facility] Start: 11-15-2024 End: 11-15-2024 Telephone encounter [facility] Provider [facility] [facility] Comment on above: Appointment (General Surgery) Start: 11-04-2024 End: 11-04-2024 Patient encounter procedure Gabrielle GLOVER -[facility] Work Phone: Start: 11-04-2024 End: 11-04-[address] Gregg Yoder DO Work Phone: -[facility] Start: 10-31-2024 End: 10-31-[address] Gregg Yoder DO Work Phone: -Laboratory Specimen Start: 10-31-2024 End: 10-31-[address] Gregg Yoder DO -Laboratory Specimen Work Phone: Start: 10-31-2024 End: 10-31-2024 ambulatory Gregg Yoder Facility:[facility] Start: 10-26-2024 End: 10-26-[address] Gregg Yoder DO Work Phone: -[facility] Start: 10-26-2024 End: 10-26-[address] Jaiden Main MD -[facility] Work Phone: Start: 10-25-2024 ambulatory Wiliam Leung Facility:[facility] Start: 10-25-2024 Non-patient / Non-visit Dr. Wiliam rachel MD -[facility] Start: 10-25-2024 Non-patient / Non-visit Dr. Christopher MALIK -[facility] Work Phone: Start: 10-25-2024 End: 10-25-[address] Wiliam Leung MD -Cardiovascular Services Work Phone: Start: 10-25-[address] Gregg chicas DO -[facility] Work Phone: Start: 10-25-2024 End: 10-26-[address] Gregg Yoder DO Work Phone: -Cardiovascular Services Start: 10-25-2024 End: 10-25-2024 ambulatory Wiliam Leung Facility:[facility] Start: 10-20-2024 ambulatory Wiliam Leung Facility:[facility] Start: 10-20-2024 Non-patient / Non-visit Dr. Wiliam rachel MD -[facility] Start: 10-20-2024 End: 10-20-2024 Admission to same day surgery center Dr. Wiliam Leung MD -Religious Education Director/Special Procedures Work Phone: Start: 10-20-2024 End: 10-20-[address] Gregg Yoder DO Work Phone: -Religious Education Director/Special Procedures Start: 10-13-2024 ambulatory [facility] Facility: [facility] Start: 10-06-2024 End: 10-06-[address] Gregg Yoder DO Work Phone: -Laboratory Start: 10-06-2024 End: 10-06-[address] Jaiden Main MD -Laboratory Work Phone: Start: 10-06-2024 End: 10-06-2024 ambulatory [facility] Facility:[facility] Start: 09-17-2024 Encounter for genera l adult medical examination without abnormal findings [facility] Start: 09-16-2024 End: 09-16-[address] Gregg Yoder DO Work Phone: [facility] Work Phone: Start: 09-16-2024 End: 09-16-[address] Gregg Yoder DO -[facility] Work Phone: Start: 09-16-2024 End: 09-16-2024 ambulatory Gregg Robin Facility:[facility] Start: 08-31-2024 End: 08-31-2024 Patient encounter procedure Gabrielle GLOVER -[facility] Work Phone: Start: 08-31-2024 End: 08-31-[address] Gregg Yoder DO Work Phone: [facility] Work Phone: Start: 08-15-2024 Non-patient / Non-visit Dr. Wiliam rachel MD -[facility] Start: 08-15-2024 End: 08-15-[address] Gregg Yoder DO Work Phone: [facility] Work Phone: Start: 08-15-2024 End: 08-15-2024 Patient encounter procedure Gabrielle GLOVER -Cardiovascular Services Work Phone: Start: 08-15-2024 End: 08-15-2024 ambulatory Gabrielle Grover Facility:[facility] Start: 07-20-2024 End: 07-20-2024 Patient encounter procedure Gabrielle GLOVER -[facility] Work Phone: Start: 07-20-2024 End: 07-20-2024 ambulatory [facility] Facility:[facility] Start: 06-06-2022 End: 06-06-2022 ambulatory [facility] Work Phone: Start: 06-06-2022 End: 06-06-2022 Patient encounter procedure [facility]-Radiology, [place] Procedures Date Procedure Procedure Detail Performing Clinician Start: 02-01-2025 Urnls dip stick/tabl et rgnt auto w/o microscopy Wiliam Salvador MD Work Phone: Start: 10-06-2025 CBC AND ELECTRONIC DIFF Jennifer Castellanos CULINARY DIRECTOR-[employer]OCKBR[employer]ER Work Phone: Start: 01-09-2025 Complete blood count with white cell differential, automated Jennifer Castellanos CULINARY DIRECTOR-[employer] Work Phone: Start: 01-09-2025 End: 01-09-2025 Comprehensive metabolic panel Jennifer brambila CULINARY DIRECTOR-[employer] Work Phone: Comment on above: Result Comment: Test results cannot be interpreted as absolute evidence for the presence or absence of malignant disease. This test was performed on the HipLink IM Immunoassay platform which is a 2-step sandwich chemiluminescent immunoassay. It is important to note that assays using different manufacturers and/or methods may not be comparable. Performed By: #### P SATM #### [facility] ([facility]) [address] [place] [address] Start: 12-20-2024 Radiologic exam knee complete 4/more views Dr. Gregg Yoder DO Work Phone: Start: 12-20-2024 Radionuclide imaging of perfusion of myocardium under exercise stress Dr. Gregg Yoder DO Work Phone: Start: 10-26-2024 MRI of pelvis with contrast Dr. Gregg Yoder DO Work Phone: Start: 10-25-2024 CT angiography of co ronary arteries Dr. Gregg Yoder DO Work Phone: Start: 10-06-2024 Free prostate specif ic antigen level Dr. Gregg Yoder DO Work Phone: Comment on above: [employer] ECLIA methodol ogy. Start: 10-06-2024 Prostate specific an tigen measurement Dr. Gregg Yoder DO Work Phone: Comment on above: [employer] ECLIA methodol ogy.According to the [place] [employer], Serum PSAshould decrease and remain [...] 09-16-2024 Prostate specific an tigen measurement Dr. Gregg Yoder DO Work Phone: Comment on above: [...] Treatment Date Care Activity Detail Author Start: 2037 RSV VACCINE (1 - 1-d ose 75+ series) RSV VACCINE (1 - 1-dose 75+ series) [facility] Start: 01-09-2026 Prostate specific antigen measurement PROSTATE CANCER SCREENING DISCUSSION [facility] Start: 04-17-2025 End: 04-17-2025 Telemedicine consultation with patient 04/17/2025 8:30 AM EST Telemedicine Division of Urological Surgery at [facility] [address] 5[address] [place] [phone] Eric Zazueta MD, PhD [address] [place] [address] [address] [place] [address] Division of Urological Surgery at [facility] Start: 04-11-2025 End: 01-09-2026 PSA - DIAGNOSTIC/TUMOR MARKER PSA - DIAGNOSTIC/TUMOR MARKER Lab Routine Malignant neoplasm of prostate Expected: 04/11/2025 (Approximate), Expires: 01/09/2026 [facility] Comment on above: Expected: 04/11/2025 (Approximate), Expires: 01/09/2026 Start: 02-20-2025 End: 02-20-2025 Patient encounter procedure 02/20/2025 8:20 AM EST Office Visit [facility] [address] [facility] [address] [place] [phone] Wiliam Salvador MD [address] [place] [address] [place] [address] [facility] Start: 02-01-2025 End: 02-01-2026 CT Ab[address]en and Pelvis CT UROGRAM ABDOMEN/PELVIS W/ 3D POST PROCESSING Imaging Routine Hematuria, gross Expected: 02/01/2025 (Approximate), Expires: 02/01/2026 [facility] Comment on above: Expected: 02/01/2025 (Approximate), Expires: 02/01/2026 Start: 02-01-2025 End: 02-01-2025 Patient encounter procedure 02/01/2025 11:20 AM EDT Office Visit [facility] [address] [facility] [facility] [address] [place] [address] Wiliam Salvador MD [address] [facility] [address] [place] [address] [facility] Start: 12-05-2024 COVID-19 VACCINE ( season) COVID-19 VACCINE ( season) [facility] Start: 12-05-2024 COVID-19 VACCINE ( season) COVID-19 VACCINE ( season) [facility] Start: 12-05-2024 Influenza vaccination INFLUENZA VACC INE (#1) [facility] Start: 11-11-2024 Zoster vaccine hzv l temitope for subcutaneous use ZOSTER (SHINGLES) VACCINE (2 of 2) [facility] Start: 10-20-2024 Patient discharge [facility] Start: 2017 Prostate specific antigen measurement PROSTATE CANCER SCREENING DISCUSSION [facility] Start: 2012 Pneumococcal vaccination PNEUMOCOCCAL VACCINE SERIES (1 of 1 - PCV) [facility] Start: 2012 Screening for malign ant neoplasm of lung LUNG CANCER SCREENING [facility] Start: 2012 Zoster vaccine hzv l temitope for subcutaneous use ZOSTER (SHINGLES) VACCINE (1 of 2) [facility] Start: 2007 Screening for malign ant neoplasm of colon COLORECTAL CANCER SCREENING DISCUSSION [facility] Start: 2002 Lipid panel LIPID SCREENING [facility] Start: 1981 Third diphtheria, tetanus and acellular pertussis (DTaP) vaccination TDAP (ADULT) [facility] Start: 1977 HIV screening HIV SCREENING DISCUSSION [facility] Start: 1962 Hepatitis C screening HEPATITI S C VIRUS SCREENING [facility] Start: 1962 Tetanus vaccination TETANUS [facility] Lipoprotein a [Mass/volume] in Serum or Plasma [facility] Hina post-voiding residual urine&/bladder cap SD HINA POST-VOIDING RESIDUAL URINE&/BLADDER CAP SD Charge Routine History of urethral stricture Ordered: 02/01/2025 [facility] Comment on above: Ordered: 02/01/2025 Immunizations Immunization Date Immunization Notes Care Provider [facility] 09-16-2024 zoster vaccine, unspecified formulation Eric Zazueta MD, PhD Work Phone: [facility] 07-12-2020 Covid (Pfizer) [facility] 06-21-2020 Covid (Pfizer) [facility] 02-14-2019 influenza virus vaccine, unspecified formulation Eric Zazueta MD, PhD Work Phone: [facility] 01-11-2015 influenza, injectabl e, quadrivalent, contains preservative [facility] Provider [facility] 01-11-2015 influenza virus vaccine, unspecified formulation Oncology Consult Work Phone: [facility] 01-06-2014 influenza, seasonal, injectable [facility] Provider [facility] Payers Date Payer Category Payer Unknown [id number] 2024 Unknown 2024 Self-pay [id number] 2024 Managed Care (unspecified) [facility] [id number] 2024 Self-pay [id number] 2018 Private Health Insurance MMO [employer] PPO [id number] 2011 Unknown [id number] 1962 Unknown [id number] ..[id number]. 594 1962 Unknown [id number] 2.0.1.288826.3.579.2. 594 1962 Unknown [id number] .840.1.740442.3.579.2. 594 Unknown [id number] Unknown [id number] 2.840.1.438447.3.579.2. 462 Unknown [id number] 2.0.1.733713.3.579.2. 462 Unknown [id number] 2.16.840.1.826790.3.579.2. 462 Unknown [id number] 2.16.840.1.171388.3.579.2. 462 Unknown [id number] 2.16.840.1.053621.3.579.2. 462 Unknown [id number] 2.16.840.1.296321.3.579.2. 462 Unknown [id number] 2.840.1.779595.3.579.2. 462 Unknown [id number] 2.840.1.609332.3.579.2. 462 Unknown [id number] 2.840.1.096872.3.579.2. 462 Unknown [id number] 2.840.1.470919.3.579.2. 462 Unknown [id number] 2.840.1.257492.3.579.2. 462 Unknown [id number] 2.840.1.623017.3.579.2. 462 Unknown [id number] 2.840.1.666206.3.579.2. 462 Unknown [id number] 2.840.1.040444.3.579.2. 462 Unknown [id number] 2.840.1.713382.3.579.2. 462 Unknown [id number] 2.840.1.477981.3.579.2. 462 Unknown [id number] 2.840.1.668946.3.579.2. 462 Unknown [id number] 2.840.1.566761.3.579.2. 462 Unknown [id number] 2..840.1.903341.3.579.2. 462 Unknown [id number] 2.16840.1.107289.3.579.2. 462 Unknown [id number] 2.840.1.775804.3.579.2. 462 Unknown [id number] 2.16.840.1.872973.3.579.2. 462 Unknown [id number] 2.16.840.1.552544.3.579.2. 462 Social History Date Type Detail Facility Start: 03-22-2013 Tobacco smoking stat us OHIS Unknown if ever smoked [facility] Start: 1960 Sex Assigned At Male W [facility] Start: 03-22-2013 End: 01-29-2025 Tobacco smoking status NHIS Ex-smoker (finding) [facility] Start: 1960 Sex assigned at Not on file [facility] Start: 01-06-2014 Sex Male [facility] Start: 01-05-2025 End: 01-09-2025 Gender identity Not on file [facility] Start: 11-17-2024 Sex Male (finding) [facility] Work Phone: Start: 04-06-1983 End: 04-06-2014 History of tobacco use Current smoker [facility] Start: 04-06-1983 End: 04-06-2014 History of tobacco use Cigarette Smoker [facility] Start: 01-09-2025 End: 01-29-2025 Cigarettes smoked current (pack per day) - Reported 1 [facility] Start: 01-29-2025 Tobacco use and exposure Smokeless tobacco non-user [facility] Start: 01-29-2025 End: 02-01-2025 Alcoholic beverage intake Current drinker of alcohol (finding) [facility] Start: 01-09-2025 Alcohol Comment 2-3 shots vodka berto y [facility] Clinical Notes 07-20-2024 to 02-01-2025 Assessment & Plan Note - Wiliam Salvador MD - 02/01/2025 11:20 AM Thelma Salvador MD - 02/01/2025 11:20 AM EDTAssessment & Plan Note - Wiliam Salvador MD - 02/01/2025 11:20 AM EDT Note Date & Type Note Facility 10-29-2025 Evaluation + Plan note Associated Problem(s): Bladder diverticulum We discussed that he has a bladder diverticulum on his recent MRI and that it may be contributing to his LUTS. We discussed that we need to evaluate and manage his urethral stricture and gross hematuria before considering bladder diverticulum treatment. I explained that surgical treatment of bladder diverticulum is indicated when there are bothersome symptoms or recurrent UTIs. [facility] 02-01-2025 History of Presen t illness Narrative Assessment & Plan History of urethral stricture We discussed urethral stricture disease at length including the etiology and natural history of this condition. We discussed the prognosis of the condition without treatment including acute urinary retention, infectious complications, and acute/chronic kidney injury. I explained that the goal of surgery is to improve urethral patency, relive voiding symptoms, and prevent adverse complications of the diagnosis. We reviewed stricture management options including observation, endoscopic treatment (internal urethrotomy or balloon dilation) with or without intermittent self-dilation, endoscopic treatment with adjunctive medication delivery such as via drug-coated balloon dilation, chronic catheterization (urethral or suprapubic catheter), and urethral reconstruction. We discussed that endoscopic approaches are generally less invasive but less durable. We discussed urethroplasty, which is generally more invasive but more durable. He is interested in moving forward with work-up. We discussed the next step in evaluation is cystoscopy, retrograde urethrogram. He is most interested in minimally invasive management of his stricture. We discussed the importance of urethral rest prior to urethroplasty. Hematuria, gross We discussed that gross hematuria is a non-specific diagnosis. It can come from any organ along the urinary tract with multiple possible etiologies including malignancy, infection, stones, inflammation, and radiation damage. We discussed work-up of gross hematuria includes imaging (CT urogram preferred; MR urogram if contraindication to CT, ultrasound and RPG if contraindication to MR) to evaluate the upper tracts and cystoscopy to evaluate Plan: CT urogram Cysto (per above) Bladder diverticulum We discussed that he has a bladder diverticulum on his recent MRI and that it may be contributing to his LUTS. We discussed that we need to evaluate and manage his urethral stricture and gross hematuria before considering bladder diverticulum treatment. I explained that surgical treatment of bladder diverticulum is indicated when there are bothersome symptoms or recurrent UTIs. Incomplete bladder emptying His PVR today was slightly elevated at 208 cc. I explained this is common in his age range and may be secondary to urethral stricture and/or bladder diverticulum. I encouraged double voiding and timed voiding. Follow-up: per above I reviewed pertinent clinic notes from: Urology (separate practice). We will continue to follow patient for this ongoing complex condition. Wiliam Salvador MD Subjective HPI: Jamal Zarco is a 64 y.o. male who presents as a new patient to me for evaluation of urethral stricture and gross hematuria and bladder diverticulum. Notable urologic and/or medical history Prostate cancer Diagnosed October 2024 Favorable intermediate risk (GG2, PSA 6.15, cT1c) On active surveillance History of urethral stricture Known since teenage years Thinks he has a history of meatotomy S/p urethral sounding x twice in the clinic Symptoms improved with this Most recently 20 years ago He has been having symptoms for multiple years. Stable He has a split stream Weak stream is the biggest issue Denies dysuria Denies UTIs Endorses gross hematuria in March [address] [place] [address] was done but no access to those results No cystoscopy since then Recent MRI shows bladder diverticulum International Prostate Symptom Score (I-PSS) Incomplete emptying: Less than half the time Frequency: About half the time Intermittency: Not at all Urgency: Less than half the time Weak stream: Almost always Straining: Not at all Nocturia: 2 times Total AUA score: 14 Quality of life due to urinary symptoms Rate current urinary condition: Mostly dissatisfied HINA Survey Confidence to get and keep an erection?: Moderate Sexual stimulation - how often erections hard enough for penetration?: Most times (much more than half the time) How often maintain erection after penetration?: Most times (much more than half the time) Difficulty to maintain erection to intercourse completion?: Slightly difficult [place] satisfactory for you?: Most times (much more than half the time) Total HINA score: 19 Pertinent PMH: HTN, varicose veins Pertinent PSH: per above Pertinent medications: none Pertinent SHx: former smoker, quit 15 years ago (30+ pack years) Pertinent FHx: maternal lung cancer (smoker), paternal bladder cancer (smoker), sister breast cancer Objective Physical Exam: Ht 1.829 m (6') BMI 27.79 kg/m Smoking Status Former No acute distress Alert and oriented Expected work of breathing Circumcised phallus without lesion/plaque. Bilaterally descended testes of normal volume/contour/consistency. Patent, orthotopic urethral meatus without discharge. Passage of 18 Fr red rubber catheter per urethra with resistance in the bulbar urethra Labs / Imaging / Other studies: After the patient voided today, an ultrasound probe was used to measure residual urine. PVR: 208 cc I personally interpreted the following imaging study: MR pelvis (date: 10/26/24). This study demonstrates a posterior bladder diverticulum with a narrow os. documented in this encounter [facility] 02-01-2025 Miscellaneous Notes Associated Problem(s): Bladder diverticulum We discussed that he has a bladder diverticulum on his recent MRI and that it may be contributing to his LUTS. We discussed that we need to evaluate and manage his urethral stricture and gross hematuria before considering bladder diverticulum treatment. I explained that surgical treatment of bladder diverticulum is indicated when there are bothersome symptoms or recurrent UTIs. documented in this encounter [facility] 01-09-2025 History of Presen t illness Narrative 01/09/2025 64 y.o. male with a hx of adenocarcinoma of the prostate who is now here for evaluation. This consult was requested by Dr. Gregg Galloway for an opinion regarding adenocarcinoma of the prostate in [facility], and my final recommendations will be communicated to the requesting health care provider by way of the shared medical record for internal providers or letter via the [employer] for external providers. Initially presented with elevated PSA in 2019. Outside PSAs: 01/24/20 3.91 09/16/24 7.19 10/09/24 6.150 with 18% free Outside MRI pelvis 10/26/24: 1. 2.1 cm PI-RADS 5 lesion centered in the LEFT posterior and anterior peripheral zone far base extending inferiorly to the level of the midgland. (Lesion 1: Centered in the LEFT posterior and anterior peripheral zone far base and extending inferiorly into the mid posterolateral peripheral zone and mid anterior peripheral zones, 2.1 cm (series 12 image 10-15).) 2. Questionable subtle overlying broad-based capsular bulging [...] pelvic lymphadenopathy. 4. Additional description as above. (Prostate size: 4.5 x 3.1 x 3.8 cm, estimated volume 27.6 mL.) (Bladder: 5.7 cm diverticulum along the posterior midline. ) Outside PNBx by Dr. Murali Main on 10/31/24. Pathology revealed adenocarcinoma of the prostate Grade Group 1 involving two of three cores (45%) of the left mid, two of two cores (70%) of the left base. Atypical small acinar proliferation was noted in the left apex. The right apex, right mid, right base, biopsies revealed benign tissue. TRUS size not known but outside MRI prostate size was 28cc with PSA density 0.22. 07/16 biopsies were positive. Outside creatinines: 09/16/24 0.94 Outside Hgbs: 09/16/24 14.8 He has discussed treatment options with Dr. Main and he is now here to further discuss treatment options. Voiding sxs: current meds for prostate, bladder. diurnal frequency q 2-3 hrs, noct x 2, urgency: only at night urge incontinence: none stress incontinence: none pads per day: none dysuria: none hematuria: reports gross hematuria 03/2024, was evaluated in ED in [place]. Denies any recent cystoscopies. stream: fair hesitancy: none intermittent stream: none post-void dribbling: yes incomplete emptying: none urinary retention: none UTIs: none prostatitis: none nephrolithiasis: none STDs: none erections: fair ejaculation: normal libido: normal intercourse per month: x0 Past Medical History[1] BPH Urethral stricture 2009, dilated with sounds, feels sxs recurring HTN, varicose veins Denies any history of coronary artery disease, diabetes mellitus, peptic ulcer disease, tuberculosis, cerebrovascular accident, hepatic disease, pulmonary disease, renal disease. Past Surgical History[2] Allergies as of 01/09/2025 (No Known Allergies) Current Medications[3] Family History: Family History Problem Relation Age of Onset Lung Cancer Mother Cancer- Other Father Bladder cancer Breast Cancer Sister Mother at age 84 of lung cancer. Hx cardiac issues. Father at age 82 of complications of CABG and MRSA infection. Hx bladder cancer, diagnosed in his 50's, s/p cystectomy, KP of bladder cancer at . Sister hx breast cancer, diagnosed in her 40's, alive at age 58 KP of breast cancer. Denies any family history of prostate cancer, other bladder cancer, other breast cancer, VTE disease, other cancers, other diseases. 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 Denies any work in the manufacturing of paints or dyes. Habits: Social History Tobacco Use Smoking status: Former Current packs/day: 0.00 Average packs/day: 1 pack/day for 31.0 years (31.0 ttl pk-yrs) Types: Cigarettes Start date: 1983 Quit date: 2015 Years since quittin.8 Smokeless tobacco: Never Substance Use Topics Alcohol use: Yes Comment: 2-3 shots vodka daily Started smoking cigarettes around the age of 22, 1 PPD. IVDA: denies Review of systems: All other systems negative Denies any fevers, chills, nausea, vomiting, chest pain, shortness of breath, easy bruising or bleeding, weight loss, night sweats, malaise, new bone pain, hematochezia, melana, diarrhea, polydipsia, cough, neurological symptoms, focal weakness, new visual problems, dysphagia, rashes. Jennifer COONEY performed portions of patient history, past medical history, family history, social history, ROS. Later obtained, reviewed and also modified by Dr. Zazueta. 6'0 204 Physical examination: general: well developed well nourished male in no apparent distress. vitals: Blood pressure 143/77, pulse 74, height 1.829 m (6'), weight 92.9 kg (204 lb 14.4 oz), SpO2 98%. Body mass index is 27.79 kg/m . HEENT: wnl neck: supple, no lymphadenopathy back: no costovertebral angle tenderness or vertebral tenderness to fist percussion CV: No JVD or bruits abd: soft, non-tender, no organomegaly or palpable mass : no inguinal adenopathy, no inguinal hernias; nl circ phallus, meatus wnl; testis descended bilaterally without mass or tenderness; spermatic cords within normal limits AUSTIN: nl sphincter tone, 30gm prostate without nodules Ext: no cyanosis, clubbing or edema Neuro: nonfocal Assessment and Plan: 64 y.o. male with hx of hypertension, former smoker, hyperlipidemia, varicose veins. Also hx urethral stricture disease, s/p urethral dilation 2009. Also hx bladder diverticulum. Now with a hx of adenocarcinoma of the prostate dxd 10/31/2425 Grade Group 1 involving two of three cores (45%) of the left mid, involving two of two cores (70%) of the left base, PSA 6.2, unknown clinical stage, TRUS size not known but outside MRI prostate size was 28cc with PSA density 0.22, 2/12 biopsies were positive outside MRI prostate 10/26/24: 2.1cm PI-RADS 5 lesion left base posterior/anterior peripheral with abutment if the capsule with bulging, abutment of the left neurovascular bundle and seminal vesicle. We discussed treatment options of surgery, brachytherapy, external beam radiation therapy, active surveillance, and androgen deprivation therapy. Given his apparent clinical stage, age and co-morbidities, we have recommended some form of definitive therapy, specifically surgery (radical prostatectomy vs cryotherapy vs HIFU therapy) vs. brachytherapy vs external beam radiation therapy vs high dose radiation therapy with or without neoadjuvant androgen deprivation therapy. He is also a candidate to consider active surveillance. With regards to surgery, we feel he is a candidate for robot assisted radical prostatectomy with bilateral extended pelvic lymph node dissection. We discussed the technical aspects of this procedure as well as the risks, benefits and alternatives, which include but are not limited to the following: bleeding, infection, pain, deep vein thrombosis, pulmonary embolus, myocardial infarction, cerebro-vascular accident, , potential injury to adjacent organs including the intestine, great vessels, ureters, bladder, nerves, rectum with potential risk of colostomy, potential need for re-operation for bleeding, infection, bowel obstruction, hernia, wound dehiscence, lymphocele, potential for renal failure, impotence, penile shortening, incontinence, bladder neck contracture, chronic urinary leak/fistula, chronic LE or penoscrotal edema, unresectability, potential conversion to open procedure. The patient is also aware that there may be no residual carcinoma in the specimen. We also discussed the risk of cancer recurrence and potential need for additional therapy. We also discussed the fact that if this patient elected surgical therapy here, that we would operate as a team with involvement of myself as the primary surgeon, with possible assistance of our residents, or potentially a colleague if needed, but that I would be there for critical portions of the procedure. The patient understands the indications for the procedure as well as the planned procedure and the risks and benefits. Patient is interested in active surveillance (observation). We discussed the rationale of active surveillance with potential delayed therapy. We discussed with higher fraction of cores positive (>20%) and largest percent involvement of 70% is higher than general criteria of <50% and his predicted longevity is generally considered indication for proceeding with definitive therapy. Discussed active surveillance for apparent higher volume Grade Group 1 disease is performed in select patients. Discussed apparent higher volume Grade Group 1 disease has higher risk for disease progression and metastasis than lower volume Grade Group 1. We discussed risks of sampling error. Also discussed risks of potential false negative of stable PSA. Also discussed recent reports of MRI in the detection of prostate cancer. Due to the complex morphology of prostate cancer targeted biopsy of suspected prostate cancers may be useful. Discussed role of MRI in prostate cancer active surveillance is unclear. Discussed his outside prostate MRI revealed one very suspicious lesion and prostate biopsy of similar location revealed Grade Group 1 disease. Discussed risks of false negatives as well as false positives of prostate MRI as well as potential for sampling error of this very suspicious lesion. Discussed role of serial prostate MRI is unclear If he elects active surveillance, we recommend re-evaluation of the prostate with MRI fusion guided and saturation prostate biopsy in 6-12 months. If he elects active surveillance, we will follow-up with PSA every 3-6 months, AUSTIN every 6-12 months and planned follow-up re-biopsy of the prostate approximately every 1-2 years. We discussed general criteria to stop active surveillance (and proceed to definitive therapy) to include PSA doubling time <3 years, increase in Grade Group (Konawa grade), increase in apparent volume of cancer, increased/worsening AUSTIN, increased anxiety about prostate cancer. The patient is aware that he may be harboring more aggressive/invasive prostate malignancy that may continue to proliferate and metastasize despite close observation. He is thus also aware that the cancer may progress beyond a curable state despite delayed therapy. The patient elects active surveillance. All questions were answered satisfactorily for the patient. Plan: 1. The pt will think about scheduling robot assisted radical prostatectomy with robot assisted bilateral extended pelvic lymph node dissection in the near future. Pre-operative laboratory testing will be done at the anesthesia pre-operative visit if he elects surgical therapy here. The R/B/A/P/C were all discussed with the patient. Surveillance for now PSA, CMP, CBC today. Of note, today's PSA was 6.49 Outside PSA in 3 months RTC for telehealth visit in 3 months. The patient will return sooner if he develops any concerning or worsening symptoms. Will need outside pathology slides for review here. Refer to reconstructive urology for urethral stricture disease, gross hematuria, bladder diverticulum Attending note: I have independently interviewed and examined the pt today and formulated the medical decision making. I provided a substantive portion of the care for the patient. I agree with the above history, physical examination, assessment and plan. I have edited and modified the entire encounter documented above. Eric Zazueta MD, PhD Cc: Gregg Galloway DO [1] Past Medical History: Diagnosis Date Essential hypertension, benign Hyperlipidemia Knee pain, left Phlebitis Prostate cancer Adenocarcinoma Thrombophlebitis [2] Past Surgical History: Procedure Laterality Date INJECTION FOR ARTHROGRAPHY KNEE 12/26/2024 Steroid injection VEIN STRIPPING 2012 [3] Current Outpatient Medications Medication Sig Dispense Refill losartan-hydrochlorothiazide 50-12.5 MG tablet Rosuvastatin 10 MG tablet Take 1 tablet by mouth at bedtime. No current facility-administered medications for this visit. [4] Social History Socioeconomic History Marital status: Number of children: 0 Tobacco Use Smoking status: Former Current packs/day: 0.00 Average packs/day: 1 pack/day for 31.0 years (31.0 ttl pk-yrs) Types: Cigarettes Start date: 1983 Quit date: 2014 Years since quittin.8 Smokeless tobacco: Never Vaping Use Vaping status: Never Used Substance and Sexual Activity Alcohol use: Yes Comment: 2-3 shots vodka daily Drug use: Never Social Drivers of Health Financial Resource Strain: Low Risk (01/05/2025) Overall Financial Resource Strain (CARDIA) Difficulty of Paying Living Expenses: Not hard at all Food Insecurity: No Food Insecurity (01/05/2025) NCSS - Food Insecurity Worried About Running Out of Food in the Last Year: No Ran Out of Food in the Last Year: No Transportation Needs: No Transportation Needs (01/05/2025) NCSS - Transportation Lack of Transportation: No Personal Safety: Not At Risk (01/05/2025) NCSS - Interpersonal Safety Feels Physically and Emotionally Safe: Yes Physically Hurt by Someone: No Humiliated or Emotionally Abused by Someone: No Housing Stability: Not At Risk (01/05/2025) NCSS - Housing/Utilities Has Housing: Yes Worried About Losing Housing: No Unable to Get Utilities: No documented in this encounter [facility] 12-23-2024 Telephone encounter Note Received Referral from: Oncologist or Physician: Name: Gregg Yoder DO Phone number: [phone] Location: [place] Diagnosis/Reason for Referral: Prostate Ca Records requested from: C. Records attached to Referral: Y Demographics Provided in Referral: Y Insurance Provided in Referral: N Referral information Sent to: a. Department name/Provider Requested: Surg Onc bFrancine Faxed (include number): [phone] [facility] 12-23-2024 Miscellaneous Notes Received Referral from: Oncologist or Physician: Name: Gregg Yoder DO Phone number: [phone] Location: [place] Diagnosis/Reason for Referral: Prostate Ca Records requested from: C. Records attached to Referral: Y Demographics Provided in Referral: Y Insurance Provided in Referral: N Referral information Sent to: a. Department name/Provider Requested: Surg Onc b. Faxed (include number): [phone] documented in this encounter [facility] 12-22-2024 Radiology Diagnostic study note [facility] Imaging Services [address] [place] [address] Knee 4 or More Views MR#: [id number] Acct: [id number] Name: TRISTAN ZARCO Rep #: [id number] : 1960 M 64 From: Jeff Cosby MD PCP: Dr. Gregg Yoder DO Status: REG CLI Study:Knee 4 or More Views Date of Exam: 12/20/24 Exam# [id number] Ordering Dr: Gregg Yoder DO PROCEDURE: KNEE 4 OR MORE VIEWS 12/20/2024 REASON FOR EXAM: R KNEE PAIN TECHNIQUE: Procedure Code: RADKN Modality: DX Procedure: KNEE 4 OR MORE VIEWS Right knee four views COMPARISON: None FINDINGS: There is no fracture or dislocation identified. The joint spaces are maintained. There is a visible joint effusion. Mineralization is normal. There is no visible atherosclerosis. RAD/Knee 4 or More Views IMPRESSION: There is a visible joint effusion. Reading Location: [facility] CC: Dr. Gregg Yoder DO ~ [employer]: Signed [facility] 11-22-2024 Progress note [facility] 11-22-2024 Progress note Note Date/Time November 22, 2024 2:48pm [facility] [address] [place] [address] OFFICE VISIT Date of Service: 11/22/24 1251 MR#: [id number] Acct: [id number] Name: TRISTAN ZARCO Rep #: [id number] : 1960 From: Raj chicas DO Age/Sex: 64/M [place] [facility] [place] Signed Intake Vital Signs 10/20/24 08:42 [...] use Referring Provider: Murali Main MD Diagnosis: Tristan Zarco is a 64 year-old male diagnosed [...] 10/31/2024: Patient completed prostate biopsy.? This demonstrated Dudley 3+3 adenocarcinoma involving about [...] diverticulum. He did have an episode in last year where he did place a [...] Cancer of prostate w/low recurrence risk (T1-2a, Konawa<7 & PSA<10): PLAN: Plan Assessment: Tristan Zarco is a 64 year-old male diagnosed [...] the neurovascular bundle. No adenopathy. 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 We did review thathe technically has low risk prostate cancer with a PSA of 7.19 and Konawa scoreof 3+3. We reviewed various treatment options [...] reviewed estimated risk of LN involvement/SVI using [facility] nomogram, it is 4% risk for LN [...] at any time. Raj Dueñas DO, MS Industrial Sociologist, Department of Radiation Oncology [facility] Coding Level of Care Code Off vis,new,level 5 Diagnoses Cancer of prostate w/low recurrence risk (T1-2a, Konawa<7 & PSA<10) C61 11/22/24 1448 <Electronically signed by Raj Dueñas DO> Date _ Raj Dueñas DO Cosigner Signature: Date (if applicable) CC: Dr. Jaiden Main MD; Dr. Gregg Yoder DO ~ [facility] [employer] Work Phone: 1(223) 869-529508-12-2025 Miscellaneous Notes* Telephone Encounter - Christa Mcnair - 11/15/2024 11:16 AM EDT Pt. Update 11.15.24-Gen. Surg. Web no call reassign [facility]t. [facility] encounter Note * Telephone Encounter - Christa Mcnair - 11/15/2024 11:16 AM EDT Pt. Update 11.15.24-Gen. Surg. Web no call reassign appt. [facility]07-17-2025 History and physical note [facility] Medical Records Department [address] [place] [address] History & Physical Exam 10/20/24 1118 MR#: [id number] Acct: [id number] Name: TRISTAN ZARCO Rep #:[id number] : 1960 64 From: Wiliam Leung MD PCP: Dr. Gregg Yoder, DO Status:[facility] Location: [facility] HPI - General HPI [...] 1120 Cosigner Signature (if applicable): CC: Dr. Wiliam Leung MD; Dr. Gregg Yoder DO~ Signed [facility]07-17-2025 [facility] Medical Records Department [address] [place] [address] History Physical Exam 10/20/24 1118 MR#: [id number] Acct: [id number] Name: TRISTAN ZARCO Rep #: [id number] : 1960 64 From: Wiliam Leung MD PCP: Dr. Gregg Yoder DO Status:[facility] Location: [facility] HPI - General HPI [...] 1120 Cosigner Signature (if applicable): CC: Dr. Wiliam Leung MD; Dr. Gregg Yoder, [facility]07-17-2025 Evaluation note* Diagnosis Onset Date Resolution Status Admit Date Varicose veins of bilateral lower extremities with pain acute October 20, 2024 8:31am Varicose veins of bilateral lower extremities with pain acute 2024 8:38am Cancer of prostate w/low recurrence risk (T1-2a, Konawa<7 & PSA<10) acute November 22, 2024 12:47pm [facility] Work Phone: 1(877) 510-139405-28-2025 Evaluation note* Diagnosis Onset Date Resolution Status Admit Date Varicose veins of bilateral lower extremities with pain acute August 31, 2024 8:18am Venous insufficiency acute August 31, 2024 8:18am Varicose veins of bilateral lower extremities with pain acute October 20, 2024 8:31am Varicose veins of bilateral lower extremities with pain acute 2024 8:38am Cancer of prostate w/low recurrence risk (T1-2a, Konawa<7 & PSA<10) acute November 22, 2024 12:47pm [facility] Work Phone: 1(878) 582-769604-16-2025 Evaluation note* Diagnosis Onset Date Resolution Status Admit Date Varicose veins of bilateral lower extremities with pain acute Apri l 2024 10:47am Venous insufficiency acute Apri l 2024 10:47am [facility] Work Phone: 1(971) 990-392604-16-2025 Evaluation note* Diagnosis Onset Date Resolution Status Admit Date Varicose veins of bilateral lower extremities with pain acute Apri l 2024 10:47am Venous insufficiency acute Apri l 2024 10:47am Varicose veins of bilateral lower extremities with pain acute August 31, 2024 8:18am Venous insufficiency acute August 31, 2024 8:18am [facility] Work Phone: 1(997) 869-669304-16-2025 Evaluation note* Diagnosis Onset Date Resolution Status Admit Date Varicose veins of bilateral lower extremities with pain acute Apri l 2024 10:47am Venous insufficiency acute Apri l 2024 10:47am Varicose veins of bilateral lower extremities with pain acute August 31, 2024 8:18am Venous insufficiency acute August 31, 2024 8:18am Varicose veins of bilateral lower extremities with pain acute October 20, 2024 8:31am [facility] Work Phone: 1(898) 423-771704-16-2025 Evaluation note* Diagnosis Onset Date Resolution Status [...] lower extremities with pain acute 2024 8:38am [facility] Work Phone: Evaluation noteNo assessment information available [facility] Work Phone: Evaluation note* Diagnosis Malignant neoplasm of prostate- Primary Former smoker Personal history of tobacco use, presenting hazards to health History of hematuria Personal history of other disorder of urinary system Stricture of male urethra, unspecified stricture type Bladder diverticulum Diverticulum of bladder Essential hypertension Unspecified essential hypertension Varicose veins of both lower extremities, unspecified whether complicated [facility] History of urethral stricture- Primary Personal history of other disorder of urinary system Hematuria, gross Gross hematuria Bladder diverticulum Diverticulum of bladder Incomplete bladder emptying [facility] Author Wiliam Leung [facility] Note Date/Time October 20, 2024 11:2 0am [facility] Medical Records Department [address] [place] [address] History & Physical Exam 10/20/24 1118 MR#: [id number] Acct: [id number] Name: TRISTAN ZARCO Rep #:[id number] : 1960 64 From: Wiliam Leung MD PCP: Dr. Gregg Yoder, DO [place] [facility] [place] [facility] HPI - General HPI Narrative TRISTAN ZARCO, is a 64 M who presents with recurrent LLE painful varicose veins refractory to compression. He has had prior GSV ablation and SSV ablation. [facility] Medical History no medical history Home Medications [...] foam sclero 10/20/24 1120 <Electronically signed by Wiliam Leung MD> Cosigner Signature (if applicable): CC: Dr. Wiliam Leung MD; Dr. Gregg Yoder, DO~ Signed [facility] Work Phone: Reason for referral (narrative)No reason for referral information availableWMag[facility] Work Phone: Chief Complaint and Reason [...] Dudley<7 & PSA<10) November 22, 2024 12:47pm Chief Complaint Admit Date FASTING September 16, 2024 3:01 pm Varicose [...] 8am Consult November 22, 2024 12 :47pm CAD December 20, 2024 6:37am Coronary artery disease December 21, 2024 5:20pm Reason for Visit Admit Date Varicose veins of bilateral lower extrem ities with pain October 20, 2024 8:31am Varicose veins of bilateral lower extrem ities with pain November 04, 2024 8:38am Cancer of prostate w/low rec urrence risk (T1-2a, Konawa<7 & PSA<10) November 22, 2024 12:47pm Advance Directives No Advanced Directives Records Found Advance Directive Response Recorded Date/ Time Advance Directives No March 8:07am Living Will No March 18, 2 013 8:07am Power of Lead Accountant No March 18, 2013 8:07am Advance Directive Response Recorded Date/ Time Advance Directives No March 9:07am Advance Directive Response Recorded Date/ Time Advance Directives on File No October 20, 2024 8:42am Living Will No October 20, 2024 8:42am Do you have a Healthcare Power of Lead Accountant? No October 20, 2024 8:42am Advance Directives [...] Status: Active Member Role Status Dates Dr. Gregg Yoder DO Family Provider Active Dr. Gregg Yoder DO Primary Care Provider Active Team Status: Inactive Member Role Status Dates Dr. Gregg Yoder DO Primary Care Prov ider, Attending Provider, Referring Provider Active Team Status: Active Member Role Status Dates Dr. Gregg Yoder DO Primary Care Provider Active Team Status: Inactive Member Role Status Dates Dr. Gregg Yoder DO Primary Care Provider Active Start: July 20, 2024 End: July 20, 2024 Dr. Gregg Yoder DO Referring Provider Active Start: July 20, 2024 End: July 20, 2024 BELEN Marin Attending Provider Active Star t: July 20, 2024 End: July 20, 2024 Team Status: Inactive Member Role Status Dates Dr. Gregg Yoder DO Primary Care Provider Active Start: August 15, 2024 End: August 15, 2024 BELEN Marin Attending Provider Active Star t: August 15, 2024 End: August 15, 2024 BELEN Marin Referring Provider Active Star t: August 15, 2024 End: August 15, 2024 Team Status: Active Member Role Status Dates Dr. Gregg Yoder DO Primary Care Provider Active Start: August 15, 2024 Dr. Wiliam Leung MD Attending Provider Active S tart: August 15, 2024 Team Status: Active Member Role Status Dates Dr. Gregg Yoder DO Primary Care Provider Active Start: August 15, 2024 Dr. Wiliam Leung MD Attending Provider Active S tart: August 15, 2024 BELEN Marin Referring Provider Active Star t: August 15, 2024 Team Status: Inactive Member Role Status Dates Dr. Gregg Yoder DO Primary Care Provider Active Start: August 31, 2024 End: August 31, 2024 Dr. Gregg Yoder DO Referring Provider Active Start: August 31, 2024 End: August 31, 2024 BELEN Marin Attending Provider Active Star t: August 31, 2024 End: August 31, 2024 Team Status: Inactive Member Role Status Dates Dr. Gregg Yoder DO Primary Care Provider Active Start: September 16, 2024 End: September 16, 2024 Dr. Gregg Yoder DO Attending Provider Active Start: September 16, 2024 End: September 16, 2024 Dr. Gregg Yoder DO Referring Provider Active Start: September 16, 2024 End: September 16, 2024 Team Status: Active Member Role/Relationship Status Dates Dr. Gregg Yoder DO Primary Care Provider Active Team Status: Inactive Member Role/Relationship Status Dates Dr. Gregg Yoder DO Primary Care Provider Active Start: July 20, 2024 End: July 20, 2024 Dr. Gregg Yoder DO Referring Provider Active Start: July 20, 2024 End: July 20, 2024 BELEN Marin Attending Provider Active Star t: July 20, 2024 End: July 20, 2024 Team Status: Inactive Member Role/Relationship Status Dates Dr. Gregg Yoder DO Primary Care Provider Active Start: August 15, 2024 End: August 15, 2024 BELEN Marin Attending Provider Active Star t: August 15, 2024 End: August 15, 2024 BELEN Marin Referring Provider Active Star t: August 15, 2024 End: August 15, 2024 Team Status: Active Member Role/Relationship Status Dates Dr. Gregg Yoder DO Primary Care Provider Active Start: August 15, 2024 Dr. Wiliam Leung MD Attending Provider Active S tart: August 15, 2024 BELEN Marin Referring Provider Active Star t: August 15, 2024 Team Status: Inactive Member Role/Relationship Status Dates Dr. Gregg Yoder DO Primary Care Provider Active Start: August 31, 2024 End: August 31, 2024 Dr. Gregg Yoder DO Referring Provider Active Start: August 31, 2024 End: August 31, 2024 BELEN Marin Attending Provider Active Star t: August 31, 2024 End: August 31, 2024 Team Status: Inactive Member Role/Relationship Status Dates Dr. Gregg Yoder DO Primary Care Provider Active Start: September 16, 2024 End: September 16, 2024 Dr. Gregg Yoder DO Attending Provider Active Start: September 16, 2024 End: September 16, 2024 Dr. Gregg Yoder DO Referring Provider Active Start: September 16, 2024 End: September 16, 2024 Team Status: Inactive Member Role/Relationship Status Dates Dr. Gregg Yoder DO Primary Care Provider Active Start: October 06, 2024 End: October 06, 2024 Dr. Jaiden Main MD Attending Provider Active Start: October 06, 2024 End: October 06, 2024 Dr. Jaiden Main MD Referring Provider Active Start: October 06, 2024 End: October 06, 2024 Team Status: Inactive Member Role/Relationship Status Dates Dr. Gregg Yoder DO Primary Care Provider Active Start: October 20, 2024 End: October 20, 2024 Dr. Wiliam Leung MD Attending Provider Active S tart: October 20, 2024 End: October 20, 2024 Dr. Wiliam Leung MD Referring Provider Active S tart: October 20, 2024 End: October 20, 2024 Team Status: Active Member Role/Relationship Status Dates Dr. Gregg Yoder DO Primary Care Provider Active Start: October 20, 2024 Dr. Wiliam Leung MD Attending Provider Active S tart: October 20, 2024 Dr. Wiliam Leung MD Referring Provider Active S tart: October 20, 2024 Dr. Wiliam Leung MD Other Provider Active Start : October 20, 2024 Team Status: Active Member Role/Relationship Status Dates Dr. Gregg Yoder DO Primary Care Provider Active Start: October 25, 2024 Dr. Gregg Yoder DO Attending Provider Active Start: October 25, 2024 Dr. Gregg Yoder DO Referring Provider Active Start: October 25, 2024 Team Status: Inactive Member Role/Relationship Status Dates Dr. Gregg Yoder DO Primary Care Provider Active Start: October 25, 2024 End: October 25, 2024 Dr. Wiliam Leung MD Attending Provider Active S tart: October 25, 2024 End: October 25, 2024 Dr. Wiliam Leung MD Referring Provider Active S tart: October 25, 2024 End: October 25, 2024 Team Status: Active Member Role/Relationship Status Dates Dr. Gregg Yoder DO Primary Care Provider Active Start: October 25, 2024 Dr. Wiliam Leung MD Attending Provider Active S tart: October 25, 2024 Team Status: Active Member Role/Relationship Status Dates Dr. Gregg Yoder DO Primary Care Provider Active Start: October 26, 2024 Dr. Jaiden Main MD Attending Provider Active Start: October 26, 2024 Dr. Jaiden Main MD Referring Provider Active Start: October 26, 2024 Team Status: Inactive Member Role/Relationship Status Dates Dr. Gregg Yoder DO Primary Care Provider Active Start: October 26, 2024 End: October 26, 2024 Dr. Jaiden Main MD Attending Provider Active Start: October 26, 2024 End: October 26, 2024 Dr. Jaiden Main MD Referring Provider Active Start: October 26, 2024 End: October 26, 2024 Team Status: Active Member Role/Relationship Status Dates Dr. Gregg Yoder DO Primary Care Provider Active Start: October 31, 2024 Dr. Gregg Yoder DO Attending Provider Active Start: October 31, 2024 Dr. Gregg Yoder DO Referring Provider Active Start: October 31, 2024 Team Status: Active Member Role/Relationship Status Dates Dr. Gregg Yoder DO Primary Care Provider Active Start: October 25, 2024 Dr. Gregg Yoder DO Referring Provider Active Start: October 25, 2024 Dr. Timmy Garzon MD Attending Provider Active S tart: October 25, 2024 Team Status: Active Member Role/Relationship Status Dates Dr. Gregg Yoder DO Primary Care Provider Active Start: October 25, 2024 Dr. Wiliam Leung MD Attending Provider Active S tart: October 25, 2024 Team Status: Inactive Member Role/Relationship Status Dates Dr. Gregg Yoder DO Primary Care Provider Active Start: October 26, 2024 End: October 26, 2024 Dr. Jaiden Main MD Attending Provider Active Start: October 26, 2024 End: October 26, 2024 Dr. Jaiden Main MD Referring Provider Active Start: October 26, 2024 End: October 26, 2024 Team Status: Active Member Role/Relationship Status Dates Dr. Gregg Yoder DO Primary Care Provider Active Start: October 31, 2024 Dr. Gregg Yoder DO Attending Provider Active Start: October 31, 2024 Dr. Gregg Yoder DO Referring Provider Active Start: October 31, 2024 Team Status: Inactive Member Role/Relationship Status Dates Dr. Gregg Yoder DO Primary Care Provider Active Start: November 04, 2024 End: November 04, 2024 Dr. Gregg Yoder DO Referring Provider Active Start: November 04, 2024 End: November 04, 2024 BELEN Marin Attending Provider Active Star t: November 04, 2024 End: November 04, 2024 Team Status: Inactive Member Role/Relationship Status Dates Dr. Gregg Yoder DO Primary Care Provider Active Start: October 31, 2024 End: October 31, 2024 Dr. Gregg Yoder DO Attending Provider Active Start: October 31, 2024 End: October 31, 2024 Dr. Gregg Yoder DO Referring Provider Active Start: October 31, 2024 End: October 31, 2024 Team Status: Inactive Member Role/Relationship Status Dates Dr. Gregg Yoder DO Primary Care Provider Active Start: August 15, 2024 End: August 15, 2024 BELEN Marin Attending Provider Active Star t: August 15, 2024 End: August 15, 2024 BELEN Marin Referring Provider Active Star t: August 15, 2024 End: August 15, 2024 Team Status: Active Member Role/Relationship Status Dates Dr. Gregg Yoder DO Primary Care Provider Active Start: August 15, 2024 Dr. Wiliam Leung MD Attending Provider Active S tart: August 15, 2024 BELEN Marin Referring Provider Active Star t: August 15, 2024 Team Status: Inactive Member Role/Relationship Status Dates Dr. Gregg Yoder DO Primary Care Provider Active Start: August 31, 2024 End: August 31, 2024 Dr. Gregg Yoder DO Referring Provider Active Start: August 31, 2024 End: August 31, 2024 BELEN Marin Attending Provider Active Star t: August 31, 2024 End: August 31, 2024 Team Status: Inactive Member Role/Relationship Status Dates Dr. Gregg Yoder DO Primary Care Provider Active Start: September 16, 2024 End: September 16, 2024 Dr. Gregg Yoder DO Attending Provider Active Start: September 16, 2024 End: September 16, 2024 Dr. Gregg Yoder DO Referring Provider Active Start: September 16, 2024 End: September 16, 2024 Team Status: Inactive Member Role/Relationship Status Dates Dr. Gregg Yoder DO Primary Care Provider Active Start: October 06, 2024 End: October 06, 2024 Dr. Jaiden Main MD Attending Provider Active Start: October 06, 2024 End: October 06, 2024 Dr. Jaiden Main MD Referring Provider Active Start: October 06, 2024 End: October 06, 2024 Team Status: Inactive Member Role/Relationship Status Dates Dr. Gregg Yoder DO Primary Care Provider Active Start: October 20, 2024 End: October 20, 2024 Dr. Wiliam Leung MD Attending Provider Active S tart: October 20, 2024 End: October 20, 2024 Dr. Wiliam Leung MD Referring Provider Active S tart: October 20, 2024 End: October 20, 2024 Team Status: Active Member Role/Relationship Status Dates Dr. Gregg Yoder DO Primary Care Provider Active Start: October 20, 2024 Dr. Wiliam Leung MD Attending Provider Active S tart: October 20, 2024 Dr. Wiliam Leung MD Referring Provider Active S tart: October 20, 2024 Dr. Wiliam Leung MD Other Provider Active Start : October 20, 2024 Team Status: Active Member Role/Relationship Status Dates Dr. Gregg Yoder DO Primary Care Provider Active Start: October 25, 2024 Dr. Gregg Yoder DO Attending Provider Active Start: October 25, 2024 Dr. Gregg Yoder DO Referring Provider Active Start: October 25, 2024 Team Status: Inactive Member Role/Relationship Status Dates Dr. Gregg Yoder DO Primary Care Provider Active Start: October 25, 2024 End: October 25, 2024 Dr. Wiliam Leung MD Attending Provider Active S tart: October 25, 2024 End: October 25, 2024 Dr. Wiliam Leung MD Referring Provider Active S tart: October 25, 2024 End: October 25, 2024 Team Status: Active Member Role/Relationship Status Dates Dr. Gregg Yoder DO Primary Care Provider Active Start: October 25, 2024 Dr. Gregg Yoder DO Referring Provider Active Start: October 25, 2024 Dr. Timmy Garzon MD Attending Provider Active S tart: October 25, 2024 Team Status: Active Member Role/Relationship Status Dates Dr. Gregg Yoder DO Primary Care Provider Active Start: October 25, 2024 Dr. Wiliam Leung MD Attending Provider Active S tart: October 25, 2024 BELEN Marin Referring Provider Active Star t: October 25, 2024 Team Status: Inactive Member Role/Relationship Status Dates Dr. Gregg Yoder DO Primary Care Provider Active Start: October 31, 2024 End: October 31, 2024 Dr. Gregg Yoder DO Attending Provider Active Start: October 31, 2024 End: October 31, 2024 Dr. Gregg Yoder DO Referring Provider Active Start: October 31, 2024 End: October 31, 2024 Team Status: Inactive Member Role/Relationship Status Dates Dr. Gregg Yoder DO Primary Care Provider Active Start: November 04, 2024 End: November 04, 2024 Dr. Gregg Yoder DO Referring Provider Active Start: November 04, 2024 End: November 04, 2024 BELEN Marin Attending Provider Active Star t: November 04, 2024 End: November 04, 2024 Team Status: Inactive Member Role/Relationship Status Dates Dr. Gregg Yoder DO Primary Care Provider Active Start: November 22, 2024 End: November 22, 2024 Dr. Gregg Yoder DO Referring Provider Active Start: November 22, 2024 End: November 22, 2024 Dr. Raj Dueñas DO Attending Provider Active Start: November 22, 2024 End: November 22, 2024 Team Status: Active Member Role/Relationship Status Dates Dr. Gregg Yoder DO Primary care physician Active Team Status: Inactive Member Role/Relationship Status Dates Dr. Gregg Yoder DO Primary care physician Active Start: September 16, 2024 End: September 16, 2024 Dr. Gregg Yoder DO Attending physician Active Start: September 16, 2024 End: September 16, 2024 Dr. Gregg Yoder DO Referring Provider Active Start: September 16, 2024 End: September 16, 2024 Team Status: Inactive Member Role/Relationship Status Dates Dr. Gregg Yoder DO Primary care physician Active Start: October 06, 2024 End: October 06, 2024 Dr. Jaiden Main MD Attending physician Active Start: October 06, 2024 End: October 06, 2024 Dr. Jaiden Main MD Referring Provider Active Start: October 06, 2024 End: October 06, 2024 Team Status: Inactive Member Role/Relationship Status Dates Dr. Gregg Yoder DO Primary care physician Active Start: October 20, 2024 End: October 20, 2024 Dr. Wiliam Leung MD Attending physician Active Start: October 20, 2024 End: October 20, 2024 Dr. Wiliam Leung MD Referring Provider Active S tart: October 20, 2024 End: October 20, 2024 Team Status: Active Member Role/Relationship Status Dates Dr. Gregg Yoder DO Primary care physician Active Start: October 20, 2024 Dr. Wiliam Leung MD Attending physician Active Start: October 20, 2024 Dr. Wiliam Leung MD Referring Provider Active S tart: October 20, 2024 Dr. Wiliam Leung MD Nurse Practitioner Active S tart: October 20, 2024 Team Status: Active Member Role/Relationship Status Dates Dr. Gregg Yoder DO Primary care physician Active Start: October 25, 2024 Dr. Gregg Yoder DO Attending physician Active Start: October 25, 2024 Dr. Gregg Yoder DO Referring Provider Active Start: October 25, 2024 Team Status: Inactive Member Role/Relationship Status Dates Dr. Gregg Yoder DO Primary care physician Active Start: October 25, 2024 End: October 25, 2024 Dr. Wiliam Leung MD Attending physician Active Start: October 25, 2024 End: October 25, 2024 Dr. Wiliam Leung MD Referring Provider Active S tart: October 25, 2024 End: October 25, 2024 Team Status: Active Member Role/Relationship Status Dates Dr. Gregg Yoder DO Primary care physician Active Start: October 25, 2024 Dr. Gregg Yoder DO Referring Provider Active Start: October 25, 2024 Dr. Timmy Garzon MD Attending physician Active Start: October 25, 2024 Team Status: Active Member Role/Relationship Status Dates Dr. Gregg Yoder DO Primary care physician Active Start: October 25, 2024 Dr. Wiliam Leung MD Attending physician Active Start: October 25, 2024 BELEN Marin Referring Provider Active Star t: October 25, 2024 Team Status: Inactive Member Role/Relationship Status Dates Dr. Gregg Yoder DO Primary care physician Active Start: October 26, 2024 End: October 26, 2024 Dr. Jaiden Main MD Attending physician Active Start: October 26, 2024 End: October 26, 2024 Dr. Jaiden Main MD Referring Provider Active Start: October 26, 2024 End: October 26, 2024 Team Status: Inactive Member Role/Relationship Status Dates Dr. Gregg Yoder DO Primary care physician Active Start: October 31, 2024 End: October 31, 2024 Dr. Gregg Yoder DO Attending physician Active Start: October 31, 2024 End: October 31, 2024 Dr. Gregg Yoder DO Referring Provider Active Start: October 31, 2024 End: October 31, 2024 Team Status: Inactive Member Role/Relationship Status Dates Dr. Gregg Yoder DO Primary care physician Active Start: November 04, 2024 End: November 04, 2024 Dr. Gregg Yoder DO Referring Provider Active Start: November 04, 2024 End: November 04, 2024 BELEN Marin Attending physician Active Sta rt: November 04, 2024 End: November 04, 2024 Team Status: Inactive Member Role/Relationship Status Dates Dr. Gregg Yoder DO Primary care physician Active Start: November 22, 2024 End: November 22, 2024 Dr. Raj Dueñas DO Attending physician Active Start: November 22, 2024 End: November 22, 2024 Dr. Jaiden Main MD Referring Provider Active Start: November 22, 2024 End: November 22, 2024 Team Status: Inactive Member Role/Relationship Status Dates Dr. Gregg Yoder DO Primary care physician Active Start: December 20, 2024 End: December 20, 2024 Dr. Timmy Garzon MD Attending physician Active Start: December 20, 2024 End: December 20, 2024 Dr. Timmy Garzon MD Referring Provider Active S tart: December 20, 2024 End: December 20, 2024 Team Status: Active Member Role/Relationship Status Dates Dr. Gregg Yoder DO Primary care physician Active Start: December 21, 2024 Dr. Timmy Garzon MD Attending physician Active Start: December 21, 2024 Dr. Timmy Garzon MD Referring Provider Active S tart: December 21, 2024 Dr. Timmy Garzon MD Nurse Practitioner Active S tart: December 21, 2024 [employer] Relationship Specialty Start Date End Date Gregg Yoder DO [address] [facility] [place] [id number] PCP - General Family Medicine 01/09/25 Layla Aiken Patient Navigator 01/05/25 Goals (unrecognized section and content) Goals may [...] any alcohol or drug abuse patient.[facility] Reason for Visit (unrecogniz ed section and content) Reason Comments Appointment General Surgery Reason Onset Date Comments Referral 12/23/2024 Reason Comments New Patient adenocarcinoma of th e prostate Specialty Diagnoses / Procedures Referred By Contac t Referred To Contact Urology Diagnoses Prostate cancer RobinGregg del cid, DO [address] [place] [address] [place] [address] Phone: tel: fax: [facility] [address] [place] [address] Referral ID Status Reason Start Date Expiration Date V isits Requested Visits Authorized [id number] New Request 12/28/2024 01/22/2026 1 1 Reason Comments New Patient HX of urethral stric ture and hematuria (unrecognized sect ion and content) No Status Records FoundNo Status Records FoundNo Status Records Found INFORMATION SOURCE (unrecogn ized section and content) DATE CREATED AUTHOR 11/16/2024 [facility] DATE CREATED AUTHOR AUTHOR'S ORGANIZ ATION 02/03/[address] [facility] DATE CREATED AUTHOR AUTHOR'S ORGANIZ ATION 02/12/2025 [facility] FOR RECORDS PERTAINING TO PATIENTS WHO ARE [...] BE BASED ON THE PRIMARY CLINICAL RECORDS. [employer] provides no warranty or guarantee of the accuracy or completeness of information in this document.
--- NOTE | 2025-02-21 06:58 | CT_ITS ---
PROCEDURE: ABDOMEN/PELVIS WITH CONTRAST 02/21/2025 REASON FOR EXAM: GROSS HEMATURIA TECHNIQUE: Procedure Code: [id number] Modality: CT Procedure: ABDOMEN/PELVIS WITH CONTRAST Coronal and Sagittal reconstruction series were provided. CONTRAST: Isovue-300 VOLUME: 100 mL One or more dose reduction techniques were used (e.g., Automated exposure control, adjustment of the mA and/or kV according to patient size, use of iterative reconstruction technique. RADIATION DOSE SUMMARY: CTDlvol: 18.8 mGy DLP: 3287.01 mGycm COMPARISON: None FINDINGS: Lung bases: The lung bases are clear. Coronary artery calcification. Liver: Diffuse fatty infiltration. Gallbladder: Unremarkable Spleen: Normal size. Pancreas: Normal size without evidence of mass surrounding inflammation or ductal dilation. Adrenals: Unremarkable Kidneys: Normal renal sizes. No hydronephrosis. Bladder: The urinary bladder is distended. Mild degree of diffuse bladder wall thickening. There is evidence of a diverticulum arising from the posterior aspect of the base of the bladder. This diverticulum measures 5.2 cm by 3.1 cm. Mild enlargement of the prostate with scattered calcifications. Bowel: Colonic diverticulosis without diverticulitis. Appendix: Unremarkable Lymph nodes: Unremarkable. Vasculature: Mild diffuse atherosclerotic calcifications are noted. Peritoneum / Retroperitoneum: Small bilateral inguinal hernias containing fat more prominent on the left side. Bones: Degenerative changes of the spine. CT/Abdomen/Pelvis WITH Contrast IMPRESSION: Fatty infiltration of the liver. Sigmoid diverticulosis. The urinary bladder is distended. Mild degree of diffuse bladder wall thickeni ng. There is evidence of a 5.7 cm 3.1 cm bladder diverticulum arising from the post erior base of the bladder. Reading Location: [id number]
== END | disposition home or self-care (01) ==
LOC: CT 06:54
PROVIDERS: PCP Family Medicine
DX: R31.0 Gross hematuria (principal)
CPT/HCPCS: 74177; Q9967

== ENCOUNTER → 2025-04-03 | Outpatient (CLI) | payer BC, SELFPAY ==
[2025-04-03 12:04] LABS: PSA,Total - Annual Screen 6.87 ng/mL (0.02-4.00)
== END | disposition home or self-care (01) ==
LOC: LAB 09:37
PROVIDERS: PCP Family Medicine
DX: C61 Malignant neoplasm of prostate (principal); N35.819 Other urethral stricture, male, unspecified site
CPT/HCPCS: 36415; 84153; 87077; 87086; 87088; 87186; G0103